=== PATIENT | female | born 1950 | race Caucasian/White ===

== ENCOUNTER 2019-09-05 18:06 | Inpatient (IN) | payer MEDICARE ==
[2019-09-05 21:20] LABS: ABS Lymphocytes 0.8 10^3/ul (1.0-4.8); ABS Neutrophils 19.1 10^3/ul (1.5-7.7); Hematocrit 30 % (35-47); Hemoglobin 9.9 g/dL (12.0-16.0); Lymphocyte % 3.9 %; Mean Corpuscular HGB Conc 33 g/dL (31-36); Mean Corpuscular Hemoglobin 29 pg (27-31); Mean Corpuscular Volume 87 fL (80-97); Mean Platelet Volume 8.5 fL (7.4-10.4); Platelet Count 198 10^3/uL (150-450); Red Blood Count 3.43 10^6 /uL (3.70-4.87); Red Cell Distribution Width 17 % (10-15)
[2019-09-05 21:30] LABS: Activated Partial Thrombo Time 27.3 seconds (26.0-38.0); INR 1.21 (0.82-1.09)
[2019-09-05] MEDS ORDERED: ZOSYN 3.375 GM x ONE DOSE over 30 miuntes IVPB ×2 (21:30)
[2019-09-05 21:32] LABS: Albumin 2.5 g/dL (3.2-5.2); Calcium 7.4 mg/dL (8.6-10.3); Potassium 3.1 mmol/L (3.5-5.0); Total Bilirubin 0.5 mg/dL (0.2-1.0)
[2019-09-05 21:38] LABS: BUN/Creatinine Ratio 10.9 (8-20); EGFR African American 59.9 (>60); EGFR Non-African American 49.5 (>60); Globulin 2.4 g/dL (2-4); Total Protein 4.9 g/dL (6.4-8.9)
[2019-09-05] MEDS ORDERED: Vancomycin(*) 1,250 MG IV x ONCE IVPB ONE ×2 (22:00)
[2019-09-05] MEDS ORDERED: Vancomycin per Pharmacy* NOTE FOLLOW UP SCH (22:00)
[2019-09-05] MEDS ORDERED: Zosyn per Pharmacy* NOTE FOLLOW UP SCH (22:00)
[2019-09-05] MEDS: HYDROmorphone INJ1* 1 MG/ML SYRINGE IV SLOW PU PRN (22:59)
[2019-09-06 00:49] LABS: Urine Appearance Turbid; Urine Bacteria Absent (Absent); Urine Bilirubin Negative (Negative); Urine Blood 2+ (Negative); Urine Color Yellow; Urine Glucose 1+(50 mg/dL) (Negative); Urine Ketones Trace (Negative); Urine Nitrite Negative (Negative); Urine Protein Negative (Negative); Urine Red Blood Cell 3+(>10/hpf) (Absent); Urine Specific Gravity 1.017 (1.010-1.030); Urine Squamous Epithelial Cell Present (Absent); Urine Uric Acid Crystals Present (Absent); Urine Urobilinogen Negative (Negative); Urine White Blood Cell 1+(6-10/hpf) (Absent)
[2019-09-06] MEDS: NS 0.9% 1000 ML** 1,000 ML IV SCH (00:53)
--- NOTE | 2019-09-06 01:38 | HP ---
CC: Shade Johnson DO * ADMISSION HISTORY AND PHYSICAL: DATE OF ADMISSION: 09/05/19 PRIMARY CARE PHYSICIAN: Shade Johnson DO CHIEF COMPLAINT: Altered mental status. HISTORY OF PRESENT ILLNESS: This is a 69-year-old female with past medical history of diabetes, type 2; essential hypertension; depression; anxiety; chronic back pain due to degenerative joint disease, on multiple doses of Dilaudid at home, was noted to be altered, so the took her to the ER at [facility] on Monday. The patient, on last Monday, according to the , was noted to be confused. Even prior to the Monday, she has not eaten or drank anything for 3 days. The only medication she took was her Dilaudid, which is 8 mg every 8 hours for her back pain and was confused even those 3 days , but she stopped talking on Monday completely and would not even recognize the at which point, he decided to bring her to the [facility] for further evaluation. History was obtained by talking to the on the phone and by reviewing the transfer summary from [facility]. According to the transfer summary, the patient presented with confusion, having a moderate amount of pain. CT of the head was negative and she was hemodynamically stable and afebrile, but her WBC was elevated and the UA was negative and no obvious source of infection was noted. She was initially started on Cipro and Flagyl, and CT of the abdomen and pelvis was performed, which did not show any definite abnormalities and CT of the head did not show any definite acute abnormalities either. Finally, an MRI of the thoracic and lumbar spine was done. There was no evidence of thoracic diskitis, but there was a disk herniation on T7 to T8 with left paracentral slightly impinging on the cord and the MRI of the lumbar spine suggested L2-L3 disk. It is essentially obliterated, but showed some slight enhancement of the adjacent endplates and fluid signal in the disk space compatible with diskitis, osteomyelitis, and this appears mild in its severity according to the read. Based on this read, the patient's case was discussed by the transferring physician for evaluation by a neurosurgeon as well. Her antibiotics were upgraded to vancomycin and Zosyn, and she was subsequently transferred here. Upon arrival here, the patient again was confuse, was only saying yes or no, was not answering any of the orientation questions. So, the rest of the history was obtained by talking to the and by reviewing old charts. PAST MEDICAL HISTORY: There is documentation of the patient having anemia; type 2 diabetes; depression; anxiety; essential hypertension; peptic ulcer disease; COPD, but not requiring any oxygen and according to the , hardly uses any inhaler; hypercholesterolemia. The patient does use large doses of diuretics due to leg swelling, but denied any congestive heart failure. PAST SURGICAL HISTORY: Include a gastric bypass surgery, which is a Angela-en-Y bypass surgery in 2013 at [facility], tubal ligation, EGD in 2016, spinal fusion surgery, neurostimulator implantation in her back which was later removed 2 years ago according to the . HOME MEDICATIONS: The patient is on metformin 1000 mg p.o. b.i.d., venlafaxine 37.5 orally daily, omeprazole 20 mg every morning, Zaroxolyn 5 mg oral daily, hydromorphone 8 mg q.8 hours p.r.n., gabapentin 600 mg p.o. t.i.d., and Bumex 2 mg p.o. daily. ALLERGIES: The patient is allergic to BETA-BLOCKERS, unknown reaction. FAMILY HISTORY: Noncontributory, although there is documentation that her mother had some cancer of unknown primary. SOCIAL HISTORY: She lives with her . She is a full code and her is the healthcare proxy. According to the , she quit smoking many years ago. REVIEW OF SYSTEMS: Unable to obtain. denied any previous nausea, vomiting, any abdominal pain that the patient was complaining about, any fever or chills prior to the 3 days of confusion. PHYSICAL EXAMINATION GENERAL: The patient is arousable, but again does not answer questions, but wakes up with verbal stimuli. VITAL SIGNS: Upon arrival to the hospital, BP was noted to be 139/81, heart rate was 90, respiration rate 16, saturating 100% on 4 L of nasal cannula, temperature was 97.9 temporally. HEENT: Bilateral pupils are reactive. Oral mucosa was dry. There was an NG tube placed, which the states is for feeding her and she has not eaten in many days. NECK: Supple. No jugular venous distention. LUNGS: Sound clear to auscultation bilaterally. HEART: S1 and S2. Regular rate and rhythm. ABDOMEN: Soft, nontender with even deep palpation. EXTREMITIES: The patient seems to be moving all 4 extremities and noted to have some tenderness. DIAGNOSTIC STUDIES/LABORATORY DATA: Upon reviewing old labs from [facility], the patient did have significant white count. Lactic acid was noted to be normal at 0.8. Most recent creatinine was noted to be 1.1. Random glucose was minimally elevated at 181 and white count was elevated at 23.3. Repeat labs at our current hospital are still pending. The imaging studies results were as already mentioned in the HPI. IMPRESSION: This is a 59-year-old female with multiple medical problems including type 2 diabetes, hypertension, chronic back pain, on multiple doses of pain medication, depression, anxiety, who came in for altered mental status, noted to have worsening back pain. MRI suggestive of diskitis and osteomyelitis. ASSESSMENT AND PLAN: 1. Sepsis secondary to diskitis. We will start the patient on vancomycin and Zosyn that was already started at [facility] and repeat a random vanco to dose appropriately. Pharmacy has been notified to adjust the dose as necessary. We will repeat all labs and start the patient on IV fluids. We will hold the diuretics for now that the patient was on and keep the patient n.p.o. and check fingerstick q.4 hours. We have already contacted Dr. Christie, who will evaluate the patient in the morning from neurosurgical point of view. 2. History of diabetes. As mentioned, we will keep the fingersticks checking to q.4 hours, but not start any of her oral hypoglycemics given the n.p.o. status. 3. History of essential hypertension. Hold the BP medications given her sepsis. We will check on her creatinine and see how the blood pressure monitors. 4. History of depression. Hold antidepressant medications. 5. History of chronic obstructive pulmonary disease, currently stable. 6. Code status. The patient is a full code with the , Rakesh Adams, being the healthcare proxy. 7. DVT prophylaxis with sequential compression device. Once the creatinine is back, we could consider Lovenox [id number]/[facility] #: [id number] [facility]
[2019-09-06] MEDS: KCL 10 MEQ/50 ML IVPREMIX* 10 MEQ/50 ML BAG IV SCH ×3 (03:29→09:34)
[2019-09-06 05:08] LABS: ABS Lymphocytes 1.1 10^3/ul (1.0-4.8); ABS Monocytes 0.8 10^3/ul (0-0.8); ABS Neutrophils 16.2 10^3/ul (1.5-7.7); Eosinophil % 0.2 %; Hematocrit 29 % (35-47); Hemoglobin 9.4 g/dL (12.0-16.0); Lymphocyte % 6.3 %; Mean Corpuscular HGB Conc 33 g/dL (31-36); Mean Corpuscular Hemoglobin 29 pg (27-31); Mean Corpuscular Volume 88 fL (80-97); Mean Platelet Volume 8.7 fL (7.4-10.4); Platelet Count 183 10^3/uL (150-450); Red Blood Count 3.28 10^6 /uL (3.70-4.87); Red Cell Distribution Width 17 % (10-15); White Blood Count 18.2 10^3/uL (3.5-10.8)
[2019-09-06 05:18] LABS: BUN/Creatinine Ratio 11.9 (8-20); Calcium 7.3 mg/dL (8.6-10.3); EGFR African American 66.2 (>60); EGFR Non-African American 54.7 (>60); Potassium 2.9 mmol/L (3.5-5.0)
[2019-09-06] MEDS ORDERED: ZOSYN 3.375 GM Q8H per EXTENDED INFUSION IVPB SCH ×2 (09:00)
[2019-09-06 10:18] LABS: Magnesium 1.6 mg/dL (1.9-2.7)
[2019-09-06] MEDS ORDERED: Magnesium Sulfate IV* 3 GM in NS 0.9% 100 ML* 100 ML IVPB ONE (11:00)
[2019-09-06 11:14] LABS: C Reactive Protein 145.54 mg/L (<8.01)
[2019-09-06] MEDS: Pantoprazole IV* 40 MG IV SCH (11:38)
[2019-09-06] MEDS ORDERED: cefTRIAXone(*) 2 GM in NS 0.9% 100 ML* 100 ML IVPB SCH (12:30)
[2019-09-06] MEDS: Vancomycin(*) 1,250 MG in NS 0.9% 250 ML* 250 ML IVPB SCH ×2 (13:33→22:48)
--- NOTE | 2019-09-06 13:35 | PN ---
Subjective Date of Service: 09/06/19 Interval History: Patient is becoming more alert and oriented today. Patient is able to recognize her family members and knows she is in the hospital, which is an improvement for her. Patient points to her epigastrum when asked about abdominal pain, but can't elaborate on the quality of the pain. Discussed with family, patient has been having chronic problems with intermittent severe abdominal pain, decreased memory and falls over the past several months. Family History: Unchanged from Admission Social History: Unchanged from Admission Past Medical History: Unchanged from Admission Objective Active Medications: Hydromorphone HCl (Dilaudid Inj1s*) 1 mg IV SLOW PU Q4H PRN PRN Reason: PAIN - SEVERE Sodium Chloride (Ns 0.9% 1000 Ml) 1,000 mls @ 100 mls/hr IV PER [facility] Last Admin: 09/06/19 00:53 Dose: 100 mls/hr Vancomycin HCl 1,250 mg/ (Sodium Chloride) 250 mls @ 166.667 mls/hr IVPB Q12H [facility] Potassium Chloride (Potassium Chloride 20 Meq/100 Ml Ivpremix*) 20 meq in 100 mls @ 50 mls/hr IV Q2H [facility] Stop: 09/06/19 15:59 Ceftriaxone Sodium 2 gm/ (Sodium Chloride) 100 mls @ 200 mls/hr IVPB Q24H [facility] Pantoprazole Sodium (Protonix Iv*) 40 mg IV DAILY [facility] Last Admin: 09/06/19 11:38 Dose: 40 mg Pharmacy Consult (Vancomycin Per Pharmacy*) 1 note FOLLOW UP .VANC PER PHARMACY CORTES; Protocol Pharmacy Profile Note (Vancomycin Trough Check) 1 note FOLLOW UP 1030 ONE Stop: 09/07/19 10:31 Vital Signs - 8 hr 09/06/19 09/06/19 09/06/19 09:30 09:45 11:41 Temperature 97.5 F 98.1 F Pulse Rate 74 77 Respiratory 20 20 16 Rate Blood Pressure 122/69 121/72 (mmHg) O2 Sat by Pulse 99 100 Oximetry Oxygen Devices in Use Now: Nasal Cannula Appearance: Patient is a 69yo female who appears stated age and is sitting in the bed in NAD. Eyes: No Scleral Icterus, PERRLA Ears/Nose/Mouth/Throat: NL Teeth, Lips, Gums, Clear Oropharnyx, Mucous Membranes Moist Neck: NL Appearance and Movements; NL JVP, Trachea Midline Respiratory: Symmetrical Chest Expansion and Respiratory Effort, Clear to Auscultation Cardiovascular: NL Sounds; No Murmurs; No JVD, RRR, No Edema Abdominal: NL Sounds; No Tenderness; No Distention, No Hepatosplenomegaly Lymphatic: No Cervical Adenopathy Extremities: No Edema, No Clubbing, Cyanosis Skin: No Rash or Ulcers, No Nodules or Sclerosis Neurological: - - Alert, Oriented to self and place. Able to move all extremities, very limited exam. Result Diagrams: 09/06/19 04:43 09/06/19 04:43 Assess/Plan/Problems-Billing Assessment: Patient is a 69yo female with a PMH for chronic back pain, intermittent abdominal pain and new severe encephalopathy with discitis who is improving on antibiotics and supportive care. - Patient Problems (1) Encephalopathy Current Visit: Yes Status: Acute Code(s): G93.40 - ENCEPHALOPATHY, UNSPECIFIED SNOMED Code(s): 21515791 Comment: - Severe, unclear cause - Possibly from accumulation of very high doses of narcotics due to dehydration - Possible also septic encephalopathy from spinal infection - Check MRI brain due to chronic nature of deficits and possibility of brain abscess - Improving, avoid sedatives if possible (2) Discitis Current Visit: Yes Status: Acute Code(s): M46.40 - DISCITIS, UNSPECIFIED, SITE UNSPECIFIED SNOMED Code(s): 0980371 Comment: - Unclear chronicity - Appreciate Neurosurgery and ID consult. - Continue Vanco and Cefepime - BC negative so far from [place] - Unclear source, limited utility in biopsy and not insignificant risk - Plan currently for skilled nursing antibiotics. (3) Chronic pain Current Visit: Yes Status: Acute Code(s): G89.29 - OTHER CHRONIC PAIN SNOMED Code(s): 92572338 Comment: - On very high doses of narcotics outpatient - PRN dilaudid inpatient - Reintroduce as needed (4) Falls Current Visit: Yes Status: Acute Comment: - Worsening over months. MRI brain scheduled per outpatient neurologist - Testing for secondary causes of neuropathy relatively normal - Possibly due to narcotics - PT when able. (5) DM II (diabetes mellitus, type II), controlled Current Visit: Yes Status: Acute Code(s): E11.9 - TYPE 2 DIABETES MELLITUS WITHOUT COMPLICATIONS SNOMED Code(s): 65240582 Comment: - Very poor oral intake, hold insulin at this time - Start SSI and add basal insulin when mental state improves. (6) DVT prophylaxis Current Visit: Yes Status: Acute Code(s): Z29.9 - ENCOUNTER FOR PROPHYLACTIC MEASURES, UNSPECIFIED SNOMED Code(s): 204059800 Comment: - Lovenox SubQ (7) Full code status Current Visit: Yes Status: Acute Code(s): Z78.9 - OTHER SPECIFIED HEALTH STATUS SNOMED Code(s): 946697220 Status and Disposition: Inpatient, will need skilled nursing antibiotics.
[2019-09-06] MEDS: KCL 20 MEQ/100 ML IVPREMIX* 20 MEQ/100 ML BAG IV SCH ×4 (13:38→19:55)
--- NOTE | 2019-09-06 13:44 | CONS ---
CONSULTATION REPORT: DATE OF CONSULT: 09/06/19 REQUESTING PROVIDER: JULES Stern. CONSULTING SERVICE: Infectious Disease. REASON FOR CONSULT: Spine infection. IMPRESSION: 1. Encephalopathy, present on admission here and at [facility], slowly improving, likely due to infectious etiology. 2. Vertebral osteodiscitis of the lumbar spine, MRI at [facility] showed no osteodiscitis or epidural abscess of the thoracic spine. No epidural abscess of the lumbar spine, but at the L2-L3 disc it was essentially obliterated with mild enhancement of adjacent end plates of the vertebral bodies and fluid signal in disc space compatible with vertebral osteodiscitis. Her blood cultures there have been negative. 3. Type 2 diabetes. 4. Chronic obstructive pulmonary disease. 5. History of lumbar spine fusion. 6. History of spine stimulator, which has been removed. RECOMMENDATION: Continue vancomycin goal trough 15 to 20 and change dosing the ceftriaxone for her component of gram negative coverage, we probably will not need the anaerobic component. She is going to be seen by Neurosurgery. Biopsy of this sort of abnormality is usually low yield microbiologically, so I do not think it is necessary. Because the infection does involve fusion hardware, she will likely be committed to life-long antibiotic suppression. HISTORY OF PRESENT ILLNESS: This is a 69-year-old woman admitted with encephalopathy. She cannot provide any history, which is obtained instead from review of the medical record and discussion with JULES Stern, and the patient's family including her . He notes that she has chronic low back pain for which she takes Dilaudid, but about a week ago, developed malaise and anorexia, including not taking her medications except for Dilaudid and worsening mental status changes, so he brought her to [facility]. She had antibiotics and blood cultures, which have been negative, some abdominal imaging and then MRI of the spine as noted above. Because of the findings on the spine MRI, she was transferred here last night. She had a chest x-ray done that was unremarkable. She was started on vancomycin and Zosyn. She has had no fever here. She has been normotensive. This morning, she is little more awake , opening her eyes, and answering some basic questions, which is an improvement for her. She denies pain anywhere. According to her , she does not have prosthetic material present other than the lumbar spine fixation hardware. She has not had fever, chills, or sweats at home. She has been having a neurology evaluation for some mental status changes, which have been more subtle and longstanding. She was to have an MRI of the brain ordered by Dr. Castillo as an outpatient. PAST MEDICAL HISTORY: 1. Type 2 diabetes. 2. Depression. 3. Anxiety. 4. Hypertension. 5. Peptic ulcer disease. 6. COPD. 7. Hyperlipidemia. 8. Status post gastric bypass surgery, Angela-en-Y in 2013. 9. Status post tubal ligation. 10. Status post lumbar spine fusion in the distant past. 11. Status post spine stimulator placement and then removal about 2 years ago. MEDICATIONS: 1. Hydromorphone injection. 2. Pantoprazole IV daily. 3. Zosyn 3.375 g every 8 hours by extended infusion. 4. Vancomycin 1250 mg IV every 12 hours. ALLERGIES: BETA-LORI. FAMILY HISTORY: Mother had malignancy. SOCIAL HISTORY: She lives with her in [place]. She is a past smoker. No injection drugs. REVIEW OF SYSTEMS: Unobtainable given her current mental status. PHYSICAL EXAM: Vital Signs: Temperature 36.4, heart rate 74, respiratory rate 20, blood pressure 122/69, oxygen saturation 99% on 3 L by nasal cannula. In general, she is awake and not in distress. Neurologic: She regards. She answers questions yes or no. She will follow commands, but she is not oriented to person or place or time. Strength is 5/5 at the quadriceps, tibialis anterior, gastrocnemius bilaterally. There is no bilateral lower extremity clonus. HEENT: There is no conjunctival hemorrhage. Oropharynx without lesions. Mucous membranes are dry. Neck: Supple without mass. Heart is regular rate and rhythm without murmurs, rubs, or gallops. Lungs are clear to auscultation bilaterally. Abdomen is soft , nontender, nondistended. Bowel sounds are present. Skin: There are no rashes or splinter hemorrhages. Musculoskeletal: There is lumbar spine tenderness to palpation. DIAGNOSTIC STUDIES/LAB DATA: White blood cell count is 18, down from 21; hemoglobin 9; MCV 88; platelets 183. Creatinine is 1. CRP is 145. Random vancomycin is 9.9. Urinalysis showed blood, 1+ white cells, trace leukocyte esterase. Please see impressions and recommendations as outlined above. I discussed with JULES Stern. Thanks for asking me to see Bryan in consultation. [id number]/[facility] #: [id number] PHU
--- NOTE | 2019-09-06 14:43 | CONS ---
CONSULTATION REPORT: DATE OF CONSULT: 09/06/19 HISTORY OF PRESENT ILLNESS: is a 69-year-old female who was transferred from [place] on 09/05/19 to our facility. At that time, she was brought in by her who noticed that the patient became less responsive and less verbal. The patient has a history of low back pain and was prescribed Dilaudid 8 mg every 8 hours to control her back pain according to the H and P on file. The patient became less verbally responsive to her and became more confused. She completed imaging at [facility], which showed possible diskitis in the lumbar spine at L3, so Neurosurgery was consulted to evaluate the patient. The patient is a poor historian, only answers questions yes or no, cannot recall why she was being brought here or cannot elaborate on her pain symptoms. According to nursing, the patient has acute issues with bladder and bowel incontinence, but this is a new development. PAST MEDICAL HISTORY: Information from the chart indicates: 1. Type 2 diabetes. 2. Anxiety. 3. Hypertension. 4. Peptic ulcer. 5. COPD. 6. High cholesterol. PAST SURGICAL HISTORY: 1. Gastric bypass. 2. Tubal ligation. 3. EGD. 4. Spinal fusion. 5. Neurostimulator implantation, but was removed 2 years ago. MEDICATIONS: 1. Metformin 1000 mg b.i.d. 2. Omeprazole 20 mg every morning. 3. Zaroxolyn 5 mg daily. 4. Hydromorphone 8 mg q.8 hours. 5. Gabapentin 600 mg p.o. t.i.d. 6. Bumex 2 mg p.o. daily. 7. Venlafaxine 37.5 mg daily. PHYSICAL EXAM: Vital Signs: Blood pressure 121/72, pulse rate 77, temp is 98.1 , O2 saturation 100% on room air. General: The patient is lying in bed, asleep , does not appear to be under any acute distress, has nasal cannula in for oxygen, also nasogastric tube as well. Neuro: The patient opens her eyes to command. She is alert and oriented to her name and date and is unaware where she is and aware of the date and time. EOMs are intact. Cranial nerves II through XII grossly intact without impairment. Pupils are equal in size. Upper extremity motor strength 5/5 throughout. Lower extremity motor strength 5 /5 throughout. Moves all extremities. Sensation is intact throughout. No clonus. No Babinski. Deep tendon reflexes 2+/4 throughout. ASSESSMENT: A 69-year-old female with suspected diskitis with possible complaint of low back pain. The patient is unable to verbalize chief complaint. Has history of fusion from L3, L4, L5 and S1 with hardware in place as seen on x-ray done on 07/06/19. MRI completed 09/05/19. MRI shows moderate- to-severe degenerative changes, loss of disk height at L2-L3. There also appeared to be a spondylolisthesis at L3-L4 and some hyperintensity seen at endplate at L2-L3 possibly representing osteomyelitis. The patient also has elevated white count upon admission that appears to be trending down since starting on the vanco and Zosyn. Also has possible urinary tract infection as well. PLAN: I discussed this case with Dr. Christie, who recommends that the patient continue antibiotics, also the patient will possibly need a CT scan biopsy to verify osteomyelitis. Conservative treatment is recommended at this time. The patient will possibly need surgery in the future once infection is controlled. JULES SMITH [id number]/[facility] #: [id number] PHU
[2019-09-06] MEDS: Cyanocobalamin TAB* 500 MCG PO SCH (15:57)
[2019-09-06] MEDS: cefTRIAXone(*) 2 GM in NS 0.9% 100 ML* 100 ML IVPB SCH (16:58)
--- NOTE | 2019-09-06 18:16 | PN ---
Progress Note - Progress Note Date of Service: 09/06/19 SOAP: Subjective: []Patient seen and examined. No events ON. Attempted to stand earlier but was not able due to pain and LE weakness per nurse. Does not recall why she is here. Has c/o abdominal pain, chronic back pain. Denies urinary or GI incontinence. Objective: []VSS AAOx2-3, BRIAN, CN II-XII grossly intact Motor 5/5 UE, LE: 2-3/5 HF, KE, 4-5/5 foot DF, EHL, PF bernard Sensory grossly intact to light touch, exam limited due to mental status DTR +1 , no clonus, no Babinski, Floyd's neg Assessment: []69 yof possible discitis /osteomyelitis Plan: [] Imaging reviewed. CT reveals postop changes from previous L3S1 pedicle screws and PL arthrodesis, DDD with disc vacuum phenomenon at L2-3 with mild kyphosis MRI reveals similar findings with increased signal at L2-3. Possible discitis. MRI of T spine did not reveal cord compression. On ABx per ID Recommend TLSO brace Upright XR in brace if tolerated. May consider extension of instrumentation if needed and medically stable to tolerate procedure. MRI brain pending, after obtaining spinal hardware info from [place]. Appreciate IM, ID care. Nathalie Christie MD
[2019-09-06] MEDS: HYDROmorphone INJ1* 1 MG/ML SYRINGE IV SLOW PU PRN ×2 (19:54→23:05)
[2019-09-06] MEDS: Ondansetron INJ* 2 MG/ML VIAL IV PRN (23:06)
[2019-09-06] MEDS: Gabapentin CAP(*) 300 MG PO SCH (23:12)
[2019-09-07 06:22] LABS: ABS Eosinophils 0.1 10^3/ul (0-0.6); ABS Monocytes 0.7 10^3/ul (0-0.8); ABS Neutrophils 8.8 10^3/ul (1.5-7.7); Eosinophil % 1.2 %; Hematocrit 28 % (35-47); Hemoglobin 9.1 g/dL (12.0-16.0); Lymphocyte % 17.1 %; Mean Corpuscular HGB Conc 33 g/dL (31-36); Mean Corpuscular Hemoglobin 28 pg (27-31); Mean Corpuscular Volume 87 fL (80-97); Mean Platelet Volume 8.8 fL (7.4-10.4); Platelet Count 179 10^3/uL (150-450); Red Blood Count 3.21 10^6 /uL (3.70-4.87); Red Cell Distribution Width 17 % (10-15); White Blood Count 11.7 10^3/uL (3.5-10.8)
[2019-09-07] MEDS: HYDROmorphone INJ1* 1 MG/ML SYRINGE IV SLOW PU PRN ×2 (06:35→21:05)
[2019-09-07 06:41] LABS: Albumin 2.3 g/dL (3.2-5.2); BUN/Creatinine Ratio 12.1 (8-20); Calcium 7.5 mg/dL (8.6-10.3); EGFR African American 67.7 (>60); EGFR Non-African American 55.9 (>60); Globulin 2.3 g/dL (2-4); Magnesium 2.1 mg/dL (1.9-2.7); Potassium 3.3 mmol/L (3.5-5.0); Total Bilirubin 0.2 mg/dL (0.2-1.0); Total Protein 4.6 g/dL (6.4-8.9)
[2019-09-07] MEDS: KCL 20 MEQ/100 ML IVPREMIX* 20 MEQ/100 ML BAG IV SCH ×3 (09:40→15:19)
[2019-09-07] MEDS: Venlafaxine EXT RELEASE CAP* 37.5 MG PO SCH (09:51)
[2019-09-07] MEDS: Gabapentin CAP(*) 300 MG PO SCH ×3 (09:51→21:14)
[2019-09-07] MEDS: Pantoprazole IV* 40 MG IV SCH (09:52)
[2019-09-07] MEDS: Cyanocobalamin TAB* 500 MCG PO SCH (09:52)
[2019-09-07] MEDS: NS 0.9% 1000 ML** 1,000 ML IV SCH (09:53)
[2019-09-07] MEDS ORDERED: Vancomycin Trough Check NOTE FOLLOW UP ONE (10:30)
[2019-09-07] MEDS ORDERED: NS 0.9% 1000 ML** 1,000 ML IV SCH (10:34)
[2019-09-07 11:00] LABS: EGFR African American 58.7 (>60); EGFR Non-African American 48.5 (>60)
[2019-09-07] MEDS ORDERED: Iodixanol* (CONTRAST) 320 MG/ML 100 ML SDV IV ONE (11:17)
[2019-09-07 11:23] LABS: Vancomycin Trough 27.7 mcg/mL
[2019-09-07] MEDS: Vancomycin(*) 1,250 MG in NS 0.9% 250 ML* 250 ML IVPB SCH (12:27)
--- NOTE | 2019-09-07 14:01 | PN ---
Progress Note - Progress Note Date of Service: 09/07/19 SOAP: Subjective: []Patient seen and examined. No events ON. Has c/o abdominal pain, chronic back pain. Denies urinary or GI incontinence. Feels better today. Family at bed side including , daughter niece. Discussed patient's history in details. Patient is reported to have undergone a lumbar arthrodesis with instrumentation in [place] 20 years ago. Preoperatively she had significant axial back pain that improved after surgery. 10 years ago she had a SCS that helped with her pain until 3 yers ago, when it was removed and the wound was healed with secondary intention. Since then she has been having progressively increasing back pain with difficulty ambulating and frequent falls. Patient started to use a cane and had progressive kyphosis, while the last two months she has been using a walker. No LEs pain or radicular symptoms as the patient reports. She presented to previous hospital with AMS and speech difficulties. MRI revealed L2 -3 possible discitis and was started on Abx per Dr Garcia. Her mental status improved. Tolerates PO. Not able to ambulate because of pain and LE weakness. Objective: []VSS, Afebrile AAOx3, BRIAN, CN II-XII grossly intact Motor 5/5 UE, LE: 3/5 HF, KE, 4-5/5 foot DF, EHL, PF bernard Sensory grossly intact to light touch DTR +1 , no clonus, no Babinski, Floyd's neg Wound soft clean , dry. No tenderness to palpation C,T,L spine. FROM c spine. Assessment: []69 yof hx of DM, previous instrumented arhrodesis with possible discitis / osteomyelitis and proximal junctional failure. Plan: [] Imaging reviewed. Abdominal XR reveals dawna fracture . Previous imaging was reviewed in [facility] 01/30/2019.reveals similar changes with dawna fracture and postop changes from previous L3S1 pedicle screws and PL arthrodesis, DDD with disc vacuum phenomenon at L2-3 with mild kyphosis MRI of lumbar spine from 01/18/2019 does not reveal increased STIR signal changes in L2-3, in my review. Discussed in extend with family regarding imaging findings and possible diagnosis with possible spine instability. Patient may need surgical intervention in the form of revision of arthrodesis and extension of arthrodesis and instrumentation to thoracic spine and possible pelvis. Discussed treatment options including bracing and Abx with risks and benefits, expectations, limitations and possible complications of surgical intervention with complications including, but not limited to bleeding, infection, risk of injury to adjucent structures, coma, paralysis, , stroke, blindness, cancer , instability, hardware failure, pseudoarthrosis, adjacent level disease with proximal or distal junctional failure and need for additional procedures, CSF leak, loss of bladder or bowel control, injury to intrabdominal or intrathoracic organs, DVT, PE, need for tracheostomy, gastrostomy, prolonged ICU stay, prolonged hospitalization and prolonged rehabilitation, scar formation , anesthesia risks. Family understood that patient may not improve and in fact may get worse after surgery and that there is a 60-80% complication rate associated with these procedures. Also understood the risk associated with spinal instability including permanent neurological injury, paralysis and and the risks associated with prolonged bed rest, including DVT, PE. Patient and family with consider all options prior to making final decision. Understand that patient will need IM, anesthesia and possible cardiology clearance prior to surgery. Would recommend obtaining CT of lumbar spine, including T7 and scoliosis XR in upright position with brace if tolerated or supine position otherwise. Operative report from previous hospital pending. TLSO brace pending. On ABx per ID Appreciate IM, ID care. Nathalie Christie MD
--- NOTE | 2019-09-07 14:44 | PN ---
Subjective Date of Service: 09/07/19 Interval History: Patient is much more alert today. Patient complains of abdominal pain in the LLQ that is sharp and is radiating from the front to the back. Patient complains of no pain in her back at this time. Patient denies F/C, N/V, CP, SOB , Patient knows where she is, but does not know what year it is. Patient's family is very concerned about her progressive memory issues. Family History: Unchanged from Admission Social History: Unchanged from Admission Past Medical History: Unchanged from Admission Objective Active Medications: Cyanocobalamin (Vitamin B12 Tab*) 1,000 mcg PO DAILY [facility] Last Admin: 09/07/19 09:52 Dose: 1,000 mcg Gabapentin (Neurontin Cap(*)) 600 mg PO TID [facility] Last Admin: 09/07/19 14:27 Dose: 600 mg Hydromorphone HCl (Dilaudid Inj1s*) 1 mg IV SLOW PU Q3H PRN PRN Reason: PAIN - SEVERE Last Admin: 09/07/19 06:35 Dose: 1 mg Ceftriaxone Sodium 2 gm/ (Sodium Chloride) 100 mls @ 200 mls/hr IVPB 1600 [facility] Last Admin: 09/06/19 16:58 Dose: 200 mls/hr Potassium Chloride (Potassium Chloride 20 Meq/100 Ml Ivpremix*) 20 meq in 100 mls @ 50 mls/hr IV Q2H [facility] Stop: 09/07/19 15:59 Last Admin: 09/07/19 13:13 Dose: 50 mls/hr Sodium Chloride (Ns 0.9% 1000 Ml) 1,000 mls @ 50 mls/hr IV PER RATE [facility] Last Admin: 09/07/19 11:48 Dose: 50 mls/hr Vancomycin HCl 1,000 mg/ (Sodium Chloride) 250 mls @ 166.667 mls/hr IVPB Q12H [facility] Ondansetron HCl (Zofran Inj*) 4 mg IV Q6H PRN PRN Reason: NAUSEA Last Admin: 09/06/19 23:06 Dose: 4 mg Pantoprazole Sodium (Protonix Iv*) 40 mg IV DAILY [facility] Last Admin: 09/07/19 09:52 Dose: 40 mg Pharmacy Consult (Vancomycin Per Pharmacy*) 1 note FOLLOW UP .VANC PER PHARMACY [facility]; Protocol Pharmacy Profile Note (Vancomycin Trough Check) 1 note FOLLOW UP 929 ONE Stop: 09/09/19 09:31 Venlafaxine HCl (Effexor Xr Cap*) 37.5 mg PO DAILY [facility] Last Admin: 09/07/19 09:51 Dose: 37.5 mg Vital Signs - 8 hr 09/07/19 09/07/19 09/07/19 08:00 08:46 09:37 Temperature 97.6 F Pulse Rate 72 Respiratory 16 18 18 Rate Blood Pressure 127/73 (mmHg) O2 Sat by Pulse 97 Oximetry 09/07/19 09/07/19 09/07/19 09:51 12:00 13:08 Temperature 97.8 F Pulse Rate 76 Respiratory 18 18 18 Rate Blood Pressure 131/76 (mmHg) O2 Sat by Pulse Oximetry 09/07/19 14:27 Temperature Pulse Rate Respiratory 18 Rate Blood Pressure (mmHg) O2 Sat by Pulse Oximetry Oxygen Devices in Use Now: None Appearance: Patient is a 69yo female who appears stated age and is sitting in the bed in [facility]. Eyes: No Scleral Icterus, PERRLA Ears/Nose/Mouth/Throat: NL Teeth, Lips, Gums, Clear Oropharnyx, Mucous Membranes Moist Neck: NL Appearance and Movements; NL JVP, Trachea Midline Respiratory: Symmetrical Chest Expansion and Respiratory Effort, Clear to Auscultation Cardiovascular: NL Sounds; No Murmurs; No JVD, RRR, No Edema Abdominal: NL Sounds; No Tenderness; No Distention, No Hepatosplenomegaly, - - No Tenderness to palpation in LLQ. Lymphatic: No Cervical Adenopathy Extremities: No Clubbing, Cyanosis Skin: No Nodules or Sclerosis Neurological: - - Alert, Oriented to self and place. 5/5 strength in RUE, 4/5 in LUE, CN II-XII intact. 4-/5 strength in B/L LE. Reflexes trace throughout. Result Diagrams: 09/07/19 05:43 09/07/19 10:32 Microbiology and Other Data: Microbiology 09/06/19 00:30 Urine Culture - Final Urine No Growth (<1,000 CFU/mL) 09/05/19 21:07 Aerobic Blood Culture - Preliminary Blood Venous No Growth Day 1 Anaerobic Blood Culture - Preliminary No Growth Day 1 09/05/19 21:10 Aerobic Blood Culture - Preliminary Blood Venous No Growth Day 1 Anaerobic Blood Culture - Preliminary No Growth Day 1 Assess/Plan/Problems-Billing Assessment: Patient is a 69yo female with a PMH for chronic back pain, intermittent abdominal pain and new severe encephalopathy with discitis who is improving on antibiotics and supportive care. - Patient Problems (1) Encephalopathy Current Visit: Yes Status: Acute Code(s): G93.40 - ENCEPHALOPATHY, UNSPECIFIED SNOMED Code(s): 34570638 Comment: - Severe, unclear cause - Possibly from accumulation of very high doses of narcotics due to dehydration - Possible also septic encephalopathy from spinal infection - Appreciate Neuro Consult, Believed to be mostly due to medication effect in both the long and short term - CT brain shows no Acute process, Basal Ganglia stroke possibly represents Cyst and not a stroke. - Improving, avoid sedatives if possible (2) Discitis Current Visit: Yes Status: Acute Code(s): M46.40 - DISCITIS, UNSPECIFIED, SITE UNSPECIFIED SNOMED Code(s): 6975233 Comment: - Unclear chronicity, Likely not present due to normal CRP and ESR normal on - Appreciate Neurosurgery and ID consult. 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 - Possible need for additional spinal fusion not contraindicated by current discitis. (3) Kyphosis Current Visit: Yes Status: Acute Comment: - Worsening kyphosis per patient report - Neurosurgery consult appreciated - Get and Apply TLSO brace - High risk for progression, currently family weighing the pros and cons of surgery - Very high complication risk with surgery, but also high risk of progression to possible paralysis without surgery - Will obtain echo for preoperative risk stratification due to LE edema. Will need preoperative Anesthesia consult (4) Chronic pain Current Visit: Yes Status: Acute Code(s): G89.29 - OTHER CHRONIC PAIN SNOMED Code(s): 45870633 Comment: - On very high doses of narcotics outpatient - PRN dilaudid inpatient - Reintroduce as needed, will attempt to reduce dose and possibly get inpatient pain control consult - Has been on consistent dose since at least 08/2018, unclear why there is now greater encephalopathy. (5) Falls Current Visit: Yes Status: Acute Comment: - Worsening over months. MRI brain scheduled per outpatient neurologist - Testing for secondary causes of neuropathy relatively normal - Possibly due to narcotics - PT when able. - Start B12 for borderline low B12 level. (6) Abdominal pain Current Visit: Yes Status: Acute Code(s): R10.9 - UNSPECIFIED ABDOMINAL PAIN SNOMED Code(s): 16401627 Comment: - Severe, CT A/P negative at OSH - Not reproducible with palpation - Unchanged with food or movement - Given other negative exams and nature of pain, most likely due to thoracic disc disease, continue pain control PRN (7) DM II (diabetes mellitus, type II), controlled Current Visit: Yes Status: Acute Code(s): E11.9 - TYPE 2 DIABETES MELLITUS WITHOUT COMPLICATIONS SNOMED Code(s): 45073858 Comment: - Very poor oral intake, hold insulin at this time - Start SSI or metformin when indicated. (8) Lower extremity edema Current Visit: Yes Status: Acute Code(s): R60.0 - LOCALIZED EDEMA SNOMED Code(s): 928266953 Comment: - History of severe LE edema on Bumex and Metolazone - Repeat Echo, previous unremarkable - Hold diuretics at this time due to poor oral intake and no LE edema. (9) DVT prophylaxis Current Visit: Yes Status: Acute Code(s): Z29.9 - ENCOUNTER FOR PROPHYLACTIC MEASURES, UNSPECIFIED SNOMED Code(s): 553557789 Comment: - Lovenox SubQ (10) Full code status Current Visit: Yes Status: Acute Code(s): Z78.9 - OTHER SPECIFIED HEALTH STATUS SNOMED Code(s): 628610703 Status and Disposition: Inpatient, will need retirement antibiotics and possible extensive neurosurgery.
--- NOTE | 2019-09-07 15:01 | CONS ---
CC: Dr. Christie; Dr. Shade Johnson NEUROLOGY CONSULTATION: DATE OF CONSULT: 09/07/19 LOCATION: She is an inpatient in room 436. REFERRING PROVIDER: JULES Stern CHIEF COMPLAINT: Mental status changes. HISTORY OF PRESENT ILLNESS: Rosa Isela Adams is a 69-year-old woman who was transferred from [facility] on 09/05/19 with confusion and signs of infection. According to admission records, she had been confused for about a week. She takes Dilaudid chronically for back pain, but she was confused and lethargic more than she normally is. She was taken to [facility] where she had an elevated white blood cell count and she was started on ciprofloxacin and Flagyl. She had an MRI of the thoracic and lumbar spine, which revealed thoracic disk herniation at T7-T8 and evidence of diskitis of the lumbar spine at L2-3. She has instrumentation in that region from prior surgeries. Currently, she says that she feels pretty well. She denies headache. She feels her pain is under control. She says that she has been here "a couple of days, but doesn't remember exactly coming over." PAST MEDICAL HISTORY: Notable for type 2 diabetes, depression, anxiety, hypertension, COPD, peptic ulcer disease, hyperlipidemia, chronic back pain, chronic lower extremity lymphedema. PAST SURGICAL HISTORY: Notable for bariatric surgery, spinal fusion surgery, neurostimulator implantation, which was later removed. MEDICATIONS: Medications in home are listed as: 1. Metformin 1000 mg p.o. b.i.d. 2. Venlafaxine 37.5 mg p.o. daily. 3. Omeprazole 20 mg p.o. daily. 4. Zaroxolyn 5 mg p.o. daily. 5. Hydromorphone 8 mg q.8 hours as needed. 6. Gabapentin 600 mg p.o. t.i.d. 7. Bumex 2 mg p.o. daily. Current medications here also include: 1. Vitamin B12 orally 1000 mcg p.o. daily. 2. Ceftriaxone 2 g IV daily. 3. Gabapentin 600 mg p.o. t.i.d. 4. Hydromorphone 1 mg IV q.3 hours as needed for severe pain. 5. Zofran 4 mg IV q.6 hours as needed for nausea. 6. Protonix 40 mg IV daily. 7. Vancomycin per pharmacy dosing protocol. 8. Venlafaxine 37.5 mg p.o. daily. ALLERGIES: She is listed as having allergy to BETA-BLOCKERS. REVIEW OF SYSTEMS: The patient currently negative for headaches or double vision. She denies twitching or tremor, but says that for about a month or more , she noted her handwriting is very shaky. She denies current shortness of breath. PHYSICAL EXAM: She is well nourished and well hydrated. Most recent vital signs: Temperature 97.8, blood pressure 131/76, heart rates in the 70s and seems regular, respiratory rate is 18, and oxygen saturation is 97% on room air. Neck is supple. There are no cervical bruits. Oral mucosa is moist and atraumatic. Neurologically, pupils are small and about 2.5 mm and reacting to light to 2 mm. Eye movements are full without nystagmus. Visual frost are full to confrontation. Funduscopic exam reveals sharp discs bilaterally. Facial musculature is symmetric. Facial sensation to light touch is symmetric. Speech is soft and somewhat monotone, but clear. Palate rises symmetrically and there is no dysarthria. Motor exam reveals no spasticity or rigidity. There is no rest or action tremor. There is no pronator drift. Mental status testing finds her to be oriented to [facility], [facility] and [place], but does not know the state nor the [facility]. She knows it is August, fall, and 2018, but does not know the date. She does not know the day initially, but then comes up with it spontaneously about a half a minute later. She is able to recall 3/3 items after several minutes. Language is simple, but fluent. DIAGNOSTIC STUDIES/LAB DATA: Laboratory data since she has been here includes a CT scan of the brain interpreted as showing a chronic lacunar infarction in the right basal ganglia. I reviewed the images and I am not sure it is not a choroidal cyst in the right temporal horn of the lateral ventricle. There are no other abnormalities suggestive of cerebrovascular disease. Her chemistries today notable for potassium of 3.3 and otherwise unremarkable. Creatinine is 1.12 which is similar to historical norms. Glucose is 116 and rest of her electrolytes are unremarkable. Calcium this morning is 7.5 with an albumin of 2.3. Her ammonia level when she presented was normal at 40. C- reactive protein was markedly elevated at 145. She had a normal vitamin B12 level and TSH at [facility] in the records. IMPRESSION AND PLAN: Impression is that of metabolic encephalopathy secondary to systemic infection. Additionally, her opiate analgesia is likely contributed to her cognitive impairment. Currently, she is exhibiting slowness cognitively, but accurate short term memory to limited extent and some level of disorientation, which is relatively moderate. I do not currently see a need for any additional laboratory studies that I would order at this point regarding her cognition. I had spoken with Fabian Anderson earlier about a study to look for cerebral abscess and since she cannot get an MRI scan, I would recommend getting a CT scan of the brain with contrast. I will continue to follow her along with you at least until the imaging is complete and her mentation shows continued clearing. [id number]/[facility] #: [id number] PHU
[2019-09-07] MEDS ORDERED: NS 0.9% 100 ML* 100 ML ONE (16:28)
[2019-09-07] MEDS: cefTRIAXone(*) 2 GM in NS 0.9% 100 ML* 100 ML IVPB SCH (17:16)
[2019-09-07] MEDS: Vancomycin(*) 1,000 MG in NS 0.9% 250 ML* 250 ML IVPB SCH (22:41)
[2019-09-08] MEDS: HYDROmorphone INJ1* 1 MG/ML SYRINGE IV SLOW PU PRN ×2 (08:52→14:02)
[2019-09-08] MEDS: Pantoprazole IV* 40 MG IV SCH (08:53)
[2019-09-08] MEDS: Gabapentin CAP(*) 300 MG PO SCH ×3 (08:55→20:24)
[2019-09-08] MEDS: Venlafaxine EXT RELEASE CAP* 37.5 MG PO SCH (08:56)
[2019-09-08] MEDS: Cyanocobalamin TAB* 500 MCG PO SCH (08:56)
[2019-09-08 09:32] LABS: ABS Eosinophils 0.1 10^3/ul (0-0.6); ABS Lymphocytes 1.4 10^3/ul (1.0-4.8); ABS Monocytes 0.4 10^3/ul (0-0.8); ABS Neutrophils 4.8 10^3/ul (1.5-7.7); Eosinophil % 1.9 %; Hematocrit 32 % (35-47); Hemoglobin 10.3 g/dL (12.0-16.0); Lymphocyte % 19.9 %; Mean Corpuscular HGB Conc 33 g/dL (31-36); Mean Corpuscular Hemoglobin 29 pg (27-31); Mean Corpuscular Volume 87 fL (80-97); Mean Platelet Volume 8.4 fL (7.4-10.4); Platelet Count 185 10^3/uL (150-450); Red Blood Count 3.62 10^6 /uL (3.70-4.87); Red Cell Distribution Width 18 % (10-15); White Blood Count 6.8 10^3/uL (3.5-10.8)
[2019-09-08 09:52] LABS: BUN/Creatinine Ratio 7.2 (8-20); Calcium 7.7 mg/dL (8.6-10.3); EGFR Non-African American 33.9 (>60); Magnesium 2.1 mg/dL (1.9-2.7); Potassium 4.1 mmol/L (3.5-5.0)
[2019-09-08] MEDS: Vancomycin(*) 1,000 MG in NS 0.9% 250 ML* 250 ML IVPB SCH (10:30)
[2019-09-08] MEDS ORDERED: Dextrose 50% Syringe 50 ML* 25 GM/50 ML SYRINGE IV PUSH PRN (12:39)
--- NOTE | 2019-09-08 13:57 | PN ---
Subjective Date of Service: 09/08/19 Interval History: Patient is having increased back pain this morning that woke her up from sleep. Patient states her abdominal pain is diminished today. Patient is much more alert today. Patient denies F/C, N/V, abdominal pain, diarrhea, constipation, CP , SOB, or other pain. Patient was unable to stand today due to weakness and pain. Family History: Unchanged from Admission Social History: Unchanged from Admission Past Medical History: Unchanged from Admission Objective Active Medications: Cyanocobalamin (Vitamin B12 Tab*) 1,000 mcg PO DAILY [facility] Last Admin: 09/08/19 08:56 Dose: 1,000 mcg Dextrose (D50w Syringe 50 Ml*) 25 gm IV PUSH .FOR FS < 60 - SS PRN PRN Reason: FS < 60 Gabapentin (Neurontin Cap(*)) 600 mg PO TID [facility] Last Admin: 09/08/19 08:55 Dose: 600 mg Hydromorphone HCl (Dilaudid Inj1s*) 1 mg IV SLOW PU Q3H PRN PRN Reason: PAIN - SEVERE Last Admin: 09/08/19 08:52 Dose: 1 mg Ceftriaxone Sodium 2 gm/ (Sodium Chloride) 100 mls @ 200 mls/hr IVPB 1600 [facility] Last Admin: 09/07/19 17:16 Dose: 200 mls/hr Ondansetron HCl (Zofran Inj*) 4 mg IV Q6H PRN PRN Reason: NAUSEA Last Admin: 09/06/19 23:06 Dose: 4 mg Pantoprazole Sodium (Protonix Tab*) 40 mg PO QAM [facility] Pharmacy Consult (Vancomycin Per Pharmacy*) 1 note FOLLOW UP .VANC PER PHARMACY [facility]; Protocol Pharmacy Consult (Vancomycin Random Level*) 1 note FOLLOW UP 0600 ONE Stop: 09/09/19 06:01 Venlafaxine HCl (Effexor Xr Cap*) 37.5 mg PO DAILY [facility] Last Admin: 09/08/19 08:56 Dose: 37.5 mg Vital Signs - 8 hr 09/08/19 09/08/19 08:52 08:55 Respiratory 20 20 Rate Oxygen Devices in Use Now: None Appearance: Patient is a 69yo female who appears stated age and is sitting in the bed in [facility]. Eyes: No Scleral Icterus, PERRLA Ears/Nose/Mouth/Throat: NL Teeth, Lips, Gums, Clear Oropharnyx, Mucous Membranes Moist Neck: NL Appearance and Movements; NL JVP, Trachea Midline Respiratory: Symmetrical Chest Expansion and Respiratory Effort, Clear to Auscultation Cardiovascular: NL Sounds; No Murmurs; No JVD, RRR, - - LUE edema. Abdominal: NL Sounds; No Tenderness; No Distention, No Hepatosplenomegaly Lymphatic: No Cervical Adenopathy Extremities: No Clubbing, Cyanosis Skin: No Nodules or Sclerosis Neurological: Alert and Oriented x 3, NL Sensation, - - CN II-XII intact. Much more alert today. Weakness in B/L LE. Result Diagrams: 09/08/19 09:14 09/08/19 09:14 Microbiology and Other Data: Microbiology 09/06/19 00:30 Urine Culture - Final Urine No Growth (<1,000 CFU/mL) 09/05/19 21:07 Aerobic Blood Culture - Preliminary Blood Venous No Growth Day 1 Anaerobic Blood Culture - Preliminary No Growth Day 1 09/05/19 21:10 Aerobic Blood Culture - Preliminary Blood Venous No Growth Day 1 Anaerobic Blood Culture - Preliminary No Growth Day 1 Assess/Plan/Problems-Billing Assessment: Patient is a 69yo female with a PMH for chronic back pain, intermittent abdominal pain and new severe encephalopathy with discitis who is improving on antibiotics and supportive care. - Patient Problems (1) Encephalopathy Current Visit: Yes Status: Acute Code(s): G93.40 - ENCEPHALOPATHY, UNSPECIFIED SNOMED Code(s): 88292878 Comment: - Severe, unclear cause, improved greatly with decreased doses of narcotics. - Possibly from accumulation of very high doses of narcotics due to dehydration - Possible also septic encephalopathy from spinal infection, improving with antibiotics. - Appreciate Neuro Consult, Believed to be mostly due to medication effect in both the long and short term - CT brain shows no Acute process, Basal Ganglia stroke likely represents Cyst and not a stroke. - Improving, avoid sedatives if possible (2) Discitis Current Visit: Yes Status: Acute Code(s): M46.40 - DISCITIS, UNSPECIFIED, SITE UNSPECIFIED SNOMED Code(s): 3427417 Comment: - Unclear chronicity, Likely not present due to normal CRP and ESR normal on - Appreciate Neurosurgery and ID consult. 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 - Possible need for additional spinal fusion not contraindicated by current discitis. (3) Kyphosis Current Visit: Yes Status: Acute Comment: - Worsening kyphosis per patient report - Neurosurgery consult appreciated - Get and Apply TLSO brace when out of bed, Scoliosis XR pending to assess stability, unable to be performed upright. - High risk for progression, Patient is opting for surgery at this time. - Very high complication risk with surgery, but also high risk of progression to possible paralysis without surgery - Will obtain echo for preoperative risk stratification due to LE edema. 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 - PRN dilaudid inpatient - Reintroduce as needed, will attempt to reduce dose and possibly get inpatient pain control consult - Has been on consistent dose since at least 08/2018, unclear why there is now greater encephalopathy. (5) Falls Current Visit: Yes Status: Acute Comment: - Worsening over months. MRI brain scheduled per outpatient neurologist - Testing for secondary causes of neuropathy relatively normal - Possibly due to narcotics - PT when able. Will likely need rehab post-surgery. - Start B12 for borderline low B12 level. (6) Abdominal pain Current Visit: Yes Status: Acute Code(s): R10.9 - UNSPECIFIED ABDOMINAL PAIN SNOMED Code(s): 30380037 Comment: - Severe, CT A/P negative at OSH - Not reproducible with palpation - Unchanged with food or movement - Given other negative exams and nature of pain, most likely due to thoracic disc disease, continue pain control PRN (7) DM II (diabetes mellitus, type II), controlled Current Visit: Yes Status: Acute Code(s): E11.9 - TYPE 2 DIABETES MELLITUS WITHOUT COMPLICATIONS SNOMED Code(s): 77902023 Comment: - Oral intake Improving, hold insulin at this time - Start SSI or metformin when indicated. - Hypoglycemia in AM, Dextrose PRN (8) Lower extremity edema Current Visit: Yes Status: Acute Code(s): R60.0 - LOCALIZED EDEMA SNOMED Code(s): 996448880 Comment: - History of severe LE edema on Bumex and Metolazone - Repeat Echo, previous unremarkable - Hold diuretics at this time due to poor oral intake and no LE edema. (9) DVT prophylaxis Current Visit: Yes Status: Acute Code(s): Z29.9 - ENCOUNTER FOR PROPHYLACTIC MEASURES, UNSPECIFIED SNOMED Code(s): 412320614 Comment: - Lovenox SubQ (10) Full code status Current Visit: Yes Status: Acute Code(s): Z78.9 - OTHER SPECIFIED HEALTH STATUS SNOMED Code(s): 326664056 Status and Disposition: Inpatient, will need jail antibiotics and possible extensive neurosurgery.
--- NOTE | 2019-09-08 14:25 | ECHO ---
*[facility]* [place] [address] Fax #: [phone] Transthoracic Echocardiogram Patient: Rosa Isela Adams : 1950 Study Date: 09/08/2019 Age: 69 Gender: F HR: 70 bpm Height: 65 in /165.1 cm BSA: 1.82 m^2 Weight: 164.7 lb /74.8 kg BMI: 27.5 kg/m^2 *Auto Driver: * Elsy Fry [facility] *Referring Physician: * Fabian Anderson *Reading Physician: * Eldon Santana MD Indications: Edema. History: Chronic obstructive pulmonary disease. Risk factors: Hypertension. Diabetes mellitus. Dyslipidemia. Conclusions Summary: - Left ventricle: Systolic function is normal. The estimated ejection fraction is 50-55%. Wall motion is normal; there are no regional wall motion abnormalities. - Right ventricle: Systolic function is normal. - Mitral valve: There is no evidence of stenosis. There is trace regurgitation. - Aortic valve: There is no evidence of stenosis. There is no significant regurgitation. - Tricuspid valve: There is mild-moderate regurgitation. - Pericardium, extracardiac: There is no significant pericardial effusion. - Study data: No prior study is available for comparison. Study data: Transthoracic echocardiogram. Procedure: Transthoracic echocardiography was performed. Image quality was good. Complete 2D, spectral Doppler, and color flow Doppler. Location: Bedside. Patient status: Inpatient. Patient room number: 436. No prior study is available for comparison. Rhythm: Normal sinus rhythm. Findings Left ventricle: The cavity size is normal. Wall thickness is mildly increased. Systolic function is normal. The estimated ejection fraction is 50-55%. Wall motion is normal; there are no regional wall motion abnormalities. Doppler parameters are consistent with abnormal left ventricular relaxation (grade 1 diastolic dysfunction). Right ventricle: The cavity size is normal. Systolic function is normal. Left atrium: The atrium is at the upper limits of normal in size. Right atrium: The atrium is normal in size. Mitral valve: The Mitral valve annulus appears calcified. The leaflets are normal thickness. Mild thickening, with involvement of chords, with involvement of the head of the posteromedial papillary muscle. There is no evidence of stenosis. There is trace regurgitation. Aortic valve: The annulus is mildly calcified. The valve is trileaflet. The leaflets are mildly thickened. There is no evidence of stenosis. There is no significant regurgitation. Tricuspid valve: The leaflets are normal thickness. There is no evidence of stenosis. There is mild-moderate regurgitation. Pulmonic valve: The leaflets are normal thickness. There is no evidence of stenosis. There is trace regurgitation. Aorta: The aortic root appears normal. The aortic arch appears normal. Pericardium: There is no significant pericardial effusion. Pulmonary arteries: The main pulmonary artery is normal-sized. Systolic pressure is within the normal range. Systemic veins: Inferior vena cava: The vessel is normal in size. There is (>= 50%) respiratory change in the IVC dimension. Measurements Left ventricle Value Ref Mitral valve Value Ref GHASSAN, LAX 4.1 cm 3.8 - 5.2 Peak E 0.82 m/sec ----- ESD, LAX 2.6 cm 2.2 - 3.5 Peak A 1.07 m/sec ----- FS, LAX 37 % 27 - 45 Decel time 140 ms ----- PW, ED, LAX (H) 1.1 cm 0.6 - 0.9 PHT 67 ms ----- EF 67 % 54 - 74 Mean grad, D 2.0 mm Hg ----- E', lat bassem, TDI (L) 4.3 cm/sec >=10.0 Peak grad, D 5.0 mm Hg --- -- E/e', lat bassem, 19 Peak E/A ratio 0.8 ----- TDI MVA, PHT 3.3 cm^2 ----- E', med bassem, TDI (L) 4.5 cm/sec >=7.0 E/e', med bassem, 18 Pulmonic valve Value Ref TDI Peak v, S 0.63 m/sec ----- E', avg, TDI 4.4 cm/sec Peak grad, S 2.0 mm Hg ----- E/e', avg, TDI (H) 19 <=14 Tricuspid valve Value Ref LVOT Value Ref TR peak v 2.5 m/sec <=2.8 Peak gladys, S 0.79 m/sec Peak RV-RA grad, S 25 mm Hg ----- Mean grad, S 1 mm Hg Aortic root Value Ref Ventricular septum Value Ref Root diam 2.8 cm <4.0 IVS, ED (H) 1.2 cm 0.6 - 0.9 Ascending aorta Value Ref Right ventricle Value Ref AAo AP diam, S 3.0 cm ----- GHASSAN, LAX 2.6 cm GHASSAN minor ax, A4C 3.0 cm 1.9 - 3.5 Aortic arch Value Ref mid Arch diam 2.6 cm ----- Pressure, S 28 mm Hg Decending aorta Value Ref Left atrium Value Ref Momo peak gladys 0.54 m/sec ----- AP dim, ES 3.00 cm 2.70 - 3.80 Pulmonary artery Value Ref ML dim, A4C 4.6 cm Pressure, S 26.0 mm Hg ----- SI dim, A4C 5.8 cm Vol/bsa, ES, A/L 34 ml/m^2 16 - 34 Inferior vena cava Value Ref Diam 1.7 cm ----- Right atrium Value Ref SI dim, ES 4.4 cm 3.4 - 5.3 Pulmonary veins Value Ref ML dim, ES, A4C 3.6 cm 2.6 - 4.4 Peak v, S 0.45 m/sec ----- Estimated RAP 3 mm Hg Peak v, D 0.39 m/sec ----- Peak S/D ratio 1.2 ----- Aortic valve Value Ref A rev duration 119 ms ----- Bassem diam, ED 2.0 cm Peak v, S 1.49 m/sec VTI, S 27.7 cm Mean grad, S 5.0 mm Hg Peak grad, S 9.0 mm Hg Legend: (L) and (H) kathleen values outside specified reference range. Prepared and electronically signed by Eldon Santana MD 09/08/2019 14:25
[2019-09-08] MEDS: cefTRIAXone(*) 2 GM in NS 0.9% 100 ML* 100 ML IVPB SCH (16:04)
--- NOTE | 2019-09-08 22:05 | PN ---
Progress Note - Progress Note Date of Service: 09/08/19 SOAP: Subjective: []Patient seen and examined. No events ON. pain is improved. Not able to tolerate standing up for scoliosis XR. Objective: []VSS, Afebrile AAOx3, BRIAN, CN II-XII grossly intact Motor 5/5 UE, LE: 3/5 HF, KE, 4-5/5 foot DF, EHL, PF bernard Sensory grossly intact to light touch Assessment: []69 yof hx of DM, previous instrumented arhrodesis with possible discitis / osteomyelitis and proximal junctional failure. Plan: []Imaging reviewed. CT T/L spine did not reveal any significant changes c/w MRI. Unable to have upright scoliosis XR T/L spine XR reveal L2-3 Kyphosis with loss of thoracic kyphosis. Will plan for surgical intervention if patient and family would elect to. Obtain previous operative reports. On ABx per ID Appreciate IM, ID care. Nathalie Christie MD
[2019-09-09] MEDS: HYDROmorphone INJ1* 1 MG/ML SYRINGE IV SLOW PU PRN ×3 (01:15→19:24)
[2019-09-09] MEDS ORDERED: Vancomycin Random Level* NOTE FOLLOW UP ONE (06:00)
[2019-09-09 06:15] LABS: ABS Eosinophils 0.1 10^3/ul (0-0.6); ABS Lymphocytes 1.5 10^3/ul (1.0-4.8); ABS Monocytes 0.5 10^3/ul (0-0.8); ABS Neutrophils 4.1 10^3/ul (1.5-7.7); Hematocrit 29 % (35-47); Hemoglobin 9.8 g/dL (12.0-16.0); Lymphocyte % 24.6 %; Mean Corpuscular HGB Conc 33 g/dL (31-36); Mean Corpuscular Hemoglobin 29 pg (27-31); Mean Corpuscular Volume 87 fL (80-97); Mean Platelet Volume 8.5 fL (7.4-10.4); Nucleated Red Blood Cells % 0.1; Platelet Count 174 10^3/uL (150-450); Red Blood Count 3.38 10^6 /uL (3.70-4.87); Red Cell Distribution Width 17 % (10-15); White Blood Count 6.2 10^3/uL (3.5-10.8)
[2019-09-09 06:40] LABS: BUN/Creatinine Ratio 6.2 (8-20); Calcium 7.5 mg/dL (8.6-10.3); EGFR African American 31.1 (>60); EGFR Non-African American 25.7 (>60)
[2019-09-09 06:46] LABS: Vancomycin Random 23.2 mcg/mL
[2019-09-09] MEDS ORDERED: Lactated Ringers 1000 ML Bag* 1,000 ML IV SCH (08:00)
[2019-09-09] MEDS: Venlafaxine EXT RELEASE CAP* 37.5 MG PO SCH (08:10)
[2019-09-09] MEDS: Gabapentin CAP(*) 300 MG PO SCH ×3 (08:10→19:55)
[2019-09-09] MEDS: Pantoprazole TAB * 40 MG TAB PO SCH (08:10)
[2019-09-09] MEDS: Cyanocobalamin TAB* 500 MCG PO SCH (08:16)
[2019-09-09] MEDS ORDERED: Vancomycin Trough Check NOTE FOLLOW UP ONE (09:30)
[2019-09-09 09:39] LABS: Urine Creatinine Concentration 61.09 mg/dL
[2019-09-09 13:16] LABS: BUN/Creatinine Ratio 6.5 (8-20); EGFR African American 33.1 (>60); EGFR Non-African American 27.4 (>60); Potassium 4.2 mmol/L (3.5-5.0)
[2019-09-09] MEDS: cefTRIAXone(*) 2 GM in NS 0.9% 100 ML* 100 ML IVPB SCH (16:35)
--- NOTE | 2019-09-09 18:25 | PN ---
Subjective Date of Service: 09/09/19 Interval History: Patient if much more alert today. Patient has stable pain in her back in minimal pain in her abdomen. Patient denies F/C, N/V, CP, SOB, diarrhea, dizziness, or other pain. Patient and family are still interested in surgery. Family History: Unchanged from Admission Social History: Unchanged from Admission Past Medical History: Unchanged from Admission Objective Active Medications: Cyanocobalamin (Vitamin B12 Tab*) 1,000 mcg PO DAILY [facility] Last Admin: 09/09/19 08:16 Dose: 1,000 mcg Dextrose (D50w Syringe 50 Ml*) 25 gm IV PUSH .FOR FS < 60 - SS PRN PRN Reason: FS < 60 Gabapentin (Neurontin Cap(*)) 600 mg PO TID [facility] Last Admin: 09/09/19 13:41 Dose: 600 mg Heparin Sodium (Porcine) (Heparin Flush Picc/Ml/Cvc(*)) 0 ml FLUSH 0600,1800 [facility] Last Admin: 09/09/19 18:12 Dose: Not Given Hydromorphone HCl (Dilaudid Inj1s*) 1 mg IV SLOW PU Q3H PRN PRN Reason: PAIN - SEVERE Last Admin: 09/09/19 08:10 Dose: 1 mg Ceftriaxone Sodium 2 gm/ (Sodium Chloride) 100 mls @ 200 mls/hr IVPB 1600 [facility] Last Admin: 09/09/19 16:35 Dose: 200 mls/hr Ondansetron HCl (Zofran Inj*) 4 mg IV Q6H PRN PRN Reason: NAUSEA Last Admin: 09/06/19 23:06 Dose: 4 mg Pantoprazole Sodium (Protonix Tab*) 40 mg PO QAM [facility] Last Admin: 09/09/19 08:10 Dose: 40 mg Pharmacy Consult (Vancomycin Per Pharmacy*) 1 note FOLLOW UP .VANC PER PHARMACY [facility]; Protocol Venlafaxine HCl (Effexor Xr Cap*) 37.5 mg PO DAILY [facility] Last Admin: 09/09/19 08:10 Dose: 37.5 mg Vital Signs - 8 hr 09/09/19 09/09/19 09/09/19 12:00 12:24 13:41 Temperature 98 F Pulse Rate 73 Respiratory 20 17 17 Rate Blood Pressure 140/77 (mmHg) O2 Sat by Pulse 99 Oximetry 09/09/19 09/09/19 09/09/19 15:49 16:32 18:11 Temperature 97.8 F Pulse Rate 81 Respiratory 14 17 17 Rate Blood Pressure 146/90 (mmHg) O2 Sat by Pulse 100 Oximetry Oxygen Devices in Use Now: None Appearance: Patient is a 69yo female who appears stated age and is sitting in the bed in NAD. Eyes: No Scleral Icterus, PERRLA Ears/Nose/Mouth/Throat: NL Teeth, Lips, Gums, Clear Oropharnyx, Mucous Membranes Moist Neck: NL Appearance and Movements; NL JVP Respiratory: Symmetrical Chest Expansion and Respiratory Effort, Clear to Auscultation Cardiovascular: NL Sounds; No Murmurs; No JVD, RRR, No Edema Abdominal: NL Sounds; No Tenderness; No Distention, No Hepatosplenomegaly Lymphatic: No Cervical Adenopathy Extremities: No Edema, No Clubbing, Cyanosis Skin: No Nodules or Sclerosis Neurological: Alert and Oriented x 3, NL Sensation, - - Increased strength in B/ L LE. Result Diagrams: 09/09/19 06:05 09/09/19 12:44 Microbiology and Other Data: Microbiology 09/06/19 00:30 Urine Culture - Final Urine No Growth (<1,000 CFU/mL) 09/05/19 21:07 Aerobic Blood Culture - Preliminary Blood Venous No Growth Day 1 Anaerobic Blood Culture - Preliminary No Growth Day 1 09/05/19 21:10 Aerobic Blood Culture - Preliminary Blood Venous No Growth Day 1 Anaerobic Blood Culture - Preliminary No Growth Day 1 Assess/Plan/Problems-Billing Assessment: Patient is a 69yo female with a PMH for chronic back pain, intermittent abdominal pain and new severe encephalopathy with discitis who is improving on antibiotics and supportive care. - Patient Problems (1) Encephalopathy Current Visit: Yes Status: Acute Code(s): G93.40 - ENCEPHALOPATHY, UNSPECIFIED SNOMED Code(s): 41091088 Comment: - Severe, unclear cause, improved greatly with decreased doses of narcotics. - Possibly from accumulation of very high doses of narcotics due to dehydration - Possible also septic encephalopathy from spinal infection, improving with antibiotics. - Appreciate Neuro Consult, Believed to be mostly due to medication effect in both the long and short term - CT brain shows no Acute process, Basal Ganglia stroke likely represents Cyst and not a stroke. - Improving, avoid sedatives if possible (2) Discitis Current Visit: Yes Status: Acute Code(s): M46.40 - DISCITIS, UNSPECIFIED, SITE UNSPECIFIED SNOMED Code(s): 3302309 Comment: - Unclear chronicity, Likely not present due to normal CRP and ESR normal on - Appreciate Neurosurgery and ID consult. - Continue Ceftriaxone - Hold Vancomycin, start Linezolid when vancomycin random level below therapeutic range (repeat pending tomorrow). - BC negative so far from [place] (Checked again today) - Unclear source, limited utility in biopsy and not insignificant risk - Plan currently for exterminator helper antibiotics. - PICC placed today - Possible need for additional spinal fusion not contraindicated by current discitis. (3) Kyphosis Current Visit: Yes Status: Acute Comment: - Worsening kyphosis per patient report - Neurosurgery consult appreciated - Get and Apply TLSO brace when out of bed, Scoliosis XR pending to assess stability, will retry not that patient is more able to stand. - High risk for progression, Patient is opting for surgery at this time. - Very high complication risk with surgery, but also high risk of progression to possible paralysis without surgery - Echo shows no abnormalities that would preclude surgery. - Records from previous spine surgeries pending, will likely be here tomorrow. (4) JING (acute kidney injury) Current Visit: Yes Status: Acute Code(s): N17.9 - ACUTE KIDNEY FAILURE, UNSPECIFIED SNOMED Code(s): 28610963 Comment: - Increase in Cret from ~1, which is near patient's baseline to a current high of 1.94 - Improving with fluids - Likely due to Vancomycin which was significantly supratherapeutic, Switch to Linezolid when Vancomycin random level below therapeutic level. 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 - PRN dilaudid inpatient - Reintroduce as needed, will attempt to reduce dose and possibly get inpatient pain control consult - Has been on consistent dose since at least 08/2018, unclear why there is now greater encephalopathy. (6) Falls Current Visit: Yes Status: Acute Comment: - Worsening over months. MRI brain scheduled per outpatient neurologist - Testing for secondary causes of neuropathy relatively normal - Possibly due to narcotics - PT when able. Will likely need rehab post-surgery. - Start B12 for borderline low B12 level. (7) Abdominal pain Current Visit: Yes Status: Acute Code(s): R10.9 - UNSPECIFIED ABDOMINAL PAIN SNOMED Code(s): 72811360 Comment: - Severe, CT A/P negative at OSH - Not reproducible with palpation - Unchanged with food or movement - Given other negative exams and nature of pain, most likely due to thoracic disc disease, continue pain control PRN (8) DM II (diabetes mellitus, type II), controlled Current Visit: Yes Status: Acute Code(s): E11.9 - TYPE 2 DIABETES MELLITUS WITHOUT COMPLICATIONS SNOMED Code(s): 19621126 Comment: - Oral intake Improving, hold insulin at this time - Start SSI or metformin when indicated. - Hypoglycemia in AM, Dextrose PRN (9) Lower extremity edema Current Visit: Yes Status: Acute Code(s): R60.0 - LOCALIZED EDEMA SNOMED Code(s): 040955795 Comment: - History of severe LE edema on Bumex and Metolazone - Repeat Echo unremarkable - Hold diuretics at this time due to poor oral intake and no LE edema. (10) DVT prophylaxis Current Visit: Yes Status: Acute Code(s): Z29.9 - ENCOUNTER FOR PROPHYLACTIC MEASURES, UNSPECIFIED SNOMED Code(s): 798349748 Comment: - Lovenox SubQ (11) Full code status Current Visit: Yes Status: Acute Code(s): Z78.9 - OTHER SPECIFIED HEALTH STATUS SNOMED Code(s): 158653575 Status and Disposition: Inpatient, will need exterminator helper antibiotics and Plan for neurosurgery on .
--- NOTE | 2019-09-09 20:00 | PN ---
Progress Note - Progress Note Date of Service: 09/09/19 Note: Patient seen and examined. No events ON More awake today Neuro exam stable RAJINDER, Follows commands Patient and would like to proceed with surgery. Will attempt upright scoliosis XR if tolerated. WIll plan for surgery once previous operative report available. Appreciate IM, ID, Neurology care. Nathalie Christie MD
[2019-09-10] MEDS: HYDROmorphone INJ1* 1 MG/ML SYRINGE IV SLOW PU PRN ×4 (03:46→20:05)
[2019-09-10 05:13] LABS: ABS Eosinophils 0.2 10^3/ul (0-0.6); ABS Lymphocytes 2.1 10^3/ul (1.0-4.8); ABS Monocytes 0.5 10^3/ul (0-0.8); ABS Neutrophils 4.4 10^3/ul (1.5-7.7); Eosinophil % 2.4 %; Hematocrit 27 % (35-47); Lymphocyte % 28.5 %; Mean Corpuscular HGB Conc 33 g/dL (31-36); Mean Corpuscular Hemoglobin 29 pg (27-31); Mean Corpuscular Volume 87 fL (80-97); Mean Platelet Volume 8.3 fL (7.4-10.4); Platelet Count 169 10^3/uL (150-450); Red Blood Count 3.14 10^6 /uL (3.70-4.87); Red Cell Distribution Width 18 % (10-15); White Blood Count 7.2 10^3/uL (3.5-10.8)
[2019-09-10 06:01] LABS: Calcium 7.6 mg/dL (8.6-10.3)
[2019-09-10 06:07] LABS: BUN/Creatinine Ratio 6.9 (8-20); EGFR African American 32.1 (>60); EGFR Non-African American 26.5 (>60)
[2019-09-10] MEDS: Pantoprazole TAB * 40 MG TAB PO SCH (08:29)
[2019-09-10] MEDS: Gabapentin CAP(*) 300 MG PO SCH ×3 (08:29→21:16)
[2019-09-10] MEDS: Venlafaxine EXT RELEASE CAP* 37.5 MG PO SCH (08:29)
[2019-09-10] MEDS: Cyanocobalamin TAB* 500 MCG PO SCH (08:29)
--- NOTE | 2019-09-10 13:15 | PN ---
Progress Note - Progress Note Date of Service: 09/10/19 Note: Patient seen and examined. No events ON Neuro exam stable RAJINDER, Follows commands Patient and would like to proceed with surgery. Discussed risks and benefits again and possible surgical options. Discussed about possible complications and the patient and her understand that operative plan may be modified and that case may be aborted or done in more than one stages. Not able to tolerate upright scoliosis XR imaging. Will plan for surgery on if medically cleared. Awaiting for previous operative report. Appreciate IM, ID, Neurology care. Nathalie Christie MD
--- NOTE | 2019-09-10 14:56 | PN ---
Progress Note - Progress Note Date of Service: 09/10/19 SOAP: Subjective: CC: spine infection HPI: 69 year old woman with L spine vertebral osteodiskitis, spinal fusion hardware failure and encephalopathy. His back pain and mental status are improving but not gone. No fever, rash, or diarrhea. Objective: Vital Signs Temp 36.6 C 09/10/19 11:30 Pulse 73 09/10/19 11:30 Resp 18 09/10/19 14:46 BP 151/87 09/10/19 11:30 Pulse Ox 100 09/10/19 11:30 Intake & Output 09/09/19 09/10/19 09/10/19 18:59 06:59 18:59 Intake Total 1435 60 600 Output Total 250 825 250 Balance 1185 -765 350 Intake: IV Fluids 990 LR 990 IVPB 100 ceftriaxone 100 Oral 345 60 600 Output: Dias 250 825 250 Other: Estimated Stool Amount Large Gen:awake, no distress HEENT: no thrush Heart:RRR no murmur Lungs:CTA BL Abd:+BS NTND soft Skin: no rash Neuro: OX3, strength 5/5 quad/TA/gastroc BL Laboratory Results - last 24 hr 09/09/19 09/09/19 09/10/19 18:08 19:54 04:56 WBC RBC Hgb Hct MCV MCH MCHC RDW Plt Count MPV Neut % (Auto) Lymph % (Auto) [place] % (Auto) Eos % (Auto) Baso % (Auto) Absolute Neuts (auto) Absolute Lymphs (auto) Absolute Monos (auto) Absolute Eos (auto) Absolute Basos (auto) Absolute Nucleated RBC Nucleated RBC % Sodium 141 Potassium 4.0 Chloride 116 H Carbon Dioxide 22 Anion Gap 3 BUN 13 Creatinine 1.89 H Est GFR ( Amer) 32.1 Est GFR (Non-Af Amer) 26.5 BUN/Creatinine Ratio 6.9 L Glucose 165 H POC Glucose (mg/dL) 154 H 192 H Calcium 7.6 L Magnesium 2.0 Random Vancomycin 17.0 09/10/19 09/10/19 04:56 08:01 WBC 7.2 RBC 3.14 L Hgb 9.0 L Hct 27 L MCV 87 MCH 29 MCHC 33 RDW 18 H Plt Count 169 MPV 8.3 Neut % (Auto) 61.1 Lymph % (Auto) 28.5 [place] % (Auto) 7.4 Eos % (Auto) 2.4 Baso % (Auto) 0.6 Absolute Neuts (auto) 4.4 Absolute Lymphs (auto) 2.1 Absolute Monos (auto) 0.5 Absolute Eos (auto) 0.2 Absolute Basos (auto) 0.0 Absolute Nucleated RBC 0.0 Nucleated RBC % 0.0 Sodium Potassium Chloride Carbon Dioxide Anion Gap BUN Creatinine Est GFR ( Amer) Est GFR (Non-Af Amer) BUN/Creatinine Ratio Glucose POC Glucose (mg/dL) 151 H Calcium Magnesium Random Vancomycin Microbiology 09/05/19 21:07 Blood Venous Aerobic Blood Culture - Preliminary No Growth Day 4 09/05/19 21:07 Blood Venous Anaerobic Blood Culture - Preliminary No Growth Day 4 09/05/19 21:10 Blood Venous Aerobic Blood Culture - Preliminary No Growth Day 4 09/05/19 21:10 Blood Venous Anaerobic Blood Culture - Preliminary No Growth Day 4 Assessment: 1. Verterbral osteodiskitis, infection of spinal fusion hardware 2. Encephalopathy, improving 3. T2DM 4. COPD Plan: 1. continue vancomycin goal tr 15-20, ceftriaxone 2 gm IV daily; day . I&D , hardware removal planned. Discussed with Dr Christie
[2019-09-10] MEDS: cefTRIAXone(*) 2 GM in NS 0.9% 100 ML* 100 ML IVPB SCH (15:20)
--- NOTE | 2019-09-10 16:18 | PN ---
Subjective Date of Service: 09/10/19 Interval History: Patient seen and examined. OOB to chair, at bedside. States pain is well -controlled. Denies fevers or chills, no SOB or chest pain. States she feels better today and stronger. states she seems significantly improved and "100% better" than when she was admitted. Family History: Unchanged from Admission Social History: Unchanged from Admission Past Medical History: Unchanged from Admission Objective Active Medications: Cyanocobalamin (Vitamin B12 Tab*) 1,000 mcg PO DAILY [facility] Last Admin: 09/10/19 08:29 Dose: 1,000 mcg Gabapentin (Neurontin Cap(*)) 600 mg PO TID [facility] Last Admin: 09/10/19 12:59 Dose: 600 mg Heparin Sodium (Porcine) (Heparin Flush Picc/Ml/Cvc(*)) 0 ml FLUSH 0600,1800 [facility] Last Admin: 09/10/19 04:56 Dose: 1 ml Hydromorphone HCl (Dilaudid Inj1s*) 1 mg IV SLOW PU Q3H PRN PRN Reason: PAIN - SEVERE Last Admin: 09/10/19 13:01 Dose: 1 mg Ceftriaxone Sodium 2 gm/ (Sodium Chloride) 100 mls @ 200 mls/hr IVPB 1600 [facility] Last Admin: 09/10/19 15:20 Dose: 200 mls/hr Ondansetron HCl (Zofran Inj*) 4 mg IV Q6H PRN PRN Reason: NAUSEA Last Admin: 09/06/19 23:06 Dose: 4 mg Pantoprazole Sodium (Protonix Tab*) 40 mg PO QAM [facility] Last Admin: 09/10/19 08:29 Dose: 40 mg Venlafaxine HCl (Effexor Xr Cap*) 37.5 mg PO DAILY [facility] Last Admin: 09/10/19 08:29 Dose: 37.5 mg Vital Signs - 8 hr 09/10/19 09/10/19 09/10/19 08:29 09:38 11:30 Temperature 97.9 F Pulse Rate 73 Respiratory 18 18 16 Rate Blood Pressure 151/87 (mmHg) O2 Sat by Pulse 100 Oximetry 09/10/19 09/10/19 09/10/19 12:59 13:01 14:46 Temperature Pulse Rate Respiratory 18 18 18 Rate Blood Pressure (mmHg) O2 Sat by Pulse Oximetry Oxygen Devices in Use Now: None Appearance: alert, NAD Eyes: PERRLA Ears/Nose/Mouth/Throat: Mucous Membranes Moist Neck: NL Appearance and Movements; NL JVP, Trachea Midline Respiratory: Symmetrical Chest Expansion and Respiratory Effort, Clear to Auscultation Cardiovascular: NL Sounds; No Murmurs; No JVD, RRR Abdominal: NL Sounds; No Tenderness; No Distention Extremities: No Clubbing, Cyanosis, - - edema to dorsal aspect of left hand, non -pitting Skin: No Rash or Ulcers Neurological: Alert and Oriented x 3 Nutrition: Taking PO's Result Diagrams: 09/10/19 04:56 09/10/19 04:56 Microbiology and Other Data: Microbiology 09/06/19 00:30 Urine Culture - Final Urine No Growth (<1,000 CFU/mL) 09/05/19 21:07 Aerobic Blood Culture - Preliminary Blood Venous No Growth Day 1 Anaerobic Blood Culture - Preliminary No Growth Day 1 09/05/19 21:10 Aerobic Blood Culture - Preliminary Blood Venous No Growth Day 1 Anaerobic Blood Culture - Preliminary No Growth Day 1 Assess/Plan/Problems-Billing Assessment: Patient is a 69yo female with a PMH for chronic back pain, intermittent abdominal pain and new severe encephalopathy with discitis who is improving on antibiotics and supportive care. - Patient Problems (1) Encephalopathy Code(s): G93.40 - ENCEPHALOPATHY, UNSPECIFIED SNOMED Code(s): 57755951 Comment: - Severe, toxic versus metabolic (narcotics versus infection or combination) - Improved with reduced narcotics and antibiotics - CT brain shows no acute process, Basal Ganglia stroke likely represents a cyst - Mentation markedly improved today, continue current medical management (2) Discitis Code(s): M46.40 - DISCITIS, UNSPECIFIED, SITE UNSPECIFIED SNOMED Code(s): 7966545 Comment: - Unclear chronicity, CRP and ESR normal on 08/23/2019 - Appreciate Neurosurgery and ID consults - Continue Ceftriaxone per ID, PICC placed - Per notes from neurosurgery, plan is for repeat xrays and surgical intervention, however patient cannot stand for xrays; will defer to neurosurgery for imaging recs (3) Kyphosis Comment: - Continue TLSO brace when out of bed - Plan as above - Defer to NS re: scoliosis XR pending to assess stability, as patient still having difficulty standing - High risk for progression, Patient is opting for surgery at this time - Very high complication risk with surgery, but also high risk of progression to possible paralysis without surgery - ECHO shows no abnormalities that would preclude surgery, hence benefit would outweigh risk - Records from previous spine surgeries pending, and will be available for NS to review (4) Chronic pain Code(s): G89.29 - OTHER CHRONIC PAIN SNOMED Code(s): 44045043 Comment: - Mentation improving with antibiotics and decreasing doses of narcotics - Continue dilaudid IV for now with plan to transition to oral meds when appropriate - Should have post-op pain consult and outpatient follow up (5) DM II (diabetes mellitus, type II), controlled Code(s): E11.9 - TYPE 2 DIABETES MELLITUS WITHOUT COMPLICATIONS SNOMED Code(s) : 30385628 Comment: - A1C is 6.1, DC accuchecks, continue diet control (6) Full code status Current Visit: Yes Status: Acute Code(s): Z78.9 - OTHER SPECIFIED HEALTH STATUS SNOMED Code(s): 319013090 (7) DVT prophylaxis Code(s): Z29.9 - ENCOUNTER FOR PROPHYLACTIC MEASURES, UNSPECIFIED SNOMED Code( s): 207599043 Comment: - Lovenox SubQ Status and Disposition: Inpatient, will need [facility] antibiotics and Plan for neurosurgery on .
[2019-09-11] MEDS: HYDROmorphone INJ1* 1 MG/ML SYRINGE IV SLOW PU PRN ×4 (03:03→20:08)
[2019-09-11 05:12] LABS: ABS Basophils 0.1 10^3/ul (0-0.2); ABS Eosinophils 0.2 10^3/ul (0-0.6); ABS Lymphocytes 2.5 10^3/ul (1.0-4.8); ABS Monocytes 0.6 10^3/ul (0-0.8); ABS Neutrophils 4.7 10^3/ul (1.5-7.7); Eosinophil % 2.3 %; Hematocrit 26 % (35-47); Hemoglobin 8.8 g/dL (12.0-16.0); Lymphocyte % 30.7 %; Mean Corpuscular HGB Conc 34 g/dL (31-36); Mean Corpuscular Hemoglobin 29 pg (27-31); Mean Corpuscular Volume 86 fL (80-97); Mean Platelet Volume 8.2 fL (7.4-10.4); Platelet Count 164 10^3/uL (150-450); Red Blood Count 3.03 10^6 /uL (3.70-4.87); Red Cell Distribution Width 17 % (10-15)
[2019-09-11 05:27] LABS: Albumin 2.4 g/dL (3.2-5.2); Albumin/Globulin Ratio 1.1 (1-3); BUN/Creatinine Ratio 8.3 (8-20); Calcium 7.8 mg/dL (8.6-10.3); EGFR African American 36.5 (>60); EGFR Non-African American 30.2 (>60); Globulin 2.2 g/dL (2-4); Potassium 3.9 mmol/L (3.5-5.0); Total Bilirubin 0.2 mg/dL (0.2-1.0); Total Protein 4.6 g/dL (6.4-8.9)
[2019-09-11] MEDS: Cyanocobalamin TAB* 500 MCG PO SCH (10:23)
[2019-09-11] MEDS: Gabapentin CAP(*) 300 MG PO SCH ×3 (10:24→20:56)
[2019-09-11] MEDS: Pantoprazole TAB * 40 MG TAB PO SCH (10:25)
[2019-09-11] MEDS: Venlafaxine EXT RELEASE CAP* 37.5 MG PO SCH (10:25)
[2019-09-11] MEDS ORDERED: Vancomycin per Pharmacy* NOTE FOLLOW UP SCH (11:00)
[2019-09-11] MEDS ORDERED: Vancomycin(*) 1,000 MG in NS 0.9% 250 ML* 250 ML IVPB ONE (12:00)
--- NOTE | 2019-09-11 14:59 | PN ---
Subjective Date of Service: 09/11/19 Interval History: Patient seen and examined. No acute overnight events. States she is still having back pain, but well controlled. Denies SOB, no cough, no chest pain, no fevers or chills. No n/v/d. Family History: Unchanged from Admission Social History: Unchanged from Admission Past Medical History: Unchanged from Admission Objective Active Medications: Cyanocobalamin (Vitamin B12 Tab*) 1,000 mcg PO DAILY [facility] Last Admin: 09/11/19 10:23 Dose: 1,000 mcg Gabapentin (Neurontin Cap(*)) 600 mg PO TID [facility] Last Admin: 09/11/19 14:09 Dose: 600 mg Heparin Sodium (Porcine) (Heparin Flush Picc/Ml/Cvc(*)) 0 ml FLUSH 0600,1800 [facility] Last Admin: 09/11/19 05:10 Dose: 1 ml Hydromorphone HCl (Dilaudid Inj1s*) 1 mg IV SLOW PU Q3H PRN PRN Reason: PAIN - SEVERE Last Admin: 09/11/19 14:09 Dose: 1 mg Ceftriaxone Sodium 2 gm/ (Sodium Chloride) 100 mls @ 200 mls/hr IVPB 1600 [facility] Last Admin: 09/10/19 15:20 Dose: 200 mls/hr Lactated Ringer's (Lactated Ringers 1000 Ml Bag*) 1,000 mls @ 125 mls/hr IV PER RATE [facility] Lidocaine/Sodium Bicarbonate (Buffered Lidocaine 1% Syrin*) 0.2 ml INTRADERM ONCE ONE Stop: 09/12/19 08:01 Ondansetron HCl (Zofran Inj*) 4 mg IV Q6H PRN PRN Reason: NAUSEA Last Admin: 09/06/19 23:06 Dose: 4 mg Pantoprazole Sodium (Protonix Tab*) 40 mg PO QAM [facility] Last Admin: 09/11/19 10:25 Dose: 40 mg Pharmacy Consult (Vancomycin Per Pharmacy*) 1 note FOLLOW UP .VANC PER PHARMACY [facility]; Protocol Pharmacy Consult (Vancomycin Random Level*) 1 note FOLLOW UP 0600 ONE Stop: 09/12/19 06:01 Venlafaxine HCl (Effexor Xr Cap*) 37.5 mg PO DAILY [facility] Last Admin: 09/11/19 10:25 Dose: 37.5 mg Vital Signs - 8 hr 09/11/19 09/11/19 09/11/19 08:00 08:05 08:54 Temperature 97 F Pulse Rate 66 Respiratory 16 16 18 Rate Blood Pressure 160/80 (mmHg) O2 Sat by Pulse 98 Oximetry 09/11/19 09/11/19 09/11/19 10:24 10:45 11:48 Temperature 98.1 F Pulse Rate 71 Respiratory 18 16 16 Rate Blood Pressure 146/76 (mmHg) O2 Sat by Pulse 99 Oximetry 09/11/19 14:09 Temperature Pulse Rate Respiratory 18 Rate Blood Pressure (mmHg) O2 Sat by Pulse Oximetry Oxygen Devices in Use Now: None Appearance: alert, NAD Eyes: PERRLA Ears/Nose/Mouth/Throat: Mucous Membranes Moist Neck: NL Appearance and Movements; NL JVP Respiratory: Symmetrical Chest Expansion and Respiratory Effort, Clear to Auscultation Cardiovascular: NL Sounds; No Murmurs; No JVD, RRR Abdominal: NL Sounds; No Tenderness; No Distention Extremities: No Clubbing, Cyanosis Skin: No Rash or Ulcers Neurological: Alert and Oriented x 3 Nutrition: Taking PO's Result Diagrams: 09/11/19 05:00 09/11/19 05:00 Microbiology and Other Data: Microbiology 09/06/19 00:30 Urine Culture - Final Urine No Growth (<1,000 CFU/mL) 09/05/19 21:07 Aerobic Blood Culture - Preliminary Blood Venous No Growth Day 1 Anaerobic Blood Culture - Preliminary No Growth Day 1 09/05/19 21:10 Aerobic Blood Culture - Preliminary Blood Venous No Growth Day 1 Anaerobic Blood Culture - Preliminary No Growth Day 1 Assess/Plan/Problems-Billing Assessment: Patient is a 69yo female with a PMH for chronic back pain, intermittent abdominal pain and new severe encephalopathy with discitis who is improving on antibiotics and supportive care. 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 - Mentation markedly improved last 24 hours, continue current medical management (2) Discitis Code(s): M46.40 - DISCITIS, UNSPECIFIED, SITE UNSPECIFIED SNOMED Code(s): 4654806 Comment: - Unclear chronicity, CRP and ESR normal on 08/23/2019 - Appreciate Neurosurgery and ID consults - Continue Ceftriaxone, vanco troughs between 17-20 per ID, PICC placed - No additional imaging at this time (3) Kyphosis Comment: - Continue TLSO brace when out of bed - Plan as above - High risk for progression, patient is opting for surgery at this time - ECHO shows no abnormalities that would preclude surgery, hence benefit would outweigh risk - Records from previous spine surgeries received and are available for NS to review - Remains with High cardiovascular risk for complication for surgery, but also significant risk of progression to possible paralysis without surgery, as such, patient is medically stable last 48 hours and is medically optimized for surgery at this time. (4) Chronic pain Code(s): G89.29 - OTHER CHRONIC PAIN SNOMED Code(s): 10575254 Comment: - Mentation improving with antibiotics and decreasing doses of narcotics - Continue dilaudid IV for now with plan to transition to oral meds when appropriate - Should have post-op pain consult and outpatient follow up (5) DM II (diabetes mellitus, type II), controlled Code(s): E11.9 - TYPE 2 DIABETES MELLITUS WITHOUT COMPLICATIONS SNOMED Code(s) : 50554876 Comment: - A1C is 6.1, DC accuchecks, continue diet control (6) Full code status Current Visit: Yes Status: Acute Code(s): Z78.9 - OTHER SPECIFIED HEALTH STATUS SNOMED Code(s): 029973128 (7) DVT prophylaxis Code(s): Z29.9 - ENCOUNTER FOR PROPHYLACTIC MEASURES, UNSPECIFIED SNOMED Code( s): 478826739 Comment: - Lovenox being held pre-op, SCDs for tonight Status and Disposition: Inpatient, will need halfway antibiotics and Plan for neurosurgery on .
[2019-09-11] MEDS: cefTRIAXone(*) 2 GM in NS 0.9% 100 ML* 100 ML IVPB SCH (17:29)
[2019-09-11 17:45] LABS: INR 0.88 (0.82-1.09)
[2019-09-12] MEDS: Ondansetron INJ* 2 MG/ML VIAL IV PRN (00:05)
[2019-09-12] MEDS: HYDROmorphone INJ1* 1 MG/ML SYRINGE IV SLOW PU PRN ×2 (04:42→08:11)
[2019-09-12 04:54] LABS: Hematocrit 26 % (35-47); Hemoglobin 8.6 g/dL (12.0-16.0); Mean Corpuscular HGB Conc 34 g/dL (31-36); Mean Corpuscular Hemoglobin 29 pg (27-31); Mean Corpuscular Volume 86 fL (80-97); Mean Platelet Volume 8.4 fL (7.4-10.4); Platelet Count 181 10^3/uL (150-450); Red Blood Count 3.01 10^6 /uL (3.70-4.87); Red Cell Distribution Width 18 % (10-15); White Blood Count 7.7 10^3/uL (3.5-10.8)
[2019-09-12] MEDS: Lactated Ringers 1000 ML Bag* 1,000 ML IV SCH (05:56)
[2019-09-12 05:57] LABS: Calcium 7.8 mg/dL (8.6-10.3)
[2019-09-12] MEDS ORDERED: Vancomycin Random Level* NOTE FOLLOW UP ONE (06:00)
[2019-09-12 06:02] LABS: BUN/Creatinine Ratio 8.4 (8-20); EGFR African American 37.3 (>60); EGFR Non-African American 30.8 (>60); Vancomycin Random 20.3 mcg/mL
[2019-09-12] MEDS ORDERED: Buffered Lidocaine 1% SYRIN* 1 ML/SYRINGE INTRADERM ONE (08:00)
[2019-09-12] MEDS: Cyanocobalamin TAB* 500 MCG PO SCH (08:12)
[2019-09-12] MEDS: Gabapentin CAP(*) 300 MG PO SCH ×2 (08:12→22:13)
[2019-09-12] MEDS: Venlafaxine EXT RELEASE CAP* 37.5 MG PO SCH (08:12)
[2019-09-12] MEDS: Pantoprazole TAB * 40 MG TAB PO SCH (08:12)
--- NOTE | 2019-09-12 09:14 | PN ---
Progress Note - Progress Note Date of Service: 09/12/19 SOAP: Subjective: CC: spine infection HPI: 69 year old woman with L spine vertebral osteodiskitis, spinal fusion hardware failure and encephalopathy. Back pain about the same, alert and no longer confused per her . No fever, rash, or diarrhea. Objective: Vital Signs Temp 36.6 C 09/12/19 03:46 Pulse 70 09/12/19 03:46 Resp 18 09/12/19 08:12 BP 124/70 09/12/19 03:46 Pulse Ox 94 09/12/19 03:46 Intake & Output 09/11/19 09/12/19 09/12/19 18:59 06:59 18:59 Intake Total 1305 480 Output Total 350 1100 Balance 955 -620 Intake: Oral 1305 480 Output: Dias 350 1100 Other: # Bowel Movements 1 Estimated Stool Amount Medium Gen:awake, no distress HEENT: no thrush Heart:RRR no murmur Lungs:CTA BL Abd:+BS NTND soft Skin: no rash MSK: RUE PICC Assessment: 1. Verterbral osteodiskitis, infection of spinal fusion hardware; usually gram positive organisms 2. Encephalopathy, improving 3. T2DM 4. COPD Plan: 1. continue vancomycin goal tr 15-20, ceftriaxone 2 gm IV daily; day 756. I&D , hardware removal and fusion planned for today. Weekly cbc, cmp, crp, vanco trough while on antibiotics.
[2019-09-12] MEDS ORDERED: Propofol* 10 MG/ML 20 ML BTL ONE (10:31)
[2019-09-12] MEDS ORDERED: Lidocaine 2% PF * 5 ML VIAL ONE (10:31)
[2019-09-12] MEDS ORDERED: Propofol* 500 MG/50 ML BTL ONE ×2 (10:32→14:37)
[2019-09-12] MEDS ORDERED: Remifentanil* 2 MG VIAL ONE ×2 (10:32→17:45)
[2019-09-12] MEDS ORDERED: Midazolam* 1 MG/ML 2 ML VIAL (2 MG) ONE (10:38)
[2019-09-12] MEDS ORDERED: fentaNYL* 50 MCG/ML 2 ML VIAL (100 MCG VIAL) ONE (10:38)
[2019-09-12] MEDS ORDERED: Phenylephrine 10 MG/ML VIAL* 1 ML VIAL ONE (11:15)
[2019-09-12] MEDS ORDERED: KETAMINE HCL* 50 MG/ML 10 ML VIAL ONE (11:16)
[2019-09-12] MEDS ORDERED: Bupivacaine 0.25% SDV PF* 10 ML VIAL INJ ONE (12:23)
[2019-09-12] MEDS ORDERED: Lidocaine 1% w EPI 1:200,000* SDV 30 ML VIAL ONE (12:23)
[2019-09-12] MEDS ORDERED: Bacitracin INJECTION* 50,000 UNITS ONE (12:23)
[2019-09-12] MEDS ORDERED: ceFAZolin 2 GM PREMIX in ORs 2 GM/50 ML BAG ONE (12:33)
[2019-09-12] MEDS: Vancomycin(*) 1,000 MG in NS 0.9% 250 ML* 250 ML IVPB SCH (12:57)
[2019-09-12] MEDS ORDERED: Rocuronium* 10 MG/ML VIAL ONE (13:20)
--- NOTE | 2019-09-12 13:21 | PN ---
Progress Note - Progress Note Date of Service: 09/12/19 SOAP: Subjective: []No events ON. Objective: []VSS, Afebrile AAOx3, BRIAN, CN II-XII grossly intact Motor 5/5 UE, LE: 3/5 HF, KE, 4-5/5 foot DF, EHL, PF bernard Sensory grossly intact to light touch DTR +1 , no clonus, no Babinski, Floyd's neg Wound soft clean , dry. Assessment: []69 yof hx of DM, previous instrumented arhrodesis with possible discitis / osteomyelitis and proximal junctional failure. Plan: []Despite conservative treatment, patient not able to get OOB and ambulate. To OR today for revision of previous instrumentation and Posterolateral arthrodesis T11-L3, possible T9-S1, possible biopsy and all indicated procedures. Discussed with patient and family treatment options with risks and benefits, expectations, limitations and possible complications of surgical intervention with complications including, but not limited to bleeding, infection, risk of injury to adjacent structures, coma, paralysis, , stroke, blindness, cancer , instability, hardware failure,hardware malposition and need for revision, inability to remove prior instrumentation, pseudoarthrosis, adjacent level disease with proximal or distal junctional failure and need for additional procedures, CSF leak, loss of bladder or bowel control, injury to intrabdominal or intrathoracic organs, DVT, PE, need for tracheostomy, gastrostomy, prolonged ICU stay, prolonged hospitalization and prolonged rehabilitation, scar formation , anesthesia risks. Family and patient understand that patient may not improve and in fact may get worse after surgery and that there is a 60-80% complication rate associated with these procedures. They understand that operative plan may be modified according to intraoperative findings and conditions and that the case may be aborted or done in more than one stages and that he may need additional proceudres in the future. IC was obtained. Appreciate IM, AUBREY greene. Nathalie Christie MD
[2019-09-12] MEDS ORDERED: Dexamethasone IV* 4 MG/ML 1 ML (4 MG) ONE (14:47)
[2019-09-12] MEDS ORDERED: Propofol* 300 ML ONE (15:03)
[2019-09-12] MEDS ORDERED: HYDROmorphone INJ1* 1 MG/ML SYRINGE IV PRN (15:10)
[2019-09-12] MEDS ORDERED: oxyCODONE TAB* 5 MG TAB PO PRN ×2 (15:10→21:47)
[2019-09-12] MEDS ORDERED: Naloxone* 0.4 MG/ML 1 ML VIAL IV PRN ×2 (15:10→21:47)
[2019-09-12] MEDS ORDERED: DiMENhydriNATE IV* 50 MG/ML VIAL IV PUSH PRN ×2 (15:10→21:47)
[2019-09-12] MEDS ORDERED: cefTRIAXone(*) 2 GM ADDV.VIAL IVPB ONE (15:26)
[2019-09-12] MEDS: cefTRIAXone(*) 2 GM in NS 0.9% 100 ML* 100 ML IVPB SCH (15:40)
[2019-09-12] MEDS ORDERED: ceFAZolin VIAL(*) VIAL ONE (18:36)
--- NOTE | 2019-09-12 19:03 | PN ---
Hospitalist Progress Note Date of Service: 09/12/19 Patient was not seen by this provider today. She was in the OR for I&D, hardware removal, fusion for the majority of the day. Will follow up in a.m.
[2019-09-12] MEDS ORDERED: Ketorolac INJ* 30 MG/ML 1 ML VIAL ONE (20:17)
[2019-09-12] MEDS ORDERED: Ondansetron INJ* 2 MG/ML VIAL ONE (20:17)
[2019-09-12] MEDS ORDERED: HYDROmorphone INJ1* 1 MG/ML SYRINGE ONE ×2 (20:17→22:02)
[2019-09-12] MEDS ORDERED: Acetaminophen IV 1GM/100ML * 100 ML ONE (20:17)
[2019-09-12] MEDS ORDERED: Metoclopramide IV* 5 MG/ML 2 ML VIAL ONE (20:17)
[2019-09-12] MEDS: HYDROmorphone INJ1* 1 MG/ML SYRINGE IV PRN ×2 (22:03→22:56)
[2019-09-12] MEDS ORDERED: Meperidine SYRINGE* 50 MG/ML IV ONE (22:29)
[2019-09-12] MEDS ORDERED: Dexmedetomidine* 200 MCG/2 ML 2 ML VIAL ONE (22:35)
[2019-09-13 00:45] LABS: Hematocrit 24 % (35-47); Hemoglobin 7.9 g/dL (12.0-16.0); Mean Corpuscular HGB Conc 33 g/dL (31-36); Mean Corpuscular Hemoglobin 28 pg (27-31); Mean Corpuscular Volume 87 fL (80-97); Mean Platelet Volume 8.6 fL (7.4-10.4); Platelet Count 204 10^3/uL (150-450); Red Cell Distribution Width 18 % (10-15); White Blood Count 12.1 10^3/uL (3.5-10.8)
[2019-09-13 01:02] LABS: ALT 51 U/L (7-52); AST 16 U/L (13-39); Albumin 2.4 g/dL (3.2-5.2); Albumin/Globulin Ratio 0.9 (1-3); Alkaline Phosphatase 225 U/L (34-104); Anion Gap 4 mmol/L (2-11); BUN/Creatinine Ratio 8.8 (8-20); Blood Urea Nitrogen 15 mg/dL (6-24); C Reactive Protein 4.94 mg/L (<8.01); CO2 Carbon Dioxide 22 mmol/L (22-32); Calcium 7.8 mg/dL (8.6-10.3); Chloride 111 mmol/L (101-111); EGFR African American 36.3 (>60); Globulin 2.6 g/dL (2-4); Glucose 210 mg/dL (70-100); Magnesium 1.7 mg/dL (1.9-2.7); Potassium 4.8 mmol/L (3.5-5.0); Sodium 137 mmol/L (135-145)
[2019-09-13 01:24] LABS: ABS Lymphocytes 1.1 10^3/ul (1.0-4.8); ABS Monocytes 0.4 10^3/ul (0-0.8); ABS Neutrophils 10.6 10^3/ul (1.5-7.7); Eosinophil % 0.1 %; Lymphocyte % 8.8 %
[2019-09-13] MEDS ORDERED: Magnesium Sulfate 2 GM IV* 2 GM/50 ML BAG IVPB ONE (01:36)
--- NOTE | 2019-09-13 01:53 | OP ---
DATE OF OPERATION: 09/12/19 - ROOM #ICU-07 DATE OF : 54 SURGEON: Sheree Christie MD. NUCLEAR RADIATION ENGINEER: RAMESH Waters. The case was done with the assistance of RAMESH because of the complexity of the case. ANESTHESIA: General. PRE-OP DIAGNOSES: 1. L2-3 diskitis. 2. Osteomyelitis. 3. Spinal instability. POST-OP DIAGNOSES: 1. L2-3 diskitis. 2. Osteomyelitis. 3. Spinal instability. OPERATIVE PROCEDURE: The patient underwent revision of previous instrumentation and arthrodesis L3-S1 with replacement of S1, L5, L4, and L3 pedicle screws. She also underwent posterolateral fusion from T11-S1 with placement of bilateral pedicle screws at L2, L1, T12, and T11 with use of intraoperative navigation and intraoperative monitoring, with use of DBX putty. ESTIMATED BLOOD LOSS: 100 cc. COMPLICATIONS: None. SUMMARY: The patient is a very pleasant 69-year-old female with history of previous fusion L3-S1 approximately 20 years ago in [place]. The patient had also another surgical intervention for placement of spinal cord stimulator and diskectomy at L2-[address] Munoz. The patient had removal of the spinal cord stimulators and she had progressive weakness and difficulty ambulation with bend forward posture. The patient was transferred from [facility] where she was admitted for sepsis and diskitis, osteomyelitis of L2-3. The patient was unable to ambulate, had severe back pain and had significant local kyphosis with proximal junctional failure and for these reasons, she was offered the option of surgical intervention. After explaining the expectations , limitations, possible complications of the procedure with the patient and after failing conservative treatment modalities with risks and benefits as well as possible complications, complications including but not limited to bleeding, infection, risk of injury to adjacent structures, coma, paralysis, , need for additional procedures, anesthesia risks, stroke, blindness, cancer, instability, hardware failure, adjacent level disease, pseudoarthrosis, proximal junctional kyphosis, distal junctional kyphosis, anesthesia risks, deep venous thrombosis, pulmonary embolism, [place], inability to restore lordosis, development of postoperative hematoma, loss of bladder or bowel control, injury to intraabdominal or intrathoracic organs, patient and her family including her were agreeable to proceed with surgery and informed consent was obtained. The patient understood that the operative plan may be modified according to intraoperative findings and conditions and that the procedure may be aborted or done in more than 1 stages. She also understood that she may require additional procedure in the future and she may require a prolonged ICU stay, prolonged hospitalization, prolonged rehabilitation and placement of tracheostomy or gastrostomy. DESCRIPTION OF PROCEDURE: The patient was brought to the operating room and was placed under general anesthesia by the anesthesia team. She was carefully positioned prone on Trev table and all bony prominences were meticulously padded. The skin was prepped and draped in the standard fashion. After appropriate surgical pause and patient identification, the incision of the previous surgical intervention was identified and marked on the skin with midline marker from the area of approximately T10 to S1. After infiltrating the skin with local anesthetic, the #10 surgical blade was used to incise the skin. The incision was carried down with use of Bovie cautery to the dorsal fascia and to the laminectomy defect from the previous lumbar decompression and fusion. Significant amount of scar was encountered as expected from the history. The dorsal fascia was divided in both sides of the midline in the lower thoracic levels and the upper lumbar and the paraspinal muscular was elevated with the use of periosteal elevator and Bovie cautery. This was done in a subperiosteal fashion. The lamina, facets, and transverse processes of L2 , L1 as well as T12 and T11 were gently exposed. Then, attention was brought to carefully dissect the scar tissue and exposed the previously placed hardware from L3 to S1. Attention was brought to expose all bony surfaces and the remaining transverse process of L3 bilaterally was exposed at the end of the previous fusion mass as well as the previous fusion mass to the levels below all the way to sacrum. The previous instrumentation was then gently removed and the pedicle screws at L3, L4, L5, and S1 were replaced with Medtronic Solera titanium screws. Screw dimensions were: 5,5 x 50 for L3, 6.5x50 for L4, 5.5x50 for L5, 5.5x35 for S1. Good purchase was identified during the insertion of the hardware. The connecting rods were found to be fractured as expected from preoperative imaging. Although, the arthrodesis was found to be rather solid, because of the presence of the infection as well as the dawna fractures, it was elected to expose the previous fusion mass and extend the arthrodesis all the way down to S1. After placement of the navigation star attached to a temporary dawna placed on the lower lumbar screws, intraoperative O- arm imaging was obtained, which confirmed excellent placement of the replaced hardware and the patient's data was transferred to navigation platform. With assistance of stereotactic navigation, the pedicles of L2, L1, T12, and T11 were cannulated and pedicle screws were then placed. Medtronic Voyager titanium screws were placed with dimensions: 5.5x40 for L2, 4.5x45 for L1, 4, 5x40 for T12 and T11 levels. Then, attention was brought to cut and contour two titanium rods and connect the screw heads with screw head caps. Then, after decorticating the transverse processes and the lamina and all bony exposed surfaces, the arthrodesis was performed with placing DBX putty in both sides. After confirmation of meticulous hemostasis and copious irrigation and meticulous inspection, the self-retaining retractors were removed from the field and 1 g vancomycin powder was placed in the wound. The wound was then closed by layers over 2 Flaquito drains, which were tunneled through separate stab wound incisions. Zero interrupted Vicryl sutures were used to approximate the dorsal fascia while the subcutaneous tissue was approximated with combination of interrupted 0 and 2-0 Vicryl sutures. The skin was then approximated with interrupted running 1 Prolene. The wound was covered with Xeroform and sterile dressings. At the end of the procedure, all counts were reported to be correct. The patient remained hemodynamically stable throughout the case. The initial hematocrit was 26 while intraoperative hematocrit was found to be 24. Electrophysiological monitor remained stable throughout the case. The patient was then turned supine, was extubated and was transferred to Recovery in excellent condition. [id number]/[facility] #: [id number] PHU
[2019-09-13] MEDS: HYDROmorphone INJ1* 1 MG/ML SYRINGE IV SLOW PU PRN ×3 (02:21→16:14)
[2019-09-13] MEDS: Lactated Ringers 1000 ML Bag* 1,000 ML IV SCH (03:04)
[2019-09-13] MEDS: Venlafaxine EXT RELEASE CAP* 37.5 MG PO SCH (09:01)
[2019-09-13] MEDS: Gabapentin CAP(*) 300 MG PO SCH ×3 (09:01→20:49)
[2019-09-13] MEDS: Pantoprazole TAB * 40 MG TAB PO SCH (09:01)
[2019-09-13] MEDS: Cyanocobalamin TAB* 500 MCG PO SCH (09:01)
[2019-09-13] MEDS ORDERED: NS 0.9% 500 ML* 500 ML IV ONE (11:00)
[2019-09-13 11:25] LABS: ABS Lymphocytes 1.9 10^3/ul (1.0-4.8); ABS Monocytes 0.8 10^3/ul (0-0.8); ABS Neutrophils 8.5 10^3/ul (1.5-7.7); Eosinophil % 0.1 %; Hematocrit 22 % (35-47); Hemoglobin 7.1 g/dL (12.0-16.0); Lymphocyte % 16.6 %; Mean Corpuscular HGB Conc 33 g/dL (31-36); Mean Corpuscular Hemoglobin 28 pg (27-31); Mean Corpuscular Volume 87 fL (80-97); Mean Platelet Volume 8.6 fL (7.4-10.4); Platelet Count 216 10^3/uL (150-450); Red Blood Count 2.51 10^6 /uL (3.70-4.87); Red Cell Distribution Width 17 % (10-15); White Blood Count 11.3 10^3/uL (3.5-10.8)
[2019-09-13] MEDS ORDERED: HYDROMORPHONE 8 MG PO PRN (12:12)
[2019-09-13] MEDS ORDERED: HYDROmorphone INJ1* 1 MG/ML SYRINGE IV SLOW PU PRN ×2 (12:13→12:38)
[2019-09-13 12:16] LABS: Vancomycin Trough 20.8 mcg/mL
[2019-09-13] MEDS ORDERED: NS 0.9% 1000 ML** 1,000 ML IV ONE ×3 (12:41→18:28)
--- NOTE | 2019-09-13 12:45 | PN ---
Subjective Date of Service: 09/13/19 Interval History: Pt seen in ICU bed, with family at bedside. Pt c/o LBP at 06/05, which is improved from recent days. She denies dizziness, lightheadedness, SOB. She had BM yesterday. Denies numbness, tingling in extremities, saddle anaesthesia. Dias is in place. No other complaints. Family History: Unchanged from Admission Social History: Unchanged from Admission Past Medical History: Unchanged from Admission Objective Active Medications: Cyanocobalamin (Vitamin B12 Tab*) 1,000 mcg PO DAILY [facility] Gabapentin (Neurontin Cap(*)) 600 mg PO TID [facility] Heparin Sodium (Porcine) (Heparin Flush Picc/Ml/Cvc(*)) 0 ml FLUSH 0600,1800 [facility] Hydromorphone HCl (Dilaudid Tab*) 8 mg PO Q8H PRN Hydromorphone HCl (Dilaudid Inj1s*) 0.5 mg IV SLOW PU Q6H PRN Ceftriaxone Sodium 2 gm/ (Sodium Chloride) 100 mls @ 200 mls/hr IVPB 1600 [facility] Lactated Ringer's (Lactated Ringers 1000 Ml Bag*) 1,000 mls @ 125 mls/hr IV PER RATE [facility] Vancomycin HCl 1,000 mg/ (Sodium Chloride) 250 mls @ 166.667 mls/hr IVPB Q24H [facility] Sodium Chloride (Ns 0.9% 1000 Ml) 1,000 mls @ 1,000 mls/hr IV .PER RATE [facility] Ondansetron HCl (Zofran Inj*) 4 mg IV Q6H PRN Pantoprazole Sodium (Protonix Tab*) 40 mg PO QAM [facility] Pharmacy Consult (Vancomycin Per Pharmacy*) 1 note FOLLOW UP .VANC PER PHARMACY [facility]; Protocol Pharmacy Profile Note (Vancomycin Trough Check) 1 note FOLLOW UP 1230 ONE Venlafaxine HCl (Effexor Xr Cap*) 37.5 mg PO DAILY [facility] Vital Signs: Temp Pulse Resp BP Pulse Ox 97.5 F 91 16 140/77 100 09/13/19 17:08 09/13/19 17:08 09/13/19 17:08 09/13/19 17:08 09/13/19 17:08 Oxygen Devices in Use Now: Nasal Cannula Appearance: Pt is pale middle aged woman who appears somewhat older than stated age. She is resting comfortably in bed, in no acute distress. Eyes: No Scleral Icterus, PERRLA, - - Mild periorbital edema Ears/Nose/Mouth/Throat: NL Teeth, Lips, Gums, Clear Oropharnyx, Mucous Membranes Moist Neck: NL Appearance and Movements; NL JVP, Trachea Midline Respiratory: Symmetrical Chest Expansion and Respiratory Effort, Clear to Auscultation Cardiovascular: NL Sounds; No Murmurs; No JVD, RRR Abdominal: NL Sounds; No Tenderness; No Distention Extremities: No Clubbing, Cyanosis, - - B/l UE, LE edema Neurological: Alert and Oriented x 3, - - Midline back incision with CDI dressing in place; [address], both with serosang fluid in bulb. Result Diagrams: 09/13/19 11:10 09/13/19 11:10 Microbiology and Other Data: Microbiology 09/06/19 00:30 Urine Culture - Final Urine No Growth (<1,000 CFU/mL) 09/05/19 21:07 Aerobic Blood Culture - Preliminary Blood Venous No Growth Day 1 Anaerobic Blood Culture - Preliminary No Growth Day 1 09/05/19 21:10 Aerobic Blood Culture - Preliminary Blood Venous No Growth Day 1 Anaerobic Blood Culture - Preliminary No Growth Day 1 Assess/Plan/Problems-Billing Assessment: Patient is a 69yo female with a PMH for chronic back pain, intermittent abdominal pain and new severe encephalopathy with discitis who is improving on antibiotics and supportive care. - Patient Problems (1) Decreased urine output Comment: -Pt with decreased urine output post-operatively -1.5L fluid bolus ordered, given with no improvement -Possible third spacing; will give 2L fluid bolus and continue maintainance fluids x1 bag (pt with some extremity edema) -Kidney, bladder US ordered -Continue to monitor for improvement with IVF (2) Hematuria Comment: -Urine blood-tinged -Dias placed days ago, so likely not result of traumatic insertion -US renal, bladder ordered (3) Postoperative anemia Comment: -Post-op anemia requiring 1U PRBC -Pt asymptomatic with no complaints of melena, hematochezia -H/H q6h (4) Periorbital edema Comment: -Post-operative periorbital edema and b/l UE, LE edema -No difficulty breathing, SOB, difficulty swallowing -Likely dependent due to prone surgical positioning for appx 9hours -Continue to monitor (5) Discitis SNOMED Code(s): 1867610 Comment: - Unclear chronicity, CRP and ESR normal on 08/23/2019 - Appreciate Neurosurgery and ID consults - Continue Ceftriaxone, vanco troughs between 17-20 per ID, PICC placed - No additional imaging at this time - Patient s/p I&D, hardware removal 09/12 (6) Kyphosis Comment: - POD 1 T11-S1 spinal fusion - Neurosurgery following - Continue pain management (7) Encephalopathy Comment: - Resolved - Severe, toxic versus metabolic (narcotics versus infection or combination) - Improved with reduced narcotics and antibiotics - CT brain shows no acute process, 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 Will need [facility] antibiotics, post op I&D, hardware removal, spinal fusion.
[2019-09-13] MEDS: HYDROmorphone TAB* 4 MG PO PRN ×2 (12:52→20:50)
[2019-09-13] MEDS: Vancomycin(*) 1,000 MG in NS 0.9% 250 ML* 250 ML IVPB SCH (13:57)
[2019-09-13 14:29] LABS: Calcium 7.8 mg/dL (8.6-10.3); Potassium 4.8 mmol/L (3.5-5.0)
[2019-09-13 14:34] LABS: BUN/Creatinine Ratio 9.2 (8-20); EGFR African American 35.3 (>60); EGFR Non-African American 29.2 (>60)
[2019-09-13] MEDS: cefTRIAXone(*) 2 GM in NS 0.9% 100 ML* 100 ML IVPB SCH (17:37)
[2019-09-13] MEDS ORDERED: NS 0.9% 1000 ML** 1,000 ML IV SCH (18:15)
[2019-09-13 18:39] LABS: Hematocrit 27 % (35-47)
--- NOTE | 2019-09-13 21:18 | PN ---
Progress Note - Progress Note Date of Service: 09/13/19 SOAP: Subjective: [] Patient was seen in ICU earlier today. No events ON. Dias. Pain is improved. Objective: []VSS, Afebrile Wound soft clean , dry. Drains output noted. AAOx3, BRIAN, CN II-XII grossly intact Motor 5/5 UE, LE: 4-5/5 Sensory grossly intact to light touch DTR +1 , no clonus, no Babinski, Floyd's neg Assessment: []69 yof hx of DM, previous instrumented arhrodesis with possible discitis / osteomyelitis and proximal junctional failure, POD#1 T11-S1 arthrodesis and revision of prior instrumentation Plan: [] Monitor VS, Neurochecks Monitor Ht, RBC given. Preop anemia with Ht of 26 Monitor drain output. TL XR reveal good placement of hardware, good alignment of spine. Continue ABX per ID. OOB with assistance. Brace when OOB. DC planning Consider nutrition consult, osteoporosis work up/ management. Appreciate IM, ID care. Nathalie Christie MD
[2019-09-14 00:18] LABS: Hematocrit 25 % (35-47); Hemoglobin 8.1 g/dL (12.0-16.0)
[2019-09-14 01:44] LABS: Urine Appearance Turbid; Urine Bacteria Absent (Absent); Urine Bilirubin Negative (Negative); Urine Blood 3+ (Negative); Urine Color Yellow; Urine Glucose Negative (Negative); Urine Ketones Negative (Negative); Urine Nitrite Negative (Negative); Urine Protein 1+(30 mg/dL) (Negative); Urine Red Blood Cell 3+(>10/hpf) (Absent); Urine Specific Gravity 1.016 (1.010-1.030); Urine Urobilinogen Negative (Negative); Urine White Blood Cell 3+(>20/hpf) (Absent)
[2019-09-14] MEDS: HYDROmorphone TAB* 4 MG PO PRN ×3 (05:28→23:06)
[2019-09-14 06:06] LABS: Hematocrit 22 % (35-47); Hemoglobin 7.6 g/dL (12.0-16.0)
[2019-09-14 06:21] LABS: BUN/Creatinine Ratio 10.5 (8-20); Calcium 7.5 mg/dL (8.6-10.3); EGFR Non-African American 29.8 (>60); Potassium 4.2 mmol/L (3.5-5.0)
[2019-09-14] MEDS: Cyanocobalamin TAB* 500 MCG PO SCH (09:15)
[2019-09-14] MEDS: Venlafaxine EXT RELEASE CAP* 37.5 MG PO SCH (09:15)
[2019-09-14] MEDS: Gabapentin CAP(*) 300 MG PO SCH ×3 (09:16→21:49)
[2019-09-14] MEDS: Pantoprazole TAB * 40 MG TAB PO SCH (09:16)
[2019-09-14] MEDS: HYDROmorphone INJ1* 1 MG/ML SYRINGE IV SLOW PU PRN (09:16)
[2019-09-14] MEDS ORDERED: Vancomycin Trough Check NOTE FOLLOW UP ONE (12:30)
[2019-09-14 12:52] LABS: Hematocrit 23 % (35-47); Hemoglobin 7.8 g/dL (12.0-16.0)
--- NOTE | 2019-09-14 13:14 | PN ---
Progress Note - Progress Note Date of Service: 09/14/19 SOAP: Subjective: []Patient on regular floor. No events ON. Dias. Pain is improved. Out of bed in a chair. Can stand and transfer from chair to bed with minimal assistance. Tolerates po well. Objective: [] VSS, Afebrile Wound soft clean , dry. Drains output noted. Drains were removed. Catheters appeared to be intact. No complications. Patient tolerated procedure well. AAOx3, BRIAN, CN II-XII grossly intact Motor 5/5 UE, LE 5/5 Sensory grossly intact to light touch Assessment: []69 yof hx of DM, previous instrumented arhrodesis with possible discitis / osteomyelitis and proximal junctional failure, POD#2 T11-S1 arthrodesis and revision of prior instrumentation Plan: [] Monitor VS, Neurochecks Monitor Ht, Today Ht 22. Preop anemia with Ht of 26 Continue ABX per ID. OOB with assistance. Brace when OOB. PT. Encourage ambulation. Incentive spirometer. May start sq Heparin for DVT prophylaxis. DC planning Consider nutrition consult, osteoporosis work up/ management. Appreciate IM, ID care. Nathalie Christie MD
[2019-09-14 13:21] LABS: Vancomycin Trough 20.7 mcg/mL
[2019-09-14] MEDS: Vancomycin(*) 1,000 MG in NS 0.9% 250 ML* 250 ML IVPB SCH (13:41)
[2019-09-14] MEDS ORDERED: Magnesium Hydroxide LIQ* 30 ML UDC PO PRN (13:44)
[2019-09-14] MEDS ORDERED: Polyethylene Glycol 3350* 17 GM PACKET PO PRN (13:44)
[2019-09-14] MEDS ORDERED: Senna TAB 8.6 mg* TAB PO PRN (13:44)
[2019-09-14] MEDS ORDERED: Magnesium Hydroxide LIQ* 30 ML UDC ONE (13:48)
--- NOTE | 2019-09-14 13:51 | PN ---
Subjective Date of Service: 09/14/19 Interval History: Pt c/p post op pain. No BM since surgery Noted diffuse edema Family History: Unchanged from Admission Social History: Unchanged from Admission Past Medical History: Unchanged from Admission Objective Active Medications: Cyanocobalamin (Vitamin B12 Tab*) 1,000 mcg PO DAILY [facility] Last Admin: 09/14/19 09:15 Dose: 1,000 mcg Docusate Sodium (Colace Cap*) 100 mg PO BID [facility] Gabapentin (Neurontin Cap(*)) 600 mg PO TID [facility] Last Admin: 09/14/19 09:16 Dose: 600 mg Heparin Sodium (Porcine) (Heparin Flush Picc/Ml/Cvc(*)) 0 ml FLUSH 0600,1800 [facility] Last Admin: 09/14/19 05:45 Dose: 1 ml Hydromorphone HCl (Dilaudid Tab*) 8 mg PO Q8H PRN PRN Reason: Pain - moderate to severe Last Admin: 09/14/19 05:28 Dose: 8 mg Hydromorphone HCl (Dilaudid Inj1s*) 0.5 mg IV SLOW PU Q3H PRN PRN Reason: Pain - breakthrough Last Admin: 09/14/19 09:16 Dose: 0.5 mg Ceftriaxone Sodium 2 gm/ (Sodium Chloride) 100 mls @ 200 mls/hr IVPB 1600 [facility] Last Admin: 09/13/19 17:37 Dose: 200 mls/hr Vancomycin HCl 1,000 mg/ (Sodium Chloride) 250 mls @ 166.667 mls/hr IVPB Q24H [facility] Last Admin: 09/14/19 13:41 Dose: Not Given Magnesium Hydroxide (Milk Of Magnesia Liq*) 30 ml PO BID [facility] Magnesium Hydroxide (Milk Of Magnesia Liq*) 30 ml PO BID PRN PRN Reason: CONSTIPATION Ondansetron HCl (Zofran Inj*) 4 mg IV Q6H PRN PRN Reason: NAUSEA Last Admin: 09/12/19 00:05 Dose: 4 mg Pantoprazole Sodium (Protonix Tab*) 40 mg PO QAM [facility] Last Admin: 09/14/19 09:16 Dose: 40 mg Pharmacy Consult (Vancomycin Per Pharmacy*) 1 note FOLLOW UP .VANC PER PHARMACY [facility]; Protocol Polyethylene Glycol/Electrolytes (Miralax*) 17 gm PO DAILY PRN PRN Reason: CONSTIPATION Senna (Senokot 8.6 Mg Tab*) 1 tab PO BEDTIME PRN PRN Reason: CONSTIPATION Venlafaxine HCl (Effexor Xr Cap*) 37.5 mg PO DAILY [facility] Last Admin: 09/14/19 09:15 Dose: 37.5 mg Vital Signs - 8 hr 09/14/19 09/14/19 09/14/19 07:28 07:33 09:16 Temperature 98.4 F Pulse Rate 72 Respiratory 16 17 16 Rate Blood Pressure 150/80 (mmHg) O2 Sat by Pulse 96 Oximetry 09/14/19 09/14/19 09/14/19 10:16 11:16 12:13 Temperature 98.0 F Pulse Rate 73 Respiratory 16 16 16 Rate Blood Pressure 127/66 (mmHg) O2 Sat by Pulse 98 Oximetry Oxygen Devices in Use Now: Nasal Cannula Appearance: 69 yo F in nAD, aAOx3 Eyes: No Scleral Icterus, PERRLA Ears/Nose/Mouth/Throat: NL Teeth, Lips, Gums, Mucous Membranes Moist Neck: NL Appearance and Movements; NL JVP, Trachea Midline Respiratory: Symmetrical Chest Expansion and Respiratory Effort, Clear to Auscultation Cardiovascular: NL Sounds; No Murmurs; No JVD Abdominal: NL Sounds; No Tenderness; No Distention, No Hepatosplenomegaly Lymphatic: No Cervical Adenopathy, No Auricular Adenopathy Extremities: - - diffuse +1 b/l upper and lower extremeities edema Skin: - - back incision covered, not inspected Neurological: Alert and Oriented x 3, NL Muscle Strength and Tone Result Diagrams: 09/14/19 12:34 09/14/19 12:34 Microbiology and Other Data: Microbiology 09/06/19 00:30 Urine Culture - Final Urine No Growth (<1,000 CFU/mL) 09/05/19 21:07 Aerobic Blood Culture - Preliminary Blood Venous No Growth Day 1 Anaerobic Blood Culture - Preliminary No Growth Day 1 09/05/19 21:10 Aerobic Blood Culture - Preliminary Blood Venous No Growth Day 1 Anaerobic Blood Culture - Preliminary No Growth Day 1 Assess/Plan/Problems-Billing Assessment: Patient is a 69yo female with a PMH for chronic back pain, intermittent abdominal pain and new severe encephalopathy with discitis who is improving on antibiotics and supportive care. - Patient Problems (1) Discitis Comment: - Unclear chronicity, CRP and ESR normal on 08/23/2019 - Appreciate Neurosurgery and ID consults - Continue Ceftriaxone, vanco troughs between 17-20 per ID, PICC placed - No additional imaging at this time - Patient s/p I&D, hardware removal 09/12 (2) Chronic pain Comment: - Transition to home dose of PO dilaudid, with low dose IV for breakthrough pain - Should have post-op pain consult and outpatient follow up (3) DM II (diabetes mellitus, type II), controlled Comment: - A1C is 6.1, DC accuchecks, continue diet control (4) Encephalopathy Comment: - Resolved - Severe, toxic versus metabolic (narcotics versus infection or combination) - Improved with reduced narcotics and antibiotics - CT brain shows no acute process, Basal Ganglia 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 Will need intermission coordinator antibiotics, post op I&D, hardware removal, spinal fusion.
[2019-09-14 14:40] LABS: EGFR African American 37.5 (>60)
[2019-09-14] MEDS: Vancomycin(*) 750 MG in NS 0.9% 250 ML* 250 ML IVPB SCH (14:52)
[2019-09-14] MEDS: Metolazone TAB* 5 MG PO SCH (14:52)
[2019-09-14] MEDS: Bumetanide TAB* 2 MG PO SCH (14:53)
[2019-09-14] MEDS: cefTRIAXone(*) 2 GM in NS 0.9% 100 ML* 100 ML IVPB SCH (17:14)
[2019-09-14] MEDS: oxyCODONE/Acetamin 5/325 MG* TAB PO PRN (19:18)
[2019-09-14] MEDS: Magnesium Hydroxide LIQ* 30 ML UDC PO SCH (20:06)
[2019-09-14] MEDS: Docusate CAP* 100 MG PO SCH (20:06)
[2019-09-14] MEDS: Heparin VIAL(*) 5000 UNITS/ML VIAL (FIVE THOUSAND) SUBCUT SCH (21:51)
[2019-09-15] MEDS: Heparin VIAL(*) 5000 UNITS/ML VIAL (FIVE THOUSAND) SUBCUT SCH ×3 (05:37→21:16)
[2019-09-15] MEDS: oxyCODONE/Acetamin 5/325 MG* TAB PO PRN ×4 (05:37→22:14)
[2019-09-15 06:02] LABS: ABS Eosinophils 0.1 10^3/ul (0-0.6); ABS Monocytes 0.6 10^3/ul (0-0.8); Eosinophil % 0.9 %; Hematocrit 22 % (35-47); Hemoglobin 7.5 g/dL (12.0-16.0); Mean Corpuscular HGB Conc 33 g/dL (31-36); Mean Corpuscular Hemoglobin 29 pg (27-31); Mean Corpuscular Volume 87 fL (80-97); Mean Platelet Volume 8.2 fL (7.4-10.4); Nucleated Red Blood Cells % 0.1; Platelet Count 202 10^3/uL (150-450); Red Blood Count 2.58 10^6 /uL (3.70-4.87); Red Cell Distribution Width 17 % (10-15); White Blood Count 9.7 10^3/uL (3.5-10.8)
[2019-09-15 06:20] LABS: BUN/Creatinine Ratio 11.1 (8-20); Calcium 7.7 mg/dL (8.6-10.3); EGFR African American 38.3 (>60); EGFR Non-African American 31.7 (>60); Potassium 3.9 mmol/L (3.5-5.0)
[2019-09-15] MEDS ORDERED: Influenza VAC *QUAD* 2019-20* 0.5 ML SYRINGE IM ONE (09:00)
[2019-09-15] MEDS: Docusate CAP* 100 MG PO SCH ×2 (09:04→21:15)
[2019-09-15] MEDS: Gabapentin CAP(*) 300 MG PO SCH ×3 (09:04→21:14)
[2019-09-15] MEDS: Cyanocobalamin TAB* 500 MCG PO SCH (09:04)
[2019-09-15] MEDS: Bumetanide TAB* 2 MG PO SCH (09:04)
[2019-09-15] MEDS: Venlafaxine EXT RELEASE CAP* 37.5 MG PO SCH (09:04)
[2019-09-15] MEDS: Metolazone TAB* 5 MG PO SCH (09:04)
[2019-09-15] MEDS: HYDROmorphone TAB* 4 MG PO PRN ×2 (09:05→17:39)
[2019-09-15] MEDS: Pantoprazole TAB * 40 MG TAB PO SCH (09:05)
--- NOTE | 2019-09-15 10:23 | PN ---
Subjective Date of Service: 09/15/19 Interval History: Pt c/o back "feeling sore". Had multiple BM's last night after laxatives given. Still has Dias in place Family History: Unchanged from Admission Social History: Unchanged from Admission Past Medical History: Unchanged from Admission Objective Active Medications: Bumetanide (Bumex Tab*) 2 mg PO DAILY [facility] Last Admin: 09/15/19 09:04 Dose: 2 mg Cyanocobalamin (Vitamin B12 Tab*) 1,000 mcg PO DAILY [facility] Last Admin: 09/15/19 09:04 Dose: 1,000 mcg Docusate Sodium (Colace Cap*) 100 mg PO BID [facility] Last Admin: 09/15/19 09:04 Dose: 100 mg Gabapentin (Neurontin Cap(*)) 600 mg PO TID [facility] Last Admin: 09/15/19 09:04 Dose: 600 mg Heparin Sodium (Porcine) (Heparin Flush Picc/Ml/Cvc(*)) 0 ml FLUSH 0600,1800 [facility] Last Admin: 09/15/19 05:39 Dose: 1 ml Heparin Sodium (Porcine) (Heparin Vial(*)) 5,000 units SUBCUT Q8HR [facility] Last Admin: 09/15/19 05:37 Dose: 5,000 units Hydromorphone HCl (Dilaudid Tab*) 8 mg PO Q8H PRN PRN Reason: Pain - moderate to severe Last Admin: 09/15/19 09:05 Dose: 8 mg Ceftriaxone Sodium 2 gm/ (Sodium Chloride) 100 mls @ 200 mls/hr IVPB 1600 [facility] Last Admin: 09/14/19 17:14 Dose: 200 mls/hr Vancomycin HCl 750 mg/ Sodium (Chloride) 250 mls @ 166.667 mls/hr IVPB Q24H [facility] Last Admin: 09/14/19 14:52 Dose: 166.667 mls/hr Magnesium Hydroxide (Milk Of Magnesia Liq*) 30 ml PO BID [facility] Last Admin: 09/14/19 20:06 Dose: Not Given Magnesium Hydroxide (Milk Of Magnesia Liq*) 30 ml PO BID PRN PRN Reason: CONSTIPATION Last Admin: 09/14/19 13:58 Dose: 30 ml Metolazone (Zaroxolyn Tab*) 5 mg PO DAILY [facility] Last Admin: 09/15/19 09:04 Dose: 5 mg Ondansetron HCl (Zofran Inj*) 4 mg IV Q6H PRN PRN Reason: NAUSEA Last Admin: 09/12/19 00:05 Dose: 4 mg Oxycodone/Acetaminophen (Percocet 5/325 Tab*) 1 tab PO Q4H PRN PRN Reason: PAIN - MODERATE Last Admin: 09/15/19 05:37 Dose: 1 tab Pantoprazole Sodium (Protonix Tab*) 40 mg PO QAM [facility] Last Admin: 09/15/19 09:05 Dose: 40 mg Pharmacy Consult (Vancomycin Per Pharmacy*) 1 note FOLLOW UP .VANC PER PHARMACY [facility]; Protocol Pharmacy Profile Note (Vancomycin Trough Check) 1 note FOLLOW UP 1400 [facility] Stop: 09/17/19 14:01 Polyethylene Glycol/Electrolytes (Miralax*) 17 gm PO DAILY PRN PRN Reason: CONSTIPATION Senna (Senokot 8.6 Mg Tab*) 1 tab PO BEDTIME PRN PRN Reason: CONSTIPATION Venlafaxine HCl (Effexor Xr Cap*) 37.5 mg PO DAILY [facility] Last Admin: 09/15/19 09:04 Dose: 37.5 mg Vital Signs - 8 hr 09/15/19 09/15/19 09/15/19 02:54 05:37 07:15 Temperature 98.5 F 98.3 F Pulse Rate 68 74 Respiratory 16 16 16 Rate Blood Pressure 140/74 143/76 (mmHg) O2 Sat by Pulse 96 100 Oximetry 09/15/19 09/15/19 09/15/19 07:53 09:04 09:05 Temperature Pulse Rate Respiratory 16 16 16 Rate Blood Pressure (mmHg) O2 Sat by Pulse Oximetry Oxygen Devices in Use Now: Nasal Cannula Appearance: 69 yo F in nAD, aAOx3 Eyes: No Scleral Icterus, PERRLA Ears/Nose/Mouth/Throat: NL Teeth, Lips, Gums, Mucous Membranes Moist Neck: NL Appearance and Movements; NL JVP, Trachea Midline Respiratory: Symmetrical Chest Expansion and Respiratory Effort, Clear to Auscultation Cardiovascular: NL Sounds; No Murmurs; No JVD, RRR Abdominal: NL Sounds; No Tenderness; No Distention, No Hepatosplenomegaly, - - back incision not inspected Extremities: No Clubbing, Cyanosis, - - diffuse b/l LE's and hand edema improving Skin: No Nodules or Sclerosis Neurological: Alert and Oriented x 3, NL Muscle Strength and Tone Result Diagrams: 09/15/19 05:49 09/15/19 05:49 Microbiology and Other Data: Microbiology 09/06/19 00:30 Urine Culture - Final Urine No Growth (<1,000 CFU/mL) 09/05/19 21:07 Aerobic Blood Culture - Preliminary Blood Venous No Growth Day 1 Anaerobic Blood Culture - Preliminary No Growth Day 1 09/05/19 21:10 Aerobic Blood Culture - Preliminary Blood Venous No Growth Day 1 Anaerobic Blood Culture - Preliminary No Growth Day 1 Assess/Plan/Problems-Billing Assessment: Patient is a 69yo female with a PMH for chronic back pain, intermittent abdominal pain and new severe encephalopathy with discitis who is improving on antibiotics and supportive care. - Patient Problems (1) Discitis Comment: - Unclear chronicity, CRP and ESR normal on 08/23/2019 - Appreciate Neurosurgery and ID consults - Continue Ceftriaxone, vanco troughs between 17-20 per ID, PICC placedx 8 weeks total - No additional imaging at this time - Patient s/p I&D, hardware removal 09/12 (2) Chronic pain Comment: - Transition to home dose of PO dilaudid, with Percocet for breakthrough pain (3) DM II (diabetes mellitus, type II), controlled Comment: - A1C is 6.1, DC accuchecks, continue diet control (4) Encephalopathy Comment: - Resolved - Severe, toxic versus metabolic (narcotics versus infection or combination) - Improved with reduced narcotics and antibiotics - CT brain shows no acute process, 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 Dias removed today. Ready for d/c to [facility]
[2019-09-15] MEDS: Magnesium Hydroxide LIQ* 30 ML UDC PO SCH (13:37)
[2019-09-15] MEDS: Vancomycin(*) 750 MG in NS 0.9% 250 ML* 250 ML IVPB SCH (15:26)
--- NOTE | 2019-09-15 16:00 | PN ---
Progress Note - Progress Note Date of Service: 09/15/19 SOAP: Subjective: []No events ON. Dias is discontinued. Voids. Pain is improved. Out of bed in a chair. Can stand and transfer from chair to bed and bedside commode with minimal assistance. Tolerates po well. Reported to have BM yesterday. Objective: []VSS, Afebrile Wound soft clean , dry. AAOx3, BRIAN, CN II-XII grossly intact Motor 5/5 UE, LE 5/5 Sensory grossly intact to light touch Assessment: [][]69 yof hx of DM, previous instrumented arhrodesis with possible discitis / osteomyelitis and proximal junctional failure, POD#3 T11-S1 arthrodesis and revision of prior instrumentation Plan: [] Monitor VS, Neurochecks Monitor Ht, Today Ht 22 stable. Preop anemia with Ht of 26 Continue ABX per ID. OOB with assistance. Brace when OOB. PT. Encourage ambulation. Incentive spirometer. SQ Heparin for DVT prophylaxis. DC planning Consider nutrition consult, osteoporosis work up/ management. Appreciate IM, ID care. Nathalie Christie MD
[2019-09-15] MEDS: cefTRIAXone(*) 2 GM in NS 0.9% 100 ML* 100 ML IVPB SCH (17:37)
[2019-09-16] MEDS: HYDROmorphone TAB* 4 MG PO PRN ×3 (01:46→20:35)
[2019-09-16] MEDS: Heparin VIAL(*) 5000 UNITS/ML VIAL (FIVE THOUSAND) SUBCUT SCH ×3 (05:17→23:05)
[2019-09-16 06:15] LABS: BUN/Creatinine Ratio 11.9 (8-20); Calcium 7.7 mg/dL (8.6-10.3); EGFR African American 38.9 (>60); EGFR Non-African American 32.2 (>60); Potassium 3.7 mmol/L (3.5-5.0)
[2019-09-16] MEDS: oxyCODONE/Acetamin 5/325 MG* TAB PO PRN ×4 (06:31→23:15)
[2019-09-16] MEDS ORDERED: Vancomycin(*) 750 MG in NS 0.9% 250 ML* 250 ML IVPB SCH (09:00)
[2019-09-16] MEDS: Gabapentin CAP(*) 300 MG PO SCH ×3 (09:45→20:34)
[2019-09-16] MEDS: Venlafaxine EXT RELEASE CAP* 37.5 MG PO SCH (09:45)
[2019-09-16] MEDS: Cyanocobalamin TAB* 500 MCG PO SCH (09:45)
[2019-09-16] MEDS: Docusate CAP* 100 MG PO SCH ×2 (09:45→21:48)
[2019-09-16] MEDS: Metolazone TAB* 5 MG PO SCH (09:45)
[2019-09-16] MEDS: Bumetanide TAB* 2 MG PO SCH (09:45)
[2019-09-16] MEDS: Pantoprazole TAB * 40 MG TAB PO SCH (09:45)
--- NOTE | 2019-09-16 10:16 | PN ---
Subjective Date of Service: 09/16/19 Interval History: Pt was walking earlier today, but now is in too much pain and requires EasyStand to get her back to bed. Apart for continuation of post op pain, she has no complaints Family History: Unchanged from Admission Social History: Unchanged from Admission Past Medical History: Unchanged from Admission Objective Active Medications: Bumetanide (Bumex Tab*) 2 mg PO DAILY [facility] Last Admin: 09/16/19 09:45 Dose: 2 mg Cyanocobalamin (Vitamin B12 Tab*) 1,000 mcg PO DAILY [facility] Last Admin: 09/16/19 09:45 Dose: 1,000 mcg Docusate Sodium (Colace Cap*) 100 mg PO BID [facility] Last Admin: 09/16/19 09:45 Dose: 100 mg Gabapentin (Neurontin Cap(*)) 600 mg PO TID [facility] Last Admin: 09/16/19 09:45 Dose: 600 mg Heparin Sodium (Porcine) (Heparin Flush Picc/Ml/Cvc(*)) 0 ml FLUSH 0600,1800 [facility] Last Admin: 09/16/19 05:18 Dose: 1 ml Heparin Sodium (Porcine) (Heparin Vial(*)) 5,000 units SUBCUT Q8HR [facility] Last Admin: 09/16/19 05:17 Dose: 5,000 units Hydromorphone HCl (Dilaudid Tab*) 8 mg PO Q8H PRN PRN Reason: Pain - moderate to severe Last Admin: 09/16/19 09:45 Dose: 8 mg Ceftriaxone Sodium 2 gm/ (Sodium Chloride) 100 mls @ 200 mls/hr IVPB 1600 [facility] Last Admin: 09/15/19 17:37 Dose: 200 mls/hr Vancomycin HCl 750 mg/ Sodium (Chloride) 250 mls @ 166.667 mls/hr IVPB Q24H [facility] Last Admin: 09/15/19 15:26 Dose: 166.667 mls/hr Magnesium Hydroxide (Milk Of Magnesia Liq*) 30 ml PO BID PRN PRN Reason: CONSTIPATION Last Admin: 09/14/19 13:58 Dose: 30 ml Metolazone (Zaroxolyn Tab*) 5 mg PO DAILY [facility] Last Admin: 09/16/19 09:45 Dose: 5 mg Ondansetron HCl (Zofran Inj*) 4 mg IV Q6H PRN PRN Reason: NAUSEA Last Admin: 09/12/19 00:05 Dose: 4 mg Oxycodone/Acetaminophen (Percocet 5/325 Tab*) 1 tab PO Q4H PRN PRN Reason: PAIN - MODERATE Last Admin: 09/16/19 06:31 Dose: 1 tab Pantoprazole Sodium (Protonix Tab*) 40 mg PO QAM [facility] Last Admin: 09/16/19 09:45 Dose: 40 mg Pharmacy Consult (Vancomycin Per Pharmacy*) 1 note FOLLOW UP .VANC PER PHARMACY [facility]; Protocol Pharmacy Profile Note (Vancomycin Trough Check) 1 note FOLLOW UP 1400 [facility] Stop: 09/17/19 14:01 Polyethylene Glycol/Electrolytes (Miralax*) 17 gm PO DAILY PRN PRN Reason: CONSTIPATION Senna (Senokot 8.6 Mg Tab*) 1 tab PO BEDTIME PRN PRN Reason: CONSTIPATION Venlafaxine HCl (Effexor Xr Cap*) 37.5 mg PO DAILY [facility] Last Admin: 09/16/19 09:45 Dose: 37.5 mg Vital Signs - 8 hr 09/16/19 09/16/19 09/16/19 03:38 04:49 06:31 Temperature 98.2 F Pulse Rate 74 Respiratory 16 16 16 Rate Blood Pressure 137/73 (mmHg) O2 Sat by Pulse 95 Oximetry 09/16/19 09/16/19 09/16/19 07:30 08:00 09:45 Temperature 98.2 F Pulse Rate 78 Respiratory 16 16 18 Rate Blood Pressure 141/80 (mmHg) O2 Sat by Pulse 97 Oximetry Oxygen Devices in Use Now: Nasal Cannula Appearance: 69 yo F in nAD, aAOx3 Eyes: No Scleral Icterus, PERRLA Ears/Nose/Mouth/Throat: NL Teeth, Lips, Gums, Mucous Membranes Moist Neck: NL Appearance and Movements; NL JVP, Trachea Midline Respiratory: Symmetrical Chest Expansion and Respiratory Effort, Clear to Auscultation Cardiovascular: NL Sounds; No Murmurs; No JVD, RRR Abdominal: NL Sounds; No Tenderness; No Distention Lymphatic: No Cervical Adenopathy Extremities: - - trace pedal and hand edema b/l Skin: No Nodules or Sclerosis, - - back incision not inspected, pt is wearing TLSO brace Neurological: Alert and Oriented x 3, - - limited mobility in LE's mostly due to pain Result Diagrams: 09/15/19 05:49 10/21/19 05:45 Microbiology and Other Data: Microbiology 09/06/19 00:30 Urine Culture - Final Urine No Growth (<1,000 CFU/mL) 09/05/19 21:07 Aerobic Blood Culture - Preliminary Blood Venous No Growth Day 1 Anaerobic Blood Culture - Preliminary No Growth Day 1 09/05/19 21:10 Aerobic Blood Culture - Preliminary Blood Venous No Growth Day 1 Anaerobic Blood Culture - Preliminary No Growth Day 1 Assess/Plan/Problems-Billing Assessment: Patient is a 69yo female with a PMH for chronic back pain, intermittent abdominal pain and new severe encephalopathy with discitis who is improving on antibiotics and supportive care. - Patient Problems (1) Discitis Comment: - Unclear chronicity, CRP and ESR normal on 08/23/2019 - Appreciate Neurosurgery and ID consults - Continue Ceftriaxone, vanco troughs between 17-20 per ID- today is day , PICC placed - [place] placement - Patient s/p I&D, hardware removal 09/12 (2) Chronic pain Comment: - cont home dose of PO dilaudid, with Percocet for breakthrough pain (3) DM II (diabetes mellitus, type II), controlled Comment: - A1C is 6.1, DC accuchecks, continue diet control (4) Encephalopathy Comment: - Resolved - Severe, toxic versus metabolic (narcotics versus infection or combination) - Improved with reduced narcotics and antibiotics - CT brain shows no acute process, 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 Ready for d/c to [facility], would like [place] [facility]
--- NOTE | 2019-09-16 12:15 | PN ---
Progress Note - Progress Note Date of Service: 09/16/19 SOAP: Subjective: CC: Spine infection HPI: Ms. Adams is a 69 year old female with PMH significant for DM2, depression, anxiety, HTN, COPD, peptic ulcer diseae, HLD, chronic back pain, and chronic bilateral LE lymphedema. Denies fever, chills, nausea, vomiting, diarrhea, or rash. She states that overall she is feeling better. She reports discomfort at the incision site on her back. Objective: Vital Signs - 8 hr 09/16/19 09/16/19 09/16/19 04:49 06:31 07:30 Temperature 98.2 F Pulse Rate 78 Respiratory 16 16 16 Rate Blood Pressure 141/80 (mmHg) O2 Sat by Pulse 97 Oximetry 09/16/19 11:16 Temperature 98.7 F Pulse Rate 71 Respiratory 16 Rate Blood Pressure 134/72 (mmHg) O2 Sat by Pulse 98 Oximetry Physical Exam: General: NAD, laying in bed Neurological: Alert and Oriented HEENT: Moist MM, no thrush Cardiovascular: Heart rate regular Respiratory: Lung sounds clear Abdominal: Bowel sounds present; ABD soft, non tender and non distended MSK: Mild tenderness with palpation of the back near the incision line. Moves all extremities. Negative log roll bilateral hips. Skin: No rash. Dressing to the back clean, dry and intact. PICC to right UE, site benign Laboratory Last Values WBC 9.7 10^3/uL (3.5-10.8) 09/15/19 05:49 RBC 2.58 10^6 /uL (3.70-4.87) L 09/15/19 05:49 Hgb 7.5 g/dL (12.0-16.0) L 09/15/19 05:49 Hct 22 % (35-47) L 09/15/19 05:49 MCV 87 fL (80-97) 09/15/19 05:49 MCH 29 pg (27-31) 09/15/19 05:49 MCHC 33 g/dL (31-36) 09/15/19 05:49 RDW 17 % (10-15) H 09/15/19 05:49 Plt Count 202 10^3/uL (150-450) 09/15/19 05:49 MPV 8.2 fL (7.4-10.4) 09/15/19 05:49 Neut % (Auto) 72.1 % 09/15/19 05:49 Lymph % (Auto) 21.0 % 09/15/19 05:49 Riley % (Auto) 5.7 % 09/15/19 05:49 Eos % (Auto) 0.9 % 09/15/19 05:49 Baso % (Auto) 0.3 % 09/15/19 05:49 Absolute Neuts (auto) 7.0 10^3/ul (1.5-7.7) 09/15/19 05:49 Absolute Lymphs (auto) 2.0 10^3/ul (1.0-4.8) 09/15/19 05:49 Absolute Monos (auto) 0.6 10^3/ul (0-0.8) 09/15/19 05:49 Absolute Eos (auto) 0.1 10^3/ul (0-0.6) 09/15/19 05:49 Absolute Basos (auto) 0.0 10^3/ul (0-0.2) 09/15/19 05:49 Absolute Nucleated RBC 0.0 10^3/ul 09/15/19 05:49 Nucleated RBC % 0.1 09/15/19 05:49 INR (Anticoag Therapy) 0.88 (0.82-1.09) 09/11/19 17:19 APTT 27.3 seconds (26.0-38.0) 09/05/19 21:07 Sodium 141 mmol/L (135-145) 09/16/19 05:45 Potassium 3.7 mmol/L (3.5-5.0) 09/16/19 05:45 Chloride 111 mmol/L (101-111) 09/16/19 05:45 Carbon Dioxide 26 mmol/L (22-32) 09/16/19 05:45 Anion Gap 4 mmol/L (2-11) 09/16/19 05:45 BUN 19 mg/dL (6-24) 09/16/19 05:45 Creatinine 1.60 mg/dL (0.51-0.95) H 09/16/19 05:45 Est GFR ( Amer) 38.9 (>60) 09/16/19 05:45 Est GFR (Non-Af Amer) 32.2 (>60) 09/16/19 05:45 BUN/Creatinine Ratio 11.9 (8-20) 09/16/19 05:45 Glucose 172 mg/dL (70-100) H 09/16/19 05:45 POC Glucose (mg/dL) 220 mg/dL (70-100) H 09/12/19 22:18 Hemoglobin A1c 6.1 % (4.0-5.6) H 09/10/19 04:56 Serum Osmolality 287 mOsm/kg (275-295) 09/05/19 21:07 Lactic Acid 0.9 mmol/L (0.5-2.0) 09/13/19 00:15 Calcium 7.7 mg/dL (8.6-10.3) L 09/16/19 05:45 Magnesium 1.7 mg/dL (1.9-2.7) L 09/13/19 00:15 Total Bilirubin 0.20 mg/dL (0.2-1.0) 09/13/19 00:15 Direct Bilirubin 0.00 mg/dL (0.03-0.18) L 09/13/19 00:15 Indirect Bilirubin Bindery Machine Setter/Set Up Operator 09/13/19 00:15 AST 16 U/L (13-39) 09/13/19 00:15 ALT 51 U/L (7-52) 09/13/19 00:15 Alkaline Phosphatase 225 U/L (34-104) H 09/13/19 00:15 C-Reactive Protein 4.94 mg/L (<8.01) 09/13/19 00:15 B-Natriuretic Peptide 125 pg/mL (<=100) H 09/13/19 00:15 Total Protein 5.0 g/dL (6.4-8.9) L 09/13/19 00:15 Albumin 2.4 g/dL (3.2-5.2) L 09/13/19 00:15 Globulin 2.6 g/dL (2-4) 09/13/19 00:15 Albumin/Globulin Ratio 0.9 (1-3) L 09/13/19 00:15 Urine Color Yellow 09/13/19 01:12 Urine Appearance Turbid 09/13/19 01:12 Urine pH 5.0 (5-9) 09/13/19 01:12 Ur Specific [place] 1.016 (1.010-1.030) 09/13/19 01:12 Urine Protein 1+(30 mg/dl) (Negative) A 09/13/19 01:12 Urine Ketones Negative (Negative) 09/13/19 01:12 Urine Blood 3+ (Negative) A 09/13/19 01:12 Urine Nitrate Negative (Negative) 09/13/19 01:12 Urine Bilirubin Negative (Negative) 09/13/19 01:12 Urine Urobilinogen Negative (Negative) 09/13/19 01:12 Ur Leukocyte Esterase 2+ (Negative) A 09/13/19 01:12 Urine WBC (Auto) 3+(>20/hpf) (Absent) A 09/13/19 01:12 Urine RBC (Auto) 3+(>10/hpf) (Absent) A 09/13/19 01:12 Ur Squamous Epith Cells Present (Absent) A 09/06/19 00:30 Uric Acid Crystals Present (Absent) A 09/06/19 00:30 Urine Bacteria Absent (Absent) 09/13/19 01:12 Ur Creatinine Concen 61.09 mg/dL 09/09/19 07:55 U Sodium Concentration 64 mmol/L 09/09/19 07:55 Urine Glucose Negative (Negative) 09/13/19 01:12 Vancomycin Trough 20.7 mcg/mL 09/14/19 12:34 Random Vancomycin 20.3 mcg/mL 09/12/19 04:45 Blood Type O Positive 09/12/19 05:00 Antibody Screen Negative 09/12/19 05:00 Crossmatch See Detail 09/12/19 05:00 Microbiology 09/13/19 00:10 Nasal Screen MRSA (PCR) - Final Nasal Mrsa Not Detected 09/05/19 21:07 Aerobic Blood Culture - Final Blood Venous No Growth Day 5 Anaerobic Blood Culture - Final No Growth Day 5 09/05/19 21:10 Aerobic Blood Culture - Final Blood Venous No Growth Day 5 Anaerobic Blood Culture - Final No Growth Day 5 09/06/19 00:30 Urine Culture - Final Urine No Growth (<1,000 CFU/mL) Assessment: 1. 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 Blood cultures with no growth. No cultures from surgery. Typically caused by gram positive organisms. S/P I+D, removal of hardware, and revision of previous instrumentation; POD #4. 2. JING. Baseline creatinine appears to be ~1, now 1.7. 3. Encephalopathy. Resolved 4. DM2. Plan: Continue vancomycin, goal trough 15-20 and ceftriaxone 2 gm IV daily; day . Will need to have weekly labs while on IV ABX: CBC, CMP, CRP, and vanco trough. Followup with ID 1-2 weeks after discharge.
[2019-09-16] MEDS: Vancomycin(*) 750 MG in NS 0.9% 250 ML* 250 ML IVPB SCH (15:28)
[2019-09-16] MEDS: cefTRIAXone(*) 2 GM in NS 0.9% 100 ML* 100 ML IVPB SCH (17:36)
--- NOTE | 2019-09-16 20:21 | PN ---
Progress Note - Progress Note Date of Service: 09/16/19 SOAP: Subjective: []No events ON. Voids. Reported to have BM today. Walked quite well yesterday. Today pain is increased. Had limited mobility. Tolerates po well. Objective: []VSS, Afebrile Wound soft clean , dry. AAOx3, BRIAN, CN II-XII grossly intact Motor 5/5 UE, LE 5/5 Sensory grossly intact to light touch Assessment: []69 yof hx of DM, previous instrumented arhrodesis with possible discitis / osteomyelitis and proximal junctional failure, POD#4 T11-S1 arthrodesis and revision of prior instrumentation Plan: [] Monitor VS, Neurochecks Monitor Ht. Continue ABX per ID. OOB with assistance. Brace when OOB. PT. Encourage ambulation. Incentive spirometer. On SQ Heparin for DVT prophylaxis. DC planning Consider nutrition consult, osteoporosis work up/ management. Appreciate IM, ID care. Nathalie Christie MD
[2019-09-17] MEDS: HYDROmorphone TAB* 4 MG PO PRN ×3 (05:31→23:06)
[2019-09-17 05:42] LABS: ABS Eosinophils 0.1 10^3/ul (0-0.6); ABS Monocytes 0.6 10^3/ul (0-0.8); ABS Neutrophils 5.3 10^3/ul (1.5-7.7); Eosinophil % 1.7 %; Hematocrit 21 % (35-47); Hemoglobin 6.8 g/dL (12.0-16.0); Lymphocyte % 24.7 %; Mean Corpuscular HGB Conc 33 g/dL (31-36); Mean Corpuscular Hemoglobin 29 pg (27-31); Mean Corpuscular Volume 87 fL (80-97); Mean Platelet Volume 8.6 fL (7.4-10.4); Platelet Count 213 10^3/uL (150-450); Red Blood Count 2.36 10^6 /uL (3.70-4.87); Red Cell Distribution Width 17 % (10-15)
[2019-09-17 05:59] LABS: BUN/Creatinine Ratio 12.1 (8-20); Calcium 7.8 mg/dL (8.6-10.3); EGFR African American 42.2 (>60); EGFR Non-African American 34.9 (>60); Potassium 3.6 mmol/L (3.5-5.0)
[2019-09-17] MEDS: Heparin VIAL(*) 5000 UNITS/ML VIAL (FIVE THOUSAND) SUBCUT SCH ×3 (06:13→21:41)
[2019-09-17] MEDS: oxyCODONE/Acetamin 5/325 MG* TAB PO PRN ×4 (07:39→21:40)
[2019-09-17] MEDS: Gabapentin CAP(*) 300 MG PO SCH ×3 (08:51→19:22)
[2019-09-17] MEDS: Cyanocobalamin TAB* 500 MCG PO SCH (08:51)
[2019-09-17] MEDS: Pantoprazole TAB * 40 MG TAB PO SCH (08:51)
[2019-09-17] MEDS: Metolazone TAB* 5 MG PO SCH (08:51)
[2019-09-17] MEDS: Docusate CAP* 100 MG PO SCH ×2 (08:52→19:22)
[2019-09-17] MEDS: Venlafaxine EXT RELEASE CAP* 37.5 MG PO SCH (08:52)
[2019-09-17] MEDS: Bumetanide TAB* 2 MG PO SCH (09:48)
--- NOTE | 2019-09-17 11:43 | PN ---
Subjective Date of Service: 09/17/19 Interval History: Pt c/o dizziness, lightheadedness, fatigue; denies shortness of breath. She continues to have lumbar pain rated at 10/10 with no radiation. She has been up to BR, but notes that it was very painful. She is walking with a walker, which is her baseline. She has no other complaints today. Family History: Unchanged from Admission Social History: Unchanged from Admission Past Medical History: Unchanged from Admission Objective Active Medications: Bumetanide (Bumex Tab*) 2 mg PO DAILY [facility] Cyanocobalamin (Vitamin B12 Tab*) 1,000 mcg PO DAILY [facility] Docusate Sodium (Colace Cap*) 100 mg PO BID [facility] Gabapentin (Neurontin Cap(*)) 600 mg PO TID [facility] Heparin Sodium (Porcine) (Heparin Flush Picc/Ml/Cvc(*)) 0 ml FLUSH 0600,1800 [facility] Heparin Sodium (Porcine) (Heparin Vial(*)) 5,000 units SUBCUT Q8HR [facility] Hydromorphone HCl (Dilaudid Tab*) 8 mg PO Q8H PRN Ceftriaxone Sodium 2 gm/ (Sodium Chloride) 100 mls @ 200 mls/hr IVPB 1600 [facility] Vancomycin HCl 750 mg/ Sodium (Chloride) 250 mls @ 166.667 mls/hr IVPB Q24H [facility] Magnesium Hydroxide (Milk Of Magntom Liq*) 30 ml PO BID PRN Metolazone (Zaroxolyn Tab*) 5 mg PO DAILY [facility] Ondansetron HCl (Zofran Inj*) 4 mg IV Q6H PRN Oxycodone/Acetaminophen (Percocet 5/325 Tab*) 1 tab PO Q4H PRN Pantoprazole Sodium (Protonix Tab*) 40 mg PO QAM [facility] Pharmacy Consult (Vancomycin Per Pharmacy*) 1 note FOLLOW UP .VANC PER PHARMACY [facility]; Protocol Pharmacy Profile Note (Vancomycin Trough Check) 1 note FOLLOW UP 1400 ONE Polyethylene Glycol/Electrolytes (Miralax*) 17 gm PO DAILY PRN Senna (Senokot 8.6 Mg Tab*) 1 tab PO BEDTIME PRN Venlafaxine HCl (Effexor Xr Cap*) 37.5 mg PO DAILY [facility] Vital Signs: Temp Pulse Resp BP Pulse Ox 99.0 F 86 20 129/72 98 09/17/19 14:47 09/17/19 14:47 09/17/19 15:24 09/17/19 14:47 09/17/19 14:47 Oxygen Devices in Use Now: None Appearance: Pt is sitting in bed, with LE elevated, leaning to L. She appears to be mildly uncomfortable, but in no acute distress. Eyes: No Scleral Icterus, PERRLA Ears/Nose/Mouth/Throat: NL Teeth, Lips, Gums, Clear Oropharnyx, Mucous Membranes Moist, - - Edentulous Neck: NL Appearance and Movements; NL JVP, Trachea Midline Respiratory: Symmetrical Chest Expansion and Respiratory Effort, Clear to Auscultation Cardiovascular: NL Sounds; No Murmurs; No JVD, RRR, - - 1+ pitting edema to b/l LE; trace UE edema Abdominal: NL Sounds; No Tenderness; No Distention, No Hepatosplenomegaly Extremities: No Clubbing, Cyanosis Neurological: Alert and Oriented x 3, - - CDI dressing in place at surgical incision site on back. Result Diagrams: 09/17/19 05:05 09/17/19 05:05 Microbiology and Other Data: Microbiology 09/06/19 00:30 Urine Culture - Final Urine No Growth (<1,000 CFU/mL) 09/05/19 21:07 Aerobic Blood Culture - Preliminary Blood Venous No Growth Day 1 Anaerobic Blood Culture - Preliminary No Growth Day 1 09/05/19 21:10 Aerobic Blood Culture - Preliminary Blood Venous No Growth Day 1 Anaerobic Blood Culture - Preliminary No Growth Day 1 Assess/Plan/Problems-Billing Assessment: Patient is a 69yo female with a PMH for chronic back pain, intermittent abdominal pain and new severe encephalopathy with discitis who is improving on antibiotics and supportive care. - Patient Problems (1) Discitis Comment: - Unclear chronicity, CRP and ESR normal on 08/23/2019 - Appreciate Neurosurgery and ID consults - Continue Ceftriaxone, vanco troughs between 17-20 per ID- today is day , PICC placed - Awaiting placement - Patient s/p I&D, hardware removal 09/12 (2) Postoperative anemia Comment: -Post-op anemia requiring 1U PRBC -Today Hgb dropped to 6.8; will transfuse 1U PRBC and recheck H/H this evening -No reports of melena, hematochezia -Cont to monitor (3) JING (acute kidney injury) Comment: - Increase in Creat from ~1, which is near patient's baseline to 1.7 - Likely due to Vancomycin which was significantly supratherapeutic 5 days ago - Improving (4) Lower extremity edema Comment: - History of severe LE edema on Bumex and Metolazone - Repeat Echo unremarkable - cont home diuretics - edema is improving (5) Chronic pain Comment: - cont home dose of PO dilaudid, with Percocet for breakthrough pain (6) DM II (diabetes mellitus, type II), controlled Comment: - A1C is 6.1, DC accuchecks, continue diet control (7) DVT prophylaxis Comment: - HSQ (8) Full code status Status and Disposition: Inpatient. Ready for d/c to [facility], would like [facility]
[2019-09-17] MEDS ORDERED: Vancomycin Trough Check NOTE FOLLOW UP ONE (14:00)
--- NOTE | 2019-09-17 14:37 | PN ---
Progress Note - Progress Note Date of Service: 09/17/19 SOAP: Subjective: []No events ON. Voids. Ambulates. Tolerates po well. Today patient reports RLE pain. Yesterday patient reported LLE pain. Objective: []VSS, Afebrile Wound soft clean , dry. AAOx3, BRIAN, CN II-XII grossly intact Motor 5/5 UE, LE 5/5 Sensory grossly intact to light touch Assessment: []69 yof hx of DM, previous instrumented arhrodesis with possible discitis / osteomyelitis and proximal junctional failure, POD#5 T11-S1 arthrodesis and revision of prior instrumentation Plan: [] Monitor VS, Neurochecks Continue ABX per ID. OOB with assistance. Brace when OOB. PT. Encourage ambulation. Incentive spirometer. On SQ Heparin for DVT prophylaxis. DC planning CT of L spine today. Appreciate IM, ID care. Nathalie Christie MD
[2019-09-17] MEDS: Vancomycin(*) 750 MG in NS 0.9% 250 ML* 250 ML IVPB SCH (16:06)
[2019-09-17] MEDS: cefTRIAXone(*) 2 GM in NS 0.9% 100 ML* 100 ML IVPB SCH (17:29)
[2019-09-17] MEDS: Nystatin TOP POWDER* 15 GM BTL TOPICAL SCH ×2 (17:51→19:47)
[2019-09-17 18:36] LABS: Hematocrit 25 % (35-47); Hemoglobin 8.6 g/dL (12.0-16.0)
[2019-09-18] MEDS: oxyCODONE/Acetamin 5/325 MG* TAB PO PRN ×4 (01:31→13:48)
[2019-09-18] MEDS: Heparin VIAL(*) 5000 UNITS/ML VIAL (FIVE THOUSAND) SUBCUT SCH ×3 (05:37→21:59)
[2019-09-18 05:55] LABS: Hematocrit 22 % (35-47); Hemoglobin 7.5 g/dL (12.0-16.0)
[2019-09-18] MEDS ORDERED: Vancomycin Random Level* NOTE FOLLOW UP ONE (06:00)
[2019-09-18 06:11] LABS: BUN/Creatinine Ratio 11.1 (8-20); Calcium 7.7 mg/dL (8.6-10.3); EGFR African American 38.3 (>60); EGFR Non-African American 31.7 (>60); Potassium 3.7 mmol/L (3.5-5.0)
[2019-09-18 06:53] LABS: Vancomycin Random 17.9 mcg/mL
[2019-09-18] MEDS: HYDROmorphone TAB* 4 MG PO PRN ×2 (07:31→17:26)
[2019-09-18] MEDS ORDERED: Vancomycin(*) 750 MG in NS 0.9% 250 ML* 250 ML IVPB ONE (09:30)
[2019-09-18] MEDS: Bumetanide TAB* 2 MG PO SCH (09:48)
[2019-09-18] MEDS: Cyanocobalamin TAB* 500 MCG PO SCH (09:48)
[2019-09-18] MEDS: Metolazone TAB* 5 MG PO SCH (09:48)
[2019-09-18] MEDS: Nystatin TOP POWDER* 15 GM BTL TOPICAL SCH ×2 (09:49→21:56)
[2019-09-18] MEDS: Venlafaxine EXT RELEASE CAP* 37.5 MG PO SCH (09:49)
[2019-09-18] MEDS: Gabapentin CAP(*) 300 MG PO SCH ×3 (09:49→21:56)
[2019-09-18] MEDS: Docusate CAP* 100 MG PO SCH ×2 (09:49→21:56)
[2019-09-18] MEDS: Pantoprazole TAB * 40 MG TAB PO SCH (09:49)
--- NOTE | 2019-09-18 14:49 | PN ---
Subjective Date of Service: 09/18/19 Interval History: Pt states she feels "terrible." She c/o spasms in lumbar area and pain across low back. She denies saddle anaesthesia, loss of bowel or bladder function. She denies changes in urinary frequency, denies urgency, retention, dysuria. Denies dizziness, lightheadedness, fatigue, SOB. No other complaints today. Family History: Unchanged from Admission Social History: Unchanged from Admission Past Medical History: Unchanged from Admission Objective Active Medications: Bumetanide (Bumex Tab*) 2 mg PO DAILY [facility] Cyanocobalamin (Vitamin B12 Tab*) 1,000 mcg PO DAILY [facility] Docusate Sodium (Colace Cap*) 100 mg PO BID [facility] Gabapentin (Neurontin Cap(*)) 600 mg PO TID [facility] Heparin Sodium (Porcine) (Heparin Flush Picc/Ml/Cvc(*)) 0 ml FLUSH 0600,1800 [facility] Heparin Sodium (Porcine) (Heparin Vial(*)) 5,000 units SUBCUT Q8HR [facility] Hydromorphone HCl (Dilaudid Tab*) 8 mg PO Q8H PRN Ceftriaxone Sodium 2 gm/ (Sodium Chloride) 100 mls @ 200 mls/hr IVPB 1600 [facility] Magnesium Hydroxide (Milk Of Magnesia Liq*) 30 ml PO BID PRN Metolazone (Zaroxolyn Tab*) 5 mg PO DAILY [facility] Nystatin (Nystatin Top Powder*) 1 applic TOPICAL BID [facility] Ondansetron HCl (Zofran Inj*) 4 mg IV Q6H PRN Oxycodone/Acetaminophen (Percocet 5/325 Tab*) 1 tab PO Q4H PRN Pantoprazole Sodium (Protonix Tab*) 40 mg PO QAM [facility] Pharmacy Consult (Vancomycin Per Pharmacy*) 1 note FOLLOW UP .VANC PER PHARMACY [facility]; Protocol Pharmacy Consult (Vancomycin Random Level*) 1 note FOLLOW UP 0600 ONE Polyethylene Glycol/Electrolytes (Miralax*) 17 gm PO DAILY PRN Senna (Senokot 8.6 Mg Tab*) 1 tab PO BEDTIME PRN Venlafaxine HCl (Effexor Xr Cap*) 37.5 mg PO DAILY [facility] Vital Signs: Temp Pulse Resp BP Pulse Ox 98.5 F 92 18 139/83 94 09/18/19 11:36 09/18/19 11:36 09/18/19 14:37 10/23/19 11:36 09/18/19 11:36 Oxygen Devices in Use Now: None Appearance: Pt is obese female who is sitting up in bed, HOB elevated. She appears to be in no acute distress; appears mildly uncomfortable with antalgic movements. Eyes: No Scleral Icterus, PERRLA Ears/Nose/Mouth/Throat: Clear Oropharnyx, Mucous Membranes Moist, - - Edentulous Neck: NL Appearance and Movements; NL JVP, Trachea Midline Respiratory: Symmetrical Chest Expansion and Respiratory Effort, Clear to Auscultation Cardiovascular: NL Sounds; No Murmurs; No JVD, RRR, - - 1+ pitting pedal edema b /l LE Extremities: No Clubbing, Cyanosis Neurological: Alert and Oriented x 3, NL Sensation, - - CDI dressing to spine. Result Diagrams: 09/18/19 05:38 09/18/19 05:38 Microbiology and Other Data: Microbiology 09/06/19 00:30 Urine Culture - Final Urine No Growth (<1,000 CFU/mL) 09/05/19 21:07 Aerobic Blood Culture - Preliminary Blood Venous No Growth Day 1 Anaerobic Blood Culture - Preliminary No Growth Day 1 09/05/19 21:10 Aerobic Blood Culture - Preliminary Blood Venous No Growth Day 1 Anaerobic Blood Culture - Preliminary No Growth Day 1 Assess/Plan/Problems-Billing Assessment: Patient is a 69yo female with a PMH for chronic back pain, intermittent abdominal pain and new severe encephalopathy with discitis who is improving on antibiotics and supportive care. - Patient Problems (1) Discitis Comment: - Unclear chronicity, CRP and ESR normal on 08/23/2019 - Appreciate Neurosurgery and ID consults - Continue Ceftriaxone, vanco troughs between 17-20 per ID- today is day , PICC placed - Patient s/p I&D, hardware removal 09/12 - Continue pain management; add cyclobenzaprine - Plan for d/c to [facility] (2) Postoperative anemia Comment: -Post-op anemia requiring 1U PRBC x2 -Hgb stable today -No reports of melena, hematochezia -Cont to monitor (3) JING (acute kidney injury) Comment: - Increase in Creat from ~1, which is near patient's baseline to 1.7 - Likely due to Vancomycin which was significantly supratherapeutic 5 days ago - Improving (4) Lower extremity edema Comment: - History of severe LE edema on Bumex and Metolazone - Repeat Echo unremarkable - cont home diuretics - edema is improving (5) Chronic pain Comment: - cont home dose of PO dilaudid, with Percocet for breakthrough pain (6) DM II (diabetes mellitus, type II), controlled Comment: - A1C is 6.1, DC accuchecks, continue diet control (7) DVT prophylaxis Comment: - HSQ (8) Full code status Status and Disposition: Inpatient. Ready for d/c to [facility], would like [facility]
[2019-09-18] MEDS: Cyclobenzaprine TAB* 10 MG PO PRN ×2 (15:18→22:04)
[2019-09-18] MEDS: cefTRIAXone(*) 2 GM in NS 0.9% 100 ML* 100 ML IVPB SCH (16:10)
--- NOTE | 2019-09-18 19:26 | PN ---
Progress Note - Progress Note Date of Service: 09/18/19 SOAP: Subjective: []Patient seen and examined in am. No events ON. Voids. Ambulates. Tolerates po well. Feels better today. Objective: []VSS, Afebrile Wound soft clean , dry. AAOx3, BRIAN, CN II-XII grossly intact Motor 5/5 UE, LE 5/5 Sensory grossly intact to light touch Assessment: []69 yof hx of DM, previous instrumented arhrodesis with possible discitis / osteomyelitis and proximal junctional failure, POD#6 T11-S1 arthrodesis and revision of prior instrumentation Plan: [] Monitor VS, Neurochecks Continue ABX per ID. CT of L spine revealed good placement of hardware, good alignment of spine. OOB with assistance. Brace when OOB. PT. Encourage ambulation. Incentive spirometer. On SQ Heparin for DVT prophylaxis. DC planning Appreciate IM, ID care. Nathalie Christie MD
[2019-09-19] MEDS: oxyCODONE/Acetamin 5/325 MG* TAB PO PRN ×2 (00:22→11:54)
[2019-09-19] MEDS ORDERED: Vancomycin Random Level* NOTE FOLLOW UP ONE (06:00)
[2019-09-19] MEDS: Heparin VIAL(*) 5000 UNITS/ML VIAL (FIVE THOUSAND) SUBCUT SCH (06:09)
[2019-09-19 06:25] LABS: Hematocrit 22 % (35-47); Hemoglobin 7.6 g/dL (12.0-16.0)
[2019-09-19 06:43] LABS: BUN/Creatinine Ratio 11.6 (8-20); Calcium 7.9 mg/dL (8.6-10.3); EGFR African American 43.2 (>60); EGFR Non-African American 35.7 (>60); Potassium 3.5 mmol/L (3.5-5.0)
[2019-09-19 07:03] LABS: Vancomycin Random 18.2 mcg/mL
[2019-09-19] MEDS ORDERED: Vancomycin(*) 750 MG in NS 0.9% 250 ML* 250 ML IVPB ONE (08:00)
[2019-09-19] MEDS: Metolazone TAB* 5 MG PO SCH (08:31)
[2019-09-19] MEDS: Gabapentin CAP(*) 300 MG PO SCH (08:32)
[2019-09-19] MEDS: Venlafaxine EXT RELEASE CAP* 37.5 MG PO SCH (08:32)
[2019-09-19] MEDS: Pantoprazole TAB * 40 MG TAB PO SCH (08:32)
[2019-09-19] MEDS: Cyanocobalamin TAB* 500 MCG PO SCH (08:32)
[2019-09-19] MEDS: Docusate CAP* 100 MG PO SCH (08:32)
[2019-09-19] MEDS: Bumetanide TAB* 2 MG PO SCH (08:32)
[2019-09-19] MEDS: Cyclobenzaprine TAB* 10 MG PO PRN (08:32)
[2019-09-19] MEDS: Nystatin TOP POWDER* 15 GM BTL TOPICAL SCH (08:33)
[2019-09-19] MEDS: HYDROmorphone TAB* 4 MG PO PRN (10:00)
--- NOTE | 2019-09-19 10:30 | CONS ---
CC: [facility]; Dr. Shade Johnson; Dr. Christie* CONSULTATION REPORT: DATE OF CONSULT: 09/19/19 REFERRING PROVIDER: JULES Pitts REASON FOR CONSULT: Anterior abdominal wall mass. HISTORY OF PRESENT ILLNESS: Ms. Rosa Isela Adams is a 69-year-old woman who has been hospitalized here at [facility] over the past several weeks for treatment of low back infection. She had hardware placed 20 years ago and developed infection with diskitis requiring removal of the hardware and replacement with Dr. Christie. She had been doing well and has been planned transfer to rehabilitation center, when last night she noticed a small lump around the umbilicus, which was nontender. She felt this was new. She has been eating breakfast well this morning without nausea or vomiting and complains only of pain in the area when it is placed. I reviewed a virtual colonoscopy that was done in June of this year, which does show a small fat containing umbilical hernia without evidence of intestinal involvement or obstruction. This was an incidental finding. PAST MEDICAL HISTORY: Anemia, type 2 diabetes, depression, obesity, peptic ulcer disease, COPD, hypercholesterolemia. PAST SURGICAL HISTORY: 1. Laparoscopic gastric bypass surgery in 2013 at [place]. 2. Tubal ligation. 3. Spinal fusion. MEDICATIONS: Include: 1. Bumex. 2. Ceftriaxone. 3. Flexeril. 4. Neurontin. 5. Metolazone. 6. Oxycodone. 7. Vancomycin. 8. Effexor. ALLERGIES: BETA-BLOCKERS PHYSICAL EXAM: Temperature 98.4, pulse 81, blood pressure 144/82. In general, she is an overweight female, appears to be in no apparent distress, sitting up in bed, eating her breakfast without difficulty. Her lungs were clear to auscultation with normal respiratory effort. Heart was regular rate and rhythm without murmurs, rubs, or gallops. Her abdomen is soft and nondistended. She had normoactive bowel sounds throughout. She has several laparoscopic incisions in the upper abdomen. There are no surgical incisions on the umbilicus. At the umbilicus, there is a small fat containing easily reducible umbilical hernia with fascial defect of approximately 1.5 cm in size. There was no overlying skin tenderness or redness. IMPRESSION: Umbilical hernia, appears to be fat containing and by previous CT scan done several months ago and this is asymptomatic. No evidence of bowel involvement or obstruction. RECOMMENDATIONS: Continue this plan with discharge today for rehabilitation from her back standpoint. She could be seen in the office in followup for discussion of an elective repair of an umbilical hernia when her back infection is completely resolved and she would be a candidate for outpatient surgery. I believe that she is at extremely low risk for acute complications of this hernia and there is no urgency to proceed with repair at this time. [id number]/CPS #: [id number] MTDD
[2019-09-19 11:33] VITALS: BP 141/84
--- NOTE | 2019-09-19 12:10 | DS ---
CC: Dr. Shade Johnson; Dr. Christie; Dr. Burnett; Dr. Darin Lee* DISCHARGE SUMMARY: DATE OF ADMISSION: 09/05/19 DATE OF DISCHARGE: 09/19/19 PRIMARY CARE PROVIDER: Shade Johnson, OTHER PROVIDERS: Dr. Christie; Dr. Burnett. ATTENDING PHYSICIAN: Darin Lee MD* (dictated by JULES Pitts ). PRIMARY DIAGNOSES: 1. Diskitis. 2. Metabolic encephalopathy. 3. Postoperative anemia. 4. Acute kidney injury. SECONDARY DIAGNOSES: 1. Diabetes mellitus, type 2. 2. Hypertension. 3. Chronic obstructive pulmonary disease. 4. Hypercholesterolemia. 5. Lower extremity edema. 6. Anemia. 7. Depression. 8. Anxiety. 9. History of peptic ulcer disease. STUDIES WHILE IN THE HOSPITAL: 1. Abdomen ultrasound, impression: Hardware failure with posterior rodding failure, bowel gas pattern is unremarkable. 2. CT brain, impression: No enhancing lesions are noted. Old lacunar infarct , right basal ganglia. No intracranial mass or hemorrhage is noted. 3. Transthoracic echocardiogram, summary: LV systolic function normal, EF 50% to 55%, wall motion normal. No regional wall motion abnormalities. RV systolic function normal. Trace MR. [id number] TR. No significant pericardial effusion. 4. CT spine lumbar, impression: Hardware failure involving posterior dawna between L4 and L5. Transpedicular screws are in place. Compression fracture of L3 and L5, unchanged from prior exams. 5. CT thoracic spine, impression: There is straightening of the normal lordosis, mild compression superior endplate of T9, L1 and mild compression of L3, all of which are unchanged from previous exam. No change is noted since prior MRI dated 09/05/19. 6. L-spine x-ray, impression: Posterior fusion with hardware failure between L3 and L4, unchanged in position since previous exam of 09/07/19. 7. Thoracic spine x-ray, impression: No fracture of the thoracic spine is noted. Alignment is satisfactory. 8. Thoracolumbar 2 views, impression: Post surgical changes of long segment thoracic lumbar through the lumbar sacral posterior spinal fusion as described. 9. Ultrasound renal bladder, impression: Nonobstructing right renal calculus measuring 11 mm. Dias catheter in the urinary bladder, which is incompletely distended. Otherwise negative for renal sonogram. 10. CT L-spine, impression: Status post laminectomy and spinal fusion. PROCEDURES WHILE IN THE HOSPITAL: Previous instrumentation, arthrodesis L3 to S1 with replacement of S1, L5, L4, and L3 pedicle screws; posterolateral fusion from T11 to S1 with placement of bilateral pedicle screws at L2, L1, T12, and T11, 09/12/19. CONSULTATIONS WHILE IN THE HOSPITAL: 1. Infectious disease: Continue vancomycin, goal trough 15 to 20 and change dosing. Ceftriaxone for her component of gram-negative coverage. We probably will not need anaerobic component. She is going to be seen by Neurosurgery. Biopsy of this sort of abnormality is usually low yield microbiologically, so I do not think it is necessary. Because infection does involve fusion hardware, she will likely be comitted to life long antibiotic suppression. 2. Neurosurgery: A 69-year-old female with suspected diskitis with possible complaint of low back pain. The patient unable to verbalize chief complaint, has fusion of L3, L4, L5, and L6 with hardware in place as seen on x-ray on 09/14. MRI completed on 09/05/19 shows [id number] degenerative changes, loss of disk height at L2 to L3, spondylolisthesis at L3 to L4, some hyperintensity at endplate of L2 to L3, possibly representing osteomyelitis. The patient also has elevated white count upon admission that appears to be trending down since starting vanco and Zosyn. I discussed the case with Dr. Christie, who recommends that the patient continues antibiotics. Also CT scan , conservative treatment recommended at this time. The patient will possibly need surgery in the future once infection is controlled. DISCHARGE MEDICATIONS: Home medications: 1. Bumetanide 2 mg p.o. daily. 2. Gabapentin 600 mg p.o. t.i.d. 3. Hydromorphone ER 8 mg p.o. q.8 hours p.r.n. pain, MDD 3. 4. Metformin 1000 mg p.o. b.i.d. 5. Metolazone 5 mg p.o. daily. 6. Omeprazole 20 mg p.o. daily. 7. Venlafaxine 75 mg p.o. daily. New home medications: 1. Cyclobenzaprine 10 mg p.o. t.i.d. p.r.n. muscle spasm. 2. Nystatin topical powder, 1 application topically b.i.d. 3. Oxycodone/acetaminophen 5/325 one tab p.o. q.4 hours p.r.n. breakthrough pain, MDD 6. 4. Valium 5mg p.o. q.8 hours p.r.n. muscle spasm not relieved with cyclobenzaprine. HISTORY OF PRESENT ILLNESS/HOSPITAL COURSE: Ms. Adams is a 69-year-old female with past medical history of diabetes mellitus type 2, hypertension, chronic back pain due to degenerative joint disease, on Dilaudid, who presented to the ER on 09/05/19 with complaints of confusion, decreased p.o. intake and low back pain. She presented to [facility]. For full and complete details, please see the history and physical dictated by Franck Perez MD, but in short, the patient presented to [place] with these symptoms. An MRI of the T and L-spine was performed and revealed disk herniation at T7 to 11 and suggested diskitis in the lumbar spine. She was transferred to [facility] for evaluation by Neurosurgery. She was admitted and continued on vancomycin and Zosyn. Infectious Disease was consulted and recommended vancomycin and ceftriaxone, which were continued throughout her stay and will be continued for a total of 56 days with a goal vancomycin trough of 15 to 20. The patient will have weekly CBC, CMP, CRP, and vanco trough at discharge to [facility]. Neurosurgery was consulted regarding findings on her MRI. She was initially placed on TLSO brace with continued treatment with antibiotics for diskitis. Further imaging revealed L2-L3 kyphosis. Discussion was held with the patient and the family and they opted for surgical intervention. On 09/12/19, the patient was brought to the operating room and underwent revision of previous instrumentation, fusion of T11 to S1. This was successful. The patient has worked with physical therapy and occupational therapy throughout her stay. She will be discharged to [facility] for further PT, OT, and antibiotic treatment. The patient was noted to have postoperative anemia, which required transfusion of 2 units of blood throughout her stay. At the time of discharge, she has been stable for the last 48 hours with hemoglobin and hematocrit of 7.6 and 22 respectively at discharge. Recommendations are made to repeat H and H in 2 to 3 days to continue to monitor and trend her postoperative anemia. The patient had an acute kidney injury during her stay. This was likely due to supratherapeutic vancomycin. At discharge, her creatinine is trending down. Recommend repeat BMP in 2 to 3 days to continue to trend the patient's renal function. The patient presented with some encephalopathy that resolved with treatment of diskitis. It is likely that the patient suffered from metabolic encephalopathy due to infection. This slowly resolved with treatment of her infection. The patient had some hematuria on postoperative day 1. Renal and bladder ultrasound were ordered and showed no acute findings. The hematuria resolved without intervention. At the time of discharge, Dias catheter has been removed and the patient is urinating without difficulty. The patient denies headache, lightheadedness, presyncope, syncope, although she does admit to some dizziness. She denies chest pain, cough, fevers, chills, sweats, or fatigue. She denies nausea, vomiting, diarrhea but does admit to some abdominal pain times approximately 10 minutes. The surgical team assessed the patient, who was noted to have a ventral umbilical hernia that was reducible. There is no recommendation for further management of this at this time. The patient notes she had a bowel movement yesterday. She denies symptoms of UTI including hematuria, dysuria, frequency, urgency, retention. She continues to have low back pain, but denies myalgias, arthralgias, paresthesias. REVIEW OF SYSTEMS: A 14-point review of systems has been performed and all the pertinent positives and negatives are in the HPI. All other systems are negative. PHYSICAL EXAMINATION: General: Ms. Adams is a well-developed, well-nourished , obese, 69-year-old female, who appears somewhat older than her stated age. She appears mildly uncomfortable but in no acute distress. She has antalgic movements. HEENT: PERRL, EOMI. Nonicteric sclerae. Hearing grossly intact. Oral mucous membranes are moist. The pharynx is clear. The patient is edentulous. Tongue is at midline. Palate elevates symmetrically. Cardiovascular: Regular rate and rhythm with S1, S2 present without murmurs, rubs, clicks, or gallops. There is no JVD. The patient has 1+ pitting pedal edema, trace pretibial edema. Pulmonary: Symmetrical chest expansion without use of accessory muscles. Lungs are clear to auscultation bilaterally anteriorly. No rhonchi, wheezes, or rubs. No digital clubbing or cyanosis. Abdomen: Obese. Bowel sounds in all quadrants. Soft, mild tenderness to palpation at periumbilical hernia, this is reducible. Musculoskeletal: The patient moves all extremities but has pain with movement of bilateral lower extremities. Neuro: The patient is awake. She is alert and oriented x3 with cranial nerves grossly intact. Ms. Rosa Isela Adams is stable for discharge. Vital signs: Temperature 98.4 oral, heart rate 81, respiratory rate 16, oxygen saturation 94% on room air, blood pressure 144/82. DISCHARGE PLAN: Ms. Adams will be discharged to [facility] Bed. CONDITION: Fair. ACTIVITY: 1. Brace when out of bed. 2. PT. 3. Encourage ambulation. 4. No lifting, bending, driving. DIET: 1. Heart-healthy. 2. ADA/diabetic. MEDICATIONS: 1. Continue vancomycin with goal trough between 15-20. 2. Continue ceftriaxone 2g IV daily. 3. Cyclobenzaprine 10 mg t.i.d. p.r.n. pain/muscle spasm. 4. Consider valium 5mg p.o. q.8 hours p.r.n. muscle spasm not relieved with cyclobenzaprine. 5. Percocet 5 mg p.o. q.4 hours p.r.n. breakthrough pain. 6. Continue home dose of Dilaudid. EDUCATION: 1. Repeat H and H, BMP in 2 to 3 days to monitor H and H and renal function. 2. Weekly labs: CBC, CMP, CRP, vancomycin trough. 3. Follow up with primary care provider at discharge from subacute rehab. 4. Follow up with Dr. Christie within 1 to 2 weeks to recheck incision; then follow up as scheduled. 5. Follow up with Dr. Burnett, Infectious Disease, within 1 to 2 weeks at discharge from subacute rehab. 6. Follow up with Surgery as needed for umbilical hernia. 7. Return to the ER or nearest hospital if you experience any worsening of symptoms, chest pain or discomfort, dizziness, lightheadedness, loss of consciousness, high fever, chills, night sweats, or any other worrisome signs or symptoms. This is a summarized report of a complex medical history and hospital stay. For further details, please see the entire medical record. TIME SPENT: Approximately 45 minutes was spent on this discharge, greater than half that time was spent [id number] with the patient discussing discharge plans and instructions. JULES OSBORN [id number]/[facility] #: [id number] PHU
--- NOTE | 2019-09-19 19:17 | PN ---
Progress Note - Progress Note Date of Service: 09/19/19 SOAP: Subjective: [] Patient seen and examined in am. No events ON. Voids. Ambulates. Tolerates po well. Occasional muscle spasms Objective: []VSS, Afebrile Wound soft clean , dry. AAOx3, BRIAN, CN II-XII grossly intact Motor 5/5 UE, LE 5/5 Sensory grossly intact to light touch Assessment: []]69 yof hx of DM, previous instrumented arhrodesis with possible discitis / osteomyelitis and proximal junctional failure, POD#7 T11-S1 arthrodesis and revision of prior instrumentation Plan: [] Monitor VS, Neurochecks Continue ABX per ID. OOB with assistance. Brace when OOB. PT. Encourage ambulation. Incentive spirometer. On SQ Heparin for DVT prophylaxis. DC planning today. Full instructions were given to the patient and her . No Bending, No Lifting, No Driving Keep incision dry. May shower. No baths Keep sutures until next follow up visit. Follow up in the office in 7-10 days Appreciate IM, ID care. Nathalie Christie MD
[2019-09-20] MEDS ORDERED: Vancomycin Random Level* NOTE FOLLOW UP ONE (07:30)
== END 2019-09-19 13:40 | disposition swing bed (61) | DRG 459 ==
LOC: MEDTELE 20:26 → ICU 09-13 00:12 → SSU 09-13 13:01
PROVIDERS: ADMIT Internal Medicine; ATTEND Internal Medicine
PROC: 0RGA0J1 Fusion of Thoracolumbar Vertebral Joint with Synthetic Substitute, Posterior Approach, Posterior Column, Open Approach (ICD-10-PCS; 2019-09-12)
PROC: 0SG10J1 Fusion of 2 or more Lumbar Vertebral Joints with Synthetic Substitute, Posterior Approach, Posterior Column, Open Approach (ICD-10-PCS; 2019-09-12)
PROC: 0SG30J1 Fusion of Lumbosacral Joint with Synthetic Substitute, Posterior Approach, Posterior Column, Open Approach (ICD-10-PCS; 2019-09-12)
PROC: 0SP004Z Removal of Internal Fixation Device from Lumbar Vertebral Joint, Open Approach (ICD-10-PCS; 2019-09-12)
PROC: 0SP304Z Removal of Internal Fixation Device from Lumbosacral Joint, Open Approach (ICD-10-PCS; 2019-09-12)
PROC: 4A1004G Monitoring of Central Nervous Electrical Activity, Intraoperative, Open Approach (ICD-10-PCS; 2019-09-12)
PROC: 8E0WXBZ Computer Assisted Procedure of Trunk Region (ICD-10-PCS; 2019-09-12)
PROC: 0RG60J1 Fusion of Thoracic Vertebral Joint with Synthetic Substitute, Posterior Approach, Posterior Column, Open Approach (ICD-10-PCS; principal; 2019-09-12 10:30)
PROC: 30233N1 Transfusion of Nonautologous Red Blood Cells into Peripheral Vein, Percutaneous Approach (ICD-10-PCS; 2019-09-17)
DX: T84.59XA Infection and inflammatory reaction due to other internal joint prosthesis, initial encounter (principal); G93.41 Metabolic encephalopathy; A41.9 Sepsis, unspecified organism; N17.9 Acute kidney failure, unspecified; M86.9 Osteomyelitis, unspecified; Y83.8 Other surgical procedures as the cause of abnormal reaction of the patient, or of later complication, without mention of misadventure at the time of the procedure; Y92.9 Unspecified place or not applicable; I10 Essential (primary) hypertension; F32.9 Major depressive disorder, single episode, unspecified; F41.9 Anxiety disorder, unspecified; G89.29 Other chronic pain; M51.36 Other intervertebral disc degeneration, lumbar region; Z87.11 Personal history of peptic ulcer disease; J44.9 Chronic obstructive pulmonary disease, unspecified; E78.00 Pure hypercholesterolemia, unspecified; Z98.1 Arthrodesis status; Z88.8 Allergy status to other drugs, medicaments and biological substances; Z87.891 Personal history of nicotine dependence; R29.6 Repeated falls; R60.0 Localized edema; R10.9 Unspecified abdominal pain; M40.209 Unspecified kyphosis, site unspecified; M46.46 Discitis, unspecified, lumbar region; H05.223 Edema of bilateral orbit; R31.9 Hematuria, unspecified; R34 Anuria and oliguria; D64.9 Anemia, unspecified; I89.0 Lymphedema, not elsewhere classified; K42.9 Umbilical hernia without obstruction or gangrene; E78.5 Hyperlipidemia, unspecified; E11.69 Type 2 diabetes mellitus with other specified complication
CPT/HCPCS: 36415; 70470; 71045; 72070; 72080; 72100; 72128; 72131; 74018; 76000; 76770; 80048; 80053; 80076; 80202; 81003; 81015; 82565; 82570; 83036; 83605; 83735; 83880; 83930; 84300; 84520; 85014; 85018; 85025; 85027; 85610; 85730; 86140; 86850; 86900; 86901; 86922; 87040; 87086; 87106; 87641; 88300; 90686; 93005; 93306; A9270-GY; C1713; C1751; C1776; G8978-GP-CK; G8978-GP-CL; G8979-GP-CI; G8979-GP-CJ; G8987-GO-CL; G8988-GO-CI; J0690; J0696; J1100; J1170; J1644; J1885; J2001; J2250; J2405; J2543; J2704; J2765; J3010; J3370; J3475; J3480; J3490; P9040; Q9967

== ENCOUNTER 2019-10-11 22:37 | Emergency (ER) | payer MEDICARE ==
--- NOTE | 2019-10-11 22:53 | ED ---
Head Injury - HPI Summary HPI Summary: This pt is a 69 Y/O F presenting to [facility] with a CC of a fall accompanied by her . She states that when she fell she hit her head on the ground and has a small bump with a cut on top of it on her occipital region. Her pain is currently rated a 4/10 ion severity. She states that she recently has had a back surgery and has been falling a lot due to her leg weakness. She states that she did not lose consciousness. She denies any fevers, chills, SOB, headaches, SOB, CP, and N/V. She has no aggravating or alleviating factors. She has a PMHx of diabetes and spinal surgery. - History Of Current Complaint Chief Complaint: EDFall Stated Complaint: FALL PER EMS Time Seen by Provider: 10/11/19 22:49 Hx Obtained From: Patient Mechanism Of Injury: Fall From A Standing Position Severity Currently: Moderate Severity Initially: Moderate Pain Intensity: 4 Pain Scale Used: 0-10 Numeric Location: Discrete At: - occipital region Aggravating Factor(s): Other: - nothing Alleviating Factor(s): Other: - nothing Associated Signs And Symptoms: Negative - fevers, chills, SOB, headaches, SOB, CP, LOC, and N/V, Bruising, Other: - laceration on her occipital region - Allergies/Home Medications Allergies/Adverse Reactions: Allergies Allergy/AdvReac Type Severity Reaction Status Date / Time Beta-Blockers Allergy Unknown Verified 09/05/19 20:45 (Beta-Adrenergic Bloc Reaction Details PMH/Surg Hx/FS Hx/Imm Hx Previously Healthy: Yes Endocrine/Hematology History: Reports: Hx Diabetes Cardiovascular History: Denies: Hx Pacemaker/ICD History: Denies: Hx Dialysis, Hx Renal Disease Sensory History: Denies: Hx Hearing Aid Comment Only: Hx Contacts or Glasses - unable to obtain Opthamlomology History: Comment Only: Hx Contacts or Glasses - unable to obtain Psychiatric History: Denies: Hx Panic Disorder - Surgical History Surgical History: Yes Surgery Procedure, Year, and Place: LUMBAR - [place] , SPINAL STIMULATOR - ALL PARTS NOW REMOVED - @ [facility] - PAIN MANAGEMENT - REMOVAL WAS 2013 - GASTRIC BYPASS - Immunization History Immunizations Up to Date: Yes Infectious Disease History: No Infectious Disease History: Denies: Traveled Outside the [place] in Last 30 Days - Family History Known Family History: Negative: Cardiac Disease, Hypertension, Diabetes - Social History Occupation: Disabled Lives: [facility] Alcohol Use: None Hx Substance Use: No Substance Use Type: Reports: None Hx Tobacco Use: No Smoking Status (MU): Never Smoked Tobacco Review of Systems Negative: Fever, Chills Negative: Chest Pain Negative: Shortness Of Breath Negative: Vomiting, Nausea Positive: Bruising - with laceration on her occipital head Negative: Headache All Other Systems Reviewed And Are Negative: Yes Physical Exam - Summary Physical Exam Summary: Appearance: Well-appearing, Well-nourished, lying in bed comfortably Skin: Warm, dry, no obvious rash, Small superficial laceration/abrasion on the occipital scalp without bleeding, Well healing surgical scar with sutures in place on her back. The wound is clean and dry without any drainage or swelling. Eyes: sclera anicteric, no conjunctival pallor ENT: mucous membranes moist, pharynx appears normal Neck: Supple, nontender Respiratory: Clear to auscultation, no signs of respiratory distress Cardiovascular: Normal S1, S2. No murmurs. Normal distal pulses in tibial and radial bilaterally. Abdomen: Soft, nontender, normal active bowel sounds present Musculoskeletal: Normal, Strength/ROM Intact Neurological: A&Ox3, awake and alert, mentation is normal, speech is fluent and appropriate Psychiatric: affect is normal, does not appear anxious or depressed Triage Information Reviewed: Yes Vital Signs On Initial Exam: Initial Vital Signs Temp 98.1 F 10/11/19 22:41 Pulse 86 10/11/19 22:41 Resp 16 10/11/19 22:41 BP 147/87 10/11/19 22:41 Pulse Ox 85 10/11/19 22:41 Vital Signs Reviewed: Yes Procedures - Sedation Patient Received Moderate/Deep Sedation with Procedure: No Diagnostics - Laboratory Lab Statement: Any lab studies that have been ordered have been reviewed, and results considered in the medical decision making process. - Radiology Thorocolumbar Spine X-Ray Radiology Interpretation Completed By: ED Physician Summary of Radiographic Findings: No acute processes, hardware in good condition. Pending offical review. - CT Brain CT CT Interpretation Completed By: Radiologist Summary of CT Findings: 1. There has been little change from 09/07/2019. No acute interval intracranial process is identified. 2. Minimal chronic ischemic white matter change and atrophy. ED physician has reviewed this report. Head Injury Course/Dx Course Of Treatment: This pt is a 69 Y/O F presenting to [facility] with a CC of a fall accompanied by her . She states that when she fell she hit her head on the ground and has a small bump with a cut on top of it on her occipital region. Her pain is currently rated a 4/10 ion severity. Her PE shows a Small superficial laceration/abrasion on the occipital scalp without bleeding, well healing surgical scar with sutures in place on her back that is clean and dry without any drainage or swelling. She states that she recently has had a back surgery. Her Brain CT shows the followin. There has been little change from 09/07/2019. No acute interval intracranial process is identified. 2. Minimal chronic ischemic white matter change and atrophy. Her Thorocolumbar Spine X-Ray shows the following: No acute processes, hardware in good condition. She will be discharged home with a Dx of a fall and scalp contusion. - Diagnoses Provider Diagnoses: Fall, Scalp contusion Discharge ED - Sign-Out/Discharge Documenting (check all that apply): Patient Departure - Discharge Plan Condition: Good Disposition: HOME Patient Education Materials: Fall Prevention for Older Adults (ED), Scalp Contusion in Adults (ED) Referrals: Sheree Christie MD [Medical Doctor] - (as scheduled) Additional Instructions: Your xrays look good, the hardware is in good position and there was no traumatic injury to your brain. Be careful when getting up and around! - Billing Disposition and Condition Condition: GOOD Disposition: Home - Attestation Statements Document Initiated by Angeline: Yes Documenting Scribe: Topher Washburn Provider For Whom Angeline is Documenting (Include Credential): Shar Negron MD Scribe Attestation: ITopher, scribed for Shar Negron MD on 10/12/19 at 1833. Scribe Documentation Reviewed: Yes Provider Attestation: The documentation as recorded by the Topher molina accurately reflects the service I personally performed and the decisions made by me, Shar Negron MD Status of Scribe Document: Viewed
[2019-10-12 00:17] VITALS: BP 140/80
== END 2019-10-12 02:00 | disposition home or self-care (01) ==
LOC: ED 22:37
DX: S00.03XA Contusion of scalp, initial encounter (principal); W19.XXXA Unspecified fall, initial encounter; Y92.9 Unspecified place or not applicable; E11.9 Type 2 diabetes mellitus without complications; Z98.84 Bariatric surgery status; Z88.8 Allergy status to other drugs, medicaments and biological substances
CPT/HCPCS: 70450; 72080; 99282

== ENCOUNTER 2019-10-21 12:03 | Emergency (ER) | payer MEDICARE ==
--- NOTE | 2019-10-21 14:59 | ED ---
Complex/Multi-Sys Presentation - HPI Summary HPI Summary: 69-year-old female with significant past medical history of type 2 diabetes, hypertension, spinal fusion reports that - History Of Current Complaint Chief Complaint: EDGeneral Time Seen by Provider: 10/21/19 14:59 Hx Obtained From: Patient - Allergies/Home Medications Allergies/Adverse Reactions: Allergies Allergy/AdvReac Type Severity Reaction Status Date / Time Beta-Blockers Allergy Unknown Verified 10/21/19 12:10 (Beta-Adrenergic Bloc Reaction Details Home Medications: Home Medications Bumetanide TAB* [Bumex 1 MG TAB*] 0.5 mg PO DAILY 10/21/19 [History Confirmed ] Clotrimazole 1% CREAM* [Clotrimazole 1%*] 1 applic TOPICAL BID 10/21/19 [ History Confirmed 10/21/19] Cyclobenzaprine TAB* [Flexeril 10 MG TAB*] 10 mg PO Q8HR PRN 10/21/19 [History Confirmed 10/21/19] Magnesium Oxide TAB* [MagOx 400 TAB*] 400 mg PO DAILY 10/21/19 [History Confirmed 10/21/19] Omeprazole CAP (NF) [Prilosec CAP* 20 MG] 20 mg PO DAILY 10/21/19 [History Confirmed 10/21/19] Oxycodone TAB(NF) [Oxycodone HCl 10 MG] 10 mg PO Q8HR 10/21/19 [History Confirmed 10/21/19] Senna TAB 8.6 mg* [Senokot 8.6 mg TAB*] 1 tab PO BID PRN 10/21/19 [History Confirmed 10/21/19] Vancomycin CAP* 500 mg PO QID 10/21/19 [History Confirmed 10/21/19] cefTRIAXone(*) [Rocephin(*)] 1 gm IM DAILY 10/21/19 [History Confirmed 10/21/19] traMADol TAB* [Ultram*] 50 mg PO ONCE PRN 10/21/19 [History Confirmed 10/21/19] PMH/Surg Hx/FS Hx/Imm Hx Endocrine/Hematology History: Reports: Hx Diabetes Cardiovascular History: Denies: Hx Pacemaker/ICD History: Denies: Hx Dialysis, Hx Renal Disease Sensory History: Denies: Hx Hearing Aid Comment Only: Hx Contacts or Glasses - unable to obtain Opthamlomology History: Comment Only: Hx Contacts or Glasses - unable to obtain Psychiatric History: Denies: Hx Panic Disorder - Surgical History Surgery Procedure, Year, and Place: LUMBAR - [place] , SPINAL STIMULATOR - ALL PARTS NOW REMOVED - @ [facility] - PAIN MANAGEMENT - REMOVAL WAS [id number] - GASTRIC BYPASS Infectious Disease History: No Infectious Disease History: Denies: Traveled Outside the [place] in Last 30 Days - Family History Known Family History: Negative: Cardiac Disease, Hypertension, Diabetes - Social History Alcohol Use: None Hx Substance Use: No Substance Use Type: Reports: None Hx Tobacco Use: No Smoking Status (MU): Never Smoked Tobacco Review of Systems Constitutional: Negative Eyes: Negative ENT: Negative Cardiovascular: Negative Respiratory: Negative Gastrointestinal: Negative Genitourinary: Negative Musculoskeletal: Negative Skin: Negative Neurological: Negative Psychological: Normal All Other Systems Reviewed And Are Negative: Yes Physical Exam Triage Information Reviewed: Yes Vital Signs On Initial Exam: Initial Vitals Temp Pulse Resp BP Pulse Ox 98.5 F 90 18 130/89 92 10/21/19 12:08 10/21/19 12:08 10/21/19 12:08 10/21/19 12:08 10/21/19 12:08 Vital Signs Reviewed: Yes Appearance: Positive: Well-Appearing, No Pain Distress, Well-Nourished Skin: Positive: Warm, Skin Color Reflects Adequate Perfusion Eyes: Positive: Normal, EOMI ENT: Positive: Hearing grossly normal Neck: Positive: Nontender Respiratory/Lung Sounds: Positive: Clear to Auscultation, Breath Sounds Present Cardiovascular: Positive: RRR, S1, S2 Abdomen Description: Positive: Nontender, Soft. Negative: Distended, Guarding Bowel Sounds: Positive: Present Musculoskeletal: Positive: Strength/ROM Intact Neurological: Positive: Sensory/Motor Intact, Alert, Oriented to Person Place, Time, Normal Gait, Speech Normal Psychiatric: Positive: Normal AVPU Assessment: Alert Procedures - Sedation Patient Received Moderate/Deep Sedation with Procedure: No Diagnostics - Vital Signs Vital Signs Temp Pulse Resp BP Pulse Ox 10/21/19 14:46 98.8 F 95 16 129/78 91 10/21/19 12:08 98.5 F 90 18 130/89 92 - Laboratory Lab Statement: Any lab studies that have been ordered have been reviewed, and results considered in the medical decision making process. Complex Multi-Symp Course/Dx Course Of Treatment: Patient presented to the emergency department requesting that a PICC line placed. The patient was seen and examined. Her vital signs are stable and she is afebrile. She had no complaints and it was determined that she had no medical emergencies requiring intervention. The emergency department does not have the ability for PICC line placement however an appointment was set up for her tomorrow 10/22/2019 at 2:30 PM at the outpatient infusion clinic for line placement. Patient agrees with this plan. - Diagnoses Differential Diagnoses/HQI/PQRI: Other - Picc line placement Provider Diagnoses: Status post PICC central line placement Discharge ED - Sign-Out/Discharge Documenting (check all that apply): Patient Departure - Discharge Plan Condition: Stable Disposition: HOME Patient Education Materials: PICC (Peripherally Inserted Central Catheter) (DC) Referrals: Shade Johnson DO [Primary Care Provider] - Additional Instructions: You were seen in the emergency department today for PICC line placement. Fortunately this procedure cannot be done in the emergency department however we have established an appointment for you tomorrow at 2:30pm at the outpatient infusion clinic here at [facility]. Please return to the emergency department immediately if you develop any new or worsening symptoms. - Billing Disposition and Condition Condition: STABLE Disposition: Home
[2019-10-21 16:04] VITALS: BP 122/89
== END 2019-10-21 16:03 | disposition home or self-care (01) ==
LOC: ED 12:03
DX: E11.9 Type 2 diabetes mellitus without complications (principal); I10 Essential (primary) hypertension; Z79.899 Other long term (current) drug therapy; Z98.84 Bariatric surgery status; Z88.8 Allergy status to other drugs, medicaments and biological substances
CPT/HCPCS: 99282

== ENCOUNTER 2019-10-30 10:42 | Emergency (ER) | payer MEDICARE ==
[2019-10-30 10:47] VITALS: BP 118/86
--- OUTSIDE RECORDS SUMMARY | 2019-10-30 11:01 | XMS REPORT | Continuity of Care Document ---
:1950 External Reference #:[id number] Author Name Charlene Spaers MD (transmitted by agent of provider Susi Ramirez) Address [address], [address] [place] [address] Care Team Providers Name Role Phone Shade Johnson D.O. 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 Onset: 01/21/2014 Mixed hyperlipidemia Sara Mccracken M.D. Onset: 01/21/2014 Malignant essential hypertension Sara Mccracken M.D. Onset: 2013 Preoperative cardiovascular Sara Mccracken M.D. Onset: 01/21/2014 examination Type 2 diabetes mellitus Sara Mccracken M.D. Onset: 01/21/2014 Narcolepsy Charlene Spears MD Onset: 02/02/2017 Hypersomnia, unspecified Charlene Spears MD Onset: 02/02/2017 Obstructive sleep apnea syndrome Charlene Spears MD Onset: 03/16/2017 Malaise and fatigue Collette Thomas DNP, RN, Onset: 08/29/2017 [facility]- Periodic limb movement disorder Rashaun Castillo M.D. Onset: 08/23/2019 Bariatric surgery status Rashaun Castillo M.D. Onset: 08/23/2019 Chronic fatigue syndrome Rashaun Castillo M.D. Onset: 08/23/2019 Abnormal involuntary movement Rashaun Castillo M.D. Onset: 08/23/2019 Social History Type Date Description Comments Sex Unknown ETOH Use Denies alcohol use Tobacco Use Start: Unknown End: Patient is a former quit in the Unknown smoker Recreational Drug Use Denies Drug Use Tobacco Use Start: Unknown Heavy tobacco smoker 1PPD x 2 years (more than 10 cigarettes/day) Smoking Status Reviewed: 10/30/19 Heavy tobacco smoker 1PPD x 2 years (more than 10 cigarettes/day) Exercise Type/Frequency Exercises rarely Allergies, Adverse Reactions, Alerts Active Allergies Reaction Severity Comments Date Beta Adrenergic Blockers dyspnea Severe 01/21/2014 Medications Active Medications SIG Qnty Indications Ordering Date Provider Ceftriaxone Sodium 1gm iv once daily Unknown 09/09/2019 2gm at [facility] Solution Rec Vancomycin HCL 1 gm IV once Unknown 09/09/2019 1gm Solution daily goal trough Rec 15-20 at [facility] Gabapentin take one tablet Unknown 600mg Tablets by mouth three times a day Venlafaxine HCL ER one tab in the Alex, Shade 75mg morning J., D.O. Tablets ER 24HR Venlafaxine HCL ER one tab in the Golf, Shade 37.5mg evening J., D.O. Tablets ER 24HR Metolazone Take 1 Tablet By Unknown 5mg Tablets Mouth Once Daily Bumetanide take 1 tablet Unknown 0.5mg Tablets once per day Potassium Chloride Mariya take 2 tab twice Unknown ER daily 10Meq Tablets ER Tramadol HCL 1 tab by mouth Unknown 50mg Tablets Oxycodone HCL 1 tab by mouth Unknown 15mg Tablets every 6 hours Oxycodone HCL 2 tabs by mouth Unknown 5mg Capsules every 4 hours as needed pain Senna take 1 tab two Unknown 8.6mg Tablets times per day Magnesium 1 by mouth every Unknown 400mg Tablets day Omeprazole 1 by mouth every Unknown 20mg Capsules DR day Cyclobenzaprine HCL take 1 tab by Unknown 10mg mouth 2-3 times a Tablets day as needed Bumetanide 1 tab by mouth Unknown 2mg Tablets once a day Immunizations Description No Information Available Vital Signs Date Vital Result Comment 10/30/2019 9:58am Height 62 inches 5'2" Heart Rate 68 /min BP Systolic Sitting 140 mmHg BP Diastolic Sitting 90 mmHg O2 % BldC Oximetry 92 % 10/16/2019 1:29pm Height 62 inches 5'2" Weight 161.00 lb Heart Rate 92 /min BP Systolic Sitting 130 mmHg BP Diastolic Sitting 80 mmHg Respiratory Rate 14 /min Body Temperature 98.0 F Pain Level 8 BMI (Body Mass Index) 29.4 kg/m2 Results Test Acquired Date Facility Test Result H/L Range Note Comp Metabolic 10/28/2019 [facility] Sodium 138 mmol/L Normal 135-145 1 [place] [address] [phone] Potassium 3.7 mmol/L Normal 3.5-5.0 Chloride 102 mmol/L Normal 101-111 Co2 Carbon Dioxide 32 mmol/L Normal 22-32 Anion Gap 4 mmol/L Normal 2-11 Glucose 157 mg/dL High 70-100 Blood Urea Nitrogen 28 mg/dL High 6-24 Creatinine 1.42 mg/dL High 0.51-0.95 BUN/Creatinine Ratio 19.7 Normal 8-20 Calcium 8.9 mg/dL Normal 8.6-10.3 Total Protein 6.0 g/dL Low 6.4-8.9 Albumin 3.3 g/dL Normal 3.2-5.2 Globulin 2.7 g/dL Normal 2-4 Albumin/Globulin Ratio 1.2 Normal 1-3 Total Bilirubin 0.30 mg/dL Normal 0.2-1.0 Alkaline Phosphatase 218 U/L High 34-104 Alt 14 U/L Normal 7-52 Ast 18 U/L Normal 13-39 Egfr Non- 36.9 >60 Egfr 44.6 >60 2 Laboratory test 10/28/2019 [facility] Vancomycin Random 13.5 g /mL 3 [place] [address] [phone] C Reactive Protein 5.46 mg/L Normal <8.01 4 CBC Auto 10/28/2019 [facility] White Blood 6.9 10^3/uL Normal 3.5-10.8 Diff 101 [facility] [place] [address] [phone] Red Blood Count 3.47 10^6/uL Low 3.70-4.87 Hemoglobin 10.0 g/dL Low 12.0-16.0 Hematocrit 30 % Low 35-47 Mean Corpuscular Volume 86 fL Normal 80-97 Mean Corpuscular Hemoglobin 29 pg Normal 27-31 Mean Corpuscular HGB Conc 33 g/dL Normal 31-36 Red Cell Distribution Width 15 % Normal 10-15 Platelet Count 257 10^3/uL Normal 150-450 Mean Platelet Volume 8.7 fL Normal 7.4-10.4 Abs Neutrophils 3.3 10^3/uL Normal 1.5-7.7 Abs Lymphocytes 2.2 10^3/uL Normal 1.0-4.8 Abs Monocytes 0.6 10^3/uL Normal 0-0.8 Abs Eosinophils 0.7 10^3/uL High 0-0.6 Abs Basophils 0.1 10^3/uL Normal 0-0.2 Abs Nucleated RBC 0.0 10^3/uL Granulocyte % 47.5 % Lymphocyte % 31.4 % Monocyte % 9.4 % Eosinophil % 10.8 % Basophil % 0.9 % Nucleated Red Blood Cells % 0.0 Laboratory test 10/25/2019 [facility] Vancomycin 23.8 5, [address] Random g/[place] [address] [phone] Comp Metabolic 10/23/2019 [facility] Sodium 138 mmol/L Normal 135- [address] [place] [address] [phone] Potassium 3.4 mmol/L Low 3.5-5.0 Chloride 97 mmol/L Low 101-111 Co2 Carbon Dioxide 31 mmol/L Normal 22-32 Anion Gap 10 mmol/L Normal 2-11 Glucose 152 mg/dL High 70-100 Blood Urea Nitrogen 29 mg/dL High 6-24 Creatinine 1.59 mg/dL High 0.51-0.95 BUN/Creatinine Ratio 18.2 Normal 8-20 Calcium 9.0 mg/dL Normal 8.6-10.3 Total Protein 6.5 g/dL Normal 6.4-8.9 Albumin 3.4 g/dL Normal 3.2-5.2 Globulin 3.1 g/dL Normal 2-4 Albumin/Globulin Ratio 1.1 Normal 1-3 Total Bilirubin 0.30 mg/dL Normal 0.2-1.0 Alkaline Phosphatase 197 U/L High 34-104 Alt 6 U/L Low 7-52 Ast 13 U/L Normal 13-39 Egfr Non- 32.4 >60 Egfr 39.2 >60 8 Laboratory test 10/23/2019 [facility] C Reactive 9.76 mg/L High <8.01 [address] [place] [address] [phone] CBC Auto Diff 10/23/2019 [facility] White Blood 7.1 Normal 3.5 -10.[address] Count 10^3/[place] [address] [phone] Red Blood Count 3.57 10^6/uL Low 3.70-4.87 Hemoglobin 10.1 g/dL Low 12.0-16.0 Hematocrit 31 % Low 35-47 Mean Corpuscular Volume 87 fL Normal 80-97 Mean Corpuscular Hemoglobin 28 pg Normal 27-31 Mean Corpuscular HGB Conc 33 g/dL Normal 31-36 Red Cell Distribution Width 16 % High 10-15 Platelet Count 247 10^3/uL Normal 150-450 Mean Platelet Volume 8.7 fL Normal 7.4-10.4 Abs Neutrophils 4.0 10^3/uL Normal 1.5-7.7 Abs Lymphocytes 1.6 10^3/uL Normal 1.0-4.8 Abs Monocytes 0.6 10^3/uL Normal 0-0.8 Abs Eosinophils 0.9 10^3/uL High 0-0.6 Abs Basophils 0.1 10^3/uL Normal 0-0.2 Abs Nucleated RBC 0.0 10^3/uL Granulocyte % 56.1 % Lymphocyte % 21.9 % Monocyte % 8.3 % Eosinophil % 12.6 % Basophil % 1.1 % Nucleated Red Blood Cells % 0.0 CBC Auto 10/21/2019 [facility] White Blood 8.9 10^3/uL Normal 3.5-10.8 [address] [place] [address] [phone] Red Blood Count 3.93 10^6/uL Normal 3.70-4.87 Hemoglobin 11.1 g/dL Low 12.0-16.0 Hematocrit 34 % Low 35-47 Mean Corpuscular Volume 87 fL Normal 80-97 Mean Corpuscular Hemoglobin 28 pg Normal 27-31 Mean Corpuscular HGB Conc 32 g/dL Normal 31-36 Red Cell Distribution Width 16 % High 10-15 Platelet Count 300 10^3/uL Normal 150-450 Mean Platelet Volume 8.7 fL Normal 7.4-10.4 Abs Neutrophils 4.7 10^3/uL Normal 1.5-7.7 Abs Lymphocytes 2.2 10^3/uL Normal 1.0-4.8 Abs Monocytes 0.7 10^3/uL Normal 0-0.8 Abs Eosinophils 1.2 10^3/uL High 0-0.6 Abs Basophils 0.1 10^3/uL Normal 0-0.2 Abs Nucleated RBC 0.0 10^3/uL Granulocyte % 52.6 % Lymphocyte % 24.5 % Monocyte % 8.4 % Eosinophil % 13.7 % Basophil % 0.8 % Nucleated Red Blood Cells % 0.2 Comp Metabolic 10/21/2019 [facility] Sodium 139 mmol/L Normal 135-[address] [place] [address] [phone] Potassium 3.8 mmol/L Normal 3.5-5.0 Chloride 97 mmol/L Low 101-111 Co2 Carbon Dioxide 33 mmol/L High 22-32 Anion Gap 9 mmol/L Normal 2-11 Glucose 164 mg/dL High 70-100 Blood Urea Nitrogen 27 mg/dL High 6-24 Creatinine 1.69 mg/dL High 0.51-0.95 BUN/Creatinine Ratio 16.0 Normal 8-20 Calcium 9.5 mg/dL Normal 8.6-10.3 Total Protein 7.3 g/dL Normal 6.4-8.9 Albumin 3.9 g/dL Normal 3.2-5.2 Globulin 3.4 g/dL Normal 2-4 Albumin/Globulin Ratio 1.1 Normal 1-3 Total Bilirubin 0.40 mg/dL Normal 0.2-1.0 Alkaline Phosphatase 229 U/L High 34-104 Alt 7 U/L Normal 7-52 Ast 14 U/L Normal 13-39 Egfr Non- 30.2 >60 Egfr 36.5 >60 11 Laboratory test 10/21/2019 [facility] Vancomycin Random 9.1 g/ mL [address] [place] [address] [phone] C Reactive Protein 14.87 mg/L High <8.01 13 Laboratory 10/18/2019 [facility] Vancomycin 21.1 14, 15 test finding [address] Random g/[place] [address] [phone] CBC Auto Diff 10/14/2019 [facility] White Blood 7.0 Normal 3.5 - [address] Count 10^3/uL 10.8 [place] [address] [phone] Red Blood Count 3.37 10^6/uL Low 3.70-4.87 Hemoglobin 9.7 g/dL Low 12.0-16.0 Hematocrit 29 % Low 35-47 Mean Corpuscular Volume 86 fL Normal 80-97 Mean Corpuscular Hemoglobin 29 pg Normal 27-31 Mean Corpuscular HGB Conc 33 g/dL Normal 31-36 Red Cell Distribution Width 16 % High 10-15 Platelet Count 226 10^3/uL Normal 150-450 Mean Platelet Volume 9.1 fL Normal 7.4-10.4 Abs Neutrophils 3.7 10^3/uL Normal 1.5-7.7 Abs Lymphocytes 1.8 10^3/uL Normal 1.0-4.8 Abs Monocytes 0.8 10^3/uL Normal 0-0.8 Abs Eosinophils 0.7 10^3/uL High 0-0.6 Abs Basophils 0.1 10^3/uL Normal 0-0.2 Abs Nucleated RBC 0.0 10^3/uL Granulocyte % 52.6 % Lymphocyte % 25.2 % Monocyte % 11.5 % Eosinophil % 9.5 % Basophil % 1.2 % Nucleated Red Blood Cells % 0.0 Comp Metabolic 10/14/2019 [facility] Sodium 138 mmol/L Normal 135-[address] [place] [address] [phone] Potassium 2.9 mmol/L Low 3.5-5.0 Chloride 93 mmol/L Low 101-111 Co2 Carbon Dioxide 38 mmol/L High 22-32 Anion Gap 7 mmol/L Normal 2-11 Glucose 139 mg/dL High 70-100 Blood Urea Nitrogen 28 mg/dL High 6-24 Creatinine 1.84 mg/dL High 0.51-0.95 BUN/Creatinine Ratio 15.2 Normal 8-20 Calcium 8.8 mg/dL Normal 8.6-10.3 Total Protein 6.5 g/dL Normal 6.4-8.9 Albumin 3.5 g/dL Normal 3.2-5.2 Globulin 3.0 g/dL Normal 2-4 Albumin/Globulin Ratio 1.2 Normal 1-3 Total Bilirubin 0.30 mg/dL Normal 0.2-1.0 Alkaline Phosphatase 172 U/L High 34-104 Alt 6 U/L Low 7-52 Ast 12 U/L Low 13-39 Egfr Non- 27.4 >60 Egfr 33.1 >60 17 Laboratory test 10/14/2019 [facility] Vancomycin Random 18.4 g /mL [address] [place] [address] [phone] C Reactive Protein 29.61 mg/L High <8.01 19 Laboratory 10/11/2019 [facility] Vancomycin 16.6 20, 21 test finding [address] Random g/[place] [address] [phone] CBC Auto Diff 10/07/2019 [facility] White Blood 6.8 Normal 3.5 - [address] Count 10^3/uL 10.8 [place] [address] [phone] Red Blood Count 3.44 10^6/uL Low 3.70-4.87 Hemoglobin 9.8 g/dL Low 12.0-16.0 Hematocrit 30 % Low 35-47 Mean Corpuscular Volume 87 fL Normal 80-97 Mean Corpuscular Hemoglobin 29 pg Normal 27-31 Mean Corpuscular HGB Conc 33 g/dL Normal 31-36 Red Cell Distribution Width 16 % High 10-15 Platelet Count 262 10^3/uL Normal 150-450 Mean Platelet Volume 8.3 fL Normal 7.4-10.4 Abs Neutrophils 3.5 10^3/uL Normal 1.5-7.7 Abs Lymphocytes 2.0 10^3/uL Normal 1.0-4.8 Abs Monocytes 0.6 10^3/uL Normal 0-0.8 Abs Eosinophils 0.5 10^3/uL Normal 0-0.6 Abs Basophils 0.1 10^3/uL Normal 0-0.2 Abs Nucleated RBC 0.0 10^3/uL Granulocyte % 51.9 % Lymphocyte % 29.9 % Monocyte % 9.0 % Eosinophil % 8.0 % Basophil % 1.2 % Nucleated Red Blood Cells % 0.0 Comp Metabolic 10/07/2019 [facility] Sodium 140 mmol/L Normal 135-[address] [place] [address] [phone] Potassium 3.2 mmol/L Low 3.5-5.0 Chloride 100 mmol/L Low 101-111 Co2 Carbon Dioxide 35 mmol/L High 22-32 Anion Gap 5 mmol/L Normal 2-11 Glucose 112 mg/dL High 70-100 Blood Urea Nitrogen 17 mg/dL Normal 6-24 Creatinine 1.56 mg/dL High 0.51-0.95 BUN/Creatinine Ratio 10.9 Normal 8-20 Calcium 8.4 mg/dL Low 8.6-10.3 Total Protein 5.7 g/dL Low 6.4-8.9 Albumin 3.0 g/dL Low 3.2-5.2 Globulin 2.7 g/dL Normal 2-4 Albumin/Globulin Ratio 1.1 Normal 1-3 Total Bilirubin 0.30 mg/dL Normal 0.2-1.0 Alkaline Phosphatase 178 U/L High 34-104 Alt 6 U/L Low 7-52 Ast 13 U/L Normal 13-39 Egfr Non- 33.1 >60 Egfr 40.1 >60 23 Laboratory test 10/07/2019 [facility] Vancomycin Random 17.0 g /mL [address] [place] [address] [phone] C Reactive Protein 10.26 mg/L High <8.01 25 Laboratory test 08/23/2019 [facility] C Reactive 6.56 mg/L Normal <8.01 finding 101 [facility] [place] [address] [phone] Erythrocyte Sed Rate 12 mm/Hr Normal 0-29 Copper, Serum 0.90 g/mL 0.75-1.45 26 Ceruloplasmin 21.2 mg/dL 27 Vitamin B12 08/23/2019 [facility] Vitamin B12 249 pg/mL Normal 180-914 28 And Folate 101 [facility] [place] [address] [phone] Folic Acid (Folate) > 20.00 ng/mL >3.99 Laboratory 08/23/2019 [facility] TSH (Thyroid 0.77 Normal 0.34 -5.60 test finding [address] Stim Horm) mcIU/[place] [address] [phone] Free T4 (Free Thyroxine) 0.82 ng/dL Normal 0.61-1.12 1 [facility] - Floor: 1, #: [id number] [id number] 2 Because ethnic data is not always readily available, this report includes an eGFR for both -Americans and non- Americans. The National Kidney Disease Education Program (NKDEP) does not endorse the use of the MDRD equation for patients that are not between the ages of 18 and 70, are , have extremes of body size, muscle mass, or nutritional status, or are non- or non-. According to the National Kidney Foundation, irrespective of diagnosis, the stage of the disease is based on the level of kidney function: Stage Description GFR(mL/min/1.73 m(2)) 1 Kidney damage with normal or decreased GFR 90 2 Kidney damage with mild decrease in GFR 60-89 3 Moderate decrease in GFR 30-59 4 Severe decrease in GFR 15-29 5 Kidney failure <15 (or dialysis) 3 15-20 for HCAP, VAP, Osteomyelitis, Endocarditis, Meningitis 10-15 for All Other Infections 4 [facility] - Floor: 1, Rm #: [id number] [id number] 5 [facility] - Floor: 1, Rm #: 179P [id number] 6 15-20 for HCAP, VAP, Osteomyelitis, Endocarditis, Meningitis 10-15 for All Other Infections 7 [facility] - Floor: 1, Rm #: 179P [id number] 8 Because ethnic data is not always readily available, this report includes an eGFR for both -Americans and non- Americans. The National Kidney Disease Education Program (NKDEP) does not endorse the use of the MDRD equation for patients that are not between the ages of 18 and 70, are , have extremes of body size, muscle mass, or nutritional status, or are non- or non-. According to the National Kidney Foundation, irrespective of diagnosis, the stage of the disease is based on the level of kidney function: Stage Description GFR(mL/min/1.73 m(2)) 1 Kidney damage with normal or decreased GFR 90 2 Kidney damage with mild decrease in GFR 60-89 3 Moderate decrease in GFR 30-59 4 Severe decrease in GFR 15-29 5 Kidney failure <15 (or dialysis) 9 [facility] - Floor: 1, Rm #: [id number] 10 [facility] - Floor: 1, Rm #: 179P [id number] 11 Because ethnic data is not always readily available, this report includes an eGFR for both -Americans and non- Americans. The National Kidney Disease Education Program (NKDEP) does not endorse the use of the MDRD equation for patients that are not between the ages of 18 and 70, are , have extremes of body size, muscle mass, or nutritional status, or are non- or non-. According to the National Kidney Foundation, irrespective of diagnosis, the stage of the disease is based on the level of kidney function: Stage Description GFR(mL/min/1.73 m(2)) 1 Kidney damage with normal or decreased GFR 90 2 Kidney damage with mild decrease in GFR 60-89 3 Moderate decrease in GFR 30-59 4 Severe decrease in GFR 15-29 5 Kidney failure <15 (or dialysis) 12 15-20 for HCAP, VAP, Osteomyelitis, Endocarditis, Meningitis 10-15 for All Other Infections 13 [facility] - Floor: 1, Rm #: [id number] [id number] 14 [facility] - Floor: 1, Rm #: 179P [id number] 15 15-20 for HCAP, VAP, Osteomyelitis, Endocarditis, Meningitis 10-15 for All Other Infections 16 [facility] - Floor: 1, Rm #: 179P [id number] 17 Because ethnic data is not always readily available, this report includes an eGFR for both -Americans and non- Americans. The National Kidney Disease Education Program (NKDEP) does not endorse the use of the MDRD equation for patients that are not between the ages of 18 and 70, are , have extremes of body size, muscle mass, or nutritional status, or are non- or non-. According to the National Kidney Foundation, irrespective of diagnosis, the stage of the disease is based on the level of kidney function: Stage Description GFR(mL/min/1.73 m(2)) 1 Kidney damage with normal or decreased GFR 90 2 Kidney damage with mild decrease in GFR 60-89 3 Moderate decrease in GFR 30-59 4 Severe decrease in GFR 15-29 5 Kidney failure <15 (or dialysis) 18 15-20 for HCAP, VAP, Osteomyelitis, Endocarditis, Meningitis 10-15 for All Other Infections 19 [facility] - Floor: 1, Rm #: 179P [id number] 20 [facility] - Floor: 1, Rm #: 179 [id number] 21 15-20 for HCAP, VAP, Osteomyelitis, Endocarditis, Meningitis 10-15 for All Other Infections 22 [facility] - Floor: 1, Rm #: 179P [id number] 23 Because ethnic data is not always readily available, this report includes an eGFR for both -Americans and non- Americans. The National Kidney Disease Education Program (NKDEP) does not endorse the use of the MDRD equation for patients that are not between the ages of 18 and 70, are , have extremes of body size, muscle mass, or nutritional status, or are non- or non-. According to the National Kidney Foundation, irrespective of diagnosis, the stage of the disease is based on the level of kidney function: Stage Description GFR(mL/min/1.73 m(2)) 1 Kidney damage with normal or decreased GFR 90 2 Kidney damage with mild decrease in GFR 60-89 3 Moderate decrease in GFR 30-59 4 Severe decrease in GFR 15-29 5 Kidney failure <15 (or dialysis) 24 15-20 for HCAP, VAP, Osteomyelitis, Endocarditis, Meningitis 10-15 for All Other Infections 25 [facility] - Floor: 1, Rm #: 179P [id number] ADDITIONAL INFORMATION This test was developed and its performance characteristics determined by [facility] in a manner consistent with CLIA requirements. This test has not been cleared or approved by the U.S. Food and Drug Administration. Test Performed by: [facility] - [address] [address] Baler Operator: Fabian Juan M.D. Ph.D.; CLIA# [id number] 27 REFERENCE VALUE 20.0 - 51.0 Test Performed by: [facility] - [address] [address] Baler Operator: Fabian Juan M.D. Ph.D.; CLIA# [id number] Normal Range 180 to 914 Indeterminate Range 145 to 180 Deficient Range <145 Procedures Date Code Description Status 09/12/2019 98307 Stereotactic Computer-Assisted, Spinal Completed 09/12/201925661 Post Segmental Instrumentation 3-6 Segments Completed 09/12/201976845 Exploration Of Spinal Fusion Completed 09/12/2019 97911 Arthrodsis, Post, Addl Segment Completed 09/12/2019 72663 Arhtrodesis Post Lateral W/Lami-Lumbar Completed 09/12/2019 Allograft For Spine Surgery, Morselized Completed 09/08/2019 90221 ECHO Transthorasic Realtime 2D W Doppler & Color Flow Hosp Completed Medical Devices Description No Information Available Encounters Type Date Location Provider Dx Diagnosis Office Visit 10/16/2019 [facility] Sherrie Jerrell M46.26 Osteomyelitis of 2:00p Infectious [facility] vertebra, lumbar Diseases region M46.40 Discitis, unspecified, site unspecified T84.63xD Infect/inflm reaction due to int fix of spine, subs Z79.2 [facility] (current) use of antibiotics Office Visit 09/18/2019 [facility] M46.40 Discitis, 11:46a Assoc,JULES Keane unspecified, site Hospitalists unspecified D62 Acute posthemorrhagic anemia N17.9 Acute kidney failure, unspecified R60.0 Localized edema G89.29 Other chronic pain E11.9 Type 2 diabetes mellitus without complications Office Visit 09/17/2019 [facility] M46.40 Discitis, 11:46a Assoc,JULES Keane unspecified, site Hospitalists unspecified D62 Acute posthemorrhagic anemia N17.9 Acute kidney failure, unspecified R60.0 Localized edema G89.29 Other chronic pain E11.9 Type 2 diabetes mellitus without complications Office Visit 09/16/2019 [facility] T84.63xA Infect/ inflm 10:48a For Roni Scott NP reaction due to Diseases int fix of spine, init M46.26 Osteomyelitis of vertebra, lumbar region M46.46 Discitis, unspecified, lumbar region N17.9 Acute kidney failure, unspecified E11.69 Type 2 diabetes mellitus with other specified complication Office Visit 09/16/2019 [facility] [place], M46.40 Discitis, 11:45a Assjoe santiago M.D. unspecified, site Hospitalists unspecified G89.29 Other chronic pain E11.9 Type 2 diabetes mellitus without complications R60.0 Localized edema D62 Acute posthemorrhagic anemia N17.9 Acute kidney failure, unspecified Office Visit 09/15/2019 [facility] [place], M46.40 Discitis, 11:45a Assocjoe M.D. unspecified, site Hospitalists unspecified G89.29 Other chronic pain E11.9 Type 2 diabetes mellitus without complications R60.0 Localized edema D62 Acute posthemorrhagic anemia N17.9 Acute kidney failure, unspecified Office Visit 09/14/2019 [facility] [place], M46.40 Discitis, 11:44a Assjoe santiago M.D. unspecified, site Hospitalists unspecified G89.29 Other chronic pain E11.9 Type 2 diabetes mellitus without complications R60.0 Localized edema D62 Acute posthemorrhagic anemia N17.9 Acute kidney failure, unspecified Office Visit 09/13/2019 11:44a [facility] R39.12 Poor urinary Assoc,JULES Keane stream Hospitalists R31.9 Hematuria, unspecified D62 Acute posthemorrhagic anemia H05.229 Edema of unspecified orbit M46.40 Discitis, unspecified, site unspecified M40.209 Unspecified kyphosis, site unspecified G89.29 Other chronic pain E11.9 Type 2 diabetes mellitus without complications Office Visit 09/12/2019 [facility] Catarino Gonzalez M46.26 Osteomyelitis of 1:29p For Roni Young M.D. vertebra, lumbar Diseases region M46.46 Discitis, unspecified, lumbar region T84.63xA Infect/inflm reaction due to int fix of spine, init G93.40 Encephalopathy, unspecified Office Visit 09/12/2019 [facility] M46.40 Discitis, 11:43a Assoc,JULES Keane unspecified, site Hospitalists unspecified Office Visit 09/11/2019 [facility] G93.40 Encephalopathy, 11:43a Assocjoe NP unspecified Hospitalists M46.40 Discitis, unspecified, site unspecified M40.209 Unspecified kyphosis, site unspecified G89.29 Other chronic pain E11.9 Type 2 diabetes mellitus without complications Office Visit 09/10/2019 [facility] G93.40 [facility] 11[facility] NAIF Kelly M46.40 Discitis, unspecified, site unspecified M40.209 Unspecified kyphosis, site unspecified G89.29 Other chronic pain E11.9 Type 2 diabetes mellitus without complications Office Visit 09/10/2019 [facility] Catarino Gonzalez M46.26 Osteomyelitis of 1:28p For Infectious Keenan Young vertebra, lumbar Diseases region M46.46 Discitis, unspecified, lumbar region T84.63xA Infect/inflm reaction due to int fix of spine, init G93.40 Encephalopathy, unspecified E11.9 Type 2 diabetes mellitus without complications Office Visit 09/09/2019 [facility] G93.40 Encephalopathy, 11:29a Assjoe santiago PA unspecified Hospitalists M46.40 Discitis, unspecified, site unspecified M40.209 Unspecified kyphosis, site unspecified N17.9 Acute kidney failure, unspecified G89.29 Other chronic pain R10.9 Unspecified abdominal pain E11.9 Type 2 diabetes mellitus without complications R60.9 Edema, unspecified W19.xxxA Unspecified fall, initial encounter Office Visit 09/09/2019 7:00a [facility] M54.5 Low back Services Of Kevan Christie MD pain Z98.1 Arthrodesis status M53.2x5 Spinal instabilities, thoracolumbar region Office Visit 09/08/2019 7:00a [facility] M54.5 [facility] Of Kevan Christie MD pain Z98.1 Arthrodesis status Office Visit 09/08/2019 [facility] G93.40 Encephalopathy, 11:28a Assocjoe PA unspecified Hospitalists M46.40 Discitis, unspecified, site unspecified M40.209 Unspecified kyphosis, site unspecified G89.29 Other chronic pain R10.9 Unspecified abdominal pain E11.9 Type 2 diabetes mellitus without complications R60.9 Edema, unspecified W19.xxxA Unspecified fall, initial encounter Office Visit 09/07/2019 7:00a [facility] M54.5 [facility] Of Kevan Christie MD pain Z98.1 Arthrodesis status Office Visit 09/07/2019 [facility] G93.40 Encephalopathy, 11:27a Assoc,JULES Allen unspecified Hospitalists M46.40 Discitis, unspecified, site unspecified M40.209 Unspecified kyphosis, site unspecified G89.29 Other chronic pain R10.9 Unspecified abdominal pain E11.9 Type 2 diabetes mellitus without complications R60.0 Localized edema W19.xxxA Unspecified fall, initial encounter Office Visit 09/06/2019 7:00a [facility] M54.5 [facility] MD Pratik pain Z98.1 Arthrodesis status Office Visit 09/06/2019 [facility] G93.40 Encephalopathy, 11:26a Assocjoe PA unspecified Hospitalists M46.40 Discitis, unspecified, site unspecified G89.29 Other chronic pain E11.9 Type 2 diabetes mellitus without complications W19.xxxA Unspecified fall, initial encounter Office Visit 09/06/2019 [facility] Catarino Gonzalez G93.40 Encephalopathy, 1:25p For Infectious Keenan Young unspecified Diseases M46.26 Osteomyelitis of vertebra, lumbar region M46.46 Discitis, unspecified, lumbar region T84.63xA Infect/inflm reaction due to int fix of spine, init E11.9 Type 2 diabetes mellitus without complications J44.9 Chronic obstructive pulmonary disease, unspecified Office Visit 09/05/2019 [facility] Mimi Marie, M46.46 Discitis, 11:25a Assjoe santiago M.D. 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 Services Of [facility] cataplexy G47.61 Periodic limb movement disorder Z98.84 Bariatric surgery status G47.33 Obstructive sleep apnea (adult) (pediatric) R53.82 Chronic fatigue, unspecified R25.1 Tremor, unspecified Assessments Date Code Description Provider 10/30/2019 G47.33 Obstructive sleep apnea (adult) Charlene Spears MD (pediatric) 10/30/2019 G47.419 Narcolepsy without cataplexy Charlene Spears MD 10/16/2019 M46.26 Osteomyelitis of vertebra, lumbar Sherrie Scott NP region 10/16/2019 M46.40 Discitis, unspecified, site Sherrie Scott NP unspecified 10/16/2019 T84.63xD Infection and inflammatory reaction Sherrie Scott NP due to internal fixation device of spine, subsequent encounter 10/16/2019 Z79.2 [facility] (current) use of Sherrie Scott NP antibiotics 10/12/2019 M46.40 Discitis, unspecified, site Sheree Christie MD unspecified 10/12/2019 M41.9 Scoliosis, unspecified Sheree Christie MD 10/12/2019 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, lumbar region 10/12/2019 M47.896 Other spondylosis, lumbar region Sheree Christie MD 09/18/2019 M46.40 Discitis, unspecified, site JULES Pitts unspecified 09/18/2019 D62 Acute posthemorrhagic anemia JULES Pitts 09/18/2019 N17.9 Acute kidney failure, unspecified JULES Pitts 09/18/2019 R60.0 Localized edema JULES Pitts 09/18/2019 G89.29 Other chronic pain JULSE Pitts 09/18/2019 E11.9 Type 2 diabetes mellitus without JULES Pitts complications 09/17/2019 M46.40 Discitis, unspecified, site JULES Pitts unspecified 09/17/2019 D62 Acute posthemorrhagic anemia JULES Pitts 09/17/2019 N17.9 Acute kidney failure, unspecified JULES Pitts 09/17/2019 R60.0 Localized edema JULES Pitts 09/17/2019 G89.29 Other chronic pain JULES Pitts 09/17/2019 E11.9 Type 2 diabetes mellitus without JULES Pitts complications 09/16/2019 T84.63xA Infection and inflammatory reaction Sherrie Scott, NAIF due to internal fixation device of spine, initial encounter 09/16/2019 M46.40 Discitis, unspecified, site Mimi Marie M.D. unspecified 09/16/2019 M46.26 Osteomyelitis of vertebra, lumbar Sherrie Scott NP region 09/16/2019 G89.29 Other chronic pain Mimi Marie M.D. 09/16/2019 M46.46 Discitis, unspecified, lumbar region Sherrie Scott, NAIF 09/16/2019 E11.9 Type 2 diabetes mellitus without Mimi Marie M.D. complications 09/16/2019 N17.9 Acute kidney failure, unspecified Sherrie Scott , NAIF 09/16/2019 R60.0 Localized edema Mimi Marie M.D. 09/16/2019 E11.69 Type 2 diabetes mellitus with other Sherrie Scott NP specified complication 09/16/2019 D62 Acute posthemorrhagic anemia Mimi Marie M.D. 09/16/2019 N17.9 Acute kidney failure, unspecified Mimi Marie M.D. 09/15/2019 M46.40 Discitis, unspecified, site Mimi Marie M.D. unspecified 09/15/2019 G89.29 Other chronic pain Mimi Marie M.D. 09/15/2019 E11.9 Type 2 diabetes mellitus without Mimi Marie M.D. complications 09/15/2019 R60.0 Localized edema Mimi Marie M.D. 09/15/2019 D62 Acute posthemorrhagic anemia Mimi Marie M.D. 09/15/2019 N17.9 Acute kidney failure, unspecified Mimi Marie M.D. 09/14/2019 M46.40 Discitis, unspecified, site Mimi Marie M.D. unspecified 09/14/2019 G89.29 Other chronic pain Mimi Marie M.D. 09/14/2019 E11.9 Type 2 diabetes mellitus without Mimi Marie M.D. complications 09/14/2019 R60.0 Localized edema Mimi Marie M.D. 09/14/2019 D62 Acute posthemorrhagic anemia Mimi Marie M.D. 09/14/2019 N17.9 Acute kidney failure, unspecified Mimi Marie M.D. 09/13/2019 R39.12 Poor urinary stream JULES Pitts 09/13/2019 R31.9 Hematuria, unspecified JULES Pitts 09/13/2019 D62 Acute posthemorrhagic anemia JULES Pitts 09/13/2019 H05.229 Edema of unspecified orbit JULES Pitts 09/13/2019 M46.40 Discitis, unspecified, site Karma Navarrete PA unspecified 09/13/2019 M40.209 Unspecified kyphosis, site JULES Pitts unspecified 09/13/2019 G89.29 Other chronic pain JULES Pitts 09/13/2019 E11.9 Type 2 diabetes mellitus without JULES Pitts complications 09/12/2019 M46.26 Osteomyelitis of vertebra, lumbar Sheree Christie MD region 09/12/2019 M46.40 Discitis, unspecified, site JULES Pitts unspecified 09/12/2019 M53.2x5 Spinal instabilities, thoracolumbar Sheree Christie MD region 09/12/2019 M46.26 Osteomyelitis of vertebra, lumbar Catarino Young M.D. region 09/12/2019 Z98.1 Arthrodesis status Sheree Christie MD 09/12/2019 M46.46 Discitis, unspecified, lumbar region Catarino Young M.D. 09/12/2019 T84.63xA Infection and inflammatory reaction Catarino Young M.D. due to internal fixation device of spine, initial encounter 09/12/2019 G93.40 Encephalopathy, unspecified Catarino Young M.D. 09/11/2019 G93.40 Encephalopathy, unspecified [facility] 09/11/2019 M46.40 Discitis, unspecified, site [facility]elli [facility] unspecified 09/11/2019 M40.209 Unspecified kyphosis, site [facility]elli [facility] unspecified 09/11/2019 G89.29 Other chronic pain Kelli [facility] 09/11/2019 E11.9 Type 2 diabetes mellitus without Kelli [facility] complications 09/10/2019 G93.40 Encephalopathy, unspecified Kelli [facility] 09/10/2019 M46.26 Osteomyelitis of vertebra, lumbar Catarino Young M.D. region 09/10/2019 M46.40 Discitis, unspecified, site [facility]elli [facility] unspecified 09/10/2019 M46.46 Discitis, unspecified, lumbar region Catarino Young M.D. 09/10/2019 M40.209 Unspecified kyphosis, site Kelli [facility] unspecified 09/10/2019 T84.63xA Infection and inflammatory reaction Catarino Young M.D. due to internal fixation device of spine, initial encounter 09/10/2019 G89.29 Other chronic pain Kelli [facility] 09/10/2019 G93.40 Encephalopathy, unspecified Catarino Young M.D. 09/10/2019 E11.9 Type 2 diabetes mellitus without [facility]elli [facility] complications 09/10/2019 E11.9 Type 2 diabetes mellitus without Catarino Young M.D. 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, thoracolumbar Sheree Christie MD region 09/09/2019 M46.40 Discitis, unspecified, site JULES Stern unspecified 09/09/2019 M40.209 Unspecified kyphosis, site JULES Stern unspecified 09/09/2019 N17.9 Acute kidney failure, unspecified JULES Stern 09/09/2019 G89.29 Other chronic pain JULES Stern 09/09/2019 R10.9 Unspecified abdominal pain JULES Stern 09/09/2019 E11.9 Type 2 diabetes mellitus without JULES Stern complications 09/09/2019 R60.9 Edema, unspecified JULES Stern 09/09/2019 W19.xxxA Unspecified fall, initial encounter JULES Stern 09/08/2019 M54.5 Low back pain Sheree Christie MD 09/08/2019 Z98.1 Arthrodesis status Sheree Christie MD 09/08/2019 G93.40 Encephalopathy, unspecified JULES Stern 09/08/2019 R60.9 Edema, unspecified Eldon Santana M.D. 09/08/2019 M46.40 Discitis, unspecified, site JULES Stern unspecified 09/08/2019 M40.209 Unspecified kyphosis, site JULES Stern unspecified 09/08/2019 G89.29 Other chronic pain JULES Stern 09/08/2019 R10.9 Unspecified abdominal pain JULES Stern 09/08/2019 E11.9 Type 2 diabetes mellitus without JULES Stern complications 09/08/2019 R60.9 Edema, unspecified JULES Stern 09/08/2019 W19.xxxA Unspecified fall, initial encounter JULES Stern 09/07/2019 M54.5 Low back pain Sheree Christie MD 09/07/2019 G93.40 Encephalopathy, unspecified JULES Stern 09/07/2019 Z98.1 Arthrodesis status Sheree Christie MD 09/07/2019 M46.40 Discitis, unspecified, site JULES Stern unspecified 09/07/2019 M40.209 Unspecified kyphosis, site JULES Stern unspecified 09/07/2019 G89.29 Other chronic pain JULES Stern 09/07/2019 R10.9 Unspecified abdominal pain JULES Stern 09/07/2019 E11.9 Type 2 diabetes mellitus without JULES Stern complications 09/07/2019 R60.0 Localized edema JULES Stern 09/07/2019 W19.xxxA Unspecified fall, initial encounter JULES Stern 09/06/2019 M54.5 Low back pain Sheree Christie MD 09/06/2019 G93.40 Encephalopathy, unspecified JULES Stern 09/06/2019 Z98.1 Arthrodesis status Sheree Christie MD 09/06/2019 G93.40 Encephalopathy, unspecified Catarino Young M.D. 09/06/2019 M46.40 Discitis, unspecified, site JULES Stern unspecified 09/06/2019 M46.26 Osteomyelitis of vertebra, lumbar Catarino Young M.D. region 09/06/2019 G89.29 Other chronic pain JULES Stern 09/06/2019 M46.46 Discitis, unspecified, lumbar region Catarino Young M.D. 09/06/2019 E11.9 Type 2 diabetes mellitus without JULES Stern complications 09/06/2019 T84.63xA Infection and inflammatory reaction Catarino Young M.D. due to internal fixation device of spine, initial encounter 09/06/2019 W19.xxxA Unspecified fall, initial encounter JULES Stern 09/06/2019 E11.9 Type 2 diabetes mellitus without Catarino Young M.D. complications 09/06/2019 J44.9 Chronic obstructive pulmonary Catarino Young M.D. disease, unspecified 09/05/2019 M46.46 Discitis, unspecified, lumbar region Mimi Marie M.D. 09/05/2019 A41.9 Sepsis, unspecified organism Mimi Marie M.D. 09/05/2019 E11.9 Type 2 diabetes mellitus without Mimi Marie M.D. complications 09/05/2019 I10 Essential (primary) hypertension Mimi Marie M.D. 09/05/2019 F32.9 Major depressive disorder, single Mimi Marie M.D. episode, unspecified 09/05/2019 J44.9 Chronic obstructive pulmonary Mimi Marie M.D. disease, unspecified 08/23/2019 G47.419 Narcolepsy without cataplexy Rashaun Castillo M.D. 08/23/2019 G47.61 Periodic limb movement disorder Rashaun Castillo M.D. 08/23/2019 Z98.84 Bariatric surgery status Rashaun Castillo M.D. 08/23/2019 G47.33 Obstructive sleep apnea (adult) Rashaun Castillo M.D. (pediatric) 08/23/2019 R53.82 Chronic fatigue, unspecified Rashaun Castillo M.D. 08/23/2019 R25.1 Tremor, unspecified Rashaun Castillo M.D. Plan of Treatment Future Appointment(s):01/07/2020 11:15 am - Collette Thomas DNP, RN, [facility] at [facility]11/11/2019 12:30 pm - Sheree Christie MD at [facility]10/30/2019 - Charlene Spears MDG47.33 Obstructive sleep apnea (adult) (pediatric)Follow up:2 [id number] Narcolepsy without cataplexy Functional Status Description No Information Available Mental Status Description No Information Available Referrals Refer to Dr Reason for Referral Status Appt Date Charlene Spears MD Sent [address] [place] [id number] [phone]
--- OUTSIDE RECORDS SUMMARY | 2019-10-30 11:01 | XMS REPORT | Continuity of Care Document ---
:1950 External Reference #:[id number] Author Name Sherrie Scott NP (transmitted by agent of provider Aggie Suggs) Address [address] [place] [address] Care Team Providers Name Role Phone Shade Johnson D.O. 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 Onset: 08/23/2019 Chronic fatigue syndrome Rashaun Castillo M.D. Onset: 08/23/2019 Bariatric surgery status Rashaun Castillo M.D. Onset: 08/23/2019 Periodic limb movement disorder Rashaun Castillo M.D. Onset: 08/23/2019 Social History Type Date Description Comments Sex Unknown ETOH Use Denies alcohol use Tobacco Use Start: Unknown End: Patient is a former quit in the Unknown smoker Recreational Drug Use Denies Drug Use Tobacco Use Start: Unknown Heavy tobacco smoker 1PPD x 2 years (more than 10 cigarettes/day) Smoking Status Reviewed: 10/16/19 Heavy tobacco smoker 1PPD x 2 years (more than 10 cigarettes/day) Exercise Type/Frequency Exercises rarely Allergies, Adverse Reactions, Alerts Active Allergies Reaction Severity Comments Date Beta Adrenergic Blockers dyspnea Severe 01/21/2014 Medications Active Medications SIG Qnty Indications Ordering Date Provider Ceftriaxone Sodium 1gm iv once daily Unknown 09/09/2019 2gm at [facility] Solution Rec Vancomycin HCL 1 gm IV once Unknown 09/09/2019 1gm Solution daily goal trough Rec 15-20 at [facility] Gabapentin take one tablet Unknown 600mg Tablets by mouth three times a day Venlafaxine HCL ER one tab in the [place], [place] 75mg morning J., D.O. Tablets ER 24HR Venlafaxine HCL ER one tab in the [place], [place] 37.5mg evening J., D.O. Tablets ER 24HR [...] Available Vital Signs Date Vital Result Comment 10/16/2019 1:29pm Height 62 inches 5'2" Weight 161.00 lb Heart Rate 92 /min BP Systolic Sitting 130 mmHg BP Diastolic Sitting 80 mmHg Respiratory Rate 14 /min Body Temperature 98.0 F Pain Level 8 BMI (Body Mass Index) 29.4 kg/m2 10/12/2019 8:17am Height 62 inches 5'2" Weight 166.00 lb Heart Rate 92 /min BP Systolic 130 mmHg BP Diastolic 82 mmHg BMI (Body Mass Index) 30.4 kg/m2 Results Test Acquired Date Facility Test Result H/L Range Note CBC Auto 10/14/2019 [facility] White Blood 7.0 10^3/uL Normal 3.5-10.[address] [place] [address] [phone] Red Blood Count 3.37 10^6/uL Low 3.70-4.87 [...] Blood Cells % 0.0 Comp Metabolic 10/14/2019 [facility] Sodium 138 mmol/L Normal 135-[address] [place] [address] [phone] Potassium 2.9 mmol/L Low 3.5-5.0 Chloride 93 [...] Egfr Non- 27.4 >60 Egfr 33.1 >60 2 Laboratory test 10/14/2019 [facility] Vancomycin Random 18.4 g /mL [address] [place] [address] [phone] C Reactive Protein 29.61 mg/L High <8.01 4 Laboratory test 10/11/2019 [facility] Vancomycin 16.6 5, [address] Random g/[place] [address] [phone] CBC Auto Diff 10/07/2019 [facility] White Blood 6.8 Normal 3.5 - [address] Count 10^3/uL 10.8 [place] [address] [phone] Red Blood Count 3.44 10^6/uL Low 3.70-4.87 [...] Blood Cells % 0.0 Comp Metabolic 10/07/2019 [facility] Sodium 140 mmol/L Normal 135-[address] [place] [address] [phone] Potassium 3.2 mmol/L Low 3.5-5.0 Chloride 100 [...] Egfr Non- 33.1 >60 Egfr 40.1 >60 8 Laboratory test 10/07/2019 [facility] Vancomycin Random 17.0 g /mL 9 finding [address] [place] [address] [phone] C Reactive Protein 10.26 mg/L High <8.01 10 Laboratory test 08/23/2019 [facility] C Reactive 6.56 mg/L Normal <8.[address] [place] [address] [phone] Erythrocyte Sed Rate 12 mm/Hr Normal 0-29 Copper, Serum 0.90 g/mL 0.75-1.45 11 Ceruloplasmin 21.2 mg/dL 12 Vitamin B12 08/23/2019 [facility] Vitamin B12 249 pg/mL Normal 180-914 13 And Folate [address] [place] [address] [phone] Folic Acid (Folate) > 20.00 ng/mL >3.99 Laboratory 08/23/2019 [facility] TSH (Thyroid 0.77 Normal 0.34 -5.60 test finding [address] Stim Horm) mcIU/[place] [address] [phone] Free T4 (Free Thyroxine) 0.82 ng/dL Normal 0.61-1.12 1 [facility] - Floor: 1, Rm #: [id number] 2 Because ethnic data is not always [...] Meningitis 10-15 for All Other Infections 4 [facility] - Floor: 1, Rm #: [id number] 5 [facility] - Floor: 1, Rm #: [id number] 6 15-20 for HCAP, VAP, Osteomyelitis, Endocarditis, Meningitis 10-15 for All Other Infections 7 [facility] - Floor: 1, Rm #: [id number] 8 Because ethnic data is not always [...] 5 Kidney failure <15 (or dialysis) 9 15-20 for HCAP, VAP, Osteomyelitis, Endocarditis, Meningitis 10-15 for All Other Infections 10 [facility] - Floor: 1, #: [id number] [id number] 11 ADDITIONAL INFORMATION This test was developed and its performance characteristics determined by [facility] in a manner consistent with CLIA requirements. This test has not been cleared or approved by the U.S. Food and Drug Administration. Test Performed by: [facility] [place] [address] Cordwood Cutter Helper: Fabian Juan M.D. Ph.D.; CLIA# [id number] 12 REFERENCE VALUE 20.0 - 51.0 Test Performed by: [facility] [place] [id number] Cordwood Cutter Helper: Fabian Juan M.D. Ph.D.; CLIA# [id number] 13 Normal Range 180 to 914 Indeterminate Range 145 to 180 Deficient Range <145 Procedures Date Code Description Status 09/12/2019 71582 Stereotactic Computer-Assisted, Spinal Completed 09/12/2019 93954 Post Segmental Instrumentation 3-6 Segments Completed 09/12/201923029 Exploration Of Spinal Fusion Completed 09/12/201905650 Arthrodsis, Post, Addl Segment Completed 09/12/2019 Arhtrodesis Post Lateral W/Lami-Lumbar Completed 09/12/2019 Allograft For Spine Surgery, Morselized Completed 09/08/2019 60401 ECHO Transthorasic Realtime 2D W Doppler & Color Flow Hosp Completed Medical Devices Description No Information Available Encounters Type Date Location Provider Dx Diagnosis Office Visit 09/18/2019 [facility] M46.40 Discitis, 11:46a Assoc,JULES Keane unspecified, site Hospitalists unspecified D62 Acute posthemorrhagic anemia N17.9 Acute kidney failure, unspecified R60.0 Localized edema G89.29 Other chronic pain E11.9 Type 2 diabetes mellitus without complications Office Visit 09/17/2019 [facility] M46.40 Discitis, 11:46a Assoc,JULES Keane unspecified, site Hospitalists unspecified D62 Acute posthemorrhagic anemia N17.9 Acute kidney failure, unspecified R60.0 Localized edema G89.29 Other chronic pain E11.9 Type 2 diabetes mellitus without complications Office Visit 09/16/2019 [facility] Zachery T84.63xA Infect/ inflm 10:48a For Infectious Scott, FOREST SCIENTIST reaction due to Diseases int fix of spine, init M46.26 Osteomyelitis of vertebra, lumbar region M46.46 Discitis, unspecified, lumbar region N17.9 Acute kidney failure, unspecified E11.69 Type 2 diabetes mellitus with other specified complication [facility] Discitis, 11:45a joe Perez M.D. unspecified, site Hospitalists unspecified G89.29 Other chronic pain E11.9 Type 2 diabetes mellitus without complications R60.0 Localized edema D62 Acute posthemorrhagic anemia N17.9 Acute kidney failure, unspecified [facility], M46.40 Discitis, 11:45a joe Perez M.D. unspecified, site Hospitalists unspecified G89.29 Other chronic pain E11.9 Type 2 diabetes mellitus without complications R60.0 Localized edema D62 Acute posthemorrhagic anemia N17.9 Acute kidney failure, unspecified [facility] Visit [facility] M46.40 Discitis, 11:44a joe Perez M.D. unspecified, site Hospitalists unspecified G89.29 Other chronic pain E11.9 Type 2 diabetes mellitus without complications R60.0 Localized edema D62 Acute posthemorrhagic anemia N17.9 Acute kidney failure, unspecified Office Visit 09/13/2019 11:44a [facility] R39.12 Poor urinary Assoc,JULES Keane stream Hospitalists R31.9 Hematuria, unspecified D62 Acute posthemorrhagic anemia H05.229 Edema of unspecified orbit M46.40 Discitis, unspecified, site unspecified M40.209 Unspecified kyphosis, site unspecified G89.29 Other chronic pain E11.9 Type 2 diabetes mellitus without complications Office Visit 09/12/2019 [facility] Catarino D. M46.26 Osteomyelitis of 1:29p For Infectious Hannah M.D. vertebra, lumbar Diseases region M46.46 Discitis, unspecified, lumbar region T84.63xA Infect/inflm reaction due to int fix of spine, init G93.40 Encephalopathy, unspecified Office Visit 09/12/2019 [facility] M46.40 Discitis, 11:43a Assoc,JULES Keane unspecified, site Hospitalists unspecified Office Visit 09/11/2019 [facility] G93.40 Encephalopathy, 11:43a Assoc,joe Kelly NP unspecified Hospitalists M46.40 Discitis, unspecified, site unspecified M40.209 Unspecified kyphosis, site unspecified G89.29 Other chronic pain E11.9 Type 2 diabetes mellitus without complications Office Visit 09/10/2019 [facility] G93.40 Encephalopathy, 11:29a [facility]oc[facility] unspecified Hospitalists NAIF Kelly M46.40 Discitis, unspecified, site unspecified M40.209 Unspecified kyphosis, site unspecified G89.29 Other chronic pain E11.9 Type 2 diabetes mellitus without complications Office Visit 09/10/2019 [facility] Catarino D. M46.26 Osteomyelitis of 1:28p For Infectious Hannah M.D. vertebra, lumbar Diseases region M46.46 Discitis, unspecified, lumbar region T84.63xA Infect/inflm reaction due to int fix of spine, init G93.40 Encephalopathy, unspecified E11.9 Type 2 diabetes mellitus without complications Office Visit 09/09/2019 [facility] Fabian G93.40 Encephalopathy, 11:29a Assoc,JULES Allen unspecified Hospitalists M46.40 Discitis, unspecified, [...] pain Z98.1 Arthrodesis status Office Visit 09/08/2019 [facility] Fabian G93.40 Encephalopathy, 11:28a Assoc,joe [place], [place] unspecified Hospitalists M46.40 Discitis, unspecified, site unspecified M40.209 Unspecified kyphosis, site unspecified G89.29 Other chronic pain R10.9 Unspecified abdominal pain E11.9 Type 2 diabetes mellitus without complications R60.9 Edema, unspecified W19.xxxA Unspecified fall, initial encounter Office Visit 09/07/2019 7:00a [facility] M54.5 Low back Services Of Kevan Christie MD pain Z98.1 Arthrodesis status Office Visit 09/07/2019 [facility] Fabian G93.40 Encephalopathy, 11:27a Assoc,pc [place], [place] unspecified Hospitalists M46.40 Discitis, unspecified, site unspecified M40.209 Unspecified kyphosis, site unspecified G89.29 Other chronic pain R10.9 Unspecified abdominal pain E11.9 Type 2 diabetes mellitus without complications R60.0 Localized edema W19.xxxA Unspecified fall, initial encounter Office Visit 09/06/2019 7:00a [facility] M54.5 Low back Services Of Kevan Christie MD pain Z98.1 Arthrodesis status Office Visit 09/06/2019 [facility] Fabian G93.40 Encephalopathy, 11:26a Assoc,pc [place], [place] unspecified Hospitalists M46.40 Discitis, unspecified, site unspecified G89.29 Other chronic pain E11.9 Type 2 diabetes mellitus without complications W19.xxxA Unspecified fall, initial encounter Office Visit 09/06/2019 [facility] Catarino CarterDiane G93.40 Encephalopathy, 1:25p For Infectious Keenan Young unspecified Diseases M46.26 Osteomyelitis of vertebra, lumbar region M46.46 Discitis, unspecified, lumbar region T84.63xA Infect/inflm reaction due to int fix of spine, init E11.9 Type 2 diabetes mellitus without complications J44.9 Chronic obstructive pulmonary disease, unspecified Office Visit 09/05/2019 [facility] Mimi Marie, M46.46 Discitis, 11:25a Assoc,joe Hussein unspecified, Hospitalists lumbar region A41.9 Sepsis, unspecified organism E11.9 Type 2 diabetes mellitus without complications I10 Essential (primary) hypertension F32.9 Major depressive disorder, single episode, unspecified J44.9 Chronic obstructive pulmonary disease, unspecified Office Visit 08/23/2019 [facility] Rashaun Castillo, 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 without Services Of Baby Stroller Rental Clerk cataplexy G47.61 Periodic limb movement disorder Z98.84 Bariatric surgery status G47.33 Obstructive sleep apnea (adult) (pediatric) R53.82 Chronic fatigue, unspecified R25.1 Tremor, unspecified Assessments Date Code Description Provider 10/12/2019 M46.40 Discitis, unspecified, site Sheree Christie [...] JULES Pitts 09/18/2019 G89.29 Other chronic pain JULES Pitts 09/18/2019 E11.9 Type 2 diabetes mellitus [...] M46.26 Osteomyelitis of vertebra, lumbar Sherrie Scott , NAIF region 09/16/2019 G89.29 Other chronic pain Mimi Marie M.D. 09/16/2019 M46.46 Discitis, unspecified, lumbar region Sherrie Scott, NAIF 09/16/2019 E11.9 Type 2 diabetes mellitus without Mimi Marei M.D. complications 09/16/2019 N17.9 Acute kidney failure, [...] JULES Pitts 09/13/2019 M46.40 Discitis, unspecified, site JULES Pitts unspecified 09/13/2019 M40.209 Unspecified kyphosis, site JULES [...] 09/12/2019 T84.63xA Infection and inflammatory reaction Catarino Yonug M.D. due to internal fixation device of spine, initial encounter 09/12/2019 G93.40 Encephalopathy, unspecified Catarino Young M.D. 09/11/2019 G93.40 Encephalopathy, unspecified Kelli Mecca Doto, FOREST SCIENTIST 09/11/2019 M46.40 Discitis, unspecified, site Kelli Mecca Doto, FOREST SCIENTIST unspecified 09/11/2019 M40.209 Unspecified kyphosis, site Kelli Mceca Doto, FOREST SCIENTIST unspecified 09/11/2019 G89.29 Other chronic pain Kelli Mecca Doto, FOREST SCIENTIST 09/11/2019 E11.9 Type 2 diabetes mellitus without Kelli Mecca Doto, FOREST SCIENTIST complications 09/10/2019 G93.40 Encephalopathy, unspecified Kelli Mecca Doto, FOREST SCIENTIST 09/10/2019 M46.26 Osteomyelitis of vertebra, lumbar Catarino Young M.D. region 09/10/2019 M46.40 Discitis, unspecified, site Kelli Mecca Doto, FOREST SCIENTIST unspecified 09/10/2019 M46.46 Discitis, unspecified, lumbar region Catarino Young M.D. 09/10/2019 M40.209 Unspecified kyphosis, site Kelli Mecca Doto, FOREST SCIENTIST unspecified 09/10/2019 T84.63xA Infection and inflammatory reaction Catarino Young M.D. due to internal fixation device of spine, initial encounter 09/10/2019 G89.29 Other chronic pain Kelli Mecca Doto, FOREST SCIENTIST 09/10/2019 G93.40 Encephalopathy, unspecified Catarino Young M.D. 09/10/2019 E11.9 Type 2 diabetes mellitus without Kelli Mecca Doto, FOREST SCIENTIST complications 09/10/2019 E11.9 Type 2 diabetes mellitus [...] Rashaun Castillo M.D. Plan of Treatment Future Appointment(s):10/30/2019 3:00 pm - Sherrie Scott NP at [facility] Megzhvfh72/16/2019 12:30 pm - Sheree Christie MD at [facility]10/30/2019 10:30 am - Collette Thomas DNP, RN, EMERGENCY COMMUNICATIONS OPERATOR-BC at [facility] Functional Status Description No Information Available Mental Status Description No Information Available Referrals Refer to Dr Reason for Referral Status Appt Date Charlene Spears MD Sent [address] [place] [phone] [phone]
--- OUTSIDE RECORDS SUMMARY | 2019-10-30 11:02 | XMS REPORT | Continuity of Care Document ---
:1950 External Reference #:[id number] Author Name Joe Taylor MD, [facility], [facility] (transmitted by agent of provider Karlene Calle) Address [address] [place] [address] Care Team Providers Name Role Phone Shade Johnson D.O. - Internal Care Team Information Padding Machine Operator [phone] Medicine Problems Active Problems Provider Date Electrocardiogram [...] fatigue Collette Thomas DNP, RN, Onset: 08/29/2017 [facility] Abnormal involuntary movement Rashaun Castillo M.D. Onset: [...] (more than 10 cigarettes/day) Smoking Status Reviewed: 08/23/19 Heavy tobacco smoker 1PPD x 2 years (more than 10 cigarettes/day) Exercise Type/Frequency Exercises rarely Allergies, Adverse Reactions, Alerts Active Allergies Reaction Severity Comments Date Beta Adrenergic Blockers dyspnea Severe 01/21/2014 Medications Active Medications SIG Qnty Indications Ordering Provider Date Metformin HCL 1 by mouth twice a Unknown 02/01/2017 1000mg day Tablets Dilaudid 1 tab by mouth Unknown 02/01/2017 8mg Tablets three times a day Fiberone every day Unknown 02/01/2017 625mg Tablets Amitriptyline HCL one by mouth in Unknown 25mg the evening Tablets Gabapentin take one tablet by Unknown 600mg Tablets mouth three times a day Omeprazole Take 1 Capsule By Unknown 40mg Capsules Mouth Once Daily DR 30 Minutes Before Breakfast Bumetanide twice a day [facility] 2mg Tablets J., D.O. Venlafaxine HCL ER one tab in the [place], [place] 75mg morning J., D.O. Tablets ER 24HR Venlafaxine HCL ER one tab in the [place] 37.5mg evening J., D.O. Tablets ER 24HR Metolazone Take 1 Tablet By Unknown 5mg Tablets Mouth Once Daily Immunizations Description No Information Available Vital Signs Date Vital Result Comment 08/23/2019 2:47pm Height 62 inches 5'2" Weight 166.00 lb Heart Rate 80 /min BP Systolic 144 mmHg BP Diastolic 78 mmHg BMI (Body Mass Index) 30.4 kg/m2 01/10/2018 1:27pm Height 62 inches 5'2" Weight 158.00 lb Heart Rate 80 /min BP Systolic Recheck 124 mmHg BP Diastolic Recheck 78 mmHg Respiratory Rate 16 /min Body Temperature 98.2 F BMI (Body Mass Index) 28.9 kg/m2 Results Test Date Facility Test Result H/L Range Note Laboratory test 08/23/2019 [facility] C Reactive 6.56 mg/L Normal <8.[address] [place] [address] [phone] Erythrocyte Sed Rate 12 mm/Hr Normal 0-29 Copper, Serum 0.90 g/mL 0.75-1.45 1 Ceruloplasmin 21.2 mg/dL 2 Vitamin B12 08/23/2019 [facility] Vitamin B12 249 pg/mL Normal 180-914 3 And Folate [address] [place] [address] [phone] Folic Acid (Folate) > 20.00 ng/mL >3.99 Laboratory 08/23/2019 [facility] TSH (Thyroid 0.77 Normal 0.34 -5.60 test finding [address] Stim Horm) mcIU/[place] [address] [phone] Free T4 (Free Thyroxine) 0.82 ng/dL Normal 0.61-1.12 1 ADDITIONAL INFORMATION This test was developed and its performance characteristics determined by [facility] in a manner consistent with CLIA requirements. This test has not been cleared or approved by the U.S. Food and Drug Administration. Test Performed by: [facility] [address] [place] [address] Wood Technologist: Fabian Juan M.D. Ph.D.; CLIA# [id number] 2 REFERENCE VALUE 20.0 - 51.0 Test Performed by: [facility] [place] [id number] Wood Technologist: Fabian Juan M.D. Ph.D.; CLIA# [id number] Normal Range 180 to 914 Indeterminate Range 145 to 180 Deficient Range <145 Procedures Description No Information Available Medical Devices Description No Information Available Encounters Description No Information Available Assessments Date Code Description Provider 08/23/2019 G47.419 Narcolepsy without cataplexy Rashaun Castillo M.D. 08/23/2019 G47.61 Periodic limb movement disorder Rashaun Castillo M.D. 08/23/2019 Z98.84 Bariatric surgery status Rashaun Castillo M.D. 08/23/2019 G47.33 Obstructive sleep apnea (adult) (pediatric) Rashaun Castillo M.D. 08/23/2019 R53.82 Chronic fatigue, unspecified Rashaun Castillo M.D. 08/23/2019 R25.1 Tremor, unspecified Rashaun Castillo M.D. Plan of Treatment Future Appointment(s):10/01/2019 10:00 am - Adam Alvarado N.P. at [facility] [id number]/23/2019 - Rashaun Castillo M.D.G47.419 Narcolepsy without cataplexyNew Orders:Sleep Study, Ordered: 08/23/19Referral:Charlene Spears MD, Pulmonary DiseasesFollow up:Follow up in 6 weeks with LukaszG47.61 Periodic limb movement duhuznaxX25.84 Bariatric surgery iuwfneN56.33 Obstructive sleep apnea (adult) (pediatric)R53.82 Chronic fatigue, unspecifiedReferral:Charlene Spears MD, Pulmonary ZeeiipbpO53.1 Tremor, unspecified Functional Status Description No Information Available Mental Status Description No Information Available Referrals Refer to Dr Reason for Referral Status Appt Date Charlene Spears MD Sent [address] [place] [phone]
--- OUTSIDE RECORDS SUMMARY | 2019-10-30 11:02 | XMS REPORT | Continuity of Care Document ---
:1950 External Reference #:[id number] Author Name Sheree Christie MD (transmitted by agent of provider Hermila Bernard ) Address [address] [place] [address] Care Team Providers Name Role Phone Shade Johnson D.O. 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 [...] (more than 10 cigarettes/day) Smoking Status Reviewed: 10/12/19 Heavy tobacco smoker 1PPD x 2 years (more than 10 cigarettes/day) Exercise Type/Frequency Exercises rarely Allergies, Adverse Reactions, Alerts Active Allergies Reaction Severity Comments Date Beta Adrenergic Blockers dyspnea Severe 01/21/2014 Medications Active Medications SIG Qnty Indications Ordering Provider Date Ceftriaxone Sodium 2gm iv once daily Unknown 09/09/2019 2gm at [place] (swing Solution Rec status) Vancomycin HCL goal trough 15-20 Unknown 09/09/2019 1gm at [place] swing Solution Rec status Metformin HCL 1 by mouth twice a [...] Minutes Before Breakfast Bumetanide twice a day [place] 2mg Tablets J., D.O. Venlafaxine HCL ER one tab in the [place] 75mg morning J., D.O. Tablets ER 24HR Venlafaxine HCL ER one tab in the [place] 37.5mg evening J., D.O. Tablets ER 24HR Metolazone Take 1 Tablet By Unknown 5mg Tablets Mouth Once Daily Immunizations Description No Information Available Vital Signs Date Vital Result Comment 10/12/2019 8:17am Height 62 inches 5'2" Weight 166.00 lb Heart Rate 92 /min BP Systolic 130 mmHg BP Diastolic 82 mmHg BMI (Body Mass Index) 30.4 kg/m2 08/23/2019 2:47pm Height 62 inches 5'2" Weight 166.00 lb Heart Rate 80 /min BP Systolic 144 mmHg BP Diastolic 78 mmHg BMI (Body Mass Index) 30.4 kg/m2 Results Test Acquired Date Facility Test Result H/L Range Note Laboratory test 10/11/2019 [facility] Vancomycin 16.6 1, [address] Random g/[place] [address] [phone] CBC Auto Diff 10/07/2019 [facility] White Blood 6.8 Normal 3.5 -10.[address] Count 10^3/[place] [address] [phone] Red Blood Count 3.44 10^6/uL Low 3.70-4.87 [...] Blood Cells % 0.0 Comp Metabolic 10/07/2019 [facility] Sodium 140 mmol/L Normal 135-[address] [place] [address] [phone] Potassium 3.2 mmol/L Low 3.5-5.0 Chloride 100 [...] Egfr Non- 33.1 >60 Egfr 40.1 >60 4 Laboratory test 10/07/2019 [facility] Vancomycin Random 17.0 g /mL [address] [place] [address] [phone] C Reactive Protein 10.26 mg/L High <8.01 6 Laboratory test 08/23/2019 [facility] C Reactive 6.56 mg/L Normal <8.[address] [place] [address] [phone] Erythrocyte Sed Rate 12 mm/Hr Normal 0-29 Copper, Serum 0.90 g/mL 0.75-1.45 7 Ceruloplasmin 21.2 mg/dL 8 Vitamin B12 08/23/2019 [facility] Vitamin B12 249 pg/mL Normal 180-914 9 [address] Folate [address] [place] [address] [phone] Folic Acid (Folate) > 20.00 ng/mL >3.99 Laboratory 08/23/2019 [facility] TSH (Thyroid 0.77 Normal 0.34 -5.60 test finding [address] Stim Horm) mcIU/[place] [address] [phone] Free T4 (Free Thyroxine) 0.82 ng/dL Normal 0.61-1.12 1 [facility] - Floor: 1, Rm #: [id number] 2 15-20 for HCAP, VAP, Osteomyelitis, Endocarditis, Meningitis 10-15 for All Other Infections 3 [facility] - Floor: 1, Rm #: [id number] 4 Because ethnic data is not always readily [...] 15-29 5 Kidney failure <15 (or dialysis) 5 15-20 for HCAP, VAP, Osteomyelitis, Endocarditis, Meningitis 10-15 for All Other Infections 6 [facility] - Floor: 1, #: [id number] 7 ADDITIONAL INFORMATION This test was developed and its performance characteristics determined by [facility] in a manner consistent with CLIA requirements. This test has not been cleared or approved by the U.S. Food and Drug Administration. Test Performed by: [facility] [address] [place] [address] Regional Sales Trainer: Fabian Juan M.D. Ph.D.; CLIA# [id number] REFERENCE VALUE 20.0 - 51.0 Test Performed by: [facility] [place] [id number] Regional Sales Trainer: Fabian Juan M.D. Ph.D.; CLIA# [id number] Normal Range 180 to 914 Indeterminate Range 145 to 180 Deficient Range <145 Procedures Date Code Description Status 09/12/2019 94001 Stereotactic Computer-Assisted, Spinal Completed 09/12/2019 86288 Post Segmental Instrumentation 3-6 Segments Completed 09/12/201909662 Exploration Of Spinal Fusion Completed 09/12/2019 86455 Arthrodsis, Post, Addl Segment Completed 09/12/2019 47215 Arhtrodesis Post Lateral W/Lami-Lumbar Completed 09/12/2019 Allograft For Spine Surgery, Morselized Completed 09/08/2019 61699 ECHO Transthorasic Realtime 2D W Doppler & Color Flow Hosp Completed Medical Devices Description No Information Available Encounters Type Date Location Provider Dx Diagnosis Office Visit 09/18/2019 [facility] M46.40 Discitis, 11:46a joe Perez PA unspecified, site Hospitalists unspecified D62 Acute posthemorrhagic anemia N17.9 Acute kidney failure, unspecified R60.0 Localized edema G89.29 Other chronic pain E11.9 Type 2 diabetes mellitus without complications Office Visit 09/17/2019 [facility] M46.40 Discitis, 11:46a joe Perez PA unspecified, site Hospitalists unspecified D62 Acute posthemorrhagic anemia N17.9 Acute kidney failure, unspecified R60.0 Localized edema G89.29 Other chronic pain E11.9 Type 2 diabetes mellitus without complications Office Visit 09/16/2019 [facility] Sherrie Bingham T84.63xA Infect/ inflm 10:48a For Infectious Scott, BELL CLEANER reaction due to Diseases int fix of spine, init M46.26 Osteomyelitis of vertebra, lumbar region M46.46 Discitis, unspecified, lumbar region N17.9 Acute kidney failure, unspecified E11.69 Type 2 diabetes mellitus with other specified complication [facility] M46.40 Discitis, 11:45a joe Perez M.D. unspecified, site Hospitalists unspecified G89.29 Other chronic pain E11.9 Type 2 diabetes mellitus without complications R60.0 Localized edema D62 Acute posthemorrhagic anemia N17.9 Acute kidney failure, unspecified [facility] Visit [facility] M46.40 Discitis, 11:45a joe Perez M.D. unspecified, site Hospitalists unspecified G89.29 Other chronic pain E11.9 Type 2 diabetes mellitus without complications R60.0 Localized edema D62 Acute posthemorrhagic anemia N17.9 Acute kidney failure, unspecified [facility] Visit [facility] M46.40 Discitis, 11:44a joe Perez M.D. unspecified, site Hospitalists unspecified G89.29 Other chronic pain E11.9 Type 2 diabetes mellitus without complications R60.0 Localized edema D62 Acute posthemorrhagic anemia N17.9 Acute kidney failure, unspecified Office Visit 09/13/2019 11:44a [facility] R39.12 Poor urinary Assoc,JULES [place] Hospitalists R31.9 Hematuria, unspecified D62 Acute posthemorrhagic anemia H05.229 Edema of unspecified orbit M46.40 Discitis, unspecified, site unspecified M40.209 Unspecified kyphosis, site unspecified G89.29 Other chronic pain E11.9 Type 2 diabetes mellitus without complications Office Visit 09/12/2019 [facility] Catarino Gonzalez M46.26 Osteomyelitis of 1:29p For Infectious Keenan Young vertebra, lumbar Diseases region M46.46 Discitis, unspecified, lumbar region T84.63xA Infect/inflm reaction due to int fix of spine, init G93.40 Encephalopathy, unspecified Office Visit 09/12/2019 [facility] M46.40 Discitis, 11:43a Assocjoe PA unspecified, site Hospitalists unspecified Office Visit 09/11/2019 [facility] G93.40 Encephalopathy, 11:43a Assocjoe NP unspecified Hospitalists M46.40 Discitis, unspecified, site unspecified M40.209 Unspecified kyphosis, site unspecified G89.29 Other chronic pain E11.9 Type 2 diabetes mellitus without complications Office Visit 09/10/2019 [facility] G93.40 Encephalopathy, 11:29a Assocjoe [facility] unspecified Hospitalists NAIF Kelly M46.40 Discitis, unspecified, site unspecified M40.209 Unspecified kyphosis, site unspecified G89.29 Other chronic pain E11.9 Type 2 diabetes mellitus without complications Office Visit 09/10/2019 [facility] Catarino D. M46.26 Osteomyelitis of 1:28p For Infectious Ying Young. vertebra, lumbar Diseases region M46.46 Discitis, unspecified, lumbar region T84.63xA Infect/inflm reaction due to int fix of spine, init G93.40 Encephalopathy, unspecified E11.9 Type 2 diabetes mellitus without complications Office Visit 09/09/2019 [facility] G93.40 Encephalopathy, 11:29a Assocjoe [place], [place] unspecified Hospitalists M46.40 Discitis, unspecified, site [...] pain Z98.1 Arthrodesis status Office Visit 09/08/2019 [facility] G93.40 Encephalopathy, 11:28a Assoc,joe [place], [place] unspecified Hospitalists M46.40 Discitis, unspecified, site unspecified M40.209 Unspecified kyphosis, site unspecified G89.29 Other chronic pain R10.9 Unspecified abdominal pain E11.9 Type 2 diabetes mellitus without complications R60.9 Edema, unspecified W19.xxxA Unspecified fall, initial encounter Office Visit 09/07/2019 7:00a [facility] M54.5 [facility] Services Of Kevan Christie MD pain Z98.1 Arthrodesis status Office Visit 09/07/2019 [facility] G93.40 Encephalopathy, 11:27a Assoc,pc [place], [place] unspecified Hospitalists M46.40 Discitis, unspecified, site unspecified M40.209 Unspecified kyphosis, site unspecified G89.29 Other chronic pain R10.9 Unspecified abdominal pain E11.9 Type 2 diabetes mellitus without complications R60.0 Localized edema W19.xxxA Unspecified fall, initial encounter Office Visit 09/06/2019 7:00a [facility] M54.5 Low back Services Of Kevan Christie MD pain Z98.1 Arthrodesis status Office Visit 09/06/2019 [facility] G93.40 Encephalopathy, 11:26a Assoc,pc [place], [place] unspecified Hospitalists M46.40 Discitis, unspecified, site unspecified G89.29 Other chronic pain E11.9 Type 2 diabetes mellitus without complications W19.xxxA Unspecified fall, initial encounter Office Visit 09/06/2019 [facility] Catarino Gonzalez G93.40 Encephalopathy, 1:25p For Infectious Keenan Young unspecified Diseases M46.26 Osteomyelitis of vertebra, lumbar region M46.46 Discitis, unspecified, lumbar region T84.63xA Infect/inflm reaction due to int fix of spine, init E11.9 Type 2 diabetes mellitus without complications J44.9 Chronic obstructive pulmonary disease, unspecified Office Visit 09/05/2019 [facility] Mimi Marie, M46.46 Discitis, 11:25a Assoc,joe Hussein unspecified, Hospitalists lumbar region A41.9 Sepsis, unspecified organism E11.9 Type 2 diabetes mellitus without complications I10 Essential (primary) hypertension F32.9 Major depressive disorder, single episode, unspecified J44.9 Chronic obstructive pulmonary disease, unspecified Assessments Date Code Description Provider 10/12/2019 [...] 09/11/2019 G93.40 Encephalopathy, unspecified Kelli Mecca Doto, BELL CLEANER 09/11/2019 M46.40 Discitis, unspecified, site Kelli Mecca Doto, BELL CLEANER unspecified 09/11/2019 M40.209 Unspecified kyphosis, site Kelli Mecca Doto, BELL CLEANER unspecified 09/11/2019 G89.29 Other chronic pain Kelli Mecca Doto, BELL CLEANER 09/11/2019 E11.9 Type 2 diabetes mellitus without Kelli Mecca Doto, BELL CLEANER complications 09/10/2019 G93.40 Encephalopathy, unspecified Kelli Mecca Doto, BELL CLEANER 09/10/2019 M46.26 Osteomyelitis of vertebra, lumbar Catarino Young M.D. region 09/10/2019 M46.40 Discitis, unspecified, site Kelli Mecca Doto, BELL CLEANER unspecified 09/10/2019 M46.46 Discitis, unspecified, lumbar region Catarino Young M.D. 09/10/2019 M40.209 Unspecified kyphosis, site Kelli Mecca Doto, BELL CLEANER unspecified 09/10/2019 T84.63xA Infection and inflammatory reaction Catarino Young M.D. due to internal fixation device of spine, initial encounter 09/10/2019 G89.29 Other chronic pain Kelli Mecca Doto, BELL CLE[employer]ER 09/10/2019 G93.40 Encephalopathy, unspecified Catarino Young M.D. 09/10/2019 E11.9 Type 2 diabetes mellitus without Kelli Mecca Doto, BELL CLE[employer]ER complications 09/10/2019 E11.9 Type 2 diabetes mellitus without Catarino Young M.D. 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 Plan of Treatment Future Appointment(s):11/11/2019 12:30 pm - Sheree Christie MD at [facility]10/16/2019 2:00 pm - hSerrie Scott NP at [facility]23/04/2019 10:30 am - Collette Thomas DNP, RN, ENROLLMENT COORDINATOR-BC at [facility]10/12/2019 - Sheree Christie MDM46.40 Discitis, unspecified, site unspecifiedNew Xrays:MRI Lumbar Spine W/Wo, Ordered: 10/12/19Spine Entire Ap/Lat, Ordered: Follow up:RV in 3-4 vnlfxE38.9 Scoliosis, qdavxshydgaV33.36 Other intervertebral disc degeneration, lumbar xriddsG04.896 Other spondylosis, lumbar region Functional Status Description No Information Available Mental Status Description No Information Available Referrals Refer to Reason for Referral Status Appt Date Charlene Spears MD Sent [address] [place] [id number] [phone]
== END 2019-10-30 11:00 | disposition left against medical advice (07) ==
LOC: ED 10:42
DX: M79.605 Pain in left leg (principal); Z53.21 Procedure and treatment not carried out due to patient leaving prior to being seen by health care provider

== ENCOUNTER 2019-11-21 11:20 | Emergency (ER) | payer MEDICARE ==
--- OUTSIDE RECORDS SUMMARY | 2019-11-21 11:41 | XMS REPORT | Continuity of Care Document ---
:1950 External Reference #:[id number] Author Name Sherrie Scott NP (transmitted by agent of provider Daniela Rosen) Address [address] [place] [id number] Care Team Providers Name Role Phone Shade Johnson D.O. - Internal Care Team Information Yeast Supervisor [phone] Medicine Problems Active Problems Provider Date Electrocardiogram [...] fatigue Collette Thomas DNP, RN, Onset: 08/29/2017 [facility]- Periodic limb movement disorder Rashaun [...] (more than 10 cigarettes/day) Smoking Status Reviewed: 11/14/19 Heavy tobacco smoker 1PPD x 2 years (more than 10 cigarettes/day) Exercise Type/Frequency Exercises rarely Allergies, Adverse Reactions, Alerts Active Allergies Reaction Severity Comments Date Beta Adrenergic Blockers dyspnea Severe 01/21/2014 Medications Active Medications SIG Qnty Indications Ordering Provider Date Gabapentin take one tablet Unknown 600mg Tablets by mouth three times a day Venlafaxine HCL ER one tab in the [place], [place] 75mg morning J., D.O. Tablets ER 24HR Venlafaxine HCL ER one tab in the [place], [place] 37.5mg evening J., D.O. Tablets ER [...] tab by Unknown 10mg mouth 2-3 times Tablets a day as needed Bumetanide 1 tab by mouth Unknown 2mg Tablets once a day History Medications Ceftriaxone Sodium 1gm iv once daily at Unknown 09/09/2019 - 11/04/2019 2gm Solution [facility] Rec Vancomycin HCL 1 gm IV once daily goal Unknown 09/09/2019 - 11/04/2019 1gm Solution Rec trough 15-20 at [facility] Immunizations Description No Information Available Vital Signs Date Vital Result Comment 11/14/2019 9:40am Height 62 inches 5'2" Heart Rate 84 /min BP Systolic Sitting 130 mmHg BP Diastolic Sitting 84 mmHg Respiratory Rate 14 /min Body Temperature 97.6 F 11/11/2019 12:35pm Height 62 inches 5'2" Weight 160.00 lb Heart Rate 88 /min BP Systolic 120 mmHg BP Diastolic 78 mmHg Pain Level 8 Lower back ache BMI (Body Mass Index) 29.3 kg/m2 Results Test Acquired Date Facility Test Result H/L Range Note CBC Auto 11/04/2019 [facility] White Blood 6.4 10^3/uL Normal 3.5-10.[address] [place] [address] [phone] Red Blood Count 3.95 10^6/uL Normal 3.70-4.87 Hemoglobin 10.9 g/dL Low 12.0-16.0 Hematocrit 34 % Low 35-47 Mean Corpuscular Volume 86 fL Normal 80-97 Mean Corpuscular Hemoglobin 28 pg Normal 27-31 Mean Corpuscular HGB Conc 32 g/dL Normal 31-36 Red Cell Distribution Width 15 % Normal 10-15 Platelet Count 275 10^3/uL Normal 150-450 Mean Platelet Volume 9.1 fL Normal 7.4-10.4 Abs Neutrophils 3.2 10^3/uL Normal 1.5-7.7 Abs Lymphocytes 2.2 10^3/uL Normal 1.0-4.8 Abs Monocytes 0.5 10^3/uL Normal 0-0.8 Abs Eosinophils 0.5 10^3/uL Normal 0-0.6 Abs Basophils 0.1 10^3/uL Normal 0-0.2 Abs Nucleated RBC 0.0 10^3/uL Granulocyte % 49.4 % Lymphocyte % 33.8 % Monocyte % 7.6 % Eosinophil % 8.3 % Basophil % 0.9 % Nucleated Red Blood Cells % 0.1 Comp Metabolic 11/04/2019 [facility] Sodium 137 mmol/L Normal 135-[address] [place] [address] [phone] Potassium 4.1 mmol/L Normal 3.5-5.0 Chloride 97 mmol/L Low 101-111 Co2 Carbon Dioxide 32 mmol/L Normal 22-32 Anion Gap 8 mmol/L Normal 2-11 Glucose 184 mg/dL High 70-100 Blood Urea Nitrogen 29 mg/dL High 6-24 Creatinine 1.33 mg/dL High 0.51-0.95 BUN/Creatinine Ratio 21.8 High 8-20 Calcium 9.2 mg/dL Normal 8.6-10.3 Total Protein 6.8 g/dL Normal 6.4-8.9 Albumin 3.8 g/dL Normal 3.2-5.2 Globulin 3.0 g/dL Normal 2-4 Albumin/Globulin Ratio 1.3 Normal 1-3 Total Bilirubin 0.30 mg/dL Normal 0.2-1.0 Alkaline Phosphatase 246 U/L High 34-104 Alt 46 U/L Normal 7-52 Ast 37 U/L Normal 13-39 Egfr Non- 39.8 >60 Egfr 48.2 >60 2 Laboratory test 11/04/2019 [facility] C Reactive 4.10 mg/L Normal <8.01 [address] [place] [address] [phone] Comp Metabolic 10/28/2019 [facility] Sodium 138 Normal 135- 145 [address] mmol/[place] [address] [phone] Potassium 3.7 mmol/L Normal 3.5-5.0 Chloride 102 [...] Egfr Non- 36.9 >60 Egfr 44.6 >60 5 Laboratory test 10/28/2019 [facility] Vancomycin Random 13.5 g /mL [address] [place] [address] [phone] C Reactive Protein 5.46 mg/L Normal <8.01 7 CBC Auto 10/28/2019 [facility] White Blood 6.9 10^3/uL Normal 3.5-10.[address] [place] [address] [phone] Red Blood Count 3.47 10^6/uL Low 3.70-4.87 [...] Blood Cells % 0.0 Laboratory test 10/25/2019 [facility] Vancomycin 23.8 8, [address] Random g/[place] [address] [phone] Comp Metabolic 10/23/2019 [facility] Sodium 138 mmol/L Normal 135- [address] [place] [address] [phone] Potassium 3.4 mmol/L Low 3.5-5.0 Chloride 97 [...] Egfr Non- 32.4 >60 Egfr 39.2 >60 11 CBC Auto 10/23/2019 [facility] White Blood 7.1 10^3/uL Normal 3.5-10.[address] [place] [address] [phone] Red Blood Count 3.57 10^6/uL Low 3.70-4.87 [...] Red Blood Cells % 0.0 Laboratory test 10/23/2019 [facility] C Reactive 9.76 High < 8.01 [address] Protein mg/[place] [address] [phone] CBC Auto Diff 10/21/2019 [facility] White Blood 8.9 Normal 3.5 -10.[address] Count 10^3/uL [place], [place] [address] [phone] Red Blood Count 3.93 10^6/uL Normal 3.70-4.87 [...] Blood Cells % 0.2 Comp Metabolic 10/21/2019 [facility] Sodium 139 mmol/L Normal 135-[address] [place] [address] [phone] Potassium 3.8 mmol/L Normal 3.5-5.0 Chloride 97 [...] Egfr Non- 30.2 >60 Egfr 36.5 >60 14 Laboratory test 10/21/2019 [facility] Vancomycin Random 9.1 g/ mL [address] [place] [address] [phone] C Reactive Protein 14.87 mg/L High <8.01 16 Laboratory 10/18/2019 [facility] Vancomycin 21.1 17, 18 test finding [address] Random g/[place] [address] [phone] CBC Auto Diff 10/14/2019 [facility] White Blood 7.0 Normal 3.5 - [address] Count 10^3/uL 10.8 [place] [address] [phone] Red Blood Count 3.37 10^6/uL Low 3.70-4.87 [...] Blood Cells % 0.0 Comp Metabolic 10/14/2019 [facility] Sodium 138 mmol/L Normal 135-[address] [place] [address] [phone] Potassium 2.9 mmol/L Low 3.5-5.0 Chloride 93 [...] Egfr Non- 27.4 >60 Egfr 33.1 >60 20 Laboratory test 10/14/2019 [facility] Vancomycin Random 18.4 g /mL [address] [place] [address] [phone] C Reactive Protein 29.61 mg/L High <8.01 22 Laboratory 10/11/2019 [facility] Vancomycin 16.6 23, 24 test finding [address] Random g/[place] [address] [phone] CBC Auto Diff 10/07/2019 [facility] White Blood 6.8 Normal 3.5 - [address] Count 10^3/uL 10.8 [place] [address] [phone] Red Blood Count 3.44 10^6/uL Low 3.70-4.87 [...] Blood Cells % 0.0 Comp Metabolic 10/07/2019 [facility] Sodium 140 mmol/L Normal 135-145 Panel [address] [place] [address] [phone] Potassium 3.2 mmol/L Low 3.5-5.0 Chloride 100 [...] Egfr Non- 33.1 >60 Egfr 40.1 >60 26 Laboratory test 10/07/2019 [facility] Vancomycin Random 17.0 g /mL 27 finding [address] [place] [address] [phone] C Reactive Protein 10.26 mg/L High <8.01 28 Laboratory test 08/23/2019 [facility] C Reactive 6.56 mg/L Normal <8.01 finding [address] [facility] [place] [address] [phone] Erythrocyte Sed Rate 12 mm/Hr Normal 0-29 Copper, Serum 0.90 g/mL 0.75-1.45 29 Ceruloplasmin 21.2 mg/dL 30 Vitamin B12 08/23/2019 [facility] Vitamin B12 249 pg/mL Normal 180-914 [address]olate [address] [place] [address] [phone] Folic Acid (Folate) > 20.00 ng/mL >3.99 Laboratory 08/23/2019 [facility] TSH (Thyroid 0.77 Normal 0.34 -5.60 test finding [address] Stim Horm) mcIU/[place] [address] [phone] Free T4 (Free Thyroxine) 0.82 ng/dL Normal 0.61-1.12 1 [facility] - Floor: 1, Rm #: 179P 2 Because ethnic data is not always [...] 5 Kidney failure <15 (or dialysis) 3 [facility] - Floor: 1, Rm #: 179P 4 [facility] - Floor: 1, Rm #: 179P [id number] 5 Because ethnic data is not always readily [...] 15-29 5 Kidney failure <15 (or dialysis) 6 15-20 for HCAP, VAP, Osteomyelitis, Endocarditis, Meningitis 10-15 for All Other Infections 7 [facility] - Floor: 1, Rm #: 179P [id number] 8 [facility] - Floor: 1, Rm #: 179P [id number] 9 15-20 for HCAP, VAP, Osteomyelitis, Endocarditis, Meningitis 10-15 for All Other Infections 10 [facility] - Floor: 1, Rm #: 179P [id number] 11 Because ethnic data is not always [...] 5 Kidney failure <15 (or dialysis) 12 [facility] - Floor: 1, Rm #: 179P [id number] 13 [facility] - Floor: 1, Rm #: 179P [id number] 14 Because ethnic data is not always readily [...] 15-29 5 Kidney failure <15 (or dialysis) 15 15-20 for HCAP, VAP, Osteomyelitis, Endocarditis, Meningitis 10-15 for All Other Infections 16 [facility] - Floor: 1, Rm #: 179P [id number] 17 [facility] - Floor: 1, Rm #: 179P [id number] 18 15-20 for HCAP, VAP, Osteomyelitis, Endocarditis, Meningitis 10-15 for All Other Infections 19 [facility] - Floor: 1, Rm #: 179P [id number] 20 Because ethnic data is not always readily [...] 15-29 5 Kidney failure <15 (or dialysis) 21 15-20 for HCAP, VAP, Osteomyelitis, Endocarditis, Meningitis 10-15 for All Other Infections 22 [facility] - Floor: 1, Rm #: 179P [id number] 23 [facility] - Floor: 1, Rm #: 179 [id number] 24 15-20 for HCAP, VAP, Osteomyelitis, Endocarditis, Meningitis 10-15 for All Other Infections 25 [facility] - Floor: 1, Rm #: 179P [id number] 26 Because ethnic data is not always readily [...] 15-29 5 Kidney failure <15 (or dialysis) 27 15-20 for HCAP, VAP, Osteomyelitis, Endocarditis, Meningitis 10-15 for All Other Infections 28 [facility] - Floor: 1, #: 179P [id number] 29 ADDITIONAL INFORMATION This test was developed and its performance characteristics determined by [facility] in a manner consistent with CLIA requirements. This test has not been cleared or approved by the U.S. Food and Drug Administration. Test Performed by: [facility] [address] [place] [address] Partner Marketing Manager: Fabian Juan M.D. Ph.D.; CLIA# [id number] 30 REFERENCE VALUE 20.0 - 51.0 Test Performed by: [facility] - [place] [id number] Partner Marketing Manager: Fabian Juan M.D. Ph.D.; CLIA# [id number] 31 Normal Range 180 to 914 Indeterminate Range 145 to 180 Deficient Range <145 Procedures Date Code Description Status 09/12/2019 47009 Stereotactic Computer-Assisted, Spinal Completed 09/12/2019 06110 Post Segmental Instrumentation 3-6 Segments Completed 09/12/2019 73398 Exploration Of Spinal Fusion Completed 09/12/2019 31944 Arthrodsis, Post, Addl Segment Completed 09/12/2019 43876 Arhtrodesis Post Lateral W/Lami-Lumbar Completed 09/12/2019 Allograft For Spine Surgery, Morselized Completed 09/09/2019 91697 EKG, Interpretation Only Completed 09/08/2019 68940 ECHO Transthorasic Realtime 2D W Doppler & Color Flow Hosp Completed Medical Devices Description No Information Available Encounters Type Date Location Provider Dx Diagnosis Office Visit 10/30/2019 Pulmonology And Charlene Spears, G47.33 Obstructive sleep 10:30a [facility] [place] (adult) Kevan (pediatric) G47.419 Narcolepsy without cataplexy Office Visit 10/16/2019 [facility] Jerrell M46.26 Osteomyelitis of 2:00p For Infectious Tyler, SOCIAL MEDIA CONTENT MANAGER vertebra, lumbar Diseases region M46.40 Discitis, unspecified, site unspecified T84.63xD Infect/inflm reaction due to int fix of spine, subs 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 Office Visit 09/19/2019 [facility] M46.46 Discitis, 11:46a Assoc,JULES Keane unspecified, Hospitalists lumbar region G93.41 Metabolic encephalopathy D62 Acute posthemorrhagic anemia N17.9 Acute kidney failure, unspecified E11.9 Type 2 diabetes mellitus without complications I10 Essential (primary) hypertension J44.9 Chronic obstructive pulmonary disease, unspecified E78.00 Pure hypercholesterolemia, unspecified Office Visit 09/18/2019 [facility] M46.40 Discitis, 11:46a Assocjoe PA unspecified, site Hospitalists unspecified D62 Acute posthemorrhagic anemia N17.9 Acute kidney failure, unspecified R60.0 Localized edema G89.29 Other chronic pain E11.9 Type 2 diabetes mellitus without complications Office Visit 09/17/2019 [facility] M46.40 Discitis, 11:46a Assoc,JULES Keane unspecified, site Hospitalists unspecified D62 Acute posthemorrhagic anemia N17.9 Acute kidney failure, unspecified R60.0 Localized edema G89.29 Other chronic pain E11.9 Type 2 diabetes mellitus without complications [facility]/ inflm 10:48a For Infectious Tyler, SOCIAL MEDIA CONTENT MANAGER reaction due to Diseases int fix of spine, init M46.26 Osteomyelitis of vertebra, lumbar region M46.46 Discitis, unspecified, lumbar region N17.9 Acute kidney failure, unspecified E11.69 Type 2 diabetes mellitus with other specified complication Office Visit 09/16/2019 [facility] Mimi Marie, M46.40 Discitis, 11:45a Assoc,joe Hussein unspecified, site Hospitalists unspecified G89.29 Other chronic pain E11.9 Type 2 diabetes mellitus without complications R60.0 Localized edema D62 Acute posthemorrhagic anemia N17.9 Acute kidney failure, unspecified [facility] M[facility].40 Discitis, 11:45a Assoc,joe Hussein unspecified, site Hospitalists unspecified G89.29 Other chronic pain E11.9 Type 2 diabetes mellitus without complications R60.0 Localized edema D62 Acute posthemorrhagic anemia N17.9 Acute kidney failure, unspecified [facility], M46.40 Discitis, 11:44a Assoc,joe Hussein unspecified, site Hospitalists unspecified G89.29 Other chronic pain E11.9 Type 2 diabetes mellitus without complications R60.0 Localized edema D62 Acute posthemorrhagic anemia N17.9 Acute kidney failure, unspecified Office Visit 09/13/2019 11:44a [facility] R39.12 Poor urinary Assoc,JULES Keane stream Hospitalists R31.9 Hematuria, unspecified D62 Acute posthemorrhagic anemia H05.229 Edema of unspecified orbit M46.40 Discitis, unspecified, site unspecified M40.209 Unspecified kyphosis, site unspecified G89.29 Other chronic pain E11.9 Type 2 diabetes mellitus without complications Office Visit 09/12/2019 [facility] M46.40 Discitis, 11:43a Assoc,JULES Keane unspecified, site Hospitalists unspecified Office Visit 09/12/2019 [facility] Estiven Gonzalez M46.26 Osteomyelitis of 1:29p Infectious Keenan Young vertebra, lumbar Diseases region M46.46 Discitis, unspecified, lumbar region T84.63xA Infect/inflm reaction due to int fix of spine, init G93.40 Encephalopathy, unspecified Office Visit 09/11/2019 [facility] G93.40 [facility] NAIF Kelly M46.40 Discitis, unspecified, site unspecified M40.209 Unspecified kyphosis, site unspecified G89.29 Other chronic pain E11.9 Type 2 diabetes mellitus without complications Office Visit 09/10/2019 [facility] G93.40 Encephalopathy, 11:29[facility] NAIF Kelly M46.40 Discitis, unspecified, site unspecified M40.209 Unspecified kyphosis, site unspecified G89.29 Other chronic pain E11.9 Type 2 diabetes mellitus without complications Office Visit 09/10/2019 [facility] Catarino Gonzalez M46.26 Osteomyelitis of 1:28p For Infectious Keenan Young vertebra, lumbar Diseases region M46.46 Discitis, unspecified, lumbar region T84.63xA Infect/inflm reaction due to int fix of spine, init G93.40 Encephalopathy, unspecified E11.9 Type 2 diabetes mellitus without complications Office Visit 09/09/2019 7:00a Neurosurgery Vassilios M54.5 Low back Services Of Kevan Christie MD pain Z98.1 Arthrodesis status M53.2x5 Spinal instabilities, thoracolumbar region Office Visit 09/09/2019 [facility] Fabian G93.40 Encephalopathy, 11:29a Assocjoe PA unspecified Hospitalists M46.40 Discitis, unspecified, site unspecified M40.209 Unspecified kyphosis, site unspecified N17.9 Acute kidney failure, unspecified G89.29 Other chronic pain R10.9 Unspecified abdominal pain E11.9 Type 2 diabetes mellitus without complications R60.9 Edema, unspecified W19.xxxA Unspecified fall, initial encounter Office Visit 09/08/2019 7:00a Neurosurgery Vassilios M54.5 Low back Services Of [place]evan Christie MD pain Z98.1 Arthrodesis status Office Visit 09/08/2019 [facility] Fabian G93.40 Encephalopathy, 11:28a Assocjoe PA unspecified Hospitalists M46.40 Discitis, unspecified, site unspecified M40.209 Unspecified kyphosis, site unspecified G89.29 Other chronic pain R10.9 Unspecified abdominal pain E11.9 Type 2 diabetes mellitus without complications R60.9 Edema, unspecified W19.xxxA Unspecified fall, initial encounter Office Visit 09/07/2019 [facility] G93.40 Encephalopathy, 11:27a Assocjoe PA unspecified Hospitalists M46.40 Discitis, unspecified, site unspecified M40.209 Unspecified kyphosis, site unspecified G89.29 Other chronic pain R10.9 Unspecified abdominal pain E11.9 Type 2 diabetes mellitus without complications R60.0 Localized edema W19.xxxA Unspecified fall, initial encounter Office Visit 09/07/2019 7:00a Neurosurgery Vassilios M54.5 Low back Services Of [place] Christie MD pain Z98.1 Arthrodesis status Office 09/07/2019 Neurohospitalist Solo Alvarez G93.41 Metabolic Visit 7:00a Clinic Keenan Beard encephalopathy Office 09/06/2019 Neurosurgery Services [place] M54.5 Low back pain Visit 7:00a Of [place]an Christie MD Z98.1 Arthrodesis status Office Visit 09/06/2019 [facility] Fabian G93.40 Encephalopathy, 11:26a Assocjoe PA unspecified Hospitalists M46.40 Discitis, unspecified, site unspecified G89.29 Other chronic pain E11.9 Type 2 diabetes mellitus without complications W19.xxxA Unspecified fall, initial encounter Office Visit 09/06/2019 [facility] Catarino Gonzalez G93.40 Encephalopathy, 1:25p For Roni Young M.D. unspecified Diseases M46.26 Osteomyelitis of vertebra, lumbar region M46.46 Discitis, unspecified, lumbar region T84.63xA Infect/inflm reaction due to int fix of spine, init E11.9 Type 2 diabetes mellitus without complications J44.9 Chronic obstructive pulmonary disease, unspecified Office Visit 09/05/2019 [facility] Mimi Marie, M46.46 Discitis, 11:25a Assjoe santiago M.D. unspecified, Hospitalists lumbar region A41.9 Sepsis, unspecified organism E11.9 Type 2 diabetes mellitus without complications I10 Essential (primary) hypertension F32.9 Major depressive disorder, single episode, unspecified J44.9 Chronic obstructive pulmonary disease, unspecified Office Visit 08/23/2019 Darrin Castillo, 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 without Services Of [place] cataplexy G47.61 Periodic limb movement disorder Z98.84 Bariatric surgery status G47.33 Obstructive sleep apnea (adult) (pediatric) R53.82 Chronic fatigue, unspecified R25.1 Tremor, unspecified Assessments Date Code Description Provider 11/14/2019 M46.26 Osteomyelitis of vertebra, lumbar Sherrie Scott NP region 11/14/2019 M46.40 Discitis, unspecified, site Sherrie Scott NP unspecified 11/11/2019 M46.26 Osteomyelitis of vertebra, lumbar Sheree Christie MD region 11/11/2019 M46.40 Discitis, unspecified, site Sheree Christie MD unspecified 11/11/2019 M41.9 Scoliosis, unspecified Sheree Christie MD 11/11/2019 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, lumbar region 10/30/2019 G47.33 Obstructive sleep apnea (adult) Charlene Spears MD (pediatric) 10/30/2019 G47.419 Narcolepsy without cataplexy Charlene Spears MD 10/16/2019 M46.26 Osteomyelitis of vertebra, lumbar Sherrie Scott NP region 10/16/2019 M46.40 Discitis, unspecified, site Sherrie Scott NP unspecified 10/16/2019 T84.63xD Infection and inflammatory reaction Sherrie Scott NP due to internal fixation device of spine, subsequent encounter 10/16/2019 Z79.2 USP (current) use of Sherrie Scott NP antibiotics 10/12/2019 M46.40 Discitis, unspecified, site Sheree Christie MD unspecified 10/12/2019 M41.9 Scoliosis, unspecified Sheree Christie MD 10/12/2019 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, lumbar region 10/12/2019 M47.896 Other spondylosis, lumbar region Vassilios MD Pratik 10/12/2019 Z48.89 Encounter for other specified Alexsilios MD Pratik surgical aftercare 09/19/2019 M46.46 Discitis, unspecified, lumbar Karma Navarrete PA region 09/19/2019 G93.41 Metabolic encephalopathy Karma Navarrete PA 09/19/2019 D62 Acute posthemorrhagic anemia Karma Navarrete PA 09/19/2019 N17.9 Acute kidney failure, unspecified Karma Navarrete PA 09/19/2019 E11.9 Type 2 diabetes mellitus without Karma Navarrete PA complications 09/19/2019 I10 Essential (primary) hypertension Karma Navarrete PA 09/19/2019 J44.9 Chronic obstructive pulmonary Karma Navarrete PA disease, unspecified 09/19/2019 E78.00 Pure hypercholesterolemia, Karma Navarrete PA unspecified 09/18/2019 M46.40 Discitis, unspecified, site Karma Navarrete PA unspecified 09/18/2019 D62 Acute posthemorrhagic anemia Karma Navarrete PA 09/18/2019 N17.9 Acute kidney failure, unspecified Kamra Navarrete PA 09/18/2019 R60.0 Localized edema Karma Navarrete PA 09/18/2019 G89.29 Other chronic pain Karma Navarrete PA 09/18/2019 E11.9 Type 2 diabetes mellitus without Karma Navarrete PA complications 09/17/2019 M46.40 Discitis, unspecified, site Karma Navarrete PA unspecified 09/17/2019 D62 Acute posthemorrhagic anemia Karma Navarrete PA 09/17/2019 N17.9 Acute kidney failure, unspecified Karma Navarrete PA 09/17/2019 R60.0 Localized edema Karma Navarrete PA 09/17/2019 G89.29 Other chronic pain Karma Navarrete PA 09/17/2019 E11.9 Type 2 diabetes mellitus without Karma Navarrete PA complications 09/16/2019 T84.63xA Infection and inflammatory reaction Sherrie Scott NP due to internal fixation device of spine, initial encounter 09/16/2019 M46.40 Discitis, unspecified, site Mimi Marie M.D. unspecified 09/16/2019 M46.26 Osteomyelitis of vertebra, lumbar Sherrie Scott , SOCIAL MEDIA CONTENT MANAGER region 09/16/2019 G89.29 Other chronic pain Mimi Marie M.D. 09/16/2019 M46.46 Discitis, unspecified, lumbar Sherrie Scott, SOCIAL MEDIA CONTENT MANAGER region 09/16/2019 E11.9 Type 2 diabetes mellitus without Mimi Marie M.D. complications 09/16/2019 N17.9 Acute kidney failure, unspecified Sherrie Scott , SOCIAL MEDIA CONTENT MANAGER 09/16/2019 R60.0 Localized edema Mimi Marie M.D. [...] Christie MD 09/12/2019 M46.46 Discitis, unspecified, lumbar Catarino Young M.D. region 09/12/2019 T84.63xA Infection and inflammatory reaction Catarino Young M.D. due to internal fixation device of spine, initial encounter 09/12/2019 G93.40 Encephalopathy, unspecified Catarino Young M.D. 09/11/2019 G93.40 Encephalopathy, unspecified Kelli Kelly NP 09/11/2019 M46.40 Discitis, unspecified, site Kelli Kelly NP unspecified 09/11/2019 M40.209 Unspecified kyphosis, site Kelli Kelly, [employer] unspecified 09/11/2019 G89.29 Other chronic pain Kelli Kelly, [employer]GER 09/11/2019 E11.9 Type 2 diabetes mellitus without Kelli Kelly, [employer]GER complications 09/10/2019 G93.40 Encephalopathy, unspecified Kelli Kelly, [employer] MA[employer]GER 09/10/2019 M46.26 Osteomyelitis of vertebra, lumbar Catarino Young M.D. region 09/10/2019 M46.40 Discitis, unspecified, site Kelli Kelly, [employer] MANAGER unspecified 09/10/2019 M46.46 Discitis, unspecified, lumbar Catarino Young M.D. region 09/10/2019 M40.209 Unspecified kyphosis, site Kelli Kelly, [employer] MANAGER unspecified 09/10/2019 T84.63xA Infection and inflammatory reaction Catarino Young M.D. due to internal fixation device of spine, initial encounter 09/10/2019 G89.29 Other chronic pain Kelli Kelly, [employer]GER 09/10/2019 G93.40 Encephalopathy, unspecified Catarino Young M.D. 09/10/2019 E11.9 Type 2 diabetes mellitus without Kelli Kelly, [employer] MANAGER complications 09/10/2019 E11.9 Type 2 diabetes mellitus without Catarino Young M.D. complications 09/09/2019 R41.82 Altered mental status, unspecified Joe Taylor MD, [facility], [facility] 09/09/2019 M54.5 Low back pain Sheree Christie [...] Unspecified fall, initial encounter JULES Stern 09/07/2019 G93.41 Metabolic encephalopathy Solo Beard M.D. 09/07/2019 M54.5 Low back pain Sheree Christie [...] JULES Stern 09/06/2019 M46.46 Discitis, unspecified, lumbar Catarino Young M.D. region 09/06/2019 E11.9 Type 2 diabetes mellitus without JULES Stern complications 09/06/2019 T84.63xA Infection and inflammatory reaction Catarino Young M.D. due to internal fixation device of spine, initial encounter 09/06/2019 W19.xxxA Unspecified fall, initial encounter JULES Stern 09/06/2019 E11.9 Type 2 diabetes mellitus without Catarino Young M.D. complications 09/06/2019 J44.9 Chronic obstructive pulmonary Catarino Young M.D. disease, unspecified 09/05/2019 M46.46 Discitis, unspecified, lumbar Mimi Marie M.D. region 09/05/2019 A41.9 Sepsis, unspecified organism Mimi Marie [...] Rashaun Castillo M.D. Plan of Treatment Future Appointment(s):12/11/2019 1:30 pm - Sherrie Scott NP at [facility]92/11/2020 11:30 am - Sheree Christie MD at [facility]01/07/2020 11:15 am - Collette Thomas DNP, RN, POTTERY STRIPER-BC at [facility]11/14/2019 - Sherrie Scott, NPM46.26 Osteomyelitis of vertebra, lumbar regionNew Labs: CBC Auto Diff, Ordered: 11/14/19C Reactive Protein, Ordered: 11/14/19Follow up:3 -4 hmhcaT15.40 Discitis, unspecified, site unspecified Functional Status Description No Information Available Mental Status Description No Information Available Referrals Refer to Reason for Referral Status Appt Date Charlene Spears MD Sent [address] [place] [address] [id number] [phone]
--- OUTSIDE RECORDS SUMMARY | 2019-11-21 11:41 | XMS REPORT | Continuity of Care Document ---
:1950 External Reference #:[id number] Author Name Adam Alvarado N.P. (transmitted by agent of provider Luh Steven) Address [address] [facility], [place] [address] Care Team Providers Name Role Phone Shade Johnson D.O. - Internal Care Team Information [employer] Medicine Problems Active Problems Provider Date Electrocardiogram [...] fatigue Collette Thomas DNP, RN, Onset: 08/29/2017 [facility]- Periodic limb movement disorder Rashaun Castillo M.D. [...] Medications SIG Qnty Indications Ordering Date Provider Venlafaxine HCL ER one tab in the [place], [place] 37.5mg evening J., D.O. Tablets ER 24HR Metolazone Take 1 Tablet By Unknown 5mg Tablets Mouth Once Daily Bumetanide take 1 tablet Unknown 0.5mg Tablets once per day Potassium Chloride Mariya take 2 tab twice Unknown ER daily 10Meq Tablets ER Tramadol HCL 1 tab by mouth Unknown 50mg Tablets Oxycodone HCL 1 tab by mouth Unknown 15mg Tablets every 6 hours Magnesium 1 by mouth every Unknown 400mg Tablets day Omeprazole 1 by mouth every Unknown 20mg Capsules DR day Cyclobenzaprine HCL take 1 tab by Unknown 10mg mouth 2-3 times a Tablets day as needed Bumetanide 1 tab by mouth Unknown 2mg Tablets once a day Lyrica 1 capsule by Unknown 100mg Capsules mouth twice a day Tylenol W/ Caffeine as directed Unknown History Medications Ceftriaxone Sodium 1gm iv once daily at Unknown 09/09/2019 - 11/04/2019 2gm Solution [place] [facility] Vancomycin HCL 1 gm IV once daily goal Unknown 09/09/2019 - 11/04/2019 1gm Solution Rec trough 15-20 at [facility] Immunizations Description No Information Available Vital Signs Date Vital Result Comment 11/14/2019 1:02pm Height 62 inches 5'2" Weight 149.00 lb Heart Rate 76 /min BP Systolic Sitting 124 mmHg BP Diastolic Sitting 84 mmHg BMI (Body Mass Index) 27.2 kg/m2 11/14/2019 9:40am Height 62 inches 5'2" Heart Rate 84 /min BP Systolic Sitting 130 mmHg BP Diastolic Sitting 84 mmHg Respiratory Rate 14 /min Body Temperature 97.6 F Results Test Acquired Date Facility Test Result H/L Range Note CBC Auto 11/04/2019 [facility] White Blood 6.4 10^3/uL Normal 3.5-10.[address] [place] [address] [phone] Red Blood Count 3.95 10^6/uL Normal 3.70-4.87 [...] Blood Cells % 0.1 Comp Metabolic 11/04/2019 [facility] Sodium 137 mmol/L Normal 135-[address] [place] [address] [phone] Potassium 4.1 mmol/L Normal 3.5-5.0 Chloride 97 [...] Egfr 48.2 >60 2 Laboratory test 11/04/2019 [facility] C Reactive 4.10 mg/L Normal <8.01 [address] [place] [address] [phone] Comp Metabolic 10/28/2019 [facility] Sodium 138 Normal 135- 145 [address] mmol/[place] [address] [phone] Potassium 3.7 mmol/L Normal 3.5-5.0 Chloride 102 [...] Egfr 44.6 >60 5 Laboratory test 10/28/2019 [facility] Vancomycin Random 13.5 g /mL [address] [place] [address] [phone] C Reactive Protein 5.46 mg/L Normal <8.01 7 CBC Auto 10/28/2019 [facility] White Blood 6.9 10^3/uL Normal 3.5-10.[address] [place] [address] [phone] Red Blood Count 3.47 10^6/uL Low 3.70-4.87 [...] Blood Cells % 0.0 Laboratory test 10/25/2019 [facility] Vancomycin 23.8 8, [address] Random g/[place] [address] [phone] Comp Metabolic 10/23/2019 [facility] Sodium 138 mmol/L Normal 135- [address] [place] [address] [phone] Potassium 3.4 mmol/L Low 3.5-5.0 Chloride 97 [...] Egfr 39.2 >60 11 CBC Auto 10/23/2019 [facility] White Blood 7.1 10^3/uL Normal 3.5-10.[address] [place] [address] [phone] Red Blood Count 3.57 10^6/uL Low 3.70-4.87 [...] Blood Cells % 0.0 Laboratory test 10/23/2019 [facility] C Reactive 9.76 High < 8.01 [address] Protein mg/[place] [address] [phone] CBC Auto Diff 10/21/2019 [facility] White Blood 8.9 Normal 3.5 -10.[address] Count 10^3/[place] [address] [phone] Red Blood Count 3.93 10^6/uL Normal 3.70-4.87 [...] Blood Cells % 0.2 Comp Metabolic 10/21/2019 [facility] Sodium 139 mmol/L Normal 135-145 Panel [address] [place] [address] [phone] Potassium 3.8 mmol/L Normal 3.5-5.0 Chloride 97 [...] Egfr 36.5 >60 14 Laboratory test 10/21/2019 [facility] Vancomycin Random 9.1 g/ mL [address] [place] [address] [phone] C Reactive Protein 14.87 mg/L High <8.01 16 Laboratory 10/18/2019 [facility] Vancomycin 21.1 17, 18 test finding [address] Random g/[place] [address] [phone] CBC Auto Diff 10/14/2019 [facility] White Blood 7.0 Normal 3.5 - [address] Count 10^3/uL 10.8 [place] [address] [phone] Red Blood Count 3.37 10^6/uL Low 3.70-4.87 [...] Blood Cells % 0.0 Comp Metabolic 10/14/2019 [facility] Sodium 138 mmol/L Normal 135-[address] [place] [address] [phone] Potassium 2.9 mmol/L Low 3.5-5.0 Chloride 93 [...] Egfr 33.1 >60 20 Laboratory test 10/14/2019 [facility] Vancomycin Random 18.4 g /mL [address] [place] [address] [phone] C Reactive Protein 29.61 mg/L High <8.01 22 Laboratory 10/11/2019 [facility] Vancomycin 16.6 23, 24 test finding [address] Random g/[place] [address] [phone] CBC Auto Diff 10/07/2019 [facility] White Blood 6.8 Normal 3.5 - [address] Count 10^3/uL 10.8 [place] [address] [phone] Red Blood Count 3.44 10^6/uL Low 3.70-4.87 [...] Blood Cells % 0.0 Comp Metabolic 10/07/2019 [facility] Sodium 140 mmol/L Normal 135-145 Panel [address] [place] [address] [phone] Potassium 3.2 mmol/L Low 3.5-5.0 Chloride 100 [...] Egfr 40.1 >60 26 Laboratory test 10/07/2019 [facility] Vancomycin Random 17.0 g /mL 27 [place] [address] [phone] C Reactive Protein 10.26 mg/L High <8.01 28 Laboratory test 08/23/2019 [facility] C Reactive 6.56 mg/L Normal <8.01 finding 101 [facility] [place] [address] [phone] Erythrocyte Sed Rate 12 mm/Hr Normal 0-29 Copper, Serum 0.90 g/mL 0.75-1.45 29 Ceruloplasmin 21.2 mg/dL 30 Vitamin B12 08/23/2019 [facility] Vitamin B12 249 pg/mL Normal 180-914 31 And Folate [facility] [place] [address] [phone] Folic Acid (Folate) > 20.00 ng/mL >3.99 Laboratory 08/23/2019 [facility] TSH (Thyroid 0.77 Normal 0.34 -5.60 test finding [address] Stim Horm) mcIU/[place] [address] [phone] Free T4 (Free Thyroxine) 0.82 ng/dL Normal 0.61-1.12 1 [facility] - Floor: 1, Rm #: 179P 2 [...] 5 Kidney failure <15 (or dialysis) 3 [facility] - Floor: 1, Rm #: 179P 4 [facility] - Floor: 1, Rm #: 179P [id number] 5 Because ethnic data is not always [...] Meningitis 10-15 for All Other Infections 7 [facility] - Floor: 1, Rm #: 179P [id number] 8 [facility] - Floor: 1, Rm #: 179P [id number] 9 15-20 for HCAP, VAP, Osteomyelitis, Endocarditis, Meningitis 10-15 for All Other Infections 10 [facility] - Floor: 1, Rm #: 179P [id number] 11 Because ethnic data is not always [...] 5 Kidney failure <15 (or dialysis) 12 [facility] - Floor: 1, Rm #: 179P [id number] 13 [facility] - Floor: 1, Rm #: 179P [id number] 14 Because ethnic data is not always [...] Meningitis 10-15 for All Other Infections 16 [facility] - Floor: 1, Rm #: 179P [id number] 17 [facility] - Floor: 1, Rm #: 179P [id number] 18 15-20 for HCAP, VAP, Osteomyelitis, Endocarditis, Meningitis 10-15 for All Other Infections 19 [facility] - Floor: 1, Rm #: 179P [id number] 20 Because ethnic data is not always [...] Meningitis 10-15 for All Other Infections 22 [facility] - Floor: 1, Rm #: 179P [id number] 23 [facility] - Floor: 1, Rm #: 179 [id number] 24 15-20 for HCAP, VAP, Osteomyelitis, Endocarditis, Meningitis 10-15 for All Other Infections 25 [facility] - Floor: 1, Rm #: 179P [id number] 26 Because ethnic data is not always [...] Meningitis 10-15 for All Other Infections 28 [facility] - Floor: 1, #: 179P [id number] ADDITIONAL INFORMATION This test was developed and its performance characteristics determined by [facility] in a manner consistent with CLIA requirements. This test has not been cleared or approved by the U.S. Food and Drug Administration. Test Performed by: [facility] [address] [place] [address] Feather Mixer: Fabian Juan M.D. Ph.D.; CLIA# [id number] 30 REFERENCE VALUE 20.0 - 51.0 Test Performed by: [facility] - [address] [address] Feather Mixer: Fabian Juan M.D. Ph.D.; CLIA# [id number] 31 Normal Range 180 to 914 Indeterminate Range 145 to 180 Deficient Range <145 Procedures Date Code Description Status 09/12/2019 81053 Stereotactic Computer-Assisted, Spinal Completed 09/12/2019 17647 Post Segmental Instrumentation 3-6 Segments Completed 09/12/201972585 Exploration Of Spinal Fusion Completed 09/12/201991765 Arthrodsis, Post, Addl Segment Completed 09/12/2019 Arhtrodesis Post Lateral W/Lami-Lumbar Completed 09/12/2019 Allograft For Spine Surgery, Morselized Completed 09/09/2019 95020 EKG, Interpretation Only Completed 09/08/2019 91901 ECHO Transthorasic Realtime 2D W Doppler & Color Flow Hosp Completed Medical Devices Description No Information Available Encounters Type Date Location Provider Dx Diagnosis Office Visit 10/30/2019 [facility] Charlene Spears, G47.33 Obstructive sleep 10:30a [facility] [place] (adult) Kevan (pediatric) G47.419 Narcolepsy without cataplexy Office Visit 10/16/2019 [facility] Sherrie Allan M46.26 Osteomyelitis of 2:00p For Infectious Tyler, PALEONTOLOGY TEACHER vertebra, lumbar Diseases region M46.40 Discitis, unspecified, site unspecified T84.63xD Infect/inflm reaction due to int fix of spine, subs 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 Office Visit 09/19/2019 [facility] M46.46 Discitis, 11:46a Assoc,joe Navarrete PA unspecified, Hospitalists lumbar region G93.41 Metabolic encephalopathy D62 Acute posthemorrhagic anemia N17.9 Acute kidney failure, unspecified E11.9 Type 2 diabetes mellitus without complications I10 Essential (primary) hypertension J44.9 Chronic obstructive pulmonary disease, unspecified E78.00 Pure hypercholesterolemia, unspecified Office Visit 09/18/2019 [facility] M46.40 Discitis, 11:46a Assoc,joe Navarrete PA unspecified, site Hospitalists unspecified D62 Acute posthemorrhagic anemia N17.9 Acute kidney failure, unspecified R60.0 Localized edema G89.29 Other chronic pain E11.9 Type 2 diabetes mellitus without complications Office Visit 09/17/2019 [facility] M46.40 Discitis, 11:46a Assoc,joe Navarrete PA unspecified, site Hospitalists unspecified D62 Acute posthemorrhagic anemia N17.9 Acute kidney failure, unspecified R60.0 Localized edema G89.29 Other chronic pain E11.9 Type 2 diabetes mellitus without complications Office Visit 09/16/2019 [facility] Elizabethnan T84.63xA Infect/ inflm 10:48a For Infectious Tyler PALEONTOLOGY TEACHER reaction due to Diseases int fix of spine, init M46.26 Osteomyelitis of vertebra, lumbar region M46.46 Discitis, unspecified, lumbar region N17.9 Acute kidney failure, unspecified E11.69 Type 2 diabetes mellitus with other specified complication Office Visit 09/16/2019 [facility] Mimi Marie M46.40 Discitis, 11:45a Assocjoe M.D. unspecified, site Hospitalists unspecified G89.29 Other chronic pain E11.9 Type 2 diabetes mellitus without complications R60.0 Localized edema D62 Acute posthemorrhagic anemia N17.9 Acute kidney failure, unspecified [facility] M[facility].40 Discitis, 11:45a Assoc,joe Hussein unspecified, site Hospitalists unspecified G89.29 Other chronic pain E11.9 Type 2 diabetes mellitus without complications R60.0 Localized edema D62 Acute posthemorrhagic anemia N17.9 Acute kidney failure, unspecified [facility] Discitis, 11:44a Assocjoe M.D. unspecified, site Hospitalists unspecified G89.29 Other chronic pain E11.9 Type 2 diabetes mellitus without complications R60.0 Localized edema D62 Acute posthemorrhagic anemia N17.9 Acute kidney failure, unspecified Office Visit 09/13/2019 11:44a [facility] R39.12 Poor urinary Assoc,JULES Keane stream Hospitalists R31.9 Hematuria, unspecified D62 Acute posthemorrhagic anemia H05.229 Edema of unspecified orbit M46.40 Discitis, unspecified, site unspecified M40.209 Unspecified kyphosis, site unspecified G89.29 Other chronic pain E11.9 Type 2 diabetes mellitus without complications Office Visit 09/12/2019 [facility] M46.40 Discitis, 11:43a Assoc,JULES Keane unspecified, site Hospitalists unspecified [facility] Osteomyelitis of 1:29p Roni Young M.D. vertebra, lumbar Diseases region M46.46 Discitis, unspecified, lumbar region T84.63xA Infect/inflm reaction due to int fix of spine, init G93.40 Encephalopathy, unspecified Office Visit 09/11/2019 [facility] Kelli G93.40 Encephalopathy, 11:43a Assoc,joe [facility] unspecified Hospitalists NAIF Kelly M46.40 Discitis, unspecified, site unspecified M40.209 Unspecified kyphosis, site unspecified G89.29 Other chronic pain E11.9 Type 2 diabetes mellitus without complications Office Visit 09/10/2019 [facility] Kelli G93.40 Encephalopathy, 11:29a Assocjoe [facility] unspecified Hospitalists NAIF Kelly M46.40 Discitis, unspecified, site unspecified M40.209 Unspecified kyphosis, site unspecified G89.29 Other chronic pain E11.9 Type 2 diabetes mellitus without complications Office Visit 09/10/2019 [facility] Catarino Gonzalez M46.26 Osteomyelitis of 1:28p For [...] Spinal instabilities, thoracolumbar region Office Visit 09/09/2019 [facility] Fabian G93.40 Encephalopathy, 11:29a Assoc,JULES Allen [...] pain Z98.1 Arthrodesis status Office Visit 09/08/2019 [facility] Fabian G93.40 Encephalopathy, 11:28a Assoc,JULES Allen unspecified Hospitalists M46.40 Discitis, unspecified, site unspecified M40.209 Unspecified kyphosis, site unspecified G89.29 Other chronic pain R10.9 Unspecified abdominal pain E11.9 Type 2 diabetes mellitus without complications R60.9 Edema, unspecified W19.xxxA Unspecified fall, initial encounter Office Visit 09/07/2019 [facility] G93.40 Encephalopathy, 11:27a Assoc,JULES Allen unspecified Hospitalists [...] MD Z98.1 Arthrodesis status Office Visit 09/06/2019 [facility] G93.40 Encephalopathy, 11:26a Assoc,JULES Allen unspecified Hospitalists M46.40 Discitis, unspecified, [...] obstructive pulmonary disease, unspecified Office Visit 09/05/2019 [facility] Mimi Marie, M46.46 Discitis, 11:25a Assocjoe M.D. unspecified, Hospitalists lumbar region A41.9 Sepsis, unspecified organism E11.9 Type 2 diabetes mellitus without complications I10 Essential (primary) hypertension F32.9 Major depressive disorder, single episode, unspecified J44.9 Chronic obstructive pulmonary disease, unspecified Office Visit 08/23/2019 [place] Rashaun Castillo, G47.419 Narcolepsy 2:45p Neurologic M.DDiane without Services Of Director Of Public Safety cataplexy G47.61 Periodic limb movement disorder Z98.84 Bariatric surgery status G47.33 Obstructive sleep apnea (adult) (pediatric) R53.82 Chronic fatigue, unspecified R25.1 Tremor, unspecified Assessments Date Code Description Provider 11/14/2019 R25.1 Tremor, unspecified Adam Alvarado, N.P. 11/14/2019 M46.26 Osteomyelitis of vertebra, lumbar Sherrie Scott NP region 11/14/2019 R53.82 Chronic fatigue, unspecified Adam Alvarado, N.P. 11/14/2019 M46.40 Discitis, unspecified, site Sherrie Scott NP unspecified 11/14/2019 R41.3 Other amnesia Adam Alvarado, N.P. 11/14/2019 R55 Syncope and collapse Adam Alvarado, N.P. 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 Sherrie Scott NP antibiotics 10/12/2019 M46.40 Discitis, unspecified, site Sheree Christie MD unspecified 10/12/2019 M41.9 Scoliosis, unspecified Sheree Christie MD 10/12/2019 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, lumbar region 10/12/2019 M47.896 Other spondylosis, lumbar region Sheree Christie MD 10/12/2019 Z48.89 Encounter for other specified Sheree Christie MD surgical aftercare 09/19/2019 M46.46 Discitis, unspecified, lumbar Karma Navarrete PA region 09/19/2019 G93.41 Metabolic encephalopathy JULES Pitts 09/19/2019 D62 Acute posthemorrhagic anemia Karma Navarrete PA 09/19/2019 N17.9 Acute kidney failure, unspecified Karma Navarrete PA 09/19/2019 E11.9 Type 2 diabetes mellitus without Karma Navarrete PA complications 09/19/2019 I10 Essential (primary) hypertension JULES Pitts 09/19/2019 J44.9 Chronic obstructive pulmonary JULES Pitts disease, unspecified 09/19/2019 E78.00 Pure hypercholesterolemia, Karma Navarrete PA unspecified 09/18/2019 M46.40 Discitis, unspecified, site Karma Navarrete PA unspecified 09/18/2019 D62 Acute posthemorrhagic anemia Karma Navarrete PA 09/18/2019 N17.9 Acute kidney failure, unspecified Karma Navarrete PA 09/18/2019 R60.0 Localized edema Karma [...] Osteomyelitis of vertebra, lumbar Sherrie Scott , PALEONTOLOGY TEACHER region 09/16/2019 G89.29 Other chronic pain Mimi Marie M.D. 09/16/2019 M46.46 Discitis, unspecified, lumbar Sherrie Scott, PALEONTOLOGY TEACHER region 09/16/2019 E11.9 Type 2 diabetes mellitus [...] 09/11/2019 M40.209 Unspecified kyphosis, site Kelli Kelly, PALEONTOLOGY TEACHER unspecified 09/11/2019 G89.29 Other chronic pain Kelli Andreso, PALEONTOLOGY TEACHER 09/11/2019 E11.9 Type 2 diabetes mellitus without Kelli Wing Doto, PALEONTOLOGY TEACHER complications 09/10/2019 G93.40 Encephalopathy, unspecified Kelli Wing Doto, PALEONTOLOGY TEACHER 09/10/2019 M46.26 Osteomyelitis of vertebra, lumbar Catairno Young M.D. region 09/10/2019 M46.40 Discitis, unspecified, site Kelli Andreso, PALEONTOLOGY TEACHER unspecified 09/10/2019 M46.46 Discitis, unspecified, lumbar Catarino Young M.D. region 09/10/2019 M40.209 Unspecified kyphosis, site Kelli Kelly, PALEONTOLOGY TEACHER unspecified 09/10/2019 T84.63xA Infection and inflammatory reaction Catarino Young M.D. due to internal fixation device of spine, initial encounter 09/10/2019 G89.29 Other chronic pain Kelli Kelly, PALEONTOLOGY TEACHER 09/10/2019 G93.40 Encephalopathy, unspecified Catarino Young M.D. 09/10/2019 E11.9 Type 2 diabetes mellitus without Kelli Andreso, PALEONTOLOGY TEACHER complications 09/10/2019 E11.9 Type 2 diabetes mellitus without Catarino Young M.D. complications 09/09/2019 R41.82 Altered mental status, unspecified Joe Taylor MD, [facility] 09/09/2019 M54.5 Low back pain Sheree Christie [...] JULES Stern 09/07/2019 G93.41 Metabolic encephalopathy Solo eBard M.D. 09/07/2019 M54.5 Low back pain Sheree [...] Rashaun Castillo M.D. Plan of Treatment Future Appointment(s):01/24/2020 11:45 am - Rashaun Castillo M.D. at [place] [facility]12/11/2019 1:30 pm - Sherrie Scott NP at [facility] Xnrzngvq81/11/2020 11:30 am - Sheree Christie MD at [facility]01/07/2020 11:15 am - Collette Thomas DNP, RN, RAILROAD CAR CLEANING SUPERVISOR-BC at [facility]11/14/2019 - Fatuma Torres.MaddieR25.1 Tremor, qnsflcdevblD82.82 Chronic fatigue, unspecifiedReferral: Charlene Spears MD, Pulmonary DiseasesFollow up:[address] Stafford41.3 Other [id number] Syncope and collapse Functional Status Description No Information Available Mental Status Description No Information Available Referrals Refer to Dr Reason for Referral Status Appt Date Charlene Spears MD Closed [address] [place] [address] [phone] Charlene Spears MD Sent [address] [place] [address] [phone]
--- NOTE | 2019-11-21 13:15 | ED ---
Abdominal Pain/Female - HPI Summary HPI Summary: This patient is a 69-year-old female with history of gastric bypass 2.5 years ago presenting to the ED with lower abdominal pain. She also recently had a history of osteomyelitis to her spine. She does state her symptoms and her abdominal pain has been present times several weeks, however worsened in the past 4 days. It is noted by her family member she has been eating infrequently and when she is eating she is eating unhealthy food such as soda, pickles, shrimp and ham. She states the pain is intermittent, not worse or better with food or rest. Family states she is often complaining of pain when her is around, however when her is not around, she appears comfortable. She has not been using any medication at home for relief. - History of Current Complaint Chief Complaint: EDAbdPain Stated Complaint: STOMACH PAIN PER PT Time Seen by Provider: 11/21/19 12:55 Hx Obtained From: Patient ?: No Onset/Duration: Sudden Onset Timing: Constant Severity Initially: Moderate Severity Currently: Moderate Pain Intensity: 8 Pain Scale Used: 0-10 Numeric Location: Other - bilateral lower quadrants Radiates: No Character: Burning Aggravating Factor(s): Nothing Alleviating Factor(s): Nothing Associated Signs and Symptoms: Positive: Nausea. Negative: Diaphoresis, Fever, Cough, Chest Pain, Constipation, Blood in Stool - Risk Factors Ectopic Risk Factor: Negative Ovarian Torsion Risk Factor: Negative Allergies/Adverse Reactions: Allergies Allergy/AdvReac Type Severity Reaction Status Date / Time Beta-Blockers Allergy Unknown Verified 11/21/19 11:24 (Beta-Adrenergic Bloc Reaction Details Home Medications: Home Medications ARIPiprazole TAB* [Abilify TAB*] 10 mg PO DAILY 11/21/19 [History Confirmed ] Amitriptyline TAB* [Elavil TAB*] 25 mg PO BEDTIME 11/21/19 [History Confirmed ] Bismuth Subsalicylate [Pepto-Bismol Max Strength] 30 ml PO .8X/DAY 11/21/19 [ History Confirmed 11/21/19] LORazepam TAB(*) [Ativan 0.5 MG TAB (*)] 0.5 mg PO QPM PRN 11/21/19 [History Confirmed 11/21/19] Nebivolol TAB (NF) [Bystolic TAB (NF)] 10 mg PO DAILY 11/21/19 [History Confirmed 11/21/19] Nystatin TOP POWDER* 1 applic TOPICAL Q8H 11/21/19 [History Confirmed 11/21/19] tiZANidine TAB* [Zanaflex TAB*] 2 mg PO Q8H MDD 3 tabs 11/21/19 [History Confirmed 11/21/19] PMH/Surg Hx/FS Hx/Imm Hx Previously Healthy: Yes Endocrine/Hematology History: Reports: Hx Diabetes Cardiovascular History: Denies: Hx Pacemaker/ICD History: Denies: Hx Dialysis, Hx Renal Disease Sensory History: Denies: Hx Hearing Aid Comment Only: Hx Contacts or Glasses - unable to obtain Opthamlomology History: Comment Only: Hx Contacts or Glasses - unable to obtain Psychiatric History: Denies: Hx Panic Disorder - Surgical History Surgery Procedure, Year, and Place: LUMBAR (metal screws) - [place] , SPINAL STIMULATOR - ALL PARTS NOW REMOVED - @ [facility] - PAIN MANAGEMENT - REMOVAL WAS 2013 - GASTRIC BYPASS - Immunization History Hx Pertussis Vaccination: No Immunizations Up to Date: Yes Infectious Disease History: No Infectious Disease History: Denies: Traveled Outside the [place] in Last 30 Days - Family History Known Family History: Negative: Cardiac Disease, Hypertension, Diabetes - Social History Occupation: Unemployed Lives: With Family Alcohol Use: None Hx Substance Use: No Substance Use Type: Reports: None Hx Tobacco Use: No Smoking Status (MU): Never Smoked Tobacco Review of Systems Negative: Fever, Chills, Fatigue, Skin Diaphoresis Negative: Palpitations, Chest Pain Negative: Shortness Of Breath, Cough Positive: Abdominal Pain, Nausea. Negative: Vomiting, Diarrhea Genitourinary: Negative Positive: no symptoms reported, see HPI Negative: Arthralgia, Myalgia Skin: Negative Neurological: Negative All Other Systems Reviewed And Are Negative: Yes Physical Exam Triage Information Reviewed: Yes Vital Signs On Initial Exam: Initial Vitals Temp Pulse Resp BP Pulse Ox 98.1 F 65 16 144/110 99 11/21/19 11:21 11/21/19 11:21 11/21/19 11:21 11/21/19 11:21 11/21/19 11:21 Vital Signs Reviewed: Yes Appearance: Positive: Well-Appearing, Well-Nourished Skin: Positive: Skin Color Reflects Adequate Perfusion Head/Face: Positive: Normal Head/Face Inspection Eyes: Positive: EOMI, BRIAN, Conjunctiva Clear Neck: Positive: Supple, Nontender, No Lymphadenopathy Respiratory/Lung Sounds: Positive: Clear to Auscultation, Breath Sounds Present Cardiovascular: Positive: RRR, Pulses are Symmetrical in both Upper and Lower Extremities Musculoskeletal: Positive: Normal, Strength/ROM Intact Neurological: Positive: Speech Normal Psychiatric: Positive: Normal, Affect/Mood Appropriate AVPU Assessment: Alert Procedures - Sedation Patient Received Moderate/Deep Sedation with Procedure: No Diagnostics - Vital Signs Vital Signs Temp Pulse Resp BP Pulse Ox 11/21/19 11:21 98.1 F 65 16 144/110 99 - Laboratory Result Diagrams: 11/21/19 13:43 11/21/19 13:43 Lab Statement: Any lab studies that have been ordered have been reviewed, and results considered in the medical decision making process. Abdominal Pain Fem Course/Dx - Course Course Of Treatment: During his course of treatment, the patient is evaluated for bilateral lower abdominal pain times proximate 4 days, however she admits to having the pain fairly consistently over the past weeks to months. She does have a history of gastric bypass surgery from approximately 2.5 years ago. Per her familu and her , she has not been eating well and when she does eat she eats candy bars, drinks soda pop and eats high salty foods. Patient does admit to this. She denies any nausea, vomiting, diarrhea, constipation. She states she has had this pain in the past and was later diagnosed with osteomyelitis. She does admit to some back pain, however this is at her baseline she states. She was given morphine and Zofran on arrival which improved her symptoms. On reexamination, she is denying any pain. Labs obtained which are WNL except for a low magnesium. This was repleted with 2 mg IV. Potassium level at 3.3, this was repleted with [address] abdomen and pelvis with IV and oral contrast obtained which showed no acute pathology. On physical examination, patient has little pain to her abdomen over the bilateral lower quadrants. No CVA tenderness bilaterally. Discussed with the patient that her diet options as well as a follow-up with her GI specialist and Dr. Young for her recent osteomyelitis. She has been afebrile at home and vital signs are stable here today. - Diagnoses Differential Diagnosis: Positive: Bowel Obstruction, Constipation, Diverticulitis, Urinary Tract Infection, Other - complications of gastric bypass Provider Diagnoses: Abdominal pain Discharge ED - Sign-Out/Discharge Documenting (check all that apply): Patient Departure - Discharge Plan Condition: Stable Disposition: HOME Prescriptions: traMADol TAB* [Ultram*] 50 mg PO Q8H PRN #6 tab MDD 3 PRN Reason: Pain Patient Education Materials: Acute Abdominal Pain (ED) Referrals: Shade Johnson DO [Primary Care Provider] - Additional Instructions: Tramadol as needed for pain Please follow up with your PCP Please eat small amount of food at a time, items are being gentle on your abdomen and eat more frequently. Do not eat once a day Do not drink soda or eat too much sugar - Billing Disposition and Condition Condition: STABLE Disposition: Home - Attestation Statements Provider Attestation: I have seen the patient with the ALISSA and agree with the plan and documentation below except as noted: 69-year-old female with a history of gastric bypass, recent osteomyelitis who presents with abdominal pain. On exam patient was eating in the waiting room, abdomen soft CT scan shows no abnormalities can follow-up with her primary care doctor. Aviva Paiz MD
[2019-11-21] MEDS: Morphine 4 MG/ML VIAL (1 ml) 4 MG/ML VIAL IV ONE (13:32)
[2019-11-21] MEDS: Ondansetron INJ* 2 MG/ML VIAL IV ONE (13:33)
[2019-11-21] MEDS: Lactated Ringers 1000 ML Bag* 1,000 ML IV SCH (13:35)
[2019-11-21 13:52] LABS: ABS Lymphocytes 1.6 10^3/ul (1.0-4.8); ABS Monocytes 0.4 10^3/ul (0-0.8); ABS Neutrophils 4.7 10^3/ul (1.5-7.7); Eosinophil % 0.5 %; Hematocrit 30 % (35-47); Hemoglobin 9.8 g/dL (12.0-16.0); Lymphocyte % 23.7 %; Mean Corpuscular HGB Conc 33 g/dL (31-36); Mean Corpuscular Hemoglobin 28 pg (27-31); Mean Corpuscular Volume 84 fL (80-97); Mean Platelet Volume 8.3 fL (7.4-10.4); Platelet Count 229 10^3/uL (150-450); Red Blood Count 3.56 10^6 /uL (3.70-4.87); Red Cell Distribution Width 15 % (10-15); White Blood Count 6.7 10^3/uL (3.5-10.8)
[2019-11-21 14:10] LABS: INR 1.06 (0.82-1.09)
[2019-11-21 14:15] LABS: Albumin 3.2 g/dL (3.2-5.2); BUN/Creatinine Ratio 21.7 (8-20); C Reactive Protein 3.7 mg/L (<8.01); Calcium 8.3 mg/dL (8.6-10.3); EGFR African American 56.9 (>60); EGFR Non-African American 47.1 (>60); Globulin 3.1 g/dL (2-4); Magnesium 1.8 mg/dL (1.9-2.7); Potassium 3.3 mmol/L (3.5-5.0); Total Bilirubin 0.2 mg/dL (0.2-1.0); Total Protein 6.3 g/dL (6.4-8.9)
[2019-11-21] MEDS: Potassium Chlor TAB* 20 MEQ TAB.ER PO ONE (15:09)
[2019-11-21] MEDS: Magnesium Sulfate 2 GM IV* 2 GM/50 ML BAG IVPB ONE (15:10)
[2019-11-21] MEDS: Iodixanol* (CONTRAST) 320 MG/ML 100 ML SDV IV ONE (16:48)
[2019-11-21 18:19] VITALS: BP 141/85
== END 2019-11-21 17:55 | disposition home or self-care (01) ==
LOC: ED 11:20
DX: R10.9 Unspecified abdominal pain (principal); E11.9 Type 2 diabetes mellitus without complications; J44.9 Chronic obstructive pulmonary disease, unspecified; Z79.899 Other long term (current) drug therapy; Z98.84 Bariatric surgery status; Z88.8 Allergy status to other drugs, medicaments and biological substances
CPT/HCPCS: 36415; 74177; 80053; 83605; 83690; 83735; 85025; 85610; 86140; 96365; 96375; 99284; A9270-GY; J2270; J2405; J3475; Q9967

== ENCOUNTER 2020-01-07 05:59 | Emergency (ER) | payer MEDICARE ==
--- OUTSIDE RECORDS SUMMARY | 2020-01-07 06:07 | XMS REPORT | Continuity of Care Document ---
:1950 External Reference #:[id number] Author Name Sheree Christie MD (transmitted by agent of provider Ivanna Perez ) Address [address] [place] [address] Care Team Providers Name Role Phone Shade Johnson D.O. - Internal Care Team Information Mri Tech Medicine Problems Active Problems Provider Date Electrocardiogram [...] fatigue Collette Thomas DNP, RN, Onset: 08/29/2017 [facility]- Periodic limb movement disorder Rashaun Castillo [...] (more than 10 cigarettes/day) Smoking Status Reviewed: 12/04/19 Heavy tobacco smoker 1PPD x 2 years (more than 10 cigarettes/day) Exercise Type/Frequency Exercises rarely Allergies, Adverse Reactions, Alerts Active Allergies Reaction Severity Comments Date Beta Adrenergic Blockers dyspnea Severe 01/21/2014 Medications Active Medications SIG Qnty Indications Ordering Date Provider Venlafaxine HCL ER one tab in the Alex, Shade 37.5mg evening J., D.O. Tablets ER [...] 11/04/2019 1gm Solution Rec trough 15-20 at [facility] Immunizations Description No Information Available Vital Signs Date Vital Result Comment 12/04/2019 4:02pm Height 61 inches 5'1" Weight 168.00 lb Heart Rate 64 /min BP Systolic 100 mmHg BP Diastolic 60 mmHg Pain Level 7 lower back BMI (Body Mass Index) 31.7 kg/m2 11/14/2019 1:02pm Height 62 inches 5'2" Weight 149.00 lb Heart Rate 76 /min BP Systolic Sitting 124 mmHg BP Diastolic Sitting 84 mmHg BMI (Body Mass Index) 27.2 kg/m2 Results Test Acquired Date Facility Test Result H/L Range Note CBC Auto 11/04/2019 [facility] White Blood 6.4 10^3/uL Normal 3.5-10.[address] [place] [address] [phone] Red Blood Count 3.95 10^6/uL Normal 3.70-4.87 [...] Blood Cells % 0.1 Comp Metabolic 11/04/2019 [facility] Sodium 137 mmol/L Normal 135-[address] [place] [address] [phone] Potassium 4.1 mmol/L Normal 3.5-5.0 Chloride 97 [...] Egfr 48.2 >60 2 Laboratory test 11/04/2019 [facility] C Reactive 4.10 mg/L Normal <8.01 [address] [place] [address] [phone] Comp Metabolic 10/28/2019 [facility] Sodium 138 Normal 135- 145 [address] mmol/[place] [address] [phone] Potassium 3.7 mmol/L Normal 3.5-5.0 Chloride 102 [...] Egfr 44.6 >60 5 Laboratory test 10/28/2019 [facility] Vancomycin Random 13.5 g /mL [address] [place] [address] [phone] C Reactive Protein 5.46 mg/L Normal <8.01 7 CBC Auto 10/28/2019 [facility] White Blood 6.9 10^3/uL Normal 3.5-10.[address] [place] [address] [phone] Red Blood Count 3.47 10^6/uL Low 3.70-4.87 [...] Blood Cells % 0.0 Laboratory test 10/25/2019 [facility] Vancomycin 23.8 8, [address] Random g/[place] [address] [phone] Comp Metabolic 10/23/2019 [facility] Sodium 138 mmol/L Normal 135- [address] [place] [address] [phone] Potassium 3.4 mmol/L Low 3.5-5.0 Chloride 97 [...] Non- 32.4 >60 Egfr 39.2 >60 11 Laboratory test 10/23/2019 [facility] C Reactive 9.76 High < 8.01 [address] Protein mg/[place] [address] [phone] CBC Auto Diff 10/23/2019 [facility] White Blood 7.1 Normal 3.5 -10.[address] Count 10^3/[place] [address] [phone] Red Blood Count 3.57 10^6/uL Low 3.70-4.87 [...] Red Blood Cells % 0.0 Laboratory test 10/21/2019 [facility] Vancomycin 9.1 g/mL 13, [address] [place] [address] [phone] C Reactive Protein 14.87 mg/L High <8.01 15 Comp Metabolic 10/21/2019 [facility] Sodium 139 mmol/L Normal 135-[address] [place] [address] [phone] Potassium 3.8 mmol/L Normal 3.5-5.0 Chloride 97 [...] Egfr Non- 30.2 >60 Egfr 36.5 >60 16 CBC Auto 10/21/2019 [facility] White Blood 8.9 10^3/uL Normal 3.5-10.[address] Count [place], [place] [phone] Red Blood Count 3.93 10^6/uL Normal 3.70-4.87 [...] % Nucleated Red Blood Cells % 0.2 Laboratory 10/18/2019 [facility] Vancomycin 21.1 17, 18 test finding [address] Random g/[place] [address] [phone] Comp Metabolic 10/14/2019 [facility] Sodium 138 mmol/L Normal 135- [address] [place] [address] [phone] Potassium 2.9 mmol/L Low 3.5-5.0 Chloride 93 [...] Egfr 33.1 >60 20 Laboratory test 10/14/2019 [facility] Vancomycin Random 18.4 g /mL [address] [place] [address] [phone] C Reactive Protein 29.61 mg/L High <8.01 22 CBC Auto 10/14/2019 [facility] White Blood 7.0 10^3/uL Normal 3.5-10.[address] [place] [address] [phone] Red Blood Count 3.37 10^6/uL Low 3.70-4.87 [...] Nucleated Red Blood Cells % 0.0 Laboratory 10/11/2019 [facility] Vancomycin 16.6 23, 24 test finding [address] Random g/[place] [address] [phone] CBC Auto Diff 10/07/2019 [facility] White Blood 6.8 Normal 3.5 - [address] Count 10^3/uL 10.8 [place] [address] [phone] Red Blood Count 3.44 10^6/uL Low 3.70-4.87 [...] Blood Cells % 0.0 Comp Metabolic 10/07/2019 [facility] Sodium 140 mmol/L Normal 135-145 Panel [address] [place] [address] [phone] Potassium 3.2 mmol/L Low 3.5-5.0 Chloride 100 [...] Egfr 40.1 >60 26 Laboratory test 10/07/2019 [facility] Vancomycin Random 17.0 g /mL 27 finding [address] [place] [address] [phone] C Reactive Protein 10.26 mg/L High <8.01 28 Laboratory test 08/23/2019 [facility] C Reactive 6.56 mg/L Normal <8.[address] [place] [address] [phone] Erythrocyte Sed Rate 12 mm/Hr Normal 0-29 Copper, Serum 0.90 g/mL 0.75-1.45 29 Ceruloplasmin 21.2 mg/dL 30 Vitamin B12 08/23/2019 [facility] Vitamin B12 249 pg/mL Normal 180-914 [address] Folate [address] [place] [address] [phone] Folic Acid (Folate) > 20.00 ng/mL >3.99 Laboratory 08/23/2019 [facility] TSH (Thyroid 0.77 Normal 0.34 -5.60 test finding [address] Stim Horm) mcIU/[place] [address] [phone] Free T4 (Free Thyroxine) 0.82 ng/dL Normal 0.61-1.12 1 [facility] - Floor: 1, Rm #: 179P 2 [...] 5 Kidney failure <15 (or dialysis) 3 [facility] - Floor: 1, Rm #: 179P 4 [facility] - Floor: 1, Rm #: 179P [id number] 5 Because ethnic data is not always [...] Meningitis 10-15 for All Other Infections 7 [facility] - Floor: 1, Rm #: 179P [id number] 8 [facility] - Floor: 1, Rm #: 179P [id number] 9 15-20 for HCAP, VAP, Osteomyelitis, Endocarditis, Meningitis 10-15 for All Other Infections 10 [facility] - Floor: 1, Rm #: 179P [id number] 11 Because ethnic data is not always [...] 5 Kidney failure <15 (or dialysis) 12 [facility] - Floor: 1, Rm #: 179P [id number] 13 [facility] - Floor: 1, Rm #: 179P [id number] 14 15-20 for HCAP, VAP, Osteomyelitis, Endocarditis, Meningitis 10-15 for All Other Infections 15 [facility] - Floor: 1, Rm #: 179P [id number] 16 Because ethnic data is not always readily [...] 15-29 5 Kidney failure <15 (or dialysis) 17 [facility] - Floor: 1, Rm #: 179P [id number] 18 15-20 for HCAP, VAP, Osteomyelitis, Endocarditis, Meningitis 10-15 for All Other Infections 19 [facility] - Floor: 1, Rm #: 179P [id number] 20 Because ethnic data is not always [...] Meningitis 10-15 for All Other Infections 22 [facility] - Floor: 1, Rm #: 179P [id number] 23 [facility] - Floor: 1, Rm #: 179 [id number] 24 15-20 for HCAP, VAP, Osteomyelitis, Endocarditis, Meningitis 10-15 for All Other Infections 25 [facility] - Floor: 1, Rm #: 179P [id number] 26 Because ethnic data is not always [...] Meningitis 10-15 for All Other Infections 28 [facility] - Floor: 1, #: 179P [id number] 29 ADDITIONAL INFORMATION This test was developed and its performance characteristics determined by [facility] in a manner consistent with CLIA requirements. This test has not been cleared or approved by the U.S. Food and Drug Administration. Test Performed by: [facility] [address] [place] [address] Mine Geologist: Fabian Juan M.D. Ph.D.; CLIA# [id number] 30 REFERENCE VALUE 20.0 - 51.0 Test Performed by: [facility] [place] [facility] [id number] Mine Geologist: Fabian Juan M.D. Ph.D.; CLIA# [id number] 31 Normal Range 180 to 914 Indeterminate Range 145 to 180 Deficient Range <145 Procedures Date Code Description Status 11/21/2019 79884 EEG Recording Awake & Drowsy Completed 09/12/2019 09587 Stereotactic Computer-Assisted, Spinal Completed 09/12/2019 15423 Post Segmental Instrumentation 3-6 Segments Completed 09/12/2019 86494 Exploration Of Spinal Fusion Completed 09/12/2019 40079 Arthrodsis, Post, Addl Segment Completed 09/12/2019 25010 Arhtrodesis Post Lateral W/Lami-Lumbar Completed 09/12/2019 Allograft For Spine Surgery, Morselized Completed 09/09/2019 48216 EKG, Interpretation Only Completed 09/08/2019 23674 ECHO Transthorasic Realtime 2D W Doppler & Color Flow Hosp Completed Medical Devices Description No Information Available Encounters Type Date Location Provider Dx Diagnosis Office Visit 11/14/2019 [facility] Adam Alvarado, R25.1 Tremor, unspecified 1:00p Services Of Kevan N.P. R53.82 Chronic fatigue, unspecified R41.3 Other amnesia R55 Syncope and collapse Office Visit 11/14/2019 [facility] Jerrell M46.26 Osteomyelitis of 10:00a For Infectious Scott, WAG[employer] PERSON vertebra, lumbar Diseases region M46.46 Discitis, unspecified, lumbar region Office Visit 10/30/2019 10:30a Pulmonology And Charlene G47.33 Obstructive sleep Sleep Services Of MD Regan apnea (adult) Glass Tinter (pediatric) G47.419 Narcolepsy without cataplexy [facility] Osteomyelitis of 2:00p For Infectious Scott, W[employer] PERSON vertebra, lumbar Diseases region M46.40 Discitis, unspecified, site unspecified T84.63xD Infect/inflm reaction due to int fix of spine, subs Z79.2 intermediate manager (current) use of antibiotics Office Visit 09/19/2019 [facility] M46.46 Discitis, 11:46a Assocjoe PA unspecified, Hospitalists lumbar region G93.41 Metabolic encephalopathy D62 Acute posthemorrhagic anemia N17.9 Acute kidney failure, unspecified E11.9 Type 2 diabetes mellitus without complications I10 Essential (primary) hypertension J44.9 Chronic obstructive pulmonary disease, unspecified E78.00 Pure hypercholesterolemia, unspecified Office Visit 09/18/2019 [facility] M46.40 Discitis, 11:46a Assocjoe PA unspecified, site Hospitalists unspecified D62 Acute posthemorrhagic anemia N17.9 Acute kidney failure, unspecified R60.0 Localized edema G89.29 Other chronic pain E11.9 Type 2 diabetes mellitus without complications Office Visit 09/17/2019 [facility] M46.40 Discitis, 11:46a Assocjoe PA unspecified, site Hospitalists unspecified D62 Acute posthemorrhagic anemia N17.9 Acute kidney failure, unspecified R60.0 Localized edema G89.29 Other chronic pain E11.9 Type 2 diabetes mellitus without complications Office Visit 09/16/2019 [facility] Sherrie Allan T84.63xA Infect/ inflm 10:48a For Infectious Scott, W[employer] P[employer] reaction due to Diseases int fix of spine, init M46.26 Osteomyelitis of vertebra, lumbar region M46.46 Discitis, unspecified, lumbar region N17.9 Acute kidney failure, unspecified E11.69 Type 2 diabetes mellitus with other specified complication Office Visit 09/16/2019 [facility] Mimi Marie, M46.40 Discitis, 11:45a joe Perez M.D. unspecified, site Hospitalists unspecified G89.29 Other chronic pain E11.9 Type 2 diabetes mellitus without complications R60.0 Localized edema D62 Acute posthemorrhagic anemia N17.9 Acute kidney failure, unspecified [facility] M46.40 Discitis, 11:45a joe Perez M.D. unspecified, site Hospitalists unspecified G89.29 Other chronic pain E11.9 Type 2 diabetes mellitus without complications R60.0 Localized edema D62 Acute posthemorrhagic anemia N17.9 Acute kidney failure, unspecified [facility], M46.40 Discitis, 11:44a joe Perez M.D. unspecified, site Hospitalists unspecified G89.29 Other chronic pain E11.9 Type 2 diabetes mellitus without complications R60.0 Localized edema D62 Acute posthemorrhagic anemia N17.9 Acute kidney failure, unspecified Office Visit 09/13/2019 11:44a [facility] R39.12 Poor urinary Assocjoe PA stream Hospitalists R31.9 Hematuria, unspecified D62 Acute posthemorrhagic anemia H05.229 Edema of unspecified orbit M46.40 Discitis, unspecified, site unspecified M40.209 Unspecified kyphosis, site unspecified G89.29 Other chronic pain E11.9 Type 2 diabetes mellitus without complications Office Visit 09/12/2019 [facility] M46.40 Discitis, 11:43a Assoc,JULES Keane unspecified, site Hospitalists unspecified Office Visit 09/12/2019 [facility] Catarino Gonzalez M46.26 Osteomyelitis of 1:29p Infectious Keenan Young vertebra, lumbar Diseases region M46.46 Discitis, unspecified, lumbar region T84.63xA Infect/inflm reaction due to int fix of spine, init G93.40 Encephalopathy, unspecified Office Visit 09/11/2019 [facility] G93.40 Encephalopathy, 11:43a Assoc,[facility] unspecified Hospitalists NAIF Kelly M46.40 Discitis, unspecified, site unspecified M40.209 Unspecified kyphosis, site unspecified G89.29 Other chronic pain E11.9 Type 2 diabetes mellitus without complications Office Visit 09/10/2019 [facility] G93.40 En[facility]opathy, 11[facility] NAIF Kelly M46.40 Discitis, unspecified, site unspecified M40.209 Unspecified kyphosis, site unspecified G89.29 Other chronic pain E11.9 Type 2 diabetes mellitus without complications Office Visit 09/10/2019 [facility] Ctaarino Gonzalez M46.26 Osteomyelitis of 1:28p For Roni Young M.D. vertebra, lumbar Diseases region M46.46 Discitis, unspecified, lumbar region T84.63xA Infect/inflm reaction due to int fix of spine, init G93.40 Encephalopathy, unspecified E11.9 Type 2 diabetes mellitus without complications Office Visit 09/09/2019 7:00a Neurosurgery Vassilios M54.5 Low back Services Of Kevan Christie MD pain Z98.1 Arthrodesis status M53.2x5 Spinal instabilities, thoracolumbar region Office Visit 09/09/2019 [facility] Fabian G93.40 Encephalopathy, 11:29a Assoc,JULES Allen unspecified [...] pain Z98.1 Arthrodesis status Office Visit 09/08/2019 [facility] G93.40 Encephalopathy, 11:28a Assoc,JULES Allen unspecified Hospitalists [...] Visit 7:00a Clinic Keenan Beard encephalopathy Office 09/07/2019 [facility] G93.40 Encephalopathy, Visit 11:27a Assoc, Hospitalists JULES Anderson unspecified M46.40 Discitis, unspecified, site unspecified M40.209 Unspecified kyphosis, site unspecified G89.29 Other chronic pain R10.9 Unspecified abdominal pain E11.9 Type 2 diabetes mellitus without complications R60.0 Localized edema W19.xxxA Unspecified fall, initial encounter Office Visit 09/06/2019 [facility] Catarino D. G93.40 Encephalopathy, 1:25p For Infectious Keenan Young unspecified Diseases M46.26 Osteomyelitis of vertebra, lumbar region M46.46 Discitis, unspecified, lumbar region T84.63xA Infect/inflm reaction due to int fix of spine, init E11.9 Type 2 diabetes mellitus without complications J44.9 Chronic obstructive pulmonary disease, unspecified Office Visit 09/06/2019 [facility] Fabian G93.40 Encephalopathy, 11:26a Assoc,JULES Allen unspecified Hospitalists M46.40 Discitis, unspecified, site unspecified G89.29 Other chronic pain E11.9 Type 2 diabetes mellitus without complications W19.xxxA Unspecified fall, initial encounter Office Visit 09/06/2019 7:00a Neurosurgery Vassilios M54.5 Low back Services Of Kevan Christie MD pain Z98.1 Arthrodesis status Office Visit 09/05/2019 [facility] Mimi Marie, M46.46 Discitis, 11:25a Assoc,pc M.D. 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 without Services Of Glass Tinter cataplexy G47.61 Periodic limb movement disorder Z98.84 Bariatric surgery status G47.33 Obstructive sleep apnea (adult) (pediatric) R53.82 Chronic fatigue, unspecified R25.1 Tremor, unspecified Assessments Date Code Description Provider 11/21/2019 R55 Syncope and collapse Kenneth Kamara MD 11/14/2019 R25.1 Tremor, unspecified Adam Christiano, N.P. 11/14/2019 M46.26 Osteomyelitis of vertebra, lumbar Sherrie Scott NP region 11/14/2019 M46.46 Discitis, unspecified, lumbar Sherrie Scott NP region 11/14/2019 R53.82 Chronic fatigue, unspecified Adam Alvarado, N.P. 11/14/2019 R41.3 Other amnesia Adam Alvarado, N.P. 11/14/2019 R55 Syncope and collapse Adam Alvarado, N.P. 11/11/2019 Z48.89 Encounter for other specified Vassilios MD Pratik surgical aftercare 10/30/2019 G47.33 Obstructive sleep apnea (adult) Charlene Spears MD (pediatric) 10/30/2019 G47.419 Narcolepsy without cataplexy Charlene Spears MD 10/16/2019 M46.26 Osteomyelitis of vertebra, lumbar Sherrie Scott NP region 10/16/2019 M46.40 Discitis, unspecified, site Sherrie Scott NP unspecified 10/16/2019 T84.63xD Infection and inflammatory reaction Sherrie Scott NP due to internal fixation device of spine, subsequent encounter 10/16/2019 Z79.2 intermediate manager (current) use of Sherrie Scott WAG[employer] PERSON antibiotics 10/12/2019 M46.40 Discitis, unspecified, site Sheree Christie MD unspecified 10/12/2019 M41.9 Scoliosis, unspecified Sheree Christie MD 10/12/2019 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, lumbar region 10/12/2019 M47.896 Other spondylosis, lumbar region Sheree Christie MD 10/12/2019 Z48.89 Encounter for other specified Sheree Christie MD surgical aftercare 09/19/2019 M46.46 Discitis, unspecified, lumbar JULES Pitts region 09/19/2019 G93.41 Metabolic encephalopathy JULES Pitts 09/19/2019 D62 Acute posthemorrhagic anemia JULES Pitts 09/19/2019 N17.9 Acute kidney failure, unspecified JULES Pitts 09/19/2019 E11.9 Type 2 diabetes mellitus without JULES Pitts complications 09/19/2019 I10 Essential (primary) hypertension JULES Pitts 09/19/2019 J44.9 Chronic obstructive pulmonary JULES Pitts disease, unspecified 09/19/2019 E78.00 Pure hypercholesterolemia, JULES Pitts unspecified 09/18/2019 M46.40 Discitis, unspecified, site JULES Pitts [...] Osteomyelitis of vertebra, lumbar Sherrie Scott , WAG[employer] PERSON region 09/16/2019 G89.29 Other chronic pain Mimi Marie M.D. 09/16/2019 M46.46 Discitis, unspecified, lumbar Sherrie Scott, WAG[employer] PERSON region 09/16/2019 E11.9 Type 2 diabetes mellitus [...] unspecified 09/12/2019 M53.2x5 Spinal instabilities, thoracolumbar Sheree Chirstie MD region 09/12/2019 M46.26 Osteomyelitis of vertebra, lumbar Catarino Young M.D. region 09/12/2019 Z98.1 Arthrodesis status Sheree Christie MD 09/12/2019 M46.46 Discitis, unspecified, lumbar Catarino Young M.D. region 09/12/2019 T84.63xA Infection and inflammatory reaction Catarino Young M.D. due to internal fixation device of spine, initial encounter 09/12/2019 G93.40 Encephalopathy, unspecified Catarino Young M.D. 09/11/2019 G93.40 Encephalopathy, unspecified Kelli Mecca Doto, WAGON PERSON 09/11/2019 M46.40 Discitis, unspecified, site Kelli Mecca Doto, WAG[employer] PERSON unspecified 09/11/2019 M40.209 Unspecified kyphosis, site Kelli Mecca Doto, WAG[employer] PERSON unspecified 09/11/2019 G89.29 Other chronic pain Kelli Mecca Doto, WAG[employer] PERSON 09/11/2019 E11.9 Type 2 diabetes mellitus without Kelli Mecca Doto, WAG[employer] PERSON complications 09/10/2019 G93.40 Encephalopathy, unspecified Kelli Mecca Doto, WAG[employer] PERSON 09/10/2019 M46.26 Osteomyelitis of vertebra, lumbar Catarino Young M.D. region 09/10/2019 M46.40 Discitis, unspecified, site Kelli Mecca Doto, WAG[employer] PERSON unspecified 09/10/2019 M46.46 Discitis, unspecified, lumbar Catarino Young M.D. region 09/10/2019 M40.209 Unspecified kyphosis, site Kelli Mecca Doto, WAG[employer] PERSON unspecified 09/10/2019 T84.63xA Infection and inflammatory reaction Catarino Young M.D. due to internal fixation device of spine, initial encounter 09/10/2019 G89.29 Other chronic pain Kelli Mecca Doto, WAG[employer] PERSON 09/10/2019 G93.40 Encephalopathy, unspecified Catarino Young M.D. 09/10/2019 E11.9 Type 2 diabetes mellitus without Kelli Mecca Doto, W[employer] PERSON complications 09/10/2019 E11.9 Type 2 diabetes mellitus without Catarino Young M.D. complications 09/09/2019 R41.82 Altered mental status, unspecified Joe Taylor MD, [facility] 09/09/2019 M54.5 Low back pain Sheree Christie [...] 11:45 am - Rashaun Castillo M.D. at [facility]12/11/2019 1:30 pm - Sherrie Scott NP at [facility] Bhglqajh99/11/2020 11:15 am - Collette Thomas DNP , RN, ALMOND BLANCHER OPERATOR-BC at [facility] Functional Status Description No Information Available Mental Status Description No Information Available Referrals Refer to Dr Reason for Referral Status Appt Date Charlene Spears MD Closed [address] [place] [id number] [phone] Charlene Spears MD Sent [address] [place] [address] [phone]
--- OUTSIDE RECORDS SUMMARY | 2020-01-07 06:07 | XMS REPORT | Continuity of Care Document ---
:1950 External Reference #:[id number] Author Name Sherrie Scott NP (transmitted by agent of provider Aggie Suggs) Address [address] [place] [id number] Care Team Providers Name Role Phone Shade Johnson D.O. - Internal Care Team Information Sampler First Medicine Problems Active Problems Provider Date Electrocardiogram [...] fatigue Collette Thomas DNP, RN, Onset: 08/29/2017 [facility]- Periodic limb movement disorder Rashaun Castillo [...] (more than 10 cigarettes/day) Smoking Status Reviewed: 12/11/19 Heavy tobacco smoker 1PPD x 2 years [...] at Unknown 09/09/2019 - 11/04/2019 2gm Solution [facility] Rec Vancomycin HCL 1 gm IV once daily goal Unknown 09/09/2019 - 11/04/2019 1gm Solution Rec trough 15-20 at [facility] Immunizations Description No Information Available Vital Signs Date Vital Result Comment 12/11/2019 1:38pm Height 61 inches 5'1" Weight 166.50 lb Heart Rate 70 /min BP Systolic Sitting 136 mmHg BP Diastolic Sitting 62 mmHg Respiratory Rate 14 /min Body Temperature 97.5 F BMI (Body Mass Index) 31.5 kg/m2 12/04/2019 4:02pm Height 61 inches 5'1" Weight 168.00 lb Heart Rate 64 /min BP Systolic 100 mmHg BP Diastolic 60 mmHg Pain Level 7 lower back BMI (Body Mass Index) 31.7 kg/m2 Results Test Acquired Date Facility Test Result H/L Range Note CBC Auto 11/04/2019 [facility] White Blood 6.4 10^3/uL Normal 3.5-10.[address] [place] [address] [phone] Red Blood Count 3.95 10^6/uL Normal 3.70-4.87 [...] Blood Cells % 0.1 Comp Metabolic 11/04/2019 [facility] Sodium 137 mmol/L Normal 135-[address] [place] [address] [phone] Potassium 4.1 mmol/L Normal 3.5-5.0 Chloride 97 [...] Egfr 48.2 >60 2 Laboratory test 11/04/2019 [facility] C Reactive 4.10 mg/L Normal <8.01 [address] [place] [address] [phone] Comp Metabolic 10/28/2019 [facility] Sodium 138 Normal 135- 145 [address] mmol/[place] [address] [phone] Potassium 3.7 mmol/L Normal 3.5-5.0 Chloride 102 [...] Egfr 44.6 >60 5 Laboratory test 10/28/2019 [facility] Vancomycin Random 13.5 g /mL [address] [place] [address] [phone] C Reactive Protein 5.46 mg/L Normal <8.01 7 CBC Auto 10/28/2019 [facility] White Blood 6.9 10^3/uL Normal 3.5-10.[address] [place] [address] [phone] Red Blood Count 3.47 10^6/uL Low 3.70-4.87 [...] Blood Cells % 0.0 Laboratory test 10/25/2019 [facility] Vancomycin 23.8 8, [address] Random g/[place] [address] [phone] Comp Metabolic 10/23/2019 [facility] Sodium 138 mmol/L Normal 135- [address] [place] [address] [phone] Potassium 3.4 mmol/L Low 3.5-5.0 Chloride 97 [...] Egfr 39.2 >60 11 Laboratory test 10/23/2019 [facility] C Reactive 9.76 High < 8.01 [address] Protein mg/L [place], [place] [id number] [phone] CBC Auto Diff 10/23/2019 [facility] White Blood 7.1 Normal 3.5 -10.[address] Count 10^3/[place] [address] [phone] Red Blood Count 3.57 10^6/uL Low 3.70-4.87 [...] Blood Cells % 0.0 Laboratory test 10/21/2019 [facility] Vancomycin 9.1 g/mL 13, [address] [place] [address] [phone] C Reactive Protein 14.87 mg/L High <8.01 15 Comp Metabolic 10/21/2019 [facility] Sodium 139 mmol/L Normal 135-[address] [place] [address] [phone] Potassium 3.8 mmol/L Normal 3.5-5.0 Chloride 97 [...] Egfr 36.5 >60 16 CBC Auto 10/21/2019 [facility] White Blood 8.9 10^3/uL Normal 3.5-10.[address] [place] [address] [phone] Red Blood Count 3.93 10^6/uL Normal 3.70-4.87 [...] Red Blood Cells % 0.2 Laboratory 10/18/2019 [facility] Vancomycin 21.1 17, 18 test finding [address] Random g/[place] [address] [phone] Comp Metabolic 10/14/2019 [facility] Sodium 138 mmol/L Normal 135- [address] [place] [address] [phone] Potassium 2.9 mmol/L Low 3.5-5.0 Chloride 93 [...] Egfr 33.1 >60 20 Laboratory test 10/14/2019 [facility] Vancomycin Random 18.4 g /mL [address] [place] [address] [phone] C Reactive Protein 29.61 mg/L High <8.01 22 CBC Auto 10/14/2019 [facility] White Blood 7.0 10^3/uL Normal 3.5-10.[address] [place] [address] [phone] Red Blood Count 3.37 10^6/uL Low 3.70-4.87 [...] Red Blood Cells % 0.0 Laboratory 10/11/2019 [facility] Vancomycin 16.6 23, 24 test finding [address] Random g/[place] [address] [phone] CBC Auto Diff 10/07/2019 [facility] White Blood 6.8 Normal 3.5 - [address] Count 10^3/uL 10.8 [place] [address] [phone] Red Blood Count 3.44 10^6/uL Low 3.70-4.87 [...] Blood Cells % 0.0 Comp Metabolic 10/07/2019 [facility] Sodium 140 mmol/L Normal 135-[address] [place] [address] [phone] Potassium 3.2 mmol/L Low 3.5-5.0 Chloride 100 [...] Egfr 40.1 >60 26 Laboratory test 10/07/2019 [facility] Vancomycin Random 17.0 g /mL 27 finding [address] [place] [address] [phone] C Reactive Protein 10.26 mg/L High <8.01 28 Laboratory test 08/23/2019 [facility] C Reactive 6.56 mg/L Normal <8.[address] [place] [address] [phone] Erythrocyte Sed Rate 12 mm/Hr Normal 0-29 Copper, Serum 0.90 g/mL 0.75-1.45 29 Ceruloplasmin 21.2 mg/dL 30 Vitamin B12 08/23/2019 [facility] Vitamin B12 249 pg/mL Normal 180-914 [address]olate [address] [place] [address] [phone] Folic Acid (Folate) > 20.00 ng/mL >3.99 Laboratory 08/23/2019 [facility] TSH (Thyroid 0.77 Normal 0.34 -5.60 test finding [address] Stim Horm) mcIU/[place] [address] [phone] Free T4 (Free Thyroxine) 0.82 ng/dL Normal 0.61-1.12 1 [facility] - Floor: 1, Rm #: 179P 2 [...] 5 Kidney failure <15 (or dialysis) 3 [facility] - Floor: 1, Rm #: 179P 4 [facility] - Floor: 1, Rm #: 179P [id number] 5 Because ethnic data is not always [...] Meningitis 10-15 for All Other Infections 7 [facility] - Floor: 1, Rm #: 179P [id number] 8 [facility] - Floor: 1, Rm #: 179P [id number] 9 15-20 for HCAP, VAP, Osteomyelitis, Endocarditis, Meningitis 10-15 for All Other Infections 10 [facility] - Floor: 1, Rm #: 179P [id number] 11 Because ethnic data is not always [...] 5 Kidney failure <15 (or dialysis) 12 [facility] - Floor: 1, Rm #: 179P [id number] 13 [facility] - Floor: 1, Rm #: 179P [id number] 14 15-20 for HCAP, VAP, Osteomyelitis, Endocarditis, Meningitis 10-15 for All Other Infections 15 [facility] - Floor: 1, Rm #: 179P [id number] 16 Because ethnic data is not always [...] 5 Kidney failure <15 (or dialysis) 17 [facility] - Floor: 1, Rm #: 179P [id number] 18 15-20 for HCAP, VAP, Osteomyelitis, Endocarditis, Meningitis 10-15 for All Other Infections 19 [facility] - Floor: 1, Rm #: 179P [id number] 20 Because ethnic data is not always [...] Meningitis 10-15 for All Other Infections 22 [facility] - Floor: 1, Rm #: 179P [id number] 23 [facility] - Floor: 1, Rm #: 179 [id number] 24 15-20 for HCAP, VAP, Osteomyelitis, Endocarditis, Meningitis 10-15 for All Other Infections 25 [facility] - Floor: 1, Rm #: 179P [id number] 26 Because ethnic data is not always [...] Meningitis 10-15 for All Other Infections 28 [facility] - Floor: 1, #: 179P [id number] ADDITIONAL INFORMATION This test was developed and its performance characteristics determined by [facility] in a manner consistent with CLIA requirements. This test has not been cleared or approved by the U.S. Food and Drug Administration. Test Performed by: [facility] [address] [place] [address] Intake Manager: Fabian Juan M.D. Ph.D.; CLIA# [id number] 30 REFERENCE VALUE 20.0 - 51.0 Test Performed by: [facility] - [address] [address] Intake Manager: Fabian Juan M.D. Ph.D.; CLIA# [id number] 31 Normal Range 180 to 914 Indeterminate Range 145 to 180 Deficient Range <145 Procedures Date Code Description Status 11/21/2019 40092 EEG Recording Awake & Drowsy Completed 09/12/2019 35152 Stereotactic Computer-Assisted, Spinal Completed 09/12/2019 06051 Post Segmental Instrumentation 3-6 Segments Completed 09/12/2019 48737 Exploration Of Spinal Fusion Completed 09/12/2019 15852 Arthrodsis, Post, Addl Segment Completed 09/12/2019 92818 Arhtrodesis Post Lateral W/Lami-Lumbar Completed 09/12/2019 Allograft For Spine Surgery, Morselized Completed 09/09/2019 79470 EKG, Interpretation Only Completed 09/08/2019 48990 ECHO Transthorasic Realtime 2D W Doppler & Color Flow Hosp Completed Medical Devices Description No Information Available Encounters Type Date Location Provider Dx Diagnosis Office Visit 11/14/2019 [facility] Adam Alvarado, R25.1 Tremor, unspecified 1:00p Services Of Kevan N.P. R53.82 Chronic fatigue, unspecified R41.3 Other amnesia R55 Syncope and collapse Office Visit 11/14/2019 [facility] M46.26 Osteomyelitis of 10:00a For Infectious Scott, INDEPENDENT CONTRACTOR vertebra, lumbar Diseases region M46.46 Discitis, unspecified, lumbar region Office Visit 10/30/2019 10:30a Pulmonology And Charlene G47.33 Obstructive sleep Sleep Services Of MD Regan apnea (adult) Squad Leader (pediatric) G47.419 Narcolepsy without cataplexy [facility] Osteomyelitis of 2:00p For Infectious Scott, INDEPENDENT CONTRACTOR vertebra, lumbar Diseases region M46.40 Discitis, unspecified, site unspecified T84.63xD Infect/inflm reaction due to int fix of spine, subs Z79.2 jail (current) use of antibiotics Office Visit 09/19/2019 [facility] M46.46 Discitis, 11:46a Assocjoe [place] unspecified, Hospitalists lumbar region G93.41 Metabolic encephalopathy D62 Acute posthemorrhagic anemia N17.9 Acute kidney failure, unspecified E11.9 Type 2 diabetes mellitus without complications I10 Essential (primary) hypertension J44.9 Chronic obstructive pulmonary disease, unspecified E78.00 Pure hypercholesterolemia, unspecified Office Visit 09/18/2019 [facility] M46.40 Discitis, 11:46a Assocjoe [place] unspecified, site Hospitalists unspecified D62 Acute posthemorrhagic anemia N17.9 Acute kidney failure, unspecified R60.0 Localized edema G89.29 Other chronic pain E11.9 Type 2 diabetes mellitus without complications Office Visit 09/17/2019 [facility] M46.40 Discitis, 11:46a Assocjoe [place] unspecified, site Hospitalists unspecified D62 Acute posthemorrhagic anemia N17.9 Acute kidney failure, unspecified R60.0 Localized edema G89.29 Other chronic pain E11.9 Type 2 diabetes mellitus without complications Office Visit 09/16/2019 [facility] Sherrie Allan T84.63xA Infect/ inflm 10:48a For Infectious Scott, IN[employer]ENT [employer]OR reaction due to Diseases int fix of spine, init M46.26 Osteomyelitis of vertebra, lumbar region M46.46 Discitis, unspecified, lumbar region N17.9 Acute kidney failure, unspecified E11.69 Type 2 diabetes mellitus with other specified complication [facility] M[facility].40 Discitis, 11:45a Assoc,joe Hussein unspecified, site Hospitalists unspecified G89.29 Other chronic pain E11.9 Type 2 diabetes mellitus without complications R60.0 Localized edema D62 Acute posthemorrhagic anemia N17.9 Acute kidney failure, unspecified [facility], M46.40 Discitis, 11:45a Assoc,joe Hussein unspecified, site Hospitalists unspecified G89.29 Other chronic pain E11.9 Type 2 diabetes mellitus without complications R60.0 Localized edema D62 Acute posthemorrhagic anemia N17.9 Acute kidney failure, unspecified [facility] M46.40 Discitis, 11:44a Assjoe santiago M.D. unspecified, site Hospitalists unspecified G89.29 Other chronic pain E11.9 Type 2 diabetes mellitus without complications R60.0 Localized edema D62 Acute posthemorrhagic anemia N17.9 Acute kidney failure, unspecified Office Visit 09/13/2019 11:44a [facility] R39.12 Poor urinary Assoc,JULES Keane stream Hospitalists R31.9 Hematuria, unspecified D62 Acute posthemorrhagic anemia H05.229 Edema of unspecified orbit M46.40 Discitis, unspecified, site unspecified M40.209 Unspecified kyphosis, site unspecified G89.29 Other chronic pain E11.9 Type 2 diabetes mellitus without complications Office Visit 09/12/2019 [facility] M46.40 Discitis, 11:43a Assoc,JULES Keane unspecified, site Hospitalists unspecified Office Visit 09/12/2019 [facility] For Catarino Gonzalez M46.26 Osteomyelitis of 1:29p Infectious Ying Young. vertebra, lumbar Diseases region M46.46 Discitis, unspecified, lumbar region T84.63xA Infect/inflm reaction due to int fix of spine, init G93.40 Encephalopathy, unspecified Office Visit 09/11/2019 [facility] G93.40 Encephalopathy, 11:43a Assoc,[facility] unspecified Hospitalists NAIF Kelly M46.40 Discitis, unspecified, site unspecified M40.209 Unspecified kyphosis, site unspecified G89.29 Other chronic pain E11.9 Type 2 diabetes mellitus without complications Office Visit 09/10/2019 [facility] G93.40 Encephalopathy, 11:29a Assoc,[facility] unspecified Hospitalists NAIF Kelly M46.40 Discitis, unspecified, site unspecified M40.209 Unspecified kyphosis, site unspecified G89.29 Other chronic pain E11.9 Type 2 diabetes mellitus without complications Office Visit 09/10/2019 [facility] Catarino Gonzalez M46.26 Osteomyelitis of 1:28p For Roni [...] Spinal instabilities, thoracolumbar region Office Visit 09/09/2019 [facility] G93.40 Encephalopathy, 11:29a Assoc,JULES Allen unspecified Hospitalists [...] pain Z98.1 Arthrodesis status Office Visit 09/08/2019 [facility] G93.40 Encephalopathy, 11:28a Assoc,JULES Allen unspecified Hospitalists [...] Neurohospitalist Solo Alvarez G93.41 Metabolic Visit 7:00a Talia Beard M.D. encephalopathy Office 09/07/2019 [facility] G93.40 Encephalopathy, Visit 11:27a Assoc, Hospitalists JULES Anderson unspecified M46.40 Discitis, unspecified, site unspecified M40.209 Unspecified kyphosis, site unspecified G89.29 Other chronic pain R10.9 Unspecified abdominal pain E11.9 Type 2 diabetes mellitus without complications R60.0 Localized edema W19.xxxA Unspecified fall, initial encounter Office Visit 09/06/2019 [facility] Catarino Gonzalez G93.40 Encephalopathy, 1:25p For Infectious Keenan Young unspecified Diseases M46.26 Osteomyelitis of vertebra, lumbar region M46.46 Discitis, unspecified, lumbar region T84.63xA Infect/inflm reaction due to int fix of spine, init E11.9 Type 2 diabetes mellitus without complications J44.9 Chronic obstructive pulmonary disease, unspecified Office Visit 09/06/2019 [facility] G93.40 Encephalopathy, 11:26a Assocjoe PA unspecified Hospitalists M46.40 Discitis, unspecified, site unspecified G89.29 Other chronic pain E11.9 Type 2 diabetes mellitus without complications W19.xxxA Unspecified fall, initial encounter Office Visit 09/06/2019 7:00a Neurosurgery Vassilios M54.5 Low back Services Of Kevan Christie MD pain Z98.1 Arthrodesis status Office Visit 09/05/2019 [facility] Mimi Marie, M46.46 Discitis, 11:25a Assoc,pc Ying. unspecified, Hospitalists lumbar region A41.9 Sepsis, unspecified organism E11.9 Type 2 diabetes mellitus without complications I10 Essential (primary) hypertension F32.9 Major depressive disorder, single episode, unspecified J44.9 Chronic obstructive pulmonary disease, unspecified Office Visit 08/23/2019 [facility] Rashaun Castillo, 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 without [facility] cataplexy G47.61 Periodic limb movement disorder Z98.84 Bariatric surgery status G47.33 Obstructive sleep apnea (adult) (pediatric) R53.82 Chronic fatigue, unspecified R25.1 Tremor, unspecified Assessments Date Code Description Provider 12/11/2019 M46.26 Osteomyelitis of vertebra, lumbar Sherrie Scott NP region 12/11/2019 M46.46 Discitis, unspecified, lumbar Sherrie Scott NP region 12/11/2019 R79.82 Elevated C-reactive protein (CRP) Sherrie Scott NP 12/11/2019 R82.71 Bacteriuria Sherrie Scott NP 12/04/2019 M46.26 Osteomyelitis of vertebra, lumbar Sheree Christie MD region 12/04/2019 M46.46 Discitis, unspecified, lumbar Sheree Christie MD region 12/04/2019 M41.9 Scoliosis, unspecified Sheree Christie MD 12/04/2019 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 11/14/2019 M46.26 Osteomyelitis of vertebra, lumbar Sherrie Scott NP region 11/14/2019 M46.46 Discitis, unspecified, lumbar Sherrie Scott NP region 11/14/2019 R53.82 Chronic fatigue, unspecified Adamsophia Alvarado, N.P. 11/14/2019 R41.3 Other amnesia Adam Alvarado, N.P. 11/14/2019 R55 Syncope and collapse Adam Alvarado N.P. 11/11/2019 Z48.89 Encounter for other specified Sheree Christie MD surgical aftercare 10/30/2019 G47.33 Obstructive sleep apnea (adult) Charlene Spears MD (pediatric) 10/30/2019 G47.419 Narcolepsy without cataplexy Charlene Spears MD 10/16/2019 M46.26 Osteomyelitis of vertebra, lumbar Sherrie Scott NP region 10/16/2019 M46.40 Discitis, unspecified, site Sherrie Scott NP unspecified 10/16/2019 T84.63xD Infection and inflammatory reaction Sherrie Scott NP due to internal fixation device of spine, subsequent encounter 10/16/2019 Z79.2 jail (current) use of Sherrie Scott NP antibiotics [...] M.D. 09/16/2019 M46.46 Discitis, unspecified, lumbar Sherrie Scott NP region 09/16/2019 E11.9 Type 2 diabetes mellitus without Mimi Marie M.D. complications 09/16/2019 N17.9 Acute kidney failure, unspecified Sherrie Scott NP 09/16/2019 R60.0 Localized edema Mimi Marie M.D. 09/16/2019 E11.69 Type 2 diabetes mellitus with other Sherrie Scott NP specified complication 09/16/2019 D62 Acute posthemorrhagic anemia Mimi Marie M.D. 09/16/2019 N17.9 Acute kidney failure, unspecified Mimi Marie M.D. 09/15/2019 M46.40 Discitis, unspecified, site Mimi Mraie M.D. unspecified 09/15/2019 G89.29 Other chronic pain [...] 09/11/2019 G93.40 Encephalopathy, unspecified Kelli Mecca Doto, INDEPENDENT CONTRACTOR 09/11/2019 M46.40 Discitis, unspecified, site Kelli Mecca Doto, INDEPENDENT CONTRACTOR unspecified 09/11/2019 M40.209 Unspecified kyphosis, site Kelli Mecca Doto, INDEPENDENT CONTRACTOR unspecified 09/11/2019 G89.29 Other chronic pain Kelli Mecca Doto, INDEPENDENT CONTRACTOR 09/11/2019 E11.9 Type 2 diabetes mellitus without Kelli Mecca Doto, INDEPENDENT CONTRACTOR complications 09/10/2019 G93.40 Encephalopathy, unspecified Kelli Mecca Doto, INDEPENDENT CONTRACTOR 09/10/2019 M46.26 Osteomyelitis of vertebra, lumbar Catarino Young M.D. region 09/10/2019 M46.40 Discitis, unspecified, site Kelli Mecca Doto, INDEPENDENT CONTRACTOR unspecified 09/10/2019 M46.46 Discitis, unspecified, lumbar Catarino Young M.D. region 09/10/2019 M40.209 Unspecified kyphosis, site Kelli Mecca Doto, INDEPENDENT CONTRACTOR unspecified 09/10/2019 T84.63xA Infection and inflammatory reaction Catarino Young M.D. due to internal fixation device of spine, initial encounter 09/10/2019 G89.29 Other chronic pain Kelli Kelly, INDEPENDENT CONTRACTOR 09/10/2019 G93.40 Encephalopathy, unspecified Catarino Young M.D. 09/10/2019 E11.9 Type 2 diabetes mellitus without Kelli Kelly, INDEPENDENT CONTRACTOR complications 09/10/2019 E11.9 Type 2 diabetes mellitus without Catarino Young M.D. complications 09/09/2019 R41.82 Altered mental status, unspecified Joe Taylor MD, [facility], [facility] 09/09/2019 M54.5 Low back pain Sheree [...] Rashaun Castillo M.D. Plan of Treatment Future Appointment(s):01/15/2020 12:30 pm - Sheree Christie MD at [facility]01/24/2020 11:45 am - Rashaun Castillo M.D. at [facility]01/07/2020 11:15 am - Collette Thomas DNP, RN , CARE NAVIGATOR-BC at [facility]ology [facility]12/11/2019 - Sherrie Scott, NPM46.26 Osteomyelitis of vertebra, lumbar regionComments:Please call Neurosurgery if you develop loss of bladder or bowel control, increased back pain, or increased weakness in the lower extremities. Call our office for signs of infection, increased back pain or fevers.Follow up:as bkqunlA75.46 Discitis, unspecified, lumbar elkaynL17.82 Elevated C-reactive protein (CRP)R82.71 Bacteriuria Functional Status Description No Information Available Mental Status Description No Information Available Referrals Refer to Dr Reason for Referral Status Appt Date Charlene Spears MD Closed [address] [place] [address] [phone] Charlene Spears MD Sent [address] [place] [id number] [phone]
[2020-01-07] MEDS ORDERED: Diazepam TAB(*) 5 MG PO ONE (07:39)
[2020-01-07] MEDS ORDERED: Ketorolac *IM* INJ* 60 MG/2 ML VIAL IM ONE (07:39)
[2020-01-07 07:58] LABS: ABS Eosinophils 0.1 10^3/ul (0-0.6); ABS Lymphocytes 1.9 10^3/ul (1.0-4.8); ABS Monocytes 0.5 10^3/ul (0-0.8); ABS Neutrophils 3.8 10^3/ul (1.5-7.7); Eosinophil % 1.1 %; Hematocrit 30 % (35-47); Hemoglobin 9.7 g/dL (12.0-16.0); Lymphocyte % 30.2 %; Mean Corpuscular HGB Conc 33 g/dL (31-36); Mean Corpuscular Hemoglobin 26 pg (27-31); Mean Corpuscular Volume 80 fL (80-97); Mean Platelet Volume 8.9 fL (7.4-10.4); Platelet Count 197 10^3/uL (150-450); Red Blood Count 3.72 10^6 /uL (3.70-4.87); Red Cell Distribution Width 17 % (10-15); White Blood Count 6.3 10^3/uL (3.5-10.8)
[2020-01-07 08:15] LABS: Albumin 3.3 g/dL (3.2-5.2); BUN/Creatinine Ratio 17.9 (8-20); C Reactive Protein 2.68 mg/L (<8.01); Calcium 8.8 mg/dL (8.6-10.3); EGFR African American 55.8 (>60); EGFR Non-African American 46.1 (>60); Globulin 3.3 g/dL (2-4); Potassium 3.6 mmol/L (3.5-5.0); Total Bilirubin 0.7 mg/dL (0.2-1.0); Total Protein 6.6 g/dL (6.4-8.9)
[2020-01-07] MEDS ORDERED: oxyCODONE TAB* 5 MG TAB PO ONE (10:05)
--- NOTE | 2020-01-07 11:23 | ED ---
Back Pain - HPI Summary HPI Summary: This patient is a 69-year-old female with history of chronic and acute back pain presenting to the ED with severe low back pain which started approximately 3 days ago. Patient has had laminectomies and surgeries to the low back. Currently seeing Dr. Barry. Patient has also had a low back spinal infection and needed to be hospitalized for this. Patient has been denying any fevers, sweats, chills. Symptoms are rated a 10/10, into the low back, nonradiating. She is currently on oxycodone 15 mg 3 times daily and Flexeril 10 mg 4 times daily. She states this helps somewhat, however has not helped over the past 3 days. She states she did physical therapy referral only a few weeks after her back surgery. Patient denies any bladder or bowel dysfunction. Denies any numbness or tingling or foot drop. - History of Current Complaint Chief Complaint: EDBackInjuryPain Stated Complaint: BACK PAIN PER PT Time Seen by Provider: 01/07/20 07:27 Hx Obtained From: Patient Onset/Duration: Sudden Onset Onset/Duration: Started Hours Ago Timing: Constant Back Pain Location: Is Discrete @ - acute low back pain - not worse with palpation Severity Initially: Severe Severity Currently: Severe Pain Intensity: 8 Pain Scale Used: 0-10 Numeric Character: Sharp Aggravating Symptom(s): Movement, Lifting, Bending, Walking Alleviating Symptom(s): Rest, Position, Heat Associated Signs And Symptoms: Negative: Swelling, Redness, Bruising, Weakness, Numbness, Bladder Incontinence, Bowel Incontinence, Weight Loss, Pain with Weight Bearing Related History: Previous Back Injury - Allergies/Home Medications Allergies/Adverse Reactions: Allergies Allergy/AdvReac Type Severity Reaction Status Date / Time Beta-Blockers Allergy Unknown Verified 01/07/20 06:02 (Beta-Adrenergic Bloc Reaction Details Home Medications: Home Medications Acetaminophen [Tylenol Extra Strength] 1,000 mg PO BID PRN 01/07/20 [History Confirmed 01/07/20] Alendronate (NF) [Fosamax (NF)] 70 mg PO WEEKLY 01/07/20 [History Confirmed 10/16] Calcium Carbonate [Calcium] 1,200 mg PO BID 01/07/20 [History Confirmed 01/07/20 ] Cholecalciferol TAB* [Vitamin D TAB*] 2,000 units PO BID 01/07/20 [History Confirmed 01/07/20] Dapagliflozin 10 mg Tab (Nf) [Farxiga] 10 mg PO DAILY 01/07/20 [History Confirmed 01/07/20] Omeprazole CAP(NF) [PriLOSEC CAP(NF)] 40 mg PO DAILY 01/07/20 [History Confirmed 01/07/20] Pregabalin 100 mg CAP (*) [Lyrica 100 mg CAP (*)] 100 mg PO .1-2X/DAY 01/07/20 [ History Confirmed 01/07/20] oxyCODONE TAB* [Roxycodone TAB 5 mg*] 15 mg PO DAILY 01/07/20 [History Confirmed 01/07/20] PMH/Surg Hx/FS Hx/Imm Hx Previously Healthy: Yes Endocrine/Hematology History: Reports: Hx Diabetes Cardiovascular History: Reports: Hx Hypertension Denies: Hx Pacemaker/ICD History: Denies: Hx Dialysis, Hx Renal Disease Sensory History: Denies: Hx Hearing Aid Comment Only: Hx Contacts or Glasses - unable to obtain Opthamlomology History: Comment Only: Hx Contacts or Glasses - unable to obtain Psychiatric History: Denies: Hx Panic Disorder - Surgical History Surgery Procedure, Year, and Place: LUMBAR FUSION(metal screws) - [facility] SPINAL STIMULATOR - ALL PARTS NOW REMOVED - @ [facility] REMOVAL WAS 2013 - GASTRIC BYPASS. 2019 - SPINAL FUSION T12-L2 (REVISION AFTER ORIGINAL PADDY BROKE) - Immunization History Date of Influenza Vaccine: 11/27/2018 Hx Pertussis Vaccination: No Immunizations Up to Date: Yes Infectious Disease History: No Infectious Disease History: Denies: Traveled Outside the [place] in Last 30 Days - Family History Known Family History: Negative: Cardiac Disease, Hypertension, Diabetes - Social History Occupation: Unemployed Lives: With Family Alcohol Use: None Hx Substance Use: No Substance Use Type: Reports: None Hx Tobacco Use: No Smoking Status (MU): Never Smoked Tobacco Review of Systems Negative: Fever, Chills, Fatigue, Skin Diaphoresis Negative: Palpitations, Chest Pain Negative: Shortness Of Breath, Cough Genitourinary: Negative Positive: no symptoms reported, see HPI Positive: Arthralgia Skin: Negative Neurological/Mental Status: Negative All Other Systems Reviewed And Are Negative: Yes Physical Exam Triage Information Reviewed: Yes Vital Signs On Initial Exam: Initial Vitals Temp Pulse Resp BP Pulse Ox 97.8 F 64 15 175/87 98 01/07/20 06:00 01/07/20 06:00 01/07/20 06:00 01/07/20 06:00 01/07/20 06:00 Vital Signs Reviewed: Yes Appearance: Positive: Pain Distress Skin: Positive: Warm, Skin Color Reflects Adequate Perfusion, Other - no erythema or ecchymosis or swelling Head/Face: Positive: Normal Head/Face Inspection Eyes: Positive: EOMI, BRIAN, Conjunctiva Clear Neck: Positive: Supple, Nontender, No Lymphadenopathy Respiratory/Lung Sounds: Positive: Clear to Auscultation, Breath Sounds Present Cardiovascular: Positive: RRR, Pulses are Symmetrical in both Upper and Lower Extremities Musculoskeletal: Positive: Pain @ - low back - not worse with palpation - limited ROM d/t pain. Negative: Edema Left, Edema Right Neurological: Positive: Speech Normal Psychiatric: Positive: Normal, Affect/Mood Appropriate AVPU Assessment: Alert Procedures - Sedation Patient Received Moderate/Deep Sedation with Procedure: No Diagnostics - Vital Signs Vital Signs Temp Pulse Resp BP Pulse Ox 01/07/20 10:32 64 168/112 99 01/07/20 10:02 62 148/105 100 01/07/20 10:01 61 100 01/07/20 09:33 60 163/68 01/07/20 09:03 60 145/84 99 01/07/20 09:00 60 100 01/07/20 08:45 58 131/67 99 01/07/20 08:04 61 163/89 98 01/07/20 08:03 67 97 01/07/20 08:00 68 100 01/07/20 07:53 22 01/07/20 07:32 65 159/87 99 01/07/20 06:00 97.8 F 64 15 175/87 98 - Laboratory Lab Results: Lab Results 01/07/20 01/07/20 Range/Units 07:48 07:48 WBC 6.3 (3.5-10.8) 10^3/uL RBC 3.72 (3.70-4.87) 10^6 /uL Hgb 9.7 L (12.0-16.0) g/dL Hct 30 L (35-47) % MCV 80 (80-97) fL MCH 26 L (27-31) pg MCHC 33 (31-36) g/dL RDW 17 H (10-15) % Plt Count 197 (150-450) 10^3/uL MPV 8.9 (7.4-10.4) fL Neut % (Auto) 60.2 % Lymph % (Auto) 30.2 % Rock % (Auto) 8.0 % Eos % (Auto) 1.1 % Baso % (Auto) 0.5 % Absolute Neuts (auto) 3.8 (1.5-7.7) 10^3/ul Absolute Lymphs (auto) 1.9 (1.0-4.8) 10^3/ul Absolute Monos (auto) 0.5 (0-0.8) 10^3/ul Absolute Eos (auto) 0.1 (0-0.6) 10^3/ul Absolute Basos (auto) 0.0 (0-0.2) 10^3/ul Absolute Nucleated RBC 0.0 10^3/ul Nucleated RBC % 0.0 Sodium 142 (135-145) mmol/L Potassium 3.6 (3.5-5.0) mmol/L Chloride 109 (101-111) mmol/L Carbon Dioxide 28 (22-32) mmol/L Anion Gap 5 (2-11) mmol/L BUN 21 (6-24) mg/dL Creatinine 1.17 H (0.51-0.95) mg/dL Est GFR ( Amer) 55.8 (>60) Est GFR (Non-Af Amer) 46.1 (>60) BUN/Creatinine Ratio 17.9 (8-20) Glucose 150 H (70-100) mg/dL Calcium 8.8 (8.6-10.3) mg/dL Total Bilirubin 0.70 (0.2-1.0) mg/dL AST 21 (13-39) U/L ALT 12 (7-52) U/L Alkaline Phosphatase 116 H (34-104) U/L C-Reactive Protein 2.68 (<8.01) mg/L Total Protein 6.6 (6.4-8.9) g/dL Albumin 3.3 (3.2-5.2) g/dL Globulin 3.3 (2-4) g/dL Albumin/Globulin Ratio 1.0 (1-3) Result Diagrams: 01/07/20 07:48 01/07/20 07:48 Lab Statement: Any lab studies that have been ordered have been reviewed, and results considered in the medical decision making process. - CT lumbar spine CT Interpretation Completed By: Radiologist - IMPRESSION: 1. Transitional anatomy status post T12-S2 posterior instrumented arthrodesis and decompression laminectomies as above. 2. Osteopenia with an unchanged subacute appearing T11 compression fracture (no severe bony retropulsion). 3. 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 4. Several additional more chronic appearing compression fractures in the lumbar spine as above. 5. Advanced degenerative disc disease at L3-L4. 6. Multilevel grade 1 spondylolisthesis as above. Back Pain Course/Dx - Course Course Of Treatment: During this course treatment, the patient is evaluated for severe back pain. She does have a history of osteomyelitis and fusions/ surgeries. Patient states symptoms have been present 3.5 days. She denies any recent injuries, strains or falls. She denies any fevers. Labs obtained which showed no elevated white count or elevated CRP. She is given Valium 10 mg with good effect. Patient is resting comfortably on reexamination. CT obtained which shows: no new findings, subacute and chronic fractures. Pt re- examined at this time and continues to have pain. Requesting her at home meds. She is given oxycodone 15mg. This with good effect and pt is resting comfortably. I have discussed with the patient as she is afebrile and labs are unremarkable for a concern of infection. Pt is feeling improved, however continues to endorse pain. I discussed with the patient she will need to return if she develops fevers or worsening back pain not well controlled with pain medications. I have encouraged her to call Dr Barry today as well as Dr. Johnson. As the Valium seemed to improve her symptoms, she will be prescribed this and will take this in lieu of her flexeril at home. She understands medication precautions. at bedside also understands. - Diagnoses Differential Diagnosis/HQI/PQRI: Positive: Epidural Abscess, Fracture, Herniated Disc, Osteomyelitis, Osteoporosis, Strain, Sprain Provider Diagnoses: Acute exacerbation of chronic low back pain Discharge ED - Sign-Out/Discharge Documenting (check all that apply): Patient Departure - Discharge Plan Condition: Stable Disposition: HOME Prescriptions: Diazepam TAB(*) [Valium TAB(*)] 10 mg PO Q8H PRN #12 tab MDD 3 PRN Reason: Spasms Patient Education Materials: Chronic Back Pain (DC) Referrals: Shade Johnson DO [Primary Care Provider] - Additional Instructions: Please call Dr. Campbell's office today to make a follow-up appointment Please also call Dr. Johnson office I am giving you a prescription for Valium, you can take this [address] of your Flexeril Take this on opposite schedule of your oxycodone at home In addition you may take Tylenol and ibuprofen Please heat to the area as much as possible If he develop any fevers, weakness or worsening pain that is not controlled with these medications, please return to the ED - Billing Disposition and Condition Condition: STABLE Disposition: Home - Attestation Statements Provider Attestation: I was available for consult. This patient was seen by the ALISSA. The patient was not presented to, seen by, or examined by me. Handy Walton MD
[2020-01-07 11:34] VITALS: BP 173/85
== END 2020-01-07 11:41 | disposition home or self-care (01) ==
LOC: ED 05:59
DX: M54.5 Low back pain (principal); M51.36 Other intervertebral disc degeneration, lumbar region; M43.16 Spondylolisthesis, lumbar region; E11.9 Type 2 diabetes mellitus without complications; Z79.84 Long term (current) use of oral hypoglycemic drugs; I10 Essential (primary) hypertension; Z79.899 Other long term (current) drug therapy; Z98.1 Arthrodesis status; Z88.8 Allergy status to other drugs, medicaments and biological substances; M85.88 Other specified disorders of bone density and structure, other site
CPT/HCPCS: 36415; 72131; 80053; 85025; 86140; 96372; 99283; A9270-GY; J1885

== ENCOUNTER 2021-09-16 18:18 | Inpatient (IN) ==
[2021-09-16 19:45] LABS: Hematocrit 14 % (35-47); Hemoglobin 3.9 g/dL (12.0-16.0); Mean Corpuscular HGB Conc 28 g/dL (31-36); Mean Corpuscular Hemoglobin 21 pg (27-31); Mean Corpuscular Volume 76 fL (80-97); Mean Platelet Volume 8.8 fL (7.4-10.4); Platelet Count 354 10^3/uL (150-450); Red Blood Count 1.84 10^6 /uL (3.70-4.87); Red Cell Distribution Width 21 % (10-15); White Blood Count 15.8 10^3/uL (3.5-10.8)
[2021-09-16 20:00] LABS: Albumin 3.4 g/dL (3.2-5.2); Albumin/Globulin Ratio 1.3 (1-3); C Reactive Protein 43.14 mg/L (<8.01); Calcium 7.8 mg/dL (8.6-10.3); Globulin 2.6 g/dL (2-4); Potassium 4.6 mmol/L (3.5-5.0); Total Bilirubin 0.6 mg/dL (0.2-1.0)
[2021-09-16 20:21] LABS: ABS Lymphocytes 0.4 10^3/ul (1.0-4.8); ABS Monocytes 0.6 10^3/ul (0-0.8); ABS Neutrophils 13.7 10^3/ul (1.5-7.7); ABS Nucleated RBC 0.1 10^3/ul; Lymphocyte % 2.8 %; Nucleated Red Blood Cells % 0.4
[2021-09-16 20:36] LABS: Hypochromasia 3+; Microcytosis 1+
[2021-09-16 20:37] LABS: Polychromasia 2+
[2021-09-16 21:47] LABS: Rapid COVID-19 Molecular Undetected (Undetected)
[2021-09-17 01:49] LABS: Hematocrit 19 % (35-47); Hemoglobin 5.6 g/dL (12.0-16.0)
[2021-09-17 01:51] LABS: Urine Appearance Clear; Urine Bilirubin Negative (Negative); Urine Blood Negative (Negative); Urine Color Yellow; Urine Glucose 3+(>=500 mg/dL) (Negative); Urine Ketones Negative (Negative); Urine Nitrite Negative (Negative); Urine Protein Negative (Negative); Urine Specific Gravity 1.013 (1.002-1.030); Urine Urobilinogen Negative (Negative)
[2021-09-17 01:58] LABS: Urine Creatinine Concentration 77.12 mg/dL
[2021-09-17 02:01] LABS: Corrected Retic Count 2.2 % (0.5-1.5); Hematocrit for Retic CNT 19 % (35-47); Immature Retic Fraction 0.58; RBC Retic Count 2.34 10^6/uL (3.70-4.87)
[2021-09-17 02:02] LABS: Venous Bicarbonate HCO3 18.3 mmol/L (24-28)
[2021-09-17 02:20] LABS: % Iron Saturation 12 % (15-55); Iron 44 ug/dL (50-212); Total Iron Binding Capacity 367 mcg/dL (250-450); Transferrin 262 mg/dL (203-362); Unsaturated Iron Binding < 352 ug/dL
[2021-09-17 02:40] LABS: Ferritin 5.4 ng/mL (11-307)
[2021-09-17 03:22] LABS: Magnesium 1.6 mg/dL (1.9-2.7); Phosphorus 4.6 mg/dL (2.5-5.0)
[2021-09-17 03:28] LABS: ABS Basophils 0.1 10^3/ul (0-0.2); ABS Lymphocytes 0.9 10^3/ul (1.0-4.8); ABS Monocytes 0.8 10^3/ul (0-0.8); ABS Neutrophils 10.4 10^3/ul (1.5-7.7); ABS Nucleated RBC 0.1 10^3/ul; Eosinophil % 0.1 %; Hematocrit 20 % (35-47); Hemoglobin 6.3 g/dL (12.0-16.0); Lymphocyte % 7.6 %; Mean Corpuscular HGB Conc 31 g/dL (31-36); Mean Corpuscular Hemoglobin 25 pg (27-31); Mean Corpuscular Volume 80 fL (80-97); Mean Platelet Volume 8.4 fL (7.4-10.4); Nucleated Red Blood Cells % 0.4; Platelet Count 239 10^3/uL (150-450); Red Blood Count 2.55 10^6 /uL (3.70-4.87); Red Cell Distribution Width 19 % (10-15); White Blood Count 12.2 10^3/uL (3.5-10.8)
[2021-09-17 03:43] LABS: Albumin 2.9 g/dL (3.2-5.2); Anion Gap 13 mmol/L (2-11); CO2 Carbon Dioxide 20 mmol/L (22-32); Calcium 7.2 mg/dL (8.6-10.3); Chloride 104 mmol/L (101-111); Potassium 4.2 mmol/L (3.5-5.0); Sodium 137 mmol/L (135-145)
[2021-09-17 03:46] LABS: Activated Partial Thrombo Time 16.6 seconds (26.0-38.0); Fibrinogen 337.9 mg/dL (110.8-404.3); INR 1.62 (0.86-1.15)
[2021-09-17 03:48] LABS: ALT 25 U/L (7-52); AST 36 U/L (13-39); Albumin/Globulin Ratio 1.5 (1-3); Alkaline Phosphatase 88 U/L (35-149); Blood Urea Nitrogen 77 mg/dL (6-24); Glucose 224 mg/dL (70-100); Total Protein 4.9 g/dL (6.4-8.9)
[2021-09-17] MEDS ORDERED: Magnesium Sulf 4 GM/100 ML IV 4,000 MG/100 ML BAG IVPB ONE (03:58)
[2021-09-17 04:40] LABS: Alcohol, S < 13 mg/dL (<13); LDH 208 U/L (140-271)
[2021-09-17 04:54] LABS: TSH Ultra Thyroid Stim Horm 1.75 mcIU/mL (0.34-5.60)
[2021-09-17 05:06] LABS: Urine Potassium Concentration 58.9 mmol/L
[2021-09-17 05:06] LABS: Vitamin B12 977 pg/mL (180-914)
[2021-09-17] MEDS ORDERED: Piperacillin/Tazobac ADVAN 3.375 GM in NS 0.9% 100 ml BAG 100 ML IV ONE (05:30)
[2021-09-17] MEDS ORDERED: Dextrose 50% Syringe 50 ml 25 GM/50 ML SYRINGE IV PUSH PRN (05:31)
[2021-09-17 05:40] LABS: Urine Benzodiazepine Screen None Detected (None Detect); Urine Cannabinoids Screen None Detected (None Detect); Urine Opiates Screen Presumptive Positive (None Detect)
[2021-09-17] MEDS ORDERED: Zosyn per Pharmacy NOTE FOLLOW UP SCH (06:00)
[2021-09-17 06:40] LABS: Troponin I 0.01 ng/mL (<0.03)
[2021-09-17 07:48] LABS: Erythrocyte Sed Rate 10 mm/Hr (0-29)
[2021-09-17] MEDS ORDERED: Pantoprazole VIAL 40 MG VIAL IV SCH ×2 (09:00)
[2021-09-17 10:23] LABS: Hematocrit 24 % (35-47); Hemoglobin 7.4 g/dL (12.0-16.0)
[2021-09-17] MEDS ORDERED: ZOSYN 3.375 GM Q8H per EXTENDED INFUSION IV SCH ×2 (10:30→11:00)
[2021-09-17] MEDS ORDERED: Perflutren Lipid Microsphere 3 ML VIAL ONE (13:24)
[2021-09-17] MEDS ORDERED: fentaNYL 100 mcg/2 ml 50 MCG/ML VIAL ONE (15:13)
[2021-09-17] MEDS ORDERED: Midazolam 10 mg/10 ml VIAL 1 mg/ml 10 ml VIAL (10 mg) ONE (15:13)
[2021-09-17] MEDS: Nystatin TOP POWDER 15 GM BTL TOPICAL SCH ×2 (16:38→21:18)
[2021-09-18] MEDS ORDERED: Iron Sucrose 200 MG in NS 0.9% 100 ml BAG 100 ML IVPB ONE (08:45)
[2021-09-18] MEDS: Nystatin TOP POWDER 15 GM BTL TOPICAL SCH ×3 (10:16→22:00)
[2021-09-18 10:52] LABS: INR 1.12 (0.86-1.15)
[2021-09-18 10:56] LABS: ABS Eosinophils 0.1 10^3/ul (0-0.6); ABS Lymphocytes 1.2 10^3/ul (1.0-4.8); ABS Monocytes 0.5 10^3/ul (0-0.8); ABS Neutrophils 5.4 10^3/ul (1.5-7.7); Eosinophil % 0.7 %; Hematocrit 23 % (35-47); Hemoglobin 7.3 g/dL (12.0-16.0); Lymphocyte % 16.9 %; Mean Corpuscular HGB Conc 32 g/dL (31-36); Mean Corpuscular Hemoglobin 26 pg (27-31); Mean Corpuscular Volume 82 fL (80-97); Mean Platelet Volume 8.3 fL (7.4-10.4); Nucleated Red Blood Cells % 0.5; Platelet Count 224 10^3/uL (150-450); Red Blood Count 2.81 10^6 /uL (3.70-4.87); Red Cell Distribution Width 18 % (10-15); White Blood Count 7.1 10^3/uL (3.5-10.8)
[2021-09-18 11:05] LABS: Calcium 7.7 mg/dL (8.6-10.3); Phosphorus 2.7 mg/dL (2.5-5.0); Potassium 3.6 mmol/L (3.5-5.0)
[2021-09-18 20:04] LABS: ABS Lymphocytes 1.2 10^3/ul (1.0-4.8); ABS Monocytes 0.7 10^3/ul (0-0.8); ABS Neutrophils 6.7 10^3/ul (1.5-7.7); Eosinophil % 0.3 %; Hematocrit 23 % (35-47); Hemoglobin 7.1 g/dL (12.0-16.0); Lymphocyte % 14.2 %; Mean Corpuscular HGB Conc 31 g/dL (31-36); Mean Corpuscular Hemoglobin 26 pg (27-31); Mean Corpuscular Volume 81 fL (80-97); Nucleated Red Blood Cells % 0.5; Platelet Count 224 10^3/uL (150-450); Red Blood Count 2.78 10^6 /uL (3.70-4.87); Red Cell Distribution Width 19 % (10-15); White Blood Count 8.7 10^3/uL (3.5-10.8)
[2021-09-18 20:37] LABS: Activated Partial Thrombo Time 25.5 seconds (26.0-38.0); INR 1.05 (0.86-1.15)
[2021-09-18] MEDS: Heparin 5000 UNITS/ML 1 mL VIAL SUBCUT SCH (21:59)
[2021-09-18] MEDS: Insulin GLARGINE 100 un/ml 10 ml VIAL SUBCUT SCH (21:59)
[2021-09-19 06:12] LABS: ABS Eosinophils 0.1 10^3/ul (0-0.6); ABS Lymphocytes 1.9 10^3/ul (1.0-4.8); ABS Monocytes 0.5 10^3/ul (0-0.8); ABS Nucleated RBC 0.1 10^3/ul; Hematocrit 22 % (35-47); Hemoglobin 6.7 g/dL (12.0-16.0); Lymphocyte % 29.5 %; Mean Corpuscular HGB Conc 31 g/dL (31-36); Mean Corpuscular Hemoglobin 25 pg (27-31); Mean Corpuscular Volume 82 fL (80-97); Mean Platelet Volume 8.1 fL (7.4-10.4); Nucleated Red Blood Cells % 0.9; Platelet Count 204 10^3/uL (150-450); Red Blood Count 2.63 10^6 /uL (3.70-4.87); Red Cell Distribution Width 19 % (10-15); White Blood Count 6.5 10^3/uL (3.5-10.8)
[2021-09-19 06:28] LABS: Calcium 7.7 mg/dL (8.6-10.3); Potassium 3.6 mmol/L (3.5-5.0)
[2021-09-19] MEDS: Heparin 5000 UNITS/ML 1 mL VIAL SUBCUT SCH ×2 (07:48→20:54)
[2021-09-19] MEDS: Nystatin TOP POWDER 15 GM BTL TOPICAL SCH ×4 (07:49→21:00)
[2021-09-19] MEDS ORDERED: Potassium Chlor 20 meq TAB.ER PO ONE (08:08)
[2021-09-19] MEDS: Iron Sucrose 200 MG in NS 0.9% 100 ml BAG 100 ML IVPB SCH (10:42)
[2021-09-19] MEDS ORDERED: Magnesium Hydroxide LIQ 30 ML UDC PO PRN (14:55)
[2021-09-19] MEDS ORDERED: Lidocaine PATCH 5% PATCH TRANSDERM PRN (17:40)
[2021-09-19] MEDS: Insulin GLARGINE 100 un/ml 10 ml VIAL SUBCUT SCH (20:55)
[2021-09-20] MEDS: Lidocaine Patch REMOVE PATCH PATCH OFF SCH ×2 (00:56→21:46)
[2021-09-20 08:18] LABS: Hematocrit 25 % (35-47); Mean Corpuscular HGB Conc 32 g/dL (31-36); Mean Corpuscular Hemoglobin 26 pg (27-31); Mean Corpuscular Volume 82 fL (80-97); Mean Platelet Volume 7.8 fL (7.4-10.4); Platelet Count 185 10^3/uL (150-450); Red Blood Count 3.04 10^6 /uL (3.70-4.87); Red Cell Distribution Width 19 % (10-15); White Blood Count 7.1 10^3/uL (3.5-10.8)
[2021-09-20 08:35] LABS: Calcium 7.7 mg/dL (8.6-10.3); Magnesium 2.5 mg/dL (1.9-2.7)
[2021-09-20 08:44] LABS: ABS Eosinophils 0.1 10^3/ul (0-0.6); ABS Lymphocytes 1.7 10^3/ul (1.0-4.8); ABS Monocytes 0.6 10^3/ul (0-0.8); ABS Neutrophils 4.7 10^3/ul (1.5-7.7); ABS Nucleated RBC 0.1 10^3/ul; Eosinophil % 1.5 %; Lymphocyte % 24.5 %; Nucleated Red Blood Cells % 0.7
[2021-09-20 08:45] LABS: Polychromasia 2+
[2021-09-20] MEDS: Heparin 5000 UNITS/ML 1 mL VIAL SUBCUT SCH ×2 (08:51→20:26)
[2021-09-20] MEDS: Nystatin TOP POWDER 15 GM BTL TOPICAL SCH ×3 (08:53→20:27)
[2021-09-20] MEDS: Iron Sucrose 200 MG in NS 0.9% 100 ml BAG 100 ML IVPB SCH (09:15)
[2021-09-20 12:52] LABS: Hematocrit 28 % (35-47); Hemoglobin 8.9 g/dL (12.0-16.0)
[2021-09-20] MEDS: Insulin GLARGINE 100 un/ml 10 ml VIAL SUBCUT SCH (20:25)
[2021-09-21 05:39] LABS: Hematocrit 27 % (35-47); Hemoglobin 8.4 g/dL (12.0-16.0); Mean Corpuscular HGB Conc 31 g/dL (31-36); Mean Corpuscular Hemoglobin 27 pg (27-31); Mean Corpuscular Volume 86 fL (80-97); Mean Platelet Volume 8.5 fL (7.4-10.4); Platelet Count 193 10^3/uL (150-450); Red Blood Count 3.12 10^6 /uL (3.70-4.87); Red Cell Distribution Width 19 % (10-15); White Blood Count 8.1 10^3/uL (3.5-10.8)
[2021-09-21 06:03] LABS: ABS Eosinophils 0.1 10^3/ul (0-0.6); ABS Lymphocytes 1.9 10^3/ul (1.0-4.8); ABS Monocytes 0.7 10^3/ul (0-0.8); ABS Neutrophils 5.4 10^3/ul (1.5-7.7); Eosinophil % 1.5 %; Nucleated Red Blood Cells % 0.5
[2021-09-21] MEDS ORDERED: Ondansetron 4 mg VIAL 2 MG/ML 2 ml VIAL IV PRN (10:27)
[2021-09-21] MEDS: Heparin 5000 UNITS/ML 1 mL VIAL SUBCUT SCH (11:27)
[2021-09-21] MEDS: Nystatin TOP POWDER 15 GM BTL TOPICAL SCH ×2 (11:29→17:08)
[2021-09-21] MEDS ORDERED: Iron Sucrose 200 MG in NS 0.9% 100 ml BAG 100 ML IVPB ONE (14:00)
[2021-09-21 17:10] VITALS: BP 135/75
== END 2021-09-21 18:00 | disposition home or self-care (01) | DRG 811 ==
LOC: ED 18:18 → SUATTDRO 09-17 02:55 → EDHOLD 09-17 02:55 → ICU 09-17 05:42 → MEDTELE 09-17 18:29
PROVIDERS: ADMIT Internal Medicine; ATTEND Hospitalist